=== PATIENT | male | born 1960 | race Caucasian/White ===

== ENCOUNTER 2017-02-25 15:25 | Emergency (ER) | payer BC ==
[~2017-02-25] VITALS: Ht 162.6 cm; Wt 115.7 kg
[2017-02-25 15:35] VITALS: TEMP 36.6; Ht 162.6 cm; Wt 115.7 kg
[2017-02-25] MEDS ORDERED: OPTIRAY 320 IV PRN (16:45)
[2017-02-25] MEDS ORDERED: SODIUM CHLORIDE 0.9% 500ML 500 ML IV STA (16:49)
[2017-02-25] MEDS ORDERED: TRIA75TA PO (16:58)
[2017-02-25] MEDS ORDERED: CEPH500C2 PO (16:58)
[2017-02-25] MEDS ORDERED: ALBUT/IPRATROP 3MG/0.5MG NEB 3 ML VIAL INH ONE (17:00)
--- NOTE | 2017-02-25 17:02 | EMERGENCY ROOM VISIT NOTE ---
History Report prepared by Abby: Ruthann Pratt Under the Supervision of: Dr. Jaya De Luna M.D. First contact with patient: 16:36 Chief Complaint: LEG PAIN,LEG INJURY Stated Complaint: BLOOD CLOT IN LEFT LEG History of Present Illness The patient is a 56 year old male who presents to the Emergency Room with complaints of worsening left lower leg pain for the past two days. He fell two days ago and states that when he went to stand up he heard a crack. He is not sure what cracked, but states that after this is when he started to develop left leg pain. The patient saw his PCP today and had an ultrasound as an outpatient. The ultrasound showed a DVT in the left leg. His PCP called him with the results and told him to come to the ED for further evaluation. The patient rates his current pain as an 8/10 in severity. He denies any personal history of blood clots. He does not take any blood thinners. The patient denies feeling short of breath or having any chest pain. He has been able to ambulate normally. Source of History: patient Onset: 2 days ago Position: leg (left) Symptom Intensity: 8/10 Timing: worsening Modifying Factors (Worsening): other (recent fall) Associated Symptoms: No chest pain, No SOB Review of Systems See HPI for pertinent positives & negatives. A total of 10 systems reviewed and were otherwise negative. Past Medical & Surgical Medical Problems: (1) No significant active problems Family History Cancer Heart disease Lung disease Social History Smoking Status: Current Every Day Smoker Alcohol Use: occasionally Marital Status: Housing Status: lives with significant other Occupation Status: employed Current/Historical Medications Scheduled Cephalexin Monohydrate (Keflex), 500 MG PO TID Enoxaparin (Lovenox), 120 MG SQ Q12H Triamterene & Hydrochlorothiaz (Hctz/Triamterene), 1 TAB PO DAILY Warfarin Sodium (Coumadin), 5 MG PO DAILY Allergies Coded Allergies: No Known Allergies (Unverified , 02/25/17) Physical Exam Vital Signs Date Time Temp Pulse Resp B/P (MAP) Pulse Ox O2 Delivery O2 Flow Rate FiO2 02/25/17 19:52 99 18 126/90 92 Room Air 02/25/17 19:00 101 14 155/96 95 02/25/17 17:56 94 18 94 Room Air 02/25/17 17:39 92 Room Air 02/25/17 17:39 92 Room Air 02/25/17 17:30 94 14 155/99 92 Room Air 02/25/17 16:55 95 02/25/17 15:35 36.6 98 20 139/94 90 Room Air Physical Exam GENERAL: Patient is a healthy-appearing well-nourished male. Ethan complexion. HEAD: Normocephalic atraumatic EYES: Ocular movements intact pupils equal and react to light OROPHARYNX mucous membranes are moist no exudates present no erythema or edema present NECK: Supple no nuchal rigidity CHEST: Good equal expansion LUNGS: Clear and equal to auscultation CARDIAC: Normal S1 and S2 ABDOMEN: Soft nontender no guarding BACK: No CVA tenderness EXTREMITIES: He has bilateral swelling present to the legs, slight tenderness to the left calf. NEURO: Patient is following commands and answering questions appropriately. Alert and oriented x3 Cranial Nerves 2-12 grossly intact Medical Decision & Procedures ER Provider Diagnostic Interpretation: Radiology results as stated below per my review and radiologist interpretation: CHEST CTA for PULMONARY ARTERIES CT DOSE: 695.57 mGy.cm HISTORY: DVT. Hypoxia. TECHNIQUE: Multiaxial CT images of the chest were performed following the intravenous administration of contrast to evaluate the pulmonary arteries. Maximal intensity projection images were also obtained. COMPARISON STUDY: None. FINDINGS: No evidence for an aortic dissection. The main and lobar pulmonary arteries are patent. The majority of the segmental and subsegmental pulmonary arteries are nondiagnostic due to the motion artifact. However, there is a single filling defect seen within a segmental right upper lobe pulmonary artery on image 214. This is consistent with a pulmonary embolus. The heart is mildly enlarged. No pleural or pericardial effusions. Mild biapical scarlike densities. No pneumothorax. No focal lung consolidations to suggest pneumonia. Mild respiratory motion artifact results in suboptimal evaluation of the lungs. Old, healed left-sided rib fractures. The visualized liver, spleen, and adrenal glands are unremarkable. No mediastinal or hilar lymphadenopathy. IMPRESSION: 1. A single pulmonary embolus involving a segmental branch of the right upper lobe. 2. Mild cardiomegaly. Electronically signed by: Artie Wilkinson M.D. 02/25/2017 5:36 PM Dictated Date/Time: 02/25/2017 5:30 PM LEFT TIBIA/FIBULA 2 VIEWS ROUTINE CLINICAL HISTORY: Pt c/o leg pain COMPARISON STUDY: None. FINDINGS: No acute fracture or dislocation within the left tibia or fibula. Deformity within the distal shafts of the left tibia and fibula may be due to old, healed fractures or possibly small osteochondromas. There is also exophytic/pedunculated bony abnormalities within the proximal tibia and fibula which measure up to 8.4 cm in size. These also favor osteochondromas. Mild diffuse soft tissue swelling. IMPRESSION: 1. No acute fracture or dislocation within the left tibia or fibula. 2. Exophytic/pedunculated bony abnormalities within the proximal tibia and fibula which measure up to 8.4 cm in size. These favor osteochondromas. Comparison to old studies would be helpful to assess for stability. 3. Mild deformity within the distal shaft of the left tibia and fibula which may also represent small osteochondromas versus old, healed fractures. Electronically signed by: Artie Wilkinson M.D. 02/25/2017 5:42 PM Dictated Date/Time: 02/25/2017 5:39 PM Laboratory Results 02/25/17 16:55 Red Blood Count 5.70, Mean Corpuscular Volume 100.7, Mean Corpuscular Hemoglobin 35.6, Mean Corpuscular Hemoglobin Concent 35.4, Mean Platelet Volume 12.1, Neutrophils (%) (Auto) 79.4, Lymphocytes (%) (Auto) 9.3, Monocytes (%) ( Auto) 9.0, Eosinophils (%) (Auto) 1.9, Basophils (%) (Auto) 0.2, Neutrophils # ( Auto) 10.30, Lymphocytes # (Auto) 1.20, Monocytes # (Auto) 1.17, Eosinophils # ( Auto) 0.24, Basophils # (Auto) 0.02 02/25/17 16:55 Test 02/25/17 16:55 02/25/17 17:09 02/25/17 17:42 White Blood Count 12.96 K/uL (4.8-10.8) Red Blood Count 5.70 M/uL (4.7-6.1) Hemoglobin 20.3 g/dL (14.0-18.0) Hematocrit 57.4 % (42-52) Mean Corpuscular Volume 100.7 fL (80-100) Mean Corpuscular Hemoglobin 35.6 pg (25-34) Mean Corpuscular Hemoglobin Concent 35.4 g/dl (32-36) Platelet Count 134 K/uL (130-400) Mean Platelet Volume 12.1 fL (7.4-10.4) Neutrophils (%) (Auto) 79.4 % Lymphocytes (%) (Auto) 9.3 % Monocytes (%) (Auto) 9.0 % Eosinophils (%) (Auto) 1.9 % Basophils (%) (Auto) 0.2 % Neutrophils # (Auto) 10.30 K/uL (1.4-6.5) Lymphocytes # (Auto) 1.20 K/uL (1.2-3.4) Monocytes # (Auto) 1.17 K/uL (0.11-0.59) Eosinophils # (Auto) 0.24 K/uL (0-0.5) Basophils # (Auto) 0.02 K/uL (0-0.2) RDW Standard Deviation 54.9 fL (36.4-46.3) RDW Coefficient of Variation 14.7 % (11.5-14.5) Immature Granulocyte % (Auto) 0.2 % Immature Granulocyte # (Auto) 0.03 K/uL (0.00-0.02) Red Blood Cell Morphology Unremarkable Prothrombin Time 11.3 SECONDS (9.0-12.0) Prothromb Time International Ratio 1.1 (0.9-1.1) Activated Partial Thromboplast Time 27.9 SECONDS (21.0-31.0) Partial Thromboplastin Ratio 1.1 Est Creatinine Clear Calc Drug Dose 133.9 ml/min Estimated GFR () 121.9 Estimated GFR (Non- 105.2 BUN/Creatinine Ratio 12.2 (10-20) Calcium Level 8.9 mg/dl (8.5-10.1) Total Bilirubin 1.2 mg/dl (0.2-1) Aspartate Amino Transf (AST/SGOT) 13 U/L (15-37) Alanine Aminotransferase (ALT/SGPT) 25 U/L (12-78) Alkaline Phosphatase 89 U/L (45-117) Total Protein 7.5 gm/dl (6.4-8.2) Albumin 3.4 gm/dl (3.4-5.0) Globulin 4.1 gm/dl (2.5-4.0) Albumin/Globulin Ratio 0.8 (0.9-2) Bedside Hemoglobin 21.1 g/dl (14.0-18.0) Bedside Hematocrit 62 % (42-52) Bedside Sodium 138 mEq/L (135-144) Bedside Potassium 4.3 mEq/L (3.3-5.0) Bedside Chloride 94 mEq/L (101-112) Bedside Total CO2 31 mEq/l (24-31) Anion Gap 19.0 mmol/L (16-25) Bedside Blood Urea Nitrogen 10 mg/dl (7-18) Bedside Creatinine 0.7 mg/dl (0.6-1.3) Bedside Glucose (other) 95 mg/dl (70-99) Bedside Ionized Calcium (Andrews) 1.15 mmol/l (1.12-1.32) Labs reviewed by ED physician. Medications Administered Medications (Trade) Dose Ordered Sig/Terrie Route Start Time Stop Time Status Last Admin Dose Admin Sodium Chloride 500 ml @ 999 mls/hr Q31M STAT IV 02/25/17 16:49 02/25/17 17:19 DC 02/25/17 16:49 999 MLS/HR Albuterol/ Ipratropium (Duoneb) 12 ml ONE ONCE INH 02/25/17 17:00 02/25/17 17:01 DC 02/25/17 17:55 12 ML Nicotine (Nicoderm Cq 21MG Patch) 1 patch NOW STAT TD 02/25/17 17:45 02/25/17 17:46 DC 02/25/17 19:10 1 PATCH Nicotine Polacrilex (Nicorette 2MG Gum) 1 piece NOW STAT MT 02/25/17 17:45 02/25/17 17:46 DC 02/25/17 19:10 1 PIECE Enoxaparin Sodium (Lovenox 1 Mg/Kg) 1 ea Q12H STAT SQ 02/25/17 17:57 02/25/17 17:58 DC 02/25/17 17:57 1 EA Miscellaneous (Lovenox Teaching Kit) 1 ea PRN STAT N/A 02/25/17 17:57 02/25/17 17:58 DC 02/25/17 17:57 1 EA Warfarin Sodium (Coumadin Tab) 10 mg NOW STAT PO 02/25/17 17:57 02/25/17 17:58 DC 02/25/17 19:10 10 MG Enoxaparin Sodium (Lovenox Inj) 120 mg TODAY@1930 SQ 02/25/17 19:30 02/25/17 21:12 DC 02/25/17 19:30 120 MG ECG Indication: other Rate (beats per minute): 97 Rhythm: normal sinus Findings: no acute ischemic change, no ectopy, other (old septal infarct) ED Course 163: Past medical records reviewed. The patient was evaluated in room B5. A complete history and physical examination was performed. 164: NSS 500 ml @ 999 mls/hr IV 1700: DuoNeb 12 ml INH 174: I spoke with Dr. Baker of hematology/oncology. We discussed the patient's case and he recommended other further testing. 1744: Nicorette gum 2mg 1 piece MT, Nicotine 1 patch TD 175: I reassessed the patient at this time. I discussed the results and treatment plan with the patient and his . I answered all pertaining questions that they had. Despite strenuous recommendation he is leaving AMA. He wants an appointment with Dr. Baker. I stressed that he also needed an appointment with cardiology. 1756: Coumadin tab 10 mg PO, Lovenox teaching kit, Lovenox 1 mg/kg SQ Medical Decision Differential diagnosis: Etiologies such as DVT, musculoskeletal, infection, joint effusion, trauma, lymphedema, idiopathic, CHF, as well as others were entertained. Medication Reconciliation: I attest that I have personally reviewed the patient' s current medication list. Blood Pressure Screening: Patient was found to have an elevated blood pressure and was referred to their primary care doctor for recheck and further treatment. This is a 56-year-old male who presents emergency department complaining of a positive ultrasound for DVT. Upon arrival to the emergency department and will note the patient was hypoxic and tachycardic. Therefore an IV was established. It was immediately noted the patient's hematocrit and hemoglobin are grossly elevated. He was sent for CAT scan of the chest which was concerning for PE. I also stressed the strongly suspect that the patient has had an OK in the past based on his EKG. Based on all of these findings I strongly recommended to the patient that he be admitted to the hospital however he is going to sign out AGAINST MEDICAL ADVICE. He was started on Lovenox shots as well as Coumadin the emergency department. He was also given a fluid bolus. I did discuss his case with case management to try get him in with cardiology as well as hematology. He was also referred to the Coumadin clinic. I also recommended that the patient stop smoking. The patient has demonstrated no significant defect in the decision-making capacity to make choices. The encounter had a good level of communication with language the patient can easily understand. I feel trust was present and conveyed that our action/intentions were the best interest of the patient. The patient was given all relevant information and reiterated the explained risks and benefits. The patient explained the reasoning for refusing treatment clearly. The patient possesses and expresses a set of values and goals, the ability to communicate and understand, and an ability to reason and deliberate. Despite acting emphatically, attentively and with the utmost patient's the patient declined further treatment. I offered options, negotiated, and explored every reasonable choice. I must respect the patient's autonomy and that they feel that their choices are best for them despite the associated risks of leaving without completing the evaluation. The patient was informed about the findings as listed above. All questions were answered and he was pleased with the treatment. Return instructions were outlined and the patient was discharged in stable condition. Consults Time Called: 1732 Consulting Physician: Dr. Baker Returned Call: [address] Baker of hematology/oncology. We discussed the patient's case and he recommended other further testing. Impression Primary Impression: DVT (deep venous thrombosis) Additional Impressions: Polycythemia vera Pulmonary embolus Scribe Attestation The scribe's documentation has been prepared under my direction and personally reviewed by me in its entirety. I confirm that the note above accurately reflects all work, treatment, procedures, and medical decision making performed by me. Departure Information Dispostion Against Medical Advice Prescriptions Warfarin Sodium (COUMADIN) 5 Mg Tab 5 MG PO DAILY for 14 Days, #14 TAB Prov: Jaya De Luna MD 02/25/17 Enoxaparin (Lovenox) 120 Mg/0.8 Ml Inj 120 MG SQ Q12H for 5 Days, #10 SYR Prov: Jaya De Luna MD 02/25/17 Referrals Tanya Slater C.R.N.Mary (PCP) Sadi Murphy M.D. Lieb, James V. D.O. Forms HOME CARE DOCUMENTATION FORM, IMPORTANT VISIT INFORMATION Patient Instructions Coumadin, Embolism Pulmonary, Embolism Pulmonary Dc, Hematocrit, Hemoglobin, My [facility], Tips Cardiovascular Quit Smoking Additional Instructions NEED FOLLOW UP WITH THE FOLLOWING: Coumadin Clinic Cardiology (Dr Murphy) Hematology (Dr Baker) You have been examined and treated today on an emergency basis only. This is not a substitute for, or an effort to provide, complete comprehensive medical care. It is impossible to recognize and treat all injuries or illnesses in a single emergency department visit. It is therefore important that you follow up closely with Dr Slater. Call as soon as possible for an appointment. Thank you for your time and consideration. I look forward to speaking with you again soon. Please don't hesitate to call us if you have any questions. Problem Qualifiers Primary Impression: DVT (deep venous thrombosis) DVT location: lower extremity Affected thrombotic vein of extremity: unspecified lower extremity proximal vein Chronicity: acute Laterality: left Qualified Codes: I82.4Y2 - Acute embolism and thrombosis of unspecified deep veins of left proximal lower extremity Additional Impressions: Pulmonary embolus Pulmonary embolism type: other Chronicity: acute Acute cor pulmonale presence: without acute cor pulmonale Qualified Codes: I26.99 - Other pulmonary embolism without acute cor pulmonale
[2017-02-25 17:17] LABS: BASO % 0.2 %; BASO ABS # 0.02 K/uL (0-0.2); EOS % 1.9 %; HEMATOCRIT 57.4 % (42-52); IG% 0.2 %; LYMPH % 9.3 %; MEAN CELL VOLUME 100.7 fL (80-100); MEAN CORPUSCULAR HEMOGLOBIN 35.6 pg (25-34); MEAN CORPUSCULAR HGB CONC 35.4 g/dl (32-36); MEAN PLATELET VOLUME 12.1 fL (7.4-10.4); NEUT % 79.4 %; PLATELET COUNT 134 K/uL (130-400); WHITE BLOOD COUNT 12.96 K/uL (4.8-10.8)
[2017-02-25 17:22] LABS: ISTAT CREATININE 0.7 mg/dl (0.6-1.3); ISTAT HEMOGLOBIN 21.1 g/dl (14.0-18.0); ISTAT IONIZED CALCIUM 1.15 mmol/l (1.12-1.32)
[2017-02-25 17:28] LABS: INR 1.1 (0.9-1.1); PARTIAL THROMBOPLASTIN RATIO 1.1; PROTHROMBIN TIME (PATIENT) 11.3 SECONDS (9.0-12.0)
--- NOTE | 2017-02-25 17:37 | DIAGNOSTIC IMAGING REPORT ---
CHEST CTA for PULMONARY ARTERIES CT DOSE: 695.57 mGy.cm HISTORY: DVT. Hypoxia. TECHNIQUE: Multiaxial CT images of the chest were performed following the intravenous administration of contrast to evaluate the pulmonary arteries. Maximal intensity projection images were also obtained. COMPARISON STUDY: None. FINDINGS: No evidence for an aortic dissection. The main and lobar pulmonary arteries are patent. The majority of the segmental and subsegmental pulmonary arteries are nondiagnostic due to the motion artifact. However, there is a single filling defect seen within a segmental right upper lobe pulmonary artery on image 214. This is consistent with a pulmonary embolus. The heart is mildly enlarged. No pleural or pericardial effusions. Mild biapical scarlike densities. No pneumothorax. No focal lung consolidations to suggest pneumonia. Mild respiratory motion artifact results in suboptimal evaluation of the lungs. Old, healed left-sided rib fractures. The visualized liver, spleen, and adrenal glands are unremarkable. No mediastinal or hilar lymphadenopathy. IMPRESSION: 1. A single pulmonary embolus involving a segmental branch of the right upper lobe. 2. Mild cardiomegaly. Electronically signed by: Artie Wilkinson M.D. 02/25/2017 5:36 PM Dictated Date/Time: 02/25/2017 5:30 PM
[2017-02-25 17:39] VITALS: O2SAT 92
[2017-02-25 17:43] LABS: BUN/CREATININE RATIO 12.2 (10-20); CALCIUM 8.9 mg/dl (8.5-10.1); CREATININE 0.73 mg/dl (0.60-1.40); POTASSIUM 4.3 mmol/L (3.5-5.1)
--- NOTE | 2017-02-25 17:43 | DIAGNOSTIC IMAGING REPORT ---
LEFT TIBIA/FIBULA 2 VIEWS ROUTINE CLINICAL HISTORY: Pt c/o leg pain COMPARISON STUDY: None. FINDINGS: No acute fracture or dislocation within the left tibia or fibula. Deformity within the distal shafts of the left tibia and fibula may be due to old, healed fractures or possibly small osteochondromas. There is also exophytic/pedunculated bony abnormalities within the proximal tibia and fibula which measure up to 8.4 cm in size. These also favor osteochondromas. Mild diffuse soft tissue swelling. IMPRESSION: 1. No acute fracture or dislocation within the left tibia or fibula. 2. Exophytic/pedunculated bony abnormalities within the proximal tibia and fibula which measure up to 8.4 cm in size. These favor osteochondromas. Comparison to old studies would be helpful to assess for stability. 3. Mild deformity within the distal shaft of the left tibia and fibula which may also represent small osteochondromas versus old, healed fractures. Electronically signed by: Artie Wilkinson M.D. 02/25/2017 5:42 PM Dictated Date/Time: 02/25/2017 5:39 PM
[2017-02-25 17:44] LABS: COMPLETE YES
[2017-02-25] MEDS ORDERED: NICOTINE 21 MG/24 HR TDSY TD STA (17:45)
[2017-02-25] MEDS ORDERED: NICOTINE POLACRILEX 2 MG GUM MT STA (17:45)
[2017-02-25 17:46] LABS: ALB/GLOB RATIO 0.8 (0.9-2)
[2017-02-25 17:56] VITALS: PULSE 94; O2SAT 94
[2017-02-25] MEDS ORDERED: LOVENOX TEACHING KIT STA (17:57)
[2017-02-25] MEDS ORDERED: WARFARIN SOD 5 MG TAB PO STA (17:57)
[2017-02-25] MEDS ORDERED: ENOXAPARIN 1 MG/KG SQ STA (17:57)
[2017-02-25] MEDS ORDERED: WARF5TAB90 PO ×2 (18:05→18:06)
[2017-02-25] MEDS ORDERED: ENOX120I SQ (18:05)
[2017-02-25] MEDS ORDERED: ENOXAPARIN 120 MG/0.8 ML SYR SQ SCH (19:30)
[2017-02-25 19:52] VITALS: BP 126/90; PULSE 99; O2SAT 92
[2017-03-02 15:43] LABS: ANTITHROMBINIII ACTIVITY** 87 % activity (80-120); B2 GLYCOPROTEIN IGA <9 SAU (<=20); B2 GLYCOPROTEIN IGG <9 SGU (<=20); B2 GLYCOPROTEIN IGM <9 SMU (<=20); LUPUS ANTICOAGULANT** TC36573X Negative (Negative); PROTEIN C ACTIVITY** TC 1777X 96 % (70-180); PROTEIN S ACT(FUNCT)**1779X 96 % (70-150)
[2017-03-12] MEDS ORDERED: ASPI1CHW12 PO (09:31)
[2017-03-12] MEDS ORDERED: NICO14DI31 TD (11:36)
[2017-03-26] MEDS ORDERED: WARF4TAB PO ×2 (09:30)
[2017-08-07] MEDS ORDERED: ASPI-428 PO (07:49)
== END 2017-02-25 20:00 | disposition left against medical advice (07) ==
LOC: C.EDB 15:27
DX: I82.4Z2 Acute embolism and thrombosis of unspecified deep veins of left distal lower extremity (principal); D45 Polycythemia vera; I26.99 Other pulmonary embolism without acute cor pulmonale; Z91.19 Patient's noncompliance with other medical treatment and regimen; F17.200 Nicotine dependence, unspecified, uncomplicated; Z79.01 Long term (current) use of anticoagulants; Z79.899 Other long term (current) drug therapy; Z80.9 Family history of malignant neoplasm, unspecified; Z82.49 Family history of ischemic heart disease and other diseases of the circulatory system

== ENCOUNTER → 2017-02-25 | Outpatient (CLI) | payer BC ==
[~2017-02-25] MED LIST: ASPI-428 PO; ASPI1CHW12 PO; CEPH500C2 PO; ENOX120I SQ; NICO14DI31 TD; TRIA75TA PO; WARF4TAB PO; WARF5TAB90 PO
[2017-02-25 13:38] LABS: INR 1.1 (0.9-1.1); PARTIAL THROMBOPLASTIN RATIO 1.1; PROTHROMBIN TIME (PATIENT) 11.3 SECONDS (9.0-12.0)
[2017-02-25 13:46] LABS: HEMATOCRIT 59.6 % (42-52); MEAN CELL VOLUME 101.7 fL (80-100); MEAN CORPUSCULAR HEMOGLOBIN 35.7 pg (25-34); MEAN CORPUSCULAR HGB CONC 35.1 g/dl (32-36); MEAN PLATELET VOLUME 13.2 fL (7.4-10.4); PLATELET COUNT 119 K/uL (130-400); RED BLOOD COUNT 5.86 M/uL (4.7-6.1); WHITE BLOOD COUNT 10.87 K/uL (4.8-10.8)
[2017-02-25 14:19] LABS: BLOOD UREA NITROGEN 10 mg/dl (7-18); BUN/CREATININE RATIO 14.1 (10-20); CARBON DIOXIDE 33 mmol/L (21-32); CHLORIDE 99 mmol/L (98-107); CREATININE 0.73 mg/dl (0.60-1.40); GLUCOSE 97 mg/dl (70-99); POTASSIUM 4.7 mmol/L (3.5-5.1); SODIUM 138 mmol/L (136-145)
== END | disposition home or self-care (01) ==
LOC: C.LABPVFM 10:52
PROVIDERS: ATTEND Family Medicine
DX: R60.9 Edema, unspecified (principal); L03.90 Cellulitis, unspecified

== ENCOUNTER → 2017-02-25 | Outpatient (CLI) | payer BC ==
--- NOTE | 2017-02-25 14:48 | DIAGNOSTIC IMAGING REPORT ---
ULTRASOUND BILATERAL LOWER EXTREMITY VENOUS CLINICAL HISTORY: Lower extremity pain and swelling. COMPARISON STUDY: No priors. TECHNIQUE: Real-time, grayscale, and color Doppler sonography of the deep veins of the right and left lower extremity was performed from the inguinal crease to the calf. Compression and augmentation were utilized. FINDINGS: Right lower extremity: There is no sonographic evidence of deep venous thrombosis identified in the right lower extremity. The common femoral, superficial femoral, and popliteal veins are patent and normally compressible. The greater saphenous vein and the profunda femoris vein at the junction with the common femoral vein are clear. The visualized calf veins are patent. Left lower extremity: There is age indeterminant nonocclusive deep venous thrombosis is seen within the left popliteal vein. The common femoral and superficial femoral veins are patent and normally compressible. The greater saphenous vein and the profunda femoris vein at the junction with the common femoral vein are clear. The visualized calf veins are patent. IMPRESSION: 1. There is age indeterminant nonocclusive deep venous thrombosis seen within the left popliteal vein. 2. The remaining deep veins of the left lower extremity are clear. 3. There is no sonographic evidence of deep venous thrombosis identified in the right lower extremity. Electronically signed by: Regulo Platt M.D. 02/25/2017 2:47 PM Dictated Date/Time: 02/25/2017 2:42 PM
--- NOTE | 2017-02-25 15:28 | DIAGNOSTIC IMAGING REPORT ---
ADDENDUM Addendum: TECHNIQUE: Real-time lujan scale imaging, was supplemented with real-time color-flow imaging. In addition, spectral analysis was performed. Color flow and spectral images were unremarkable. IMPRESSION: No change in the report. No IVC or iliac vein thrombus was visualized. Electronically signed by: Joey Stringer M.D. 03/19/2017 1:57 PM Dictated Date/Time: 03/19/2017 1:55 PM ORIGINAL REPORT INFERIOR VENA CAVA AND ILIAC VENOUS DOPPLER ULTRASOUND CLINICAL HISTORY: CELLULITIS,EDEMA,LEG PAIN, COMPARISON STUDY: No previous studies for comparison. FINDINGS: The study was limited due to the patient's body habitus. No thrombus was visualized within either iliac vein. No IVC thrombus was demonstrated. IMPRESSION: Technically limited study due to the patient's body habitus. No IVC or iliac vein thrombus was visualized Electronically signed by: Joey Stringer M.D. 02/25/2017 3:26 PM Dictated Date/Time: 02/25/2017 3:24 PM
== END | disposition home or self-care (01) ==
LOC: C.ULTR 13:15
PROVIDERS: ATTEND Family Medicine
DX: R60.9 Edema, unspecified (principal)

== ENCOUNTER → 2017-03-04 | Outpatient (CLI) | payer BC ==
[~2017-03-04] MED LIST changes: -ASPI-428 PO; -ASPI1CHW12 PO; -ENOX120I SQ; -NICO14DI31 TD; -WARF4TAB PO
[2017-03-04 17:48] LABS: INR 3.9 (0.9-1.1); PROTHROMBIN TIME (PATIENT) 44.7 SECONDS (9.0-12.0)
== END | disposition home or self-care (01) ==
LOC: C.LABPVFM 14:20
PROVIDERS: ATTEND Family Medicine
DX: M79.606 Pain in leg, unspecified (principal); I82.409 Acute embolism and thrombosis of unspecified deep veins of unspecified lower extremity; I26.99 Other pulmonary embolism without acute cor pulmonale

== ENCOUNTER → 2017-03-08 | Outpatient (CLI) | payer BC ==
[~2017-03-08] MED LIST changes: +ASPI1CHW12 PO; +NICO14DI31 TD; +WARF4TAB PO
[2017-03-08 13:24] LABS: INR 2.6 (0.9-1.1); PROTHROMBIN TIME (PATIENT) 29.4 SECONDS (9.0-12.0)
== END | disposition home or self-care (01) ==
LOC: C.LABPVFM 08:31
PROVIDERS: ATTEND Family Medicine
DX: I26.99 Other pulmonary embolism without acute cor pulmonale (principal)

== ENCOUNTER → 2017-06-02 | Outpatient (CLI) | payer BC ==
[~2017-06-02] MED LIST changes: -CEPH500C2 PO; -NICO14DI31 TD; -WARF5TAB90 PO
--- NOTE | 2017-06-02 11:01 | DIAGNOSTIC IMAGING REPORT ---
CHEST 2 VIEWS ROUTINE CLINICAL HISTORY: 56 years-old Male presenting with exertional shortness of breath, hypoxia. TECHNIQUE: PA and lateral views of the chest were obtained. COMPARISON: Chest CT from 02/25/2017. FINDINGS: Cardiomediastinal silhouette mildly enlarged. Apparent opacity along the lingula may represent lipomatous hypertrophy. Lipomatous hypertrophy also likely accounts for decreased radiolucency of the anterior mediastinum on lateral view. Diffuse prominent reticular lung markings, which may be related to technique. No convincing evidence of a focal pulmonary opacity. No large effusion or pneumothorax. Old fracture deformity of a anterior left rib. Upper abdomen normal. IMPRESSION: 1. Cardiomegaly. No other convincing evidence of acute cardiopulmonary disease. Electronically signed by: Jabari Butcher M.D. 06/02/2017 11:00 AM Dictated Date/Time: 06/02/2017 10:56 AM
== END | disposition home or self-care (01) ==
LOC: C.RAD1850 10:20
PROVIDERS: ATTEND Physician Assistant
DX: R06.02 Shortness of breath (principal); R09.02 Hypoxemia

== ENCOUNTER 2023-10-02 00:23 | Inpatient (IN) ==
[2023-10-02] MEDS ORDERED: dilTIAZem HCl 5 MG/ML 5 ML VIAL IV STA ×2 (00:41→01:02)
[2023-10-02] MEDS ORDERED: STAT IV Infusion **Titration per Protocol STA ×2 (00:42→05:18)
[2023-10-02] MEDS ORDERED: dilTIAZem HCL 125 MG in DEXTROSE 5% 100 ML IV SCH (00:45)
[2023-10-02] MEDS ORDERED: SODIUM CHLORIDE 0.9% 1,000 ML IV SCH (00:45)
[2023-10-02] MEDS ORDERED: SODIUM CHLORIDE 0.9% 250 ML IV ONE (01:02)
[2023-10-02] MEDS: POTASSIUM CHLORIDE / WTR 10 MEQ/100 ML PLCT IV SCH ×14 (01:18→22:56)
[2023-10-02 01:22] LABS: iSTAT Creatinine 0.8 mg/dl (0.6-1.3); iSTAT Hemoglobin 11.6 g/dl (14.0-18.0); iSTAT Ionized Calcium 1.01 mmol/l (1.12-1.32); iSTAT Potassium 2.8 mmol/L (3.3-5.0)
[2023-10-02] MEDS ORDERED: VANCOMYCIN HCL 2,000 MG in SODIUM CHLORIDE 0.9% 500 ML IV ONE (01:32)
[2023-10-02] MEDS ORDERED: VANCOMYCIN CONSULT ACTIVE PRN ×2 (01:32→05:18)
[2023-10-02] MEDS ORDERED: PIPERACILLIN/TAZOBACTAM 4.5 GM/100 ML BAG IV ONE (01:32)
[2023-10-02] MEDS ORDERED: SODIUM CHLORIDE 0.9% 500 ML IV ONE (01:35)
--- NOTE | 2023-10-02 01:42 | CT Scan Report ---
Exam(s): CT ABDOMEN + PELVIS Without Contrast EXAM: CT Abdomen and Pelvis Without Intravenous Contrast CLINICAL HISTORY: Reason for exam: constipation, abd distension, gen pain. TECHNIQUE: Axial computed tomography images of the abdomen and pelvis without intravenous contrast. CTDI is 27.15 mGy and DLP is 1379.6 mGy-cm. Automated exposure control was utilized for the study. A dose lowering technique was utilized adhering to the principles of ALARA. COMPARISON: No relevant prior studies available. FINDINGS: Lung bases: Unremarkable. No mass. No consolidation. ABDOMEN: Liver: Liver is markedly heterogeneous with findings concerning for innumerable low density masses on this noncontrast study. Follow-up evaluation is warranted. Gallbladder and bile ducts: Unremarkable. No calcified stones. No ductal dilation. Pancreas: Unremarkable. No ductal dilation. Spleen: Unremarkable. No splenomegaly. Adrenals: Severe bilateral adrenal hyperplasia. Kidneys and ureters: Unremarkable. No obstructing stones. No hydronephrosis. Stomach and bowel: Unremarkable. No obstruction. No mucosal thickening. PELVIS: Appendix: No findings to suggest acute appendicitis. Bladder: Unremarkable. No stones. Reproductive: Unremarkable as visualized. ABDOMEN and PELVIS: Intraperitoneal space: There is free air around the sigmoid colon concerning for a colonic perforation. No significant fluid collection. Bones/joints: Moderate T12 compression fracture which may be acute.. No dislocation. Soft tissues: Unremarkable. Vasculature: Unremarkable. No abdominal aortic aneurysm. Lymph nodes: Unremarkable. No enlarged lymph nodes. IMPRESSION: 1. Free air around the sigmoid colon concerning for a colonic perforation. 2. Liver is markedly heterogeneous with findings concerning for innumerable low density masses on this noncontrast study. Follow-up evaluation is warranted. 3. Moderate T12 compression fracture which may be acute. 4. Severe bilateral adrenal hyperplasia. Communications: Call Doctor Pneumoperitoneum, new or unexpected Electronically signed by: Aristeo Clark M.D. 10/02/23 01:42 AM
[2023-10-02 01:44] LABS: Hematocrit (blood only) 35.1 % (42.0-52.0); Hemoglobin 11.9 g/dl (14.0-18.0); Mean Corpuscular Hemoglobin 34.1 pg (25.0-34.0); Mean Corpuscular Hgb Conc 33.9 g/dL (32.0-36.0); Mean Corpuscular Volume 100.6 fL (80.0-100.0); Mean Platelet Volume 13.4 fL (9.4-12.4); Nucleated RBC # (auto) 0.06 K/uL (0.00-0.12); Nucleated RBC % (auto) 0.9 %; Platelet Count 86 K/uL (130-400); RDW Coefficient of Variation 14.6 % (11.5-14.5); RDW Standard Deviation 52.4 fL (36.4-46.3); Red Blood Count 3.49 M/uL (4.70-6.10)
[2023-10-02 01:45] LABS: Basophils # (auto) 0.01 K/uL (0.00-0.20); Basophils % (auto) 0.2 %; Immature Granulocytes % (auto) 1.6 %; Lymphocytes # (auto) 0.16 K/uL (1.20-3.40); Lymphocytes % (auto) 2.5 %; Monocytes # (auto) 0.27 K/uL (0.11-0.59); Monocytes % (auto) 4.2 %; Neutrophils # (auto) 5.86 K/uL (1.40-6.50); Neutrophils % (auto) 91.5 %; Platelet Estimate Decreased (Normal); Polychromasia 1+
[2023-10-02 01:59] LABS: Troponin I High Sensitivity 141.9 pg/ml (0-20)
[2023-10-02 02:01] LABS: Albumin Level 2.8 gm/dl (3.4-5.0); BUN Creatinine Ratio 31.4 (10-20); Bilirubin,Total 1.4 mg/dl (0.2-1.0); Calcium 8.1 mg/dl (8.6-10.3); Creatinine Clr Calc Pharmacy 119.6 ml/min; Est GFR (African American) 118.1 ml/min; Est GFR (Non-African American) 101.9 ml/min; Globulin 2.8 gm/dl (2.5-4.0); Thyroid Stimulating Hormone 0.824 uIu/ml (0.300-4.500); Total Protein 5.6 gm/dl (6.0-8.3)
[2023-10-02 02:11] LABS: Magnesium 1.7 mg/dl (1.7-2.4); Potassium 2.8 mmol/L (3.5-5.1)
[2023-10-02] MEDS ORDERED: SODIUM CHLORIDE 0.9% 250 ML IV PRN (02:20)
--- NOTE | 2023-10-02 02:20 | Emergency Department Note ---
Impression & Plan Perforated bowel, Atrial fibrillation with rapid ventricular response, Elevated troponin, Hyperglycemia, Hypokalemia, Liver masses, Lung mass ED Provider Note NAME: MISTI BOX AGE: 63 SEX: Male INFORMANT: Patient and ED PROVIDER(S): Cj Moreno MD CHIEF COMPLAINT: Abdominal pain PLAN: Disposition: Admitted Outpatient prescription management: none Referral: none MEDICAL DECISION MAKING: Patient presented because of abdominal pain and constipation. He was feeling weak. He also has noted lower extremity swelling. A workup was initiated. Patient was found to be extremely tachycardic with rapid atrial fibrillation up to 190 bpm. IVs were established bilaterally. Patient was found to have a potassium of 2.8 on i-STAT. IV potassium and IV Cardizem initiated. Patient received 2 Cardizem boluses as well as a Cardizem drip. He was also started on fluids. Given the amount of significant edema and the patient had on physical examination concerns for CHF were present. Patient was given fluid boluses gently and reassessed. Respiratory status was stable. Heart rate did improve although was still on the tachycardic side. Lactate was normal. Patient was mildly anemic. CT scan of the abdomen pelvis was performed as well as chest x- ray. Chest x-ray does redemonstrate the patient's lung masses. Mild cardiomegaly and cephalization present. Improved left base noted compared to prior. The patient underwent CT imaging and was found to have a bowel perforation. Radiology and I discussed this, Dr. Clark from [facility] and he thought it was related to the patient's constipation and a perforated colon. Emergent consultation was made with general surgery. Discussed the case with Nikko Elias PA-C who is working with Dr. Stevens. He did evaluate the patient promptly in the emergency department. Also consultation was made with Dr. Angel Chang of the [facility] service. Patient was evaluated in the ER for further management. Patient was taken emergently to the OR for emergency surgery. Care/management discussed with: manager consumer. Level of care consideration(s): After review of the information above and other included data, I feel the patient requires escalation of care to admission. Triage Nursing notes: reviewed and agree them. Vital Signs: reviewed and remarkable for tachycardia Additional History obtained from: Pt's regarding his decline and complaints in recent days. Chronic Medical/Social Conditions affecting care: Lung cancer Prior/ Outside/ External records reviewed: none Differential Diagnosis: Appendicitis, testicular torsion, infections, diverticulitis, UTI, obstruction, mesenteric ischemia, aortic pathology, inflammatory bowel disease, renal colic, PUD, pancreatitis, biliary pathology, hernia, volvulus, constipation, perforated viscous, as well as other pathologies. Diagnostics, independently interpreted by me: EC Lead Afib with RVR at 190, NSIVCD, Lateral and anterior ST abn, LVH Cardiac Monitoring: Cardiac monitoring ordered by me: The patient was placed on continuous cardiac monitoring and observed. It revealed atrial fibrillation at 157 BPM Medical decision rules: none Imaging studies: CT of abd/pelvis reveals moderate stool and free air concerning for perforated viscous CXR with mild chf and lung masses. HPI: 63 year old Male arrives for evaluation of abdominal pain. Patient notes escalating abdominal pain for the last 2 days. He is also noted constipation and generalized weakness. Patient is been straining to have a bowel movement. Patient has had decreased appetite. notes that he had increased pain with attempting eating over the last day or so. Patient also has been dealing with significant lower extremity edema. Patient was referred to oncology as he was found to have liver and lung masses concerning for cancer. EMS was summoned. Patient was found to be extremely tachycardic on ED arrival. He denied any shortness of breath or chest pain. Pt denies LOC, headache, fevers, chills, diaphoresis, visual changes, neck pain, chest pain, breathing difficulties, back pain, melena, hematochezia, urinary symptoms, numbness, rash, or other complaints. PAST MEDICAL HISTORY: See Below, DVT, PE, lung mass, liver mass PAST SURGICAL HISTORY: See Below, SOCIAL HISTORY: , see below HOME MEDICATIONS: See Below ALLERGIES: See Below VITALS: See Below PHYSICAL EXAMINATION: GENERAL: Awake, alert, uncomfortable-appearing, in no distress HENT: Normocephalic, atraumatic. Oropharynx unremarkable. EYES: Normal conjunctiva. Sclera non-icteric. NECK: Inspection normal. Non-tender. Supple. No nuchal rigidity. FROM. No masses. RESPIRATORY: Clear to auscultation. No wheezes. No rales. Normal respiratory effort. CARDIAC: Extremely tachycardic rate. Irregular rhythm. No murmurs. 3+ lower extremity edema present. Chronic venous discoloration with scattered ecchymosis present. GI: Soft, distended. Left-sided tenderness to palpation. No rebound or guarding. No masses. RECTAL: Deferred. MUSCULOSKELETAL: Atraumatic. Chest examination reveals no tenderness. The back is symmetrical on inspection without obvious abnormality. There is no CVA tenderness to palpation. No joint edema. LOWER EXTREMITIES: Calves are equal size bilaterally and non-tender. 3+ edema. Patient's feet are weeping. NEURO: Normal sensorium. No sensory or motor deficits noted. SKIN: No rash or jaundice noted. PROCEDURES: none CRITICAL CARE: I have personally spent 80 minutes of critical care time in the direct management of this patient. This includes bedside care, interpretation of diagnostic studies, and testing, discussion with consultants, patient, and family members, and other required patient management activities. These minutes are in excess of all separately billable procedures. OBSERVATION NOTE: none Past Med/Surg History Medical History (Updated 10/05/23 @ 11:40 by Iván Castillo MD) Small cell carcinoma Acute hypoxemic respiratory failure Pulmonary edema Hypokalemia Lung mass Colon perforation Liver masses Hyperglycemia Elevated troponin Atrial fibrillation with rapid ventricular response Obesity Polycythemia Sleep apnea Pulmonary embolism on right Surgical History History of liver biopsy (10/02/23) Exploratory laparotomy, liver biopsy. - Isacc Stevens, Hx of knee surgery Family History Mother Cancer Father Myocardial infarction Denies family history of Ovarian cancer Prostate cancer Breast cancer Colorectal cancer Social History Smoking Status: Former smoker Tobacco Type: Cigarettes Cigarettes Per Day: 1 ppd; Hx Alcohol Use: Yes Alcohol type: beer Hx Substance Use: No Preferred Language: [place] Communication Ability: Impaired Supportive Employment Case Manager Required: No Beliefs That Will Affect Care: None marital status: Current Living Situation: Spouse Current Living Situation Comment: home with current occupational status: employed Other Information That Helps Us Care for You: No Feels Safe at Home: Yes caffeine: Yes Dental Care, Regularly: Yes Physical Activity Frequency: Does not Exercise Seatbelt Use: always Sunscreen Use: No Assistive Devices: CPAP, Oxygen - Continuous and Walker Allergies Allergies Allergy/AdvReac Type Severity Reaction Status Date / Time No Known Allergies Allergy Unverified 09/05/23 08:10 Home Meds Home Medications Medication Instructions Recorded Confirmed multivitamin 1 tab PO DAILY 09/29/19 10/02/23 magnesium 250 mg tablet 250 mg PO DAILY 10/14/19 10/02/23 Vitamin D3 1 tab PO DAILY 08/30/23 10/02/23 naproxen sodium 220 mg tablet 220 mg PO DIRECTED PRN Pain 08/30/23 10/02/23 (Aleve) potassium phosphate, monobasic 500 1,000 mg PO DAILY 09/04/23 10/02/23 mg soluble tablet tramadol 50 mg tablet 50 - 100 mg PO Q6H PRN pain 10/02/23 10/02/23 Previous Rx's Medication Instructions Recorded potassium chloride 20 mEq 20 meq PO DAILY #30 tabs 09/05/23 tablet,extended release Results & Data (ED) Vital Signs Vital Signs - 24 hr 10/02/23 00:26 10/02/23 00:27 Temperature 36.4 C L Temperature Source Oral Pulse Rate 157 H 183 H Respiratory Rate 22 Respiratory Effort / Characteristics Non-Labored Respiratory Depth Normal Respiratory Pattern Regular Blood Pressure 144/80 H Blood Pressure Mean 101 Pulse Oximetry 97 Oxygen Delivery Method Nasal Cannula Oxygen Flow Rate 6 Sepsis Recent Fever Within 48 Hours No Sepsis New/Unexplained Change in Mental Status No Sepsis Action Taken by Nursing Physician Notified Laboratory Data 10/05/23 04:39 10/05/23 04:39 Lab Results 10/02/23 10/02/23 10/02/23 Range/Units 00:35 00:45 01:34 WBC 6.40 (4.8-10.8) K/ul RBC 3.49 L (4.70-6.10) M/uL Hgb 11.9 L (14.0-18.0) g/dl POC Hgb 11.6 L (14.0-18.0) g/dl Hct 35.1 L (42.0-52.0) % POC Hct 34 L (42-52) % MCV 100.6 H (80.0-100.0) fL MCH 34.1 H (25.0-34.0) pg MCHC 33.9 (32.0-36.0) g/dL RDW Std Deviation 52.4 H (36.4-46.3) fL RDW Coeff of Chiara 14.6 H (11.5-14.5) % Plt Count 86 L (130-400) K/uL MPV 13.4 H (9.4-12.4) fL Immature Gran % (Auto) 1.6 % Neut % (Auto) 91.5 % Lymph % (Auto) 2.5 % [place] % (Auto) 4.2 % Eos % (Auto) 0.0 % Baso % (Auto) 0.2 % Neut # (Auto) 5.86 (1.40-6.50) K/uL Lymph # (Auto) 0.16 L (1.20-3.40) K/uL [place] # (Auto) 0.27 (0.11-0.59) K/uL Eos # (Auto) 0.00 (0.00-0.50) K/uL Baso # (Auto) 0.01 (0.00-0.20) K/uL Immature Gran # (Auto) 0.10 (0.01-0.20) K/uL Absolute Nucleated RBC 0.06 (0.00-0.12) K/uL Nucleated RBC % (auto) 0.9 % Platelet Estimate Decreased L (Normal) Polychromasia 1+ PT 11.7 (9.0-12.0) Seconds INR 1.1 (0.9-1.1) POC Sodium 138 (135-144) mmol/L Sodium 141 (136-145) mmol/L POC Potassium 2.8 L (3.3-5.0) mmol/L Potassium 2.8 L (3.5-5.1) mmol/L POC Chloride 89 L (101-112) mmol/L Chloride 93 L (98-107) mmol/L Carbon Dioxide 36 H (21-32) mmol/L POC Total CO2 36 H (24-31) mmol/L Anion Gap 12 H (3-11) POC Anion Gap 17.0 (16-25) mmol/L POC BUN 20 H (7-18) mg/dl BUN 22 (6-23) mg/dl Creatinine 0.70 (0.6-1.4) mg/dl POC Creatinine 0.8 (0.6-1.3) mg/dl Est Cr Clr Drug Dosing 119.6 ml/min Est GFR ( Amer) 118.1 ml/min Est GFR (Non-Af Amer) 101.9 ml/min BUN/Creatinine Ratio 31.4 H (10-20) Glucose 311 H* (70-99(Fasting)) mg/dl POC Glucose (other) 315 H (70-99) mg/dl Lactate (0.4-2.0) mmol/L Calcium 8.1 L (8.6-10.3) mg/dl POC Ioniz Calcium Andrews 1.01 L (1.12-1.32) mmol/l Magnesium 1.7 (1.7-2.4) mg/dl Total Bilirubin 1.4 H (0.2-1.0) mg/dl AST 33 (13-39) U/L ALT 62 H (7-52) U/L Alkaline Phosphatase 167 H (34-104) U/L Troponin I High Sens 141.9 H* (0-20) pg/ml B-Natriuretic Peptide 270 H (0-100) pg/ml Total Protein 5.6 L (6.0-8.3) gm/dl Albumin 2.8 L (3.4-5.0) gm/dl Globulin 2.8 (2.5-4.0) gm/dl Albumin/Globulin Ratio 1.0 (0.9-2) TSH 0.824 (0.300-4.500) uIu/ml Blood Type Antibody Screen Crossmatch 10/02/23 10/02/23 Range/Units 01:37 02:34 WBC (4.8-10.8) K/ul RBC (4.70-6.10) M/uL Hgb (14.0-18.0) g/dl POC Hgb (14.0-18.0) g/dl Hct (42.0-52.0) % POC Hct (42-52) % MCV (80.0-100.0) fL MCH (25.0-34.0) pg MCHC (32.0-36.0) g/dL RDW Std Deviation (36.4-46.3) fL RDW Coeff of Chiara (11.5-14.5) % Plt Count (130-400) K/uL MPV (9.4-12.4) fL Immature Gran % (Auto) % Neut % (Auto) % Lymph % (Auto) % [place] % (Auto) % Eos % (Auto) % Baso % (Auto) % Neut # (Auto) (1.40-6.50) K/uL Lymph # (Auto) (1.20-3.40) K/uL [place] # (Auto) (0.11-0.59) K/uL Eos # (Auto) (0.00-0.50) K/uL Baso # (Auto) (0.00-0.20) K/uL Immature Gran # (Auto) (0.01-0.20) K/uL Absolute Nucleated RBC (0.00-0.12) K/uL Nucleated RBC % (auto) % Platelet Estimate (Normal) Polychromasia PT (9.0-12.0) Seconds INR (0.9-1.1) POC Sodium (135-144) mmol/L Sodium (136-145) mmol/L POC Potassium (3.3-5.0) mmol/L Potassium (3.5-5.1) mmol/L POC Chloride (101-112) mmol/L Chloride (98-107) mmol/L Carbon Dioxide (21-32) mmol/L POC Total CO2 (24-31) mmol/L Anion Gap (3-11) POC Anion Gap (16-25) mmol/L POC BUN (7-18) mg/dl BUN (6-23) mg/dl Creatinine (0.6-1.4) mg/dl POC Creatinine (0.6-1.3) mg/dl Est Cr Clr Drug Dosing ml/min Est GFR ( Amer) ml/min Est GFR (Non-Af Amer) ml/min BUN/Creatinine Ratio (10-20) Glucose (70-99(Fasting)) mg/dl POC Glucose (other) (70-99) mg/dl Lactate 1.7 (0.4-2.0) mmol/L Calcium (8.6-10.3) mg/dl POC Ioniz Calcium Andrews (1.12-1.32) mmol/l Magnesium (1.7-2.4) mg/dl Total Bilirubin (0.2-1.0) mg/dl AST (13-39) U/L ALT (7-52) U/L Alkaline Phosphatase (34-104) U/L Troponin I High Sens 131.2 H* (0-20) pg/ml B-Natriuretic Peptide (0-100) pg/ml Total Protein (6.0-8.3) gm/dl Albumin (3.4-5.0) gm/dl Globulin (2.5-4.0) gm/dl Albumin/Globulin Ratio (0.9-2) TSH (0.300-4.500) uIu/ml Blood Type A Positive Antibody Screen NEGATIVE Crossmatch See Detail Administered Medications Fentanyl Citrate (Fentanyl Bolus From Bag) 50 mcg IV Q60M PRN PRN Reason: Pain or Agitation Stop: 10/16/23 05:17 Last Admin: 10/04/23 16:39 Dose: 50 mcg Documented By: BELEM Co-signed By: REJI Admin: 10/04/23 11:07 Dose: 50 mcg Documented By: BELEM Co-signed By: SHANKAR Admin: 10/04/23 09:19 Dose: 50 mcg Documented By: BELEM Co-signed By: GWENDOLYN Admin: 10/02/23 05:30 Dose: 50 mcg Documented By: POP Co-signed By: DEYVI Pantoprazole Sodium 40 mg/ (Syringe) 10 mls @ 5 mls/min IV DAILY@1100 HANNA Stop: 11/01/23 10:59 Last Admin: 10/05/23 11:23 Dose: 5 mls/min Documented By: Admin: 10/04/23 10:40 Dose: 5 mls/min Documented By: Admin: 10/03/23 11:55 Dose: 5 mls/min Documented By: Admin: 10/02/23 11:06 Dose: 5 mls/min Documented By: EMERSON Piperacillin Sod/Tazobactam (Sod 4.5 gm/ Dextrose) 100 mls @ 25 mls/hr IV Q8H HANNA; Protocol Stop: 10/12/23 07:59 Last Infusion: 10/05/23 12:39 Dose: Infused Documented By: Admin: 10/05/23 08:50 Dose: 25 mls/hr Documented By: CCDorinda Co-signed By: BELEM Infusion: 10/05/23 03:49 Dose: Infused Documented By: Admin: 10/04/23 23:49 Dose: 25 mls/hr Documented By: Infusion: 10/04/23 20:13 Dose: Infused Documented By: Admin: 10/04/23 16:02 Dose: 25 mls/hr Documented By: Infusion: 10/04/23 11:28 Dose: Infused Documented By: Admin: 10/04/23 07:59 Dose: 25 mls/hr Documented By: Infusion: 10/04/23 05:56 Dose: Infused Documented By: Admin: 10/03/23 23:52 Dose: 25 mls/hr Documented By: Infusion: 10/03/23 20:25 Dose: Infused Documented By: Admin: 10/03/23 16:02 Dose: 25 mls/hr Documented By: Infusion: 10/03/23 11:58 Dose: Infused Documented By: Admin: 10/03/23 07:47 Dose: 25 mls/hr Documented By: Infusion: 10/03/23 04:50 Dose: Infused Documented By: Admin: 10/03/23 00:20 Dose: 25 mls/hr Documented By: Infusion: 10/02/23 20:14 Dose: Infused Documented By: Admin: 10/02/23 16:10 Dose: 25 mls/hr Documented By: Infusion: 10/02/23 12:34 Dose: Infused Documented By: Admin: 10/02/23 08:33 Dose: 25 mls/hr Documented By: WS Propofol (Diprivan) 1,000 mg in 100 mls @ 27.513 mls/hr IV .Q3H39M [facility]; Protocol Stop: 10/08/23 05:17 Last Titration: 10/05/23 15:59 Dose: 45 mcg/kg/min, 27.5 mls/hr Documented By: Admin: 10/05/23 13:38 Dose: 50 mcg/kg/min, 30.6 mls/hr Documented By: GPF Co-signed By: LAF Titration: 10/05/23 13:04 Dose: Infused Documented By: GPF Co-signed By: LAF Titration: 10/05/23 10:02 Dose: 35 mcg/kg/min, 21.4 mls/hr Documented By: Titration: 10/05/23 09:58 Dose: 25 mcg/kg/min, 15.3 mls/hr Documented By: Titration: 10/05/23 09:51 Dose: 10 mcg/kg/min, 6.1 mls/hr Documented By: Titration: 10/05/23 09:22 Dose: 20 mcg/kg/min, 12.2 mls/hr Documented By: Titration: 10/05/23 09:02 Dose: 40 mcg/kg/min, 24.5 mls/hr Documented By: Admin: 10/05/23 08:07 Dose: 35 mcg/kg/min, 21.4 mls/hr Documented By: GPF Co-signed By: AJB Titration: 10/05/23 08:07 Dose: Infused Documented By: GPF Co-signed By: AJB Titration: 10/05/23 07:22 Dose: 35 mcg/kg/min, 21.4 mls/hr Documented By: Titration: 10/05/23 06:55 Dose: 40 mcg/kg/min, 24.5 mls/hr Documented By: GPF Co-signed By: CLC Titration: 10/05/23 06:34 Dose: 40 mcg/kg/min, 24.5 mls/hr Documented By: Titration: 10/05/23 06:12 Dose: 50 mcg/kg/min, 30.6 mls/hr Documented By: Titration: 10/05/23 06:00 Dose: 45 mcg/kg/min, 27.5 mls/hr Documented By: Admin: 10/05/23 05:26 Dose: 40 mcg/kg/min, 24.5 mls/hr Documented By: TP Co-signed By: CLC Titration: 10/05/23 05:26 Dose: Infused Documented By: TP Co-signed By: CLC Admin: 10/05/23 02:40 Dose: 40 mcg/kg/min, 24.5 mls/hr Documented By: CLC Co-signed By: TP Titration: 10/05/23 02:26 Dose: Infused Documented By: CLC Co-signed By: TP Admin: 10/04/23 22:21 Dose: 40 mcg/kg/min, 24.5 mls/hr Documented By: CLC Co-signed By: TP Titration: 10/04/23 22:00 Dose: Infused Documented By: CLC Co-signed By: TP Titration: 10/04/23 18:58 Dose: 40 mcg/kg/min, 24.5 mls/hr Documented By: CLC Co-signed By: GPF Admin: 10/04/23 17:55 Dose: 40 mcg/kg/min, 24.5 mls/hr Documented By: GPF Co-signed By: KJM Titration: 10/04/23 17:38 Dose: Infused Documented By: GPF Co-signed By: KJM Titration: 10/04/23 16:28 Dose: 40 mcg/kg/min, 24.5 mls/hr Documented By: Titration: 10/04/23 16:27 Dose: 400 mcg/kg/min, 244.6 mls/hr Documented By: Titration: 10/04/23 13:18 Dose: Infused Documented By: GPF Co-signed By: AJB Admin: 10/04/23 13:18 Dose: 35 mcg/kg/min, 21.4 mls/hr Documented By: GPF Co-signed By: AJB Titration: 10/04/23 10:29 Dose: 35 mcg/kg/min, 21.4 mls/hr Documented By: Admin: 10/04/23 09:18 Dose: 40 mcg/kg/min, 24.5 mls/hr Documented By: GPF Co-signed By: KJL Titration: 10/04/23 08:24 Dose: Infused Documented By: Admin: 10/04/23 07:59 Dose: 40 mcg/kg/min, 24.5 mls/hr Documented By: GPF Co-signed By: KJM Titration: 10/04/23 07:59 Dose: Infused Documented By: GPF Co-signed By: KJM Titration: 10/04/23 07:03 Dose: 40 mcg/kg/min, 24.5 mls/hr Documented By: GPF Co-signed By: CLC Admin: 10/04/23 05:11 Dose: 40 mcg/kg/min, 24.5 mls/hr Documented By: CLC Co-signed By: TP Titration: 10/04/23 05:11 Dose: Infused Documented By: CLC Co-signed By: TP Admin: 10/04/23 01:47 Dose: 40 mcg/kg/min, 24.5 mls/hr Documented By: CLC Co-signed By: TP Titration: 10/04/23 01:19 Dose: Infused Documented By: CLC Co-signed By: TP Admin: 10/03/23 21:14 Dose: 40 mcg/kg/min, 24.5 mls/hr Documented By: CLC Co-signed By: TP Titration: 10/03/23 21:12 Dose: Infused Documented By: CLC Co-signed By: TP Titration: 10/03/23 18:59 Dose: 40 mcg/kg/min, 24.5 mls/hr Documented By: Admin: 10/03/23 17:07 Dose: 40.07 mcg/kg/min, 24.5 mls/hr Documented By: WS Co-signed By: CAM Titration: 10/03/23 17:07 Dose: Infused Documented By: WS Co-signed By: CAM Admin: 10/03/23 15:03 Dose: Not Given Documented By: Admin: 10/03/23 15:03 Dose: Not Given Documented By: Admin: 10/03/23 15:03 Dose: Not Given Documented By: Admin: 10/03/23 15:02 Dose: Not Given Documented By: Admin: 10/03/23 15:01 Dose: Not Given Documented By: Admin: 10/03/23 15:01 Dose: Not Given Documented By: Admin: 10/03/23 15:00 Dose: Not Given Documented By: Titration: 10/03/23 14:25 Dose: 40.07 mcg/kg/min, 24.5 mls/hr Documented By: Titration: 10/03/23 13:42 Dose: 0 mcg/kg/min, 0 mls/hr Documented By: Admin: 10/03/23 13:00 Dose: 40 mcg/kg/min, 24.5 mls/hr Documented By: WS Co-signed By: CAM Titration: 10/03/23 12:07 Dose: Infused Documented By: WS Co-signed By: CAM Admin: 10/03/23 08:02 Dose: 40 mcg/kg/min, 24.5 mls/hr Documented By: WS Co-signed By: CAM Titration: 10/03/23 08:02 Dose: Infused Documented By: WS Co-signed By: CAM Admin: 10/03/23 04:29 Dose: 40 mcg/kg/min, 24.5 mls/hr Documented By: TP Co-signed By: ELS Titration: 10/03/23 04:29 Dose: Infused Documented By: TP Co-signed By: ELS Admin: 10/03/23 00:37 Dose: 40 mcg/kg/min, 24.5 mls/hr Documented By: CLC Co-signed By: LILLIAN Titration: 10/03/23 00:21 Dose: Infused Documented By: CLC Co-signed By: LILLIAN Admin: 10/02/23 20:16 Dose: 40 mcg/kg/min, 24.5 mls/hr Documented By: CLC Co-signed By: TP Titration: 10/02/23 20:16 Dose: Infused Documented By: CLC Co-signed By: TP Titration: 10/02/23 19:16 Dose: 40 mcg/kg/min, 24.5 mls/hr Documented By: Admin: 10/02/23 17:10 Dose: 40 mcg/kg/min, 24.5 mls/hr Documented By: WS Co-signed By: MARTA Titration: 10/02/23 16:34 Dose: Infused Documented By: WS Co-signed By: MARTA Admin: 10/02/23 12:29 Dose: 40 mcg/kg/min, 24.5 mls/hr Documented By: WS Co-signed By: CAM Titration: 10/02/23 12:29 Dose: Infused Documented By: WS Co-signed By: CAM Admin: 10/02/23 08:25 Dose: 40 mcg/kg/min, 24.5 mls/hr Documented By: WS Co-signed By: CAM Titration: 10/02/23 08:25 Dose: Infused Documented By: WS Co-signed By: CAM Titration: 10/02/23 07:12 Dose: 40 mcg/kg/min, 24.5 mls/hr Documented By: Titration: 10/02/23 06:17 Dose: 40 mcg/kg/min, 24.5 mls/hr Documented By: Titration: 10/02/23 05:47 Dose: 35 mcg/kg/min, 21.4 mls/hr Documented By: Titration: 10/02/23 05:41 Dose: 35 mcg/kg/min, 21.4 mls/hr Documented By: Admin: 10/02/23 05:39 Dose: 30 mcg/kg/min, 18.3 mls/hr Documented By: POP Co-signed By: DEYVI Fentanyl Citrate (Fentanyl Citrate) 2,500 mcg in 250 mls @ 10 mls/hr IV .Q25H [facility]; Protocol Stop: 10/16/23 05:17 Last Admin: 10/05/23 13:51 Dose: 100 mcg/hr, 10 mls/hr Documented By: GPF Co-signed By: LAF Titration: 10/05/23 13:51 Dose: Infused Documented By: GPF Co-signed By: LAF Titration: 10/05/23 06:55 Dose: 100 mcg/hr, 10 mls/hr Documented By: GPF Co-signed By: CLC Titration: 10/04/23 18:58 Dose: 100 mcg/hr, 10 mls/hr Documented By: CLC Co-signed By: GPF Admin: 10/04/23 16:46 Dose: 100 mcg/hr, 10 mls/hr Documented By: GPF Co-signed By: CMP Titration: 10/04/23 16:46 Dose: Infused Documented By: GPF Co-signed By: CMP Admin: 10/04/23 14:17 Dose: Not Given Documented By: Admin: 10/04/23 09:18 Dose: 100 mcg/hr, 10 mls/hr Documented By: GPF Co-signed By: KJL Titration: 10/04/23 08:23 Dose: Infused Documented By: GPF Co-signed By: WRS Titration: 10/04/23 07:03 Dose: 150 mcg/hr, 15 mls/hr Documented By: GPF Co-signed By: CLC Admin: 10/03/23 23:37 Dose: 150 mcg/hr, 15 mls/hr Documented By: CLC Co-signed By: TP Titration: 10/03/23 23:37 Dose: Infused Documented By: CLC Co-signed By: TP Titration: 10/03/23 18:59 Dose: 150 mcg/hr, 15 mls/hr Documented By: WS Co-signed By: CLC Titration: 10/03/23 14:24 Dose: 150 mcg/hr, 15 mls/hr Documented By: WS Co-signed By: KJKeesha Titration: 10/03/23 13:42 Dose: 0 mcg/hr, 0 mls/hr Documented By: WS Co-signed By: CAM Admin: 10/03/23 11:58 Dose: Not Given Documented By: Admin: 10/03/23 08:03 Dose: 150 mcg/hr, 15 mls/hr Documented By: WS Co-signed By: CAM Titration: 10/03/23 07:48 Dose: Infused Documented By: WS Co-signed By: CAM Titration: 10/02/23 19:16 Dose: 150 mcg/hr, 15 mls/hr Documented By: WS Co-signed By: CLC Admin: 10/02/23 16:10 Dose: 200 mcg/hr, 20 mls/hr Documented By: WS Co-signed By: CAM Titration: 10/02/23 16:10 Dose: Infused Documented By: WS Co-signed By: CAM Titration: 10/02/23 07:12 Dose: 200 mcg/hr, 20 mls/hr Documented By: WS Co-signed By: GG Titration: 10/02/23 06:28 Dose: 200 mcg/hr, 20 mls/hr Documented By: POP Co-signed By: MNM Titration: 10/02/23 06:16 Dose: 175 mcg/hr, 17.5 mls/hr Documented By: POP Co-signed By: PAH Titration: 10/02/23 06:03 Dose: 150 mcg/hr, 15 mls/hr Documented By: POP Co-signed By: PAH Titration: 10/02/23 05:44 Dose: 125 mcg/hr, 12.5 mls/hr Documented By: POP Co-signed By: ARR Titration: 10/02/23 05:42 Dose: 75 mcg/hr, 7.5 mls/hr Documented By: POP Co-signed By: MNM Admin: 10/02/23 05:39 Dose: 50 mcg/hr, 5 mls/hr Documented By: POP Co-signed By: DEYVI Heparin Sodium/Dextrose (Heparin Sodium/Dextrose) 25,000 units in 500 mls @ 24 mls/hr IV .[id number] [facility]; Protocol Stop: 11/02/23 17:59 Last Admin: 10/05/23 13:42 Dose: 1,200 units/hr, 24 mls/hr Documented By: GPF Co-signed By: LAF Titration: 10/05/23 13:42 Dose: Infused Documented By: GPF Co-signed By: LAF Titration: 10/05/23 06:55 Dose: 1,200 units/hr, 24 mls/hr Documented By: GPF Co-signed By: CLC Titration: 10/05/23 06:44 Dose: 1,200 units/hr, 24 mls/hr Documented By: CLC Co-signed By: TP Titration: 10/04/23 18:58 Dose: 1,100 units/hr, 22 mls/hr Documented By: CLC Co-signed By: GPF Admin: 10/04/23 16:45 Dose: 1,100 units/hr, 22 mls/hr Documented By: GPF Co-signed By: CMP Titration: 10/04/23 16:45 Dose: Infused Documented By: GPF Co-signed By: CMP Titration: 10/04/23 07:03 Dose: 1,100 units/hr, 22 mls/hr Documented By: GPF Co-signed By: CLC Titration: 10/04/23 02:34 Dose: 1,100 units/hr, 22 mls/hr Documented By: CLC Co-signed By: TP Titration: 10/03/23 18:59 Dose: 950 units/hr, 19 mls/hr Documented By: WS Co-signed By: CLC Admin: 10/03/23 18:45 Dose: 950 units/hr, 19 mls/hr Documented By: WS Co-signed By: EMMA Dexmedetomidine/Sodium Chloride (Precedex) 200 mcg in 50 mls @ 0 mls/hr IV .Q0M HANNA; Protocol Stop: 10/08/23 08:29 Last Titration: 10/04/23 09:16 Dose: 0 mcg/kg/hr, 0 mls/hr Documented By: Titration: 10/04/23 08:47 Dose: 0.8 mcg/kg/hr, 21.2 mls/hr Documented By: Admin: 10/04/23 08:36 Dose: 0.4 mcg/kg/hr, 10.6 mls/hr Documented By: GPF Co-signed By: SHANKAR Insulin Aspart (Insulin Aspart Per Unit Charge) 0 units SC Q4 HANNA Stop: 11/01/23 07:59 Last Admin: 10/05/23 13:55 Dose: 4 units Documented By: GPF Co-signed By: NADEEM Admin: 10/05/23 08:06 Dose: 2 units Documented By: GPF Co-signed By: JUVE Admin: 10/05/23 03:52 Dose: 4 units Documented By: CLC Co-signed By: FRANCISCA Admin: 10/05/23 00:30 Dose: 2 units Documented By: CLC Co-signed By: FRANCISCA Admin: 10/04/23 20:05 Dose: 2 units Documented By: CLC Co-signed By: FRANCISCA Admin: 10/04/23 16:01 Dose: 2 units Documented By: GPF Co-signed By: REJI Admin: 10/04/23 12:08 Dose: 2 units Documented By: GPF Co-signed By: REJI Admin: 10/04/23 07:58 Dose: 3 units Documented By: GPF Co-signed By: REJI Admin: 10/04/23 03:46 Dose: 3 units Documented By: CLC Co-signed By: FRANCISCA Admin: 10/03/23 23:52 Dose: 1 units Documented By: CLC Co-signed By: FRANCISCA Admin: 10/03/23 20:17 Dose: 2 units Documented By: CLC Co-signed By: FRANCISCA Admin: 10/03/23 16:42 Dose: 3 units Documented By: WS Co-signed By: EMMA Admin: 10/03/23 12:03 Dose: 1 units Documented By: WS Co-signed By: EMMA Admin: 10/03/23 08:24 Dose: 2 units Documented By: WS Co-signed By: EMMA Admin: 10/03/23 05:13 Dose: 2 units Documented By: CLC Co-signed By: ANA MARIA Admin: 10/03/23 00:20 Dose: 1 units Documented By: CLC Co-signed By: JABIER Admin: 10/02/23 20:22 Dose: 1 units Documented By: CLC Co-signed By: FRANCISCA Admin: 10/02/23 16:06 Dose: 3 units Documented By: WS Co-signed By: EMMA Admin: 10/02/23 12:26 Dose: 6 units Documented By: WS Co-signed By: EMMA Admin: 10/02/23 08:24 Dose: 6 units Documented By: WS Co-signed By: EMMA Insulin Glargine (Lantus Per Unit Charge) 0 units SC BID HANNA; Protocol Stop: 11/03/23 20:59 Last Admin: 10/05/23 08:05 Dose: 15 units Documented By: GPF Co-signed By: JUVE Admin: 10/04/23 20:06 Dose: 15 units Documented By: BRETT Co-signed By: TP Iodixanol (Visipaque) 100 ml IV UD PRN PRN Reason: Interaction Checking Stop: 10/07/23 14:04 Last Admin: 10/03/23 14:22 Dose: 15 ml Documented By: GÓMEZ Propofol (Propofol Bolus From Bag) 20 mg IV Q5M PRN PRN Reason: Sedation Stop: 10/08/23 05:17 Last Admin: 10/02/23 06:28 Dose: 20 mg Documented By: POP Co-signed By: DEYVI Admin: 10/02/23 06:22 Dose: 20 mg Documented By: POP Co-signed By: DEYVI Admin: 10/02/23 06:00 Dose: 20 mg Documented By: POP Co-signed By: DEYVI Admin: 10/02/23 05:30 Dose: 20 mg Documented By: POP Co-signed By: DEYVI Discontinued Medications Diltiazem HCl (Diltiazem Hcl 5 Mg/Ml 5 Ml Vial) 10 mg IV NOW STA Stop: 10/02/23 00:42 Last Admin: 10/02/23 00:45 Dose: 10 mg Documented By: MOON Co-signed By: MED Diltiazem HCl (Diltiazem Hcl 5 Mg/Ml 5 Ml Vial) 10 mg IV NOW STA Stop: 10/02/23 01:03 Last Admin: 10/02/23 01:25 Dose: 10 mg Documented By: MOON Co-signed By: MED Fentanyl Citrate (Fentanyl Citrate 2,500 Mcg/250 Ml Bag) Confirm Administered Dose 2,500 mcg IV .STK-MED ONE Stop: 10/02/23 05:03 Last Admin: 10/02/23 05:53 Dose: Not Given Documented By: POP Furosemide (Furosemide 40 Mg/4 Ml Vial) 40 mg IV ONE ONE Stop: 10/02/23 20:54 Last Admin: 10/02/23 21:58 Dose: 40 mg Documented By: BRETT Furosemide (Furosemide 40 Mg/4 Ml Vial) 40 mg IV ONE ONE Stop: 10/03/23 12:24 Last Admin: 10/03/23 12:27 Dose: 40 mg Documented By: EMERSON Furosemide (Furosemide 40 Mg/4 Ml Vial) 40 mg IV ONE ONE Stop: 10/04/23 07:55 Last Admin: 10/04/23 08:23 Dose: 40 mg Documented By: GPF Furosemide (Furosemide 40 Mg/4 Ml Vial) 40 mg IV ONE ONE Stop: 10/05/23 00:31 Last Admin: 10/05/23 02:00 Dose: 40 mg Documented By: CLC Furosemide (Furosemide 40 Mg/4 Ml Vial) 40 mg IV ONE ONE Stop: 10/05/23 09:24 Last Admin: 10/05/23 09:37 Dose: 40 mg Documented By: CCB Co-signed By: GPF Heparin Sodium (Porcine) (Heparin Sod (Porcine) 1000 Unit/Ml) 3,000 units IV NOW ONE Stop: 10/04/23 02:46 Last Admin: 10/04/23 02:57 Dose: 3,000 units Documented By: CLC Co-signed By: TP Sodium Chloride (Nss) 1,000 mls @ 125 mls/hr IV .Q8H [facility] Stop: 11/01/23 00:44 Last Infusion: 10/02/23 07:21 Dose: Infused Documented By: Admin: 10/02/23 00:38 Dose: 125 mls/hr Documented By: ESTELLA Diltiazem HCl 125 mg/ Dextrose 125 mls @ 0 mls/hr IV .Q0M HANNA; Protocol Stop: 11/01/23 00:44 Last Titration: 10/02/23 07:22 Dose: Infused Documented By: EMERSON Co-signed By: MARINE Titration: 10/02/23 05:46 Dose: 0 mg/hr, 0 mls/hr Documented By: POP Co-signed By: ARR Titration: 10/02/23 05:30 Dose: 10 mg/hr, 10 mls/hr Documented By: POP Co-signed By: MNM Titration: 10/02/23 01:55 Dose: 15 mg/hr, 15 mls/hr Documented By: MOON Co-signed By: ASHWIN Admin: 10/02/23 00:53 Dose: 10 mg/hr, 10 mls/hr Documented By: MOON Co-signed By: MED Potassium Chloride (K Lito / Wtr) 10 meq in 100 mls @ 100 mls/hr IV Q1H [facility] Stop: 10/02/23 03:14 Last Infusion: 10/02/23 03:50 Dose: Infused Documented By: Admin: 10/02/23 02:20 Dose: 100 mls/hr Documented By: Infusion: 10/02/23 02:18 Dose: Infused Documented By: Admin: 10/02/23 01:18 Dose: 100 mls/hr Documented By: MOON Sodium Chloride (Nss) 250 mls @ 999 mls/hr IV .Q16M ONE Stop: 10/02/23 01:17 Last Infusion: 10/02/23 02:31 Dose: Infused Documented By: Admin: 10/02/23 01:18 Dose: 999 mls/hr Documented By: MOON Piperacillin Sod/Tazobactam Sod (Zosyn) 4.5 gm in 100 mls @ 200 mls/hr IV NOW ONE Stop: 10/02/23 02:01 Last Infusion: 10/02/23 02:31 Dose: Infused Documented By: Admin: 10/02/23 01:49 Dose: 200 mls/hr Documented By: MOON Vancomycin HCl 2,000 mg/ (Sodium Chloride) 540 mls @ 200 mls/hr IV NOW ONE Stop: 10/02/23 04:13 Last Infusion: 10/02/23 05:55 Dose: Infused Documented By: Admin: 10/02/23 02:20 Dose: 200 mls/hr Documented By: MOON Sodium Chloride (Nss) 500 mls @ 999 mls/hr IV .Q31M ONE Stop: 10/02/23 02:05 Last Infusion: 10/02/23 02:31 Dose: Infused Documented By: Admin: 10/02/23 01:53 Dose: 999 mls/hr Documented By: MOON Potassium Chloride (K Lito / Wtr) 10 meq in 100 mls @ 100 mls/hr IV Q1H [facility]ANNA Stop: 10/02/23 04:29 Last Infusion: 10/02/23 07:41 Dose: Infused Documented By: Admin: 10/02/23 06:46 Dose: 100 mls/hr Documented By: Infusion: 10/02/23 06:45 Dose: Infused Documented By: Admin: 10/02/23 05:40 Dose: 100 mls/hr Documented By: POP Albumin Human (Albumin 25%) 25 gm in 100 mls @ 50 mls/hr IV Q2H [facility]ANNA Stop: 10/02/23 06:59 Last Infusion: 10/02/23 09:28 Dose: Infused Documented By: Admin: 10/02/23 07:28 Dose: 50 mls/hr Documented By: Infusion: 10/02/23 07:28 Dose: Infused Documented By: Admin: 10/02/23 05:45 Dose: 50 mls/hr Documented By: POP Magnesium Sulfate/Dextrose (Magnesium Sulfate / D5w) 1 gm in 100 mls @ 50 mls/hr IV Q2H [facility]ANNA Stop: 10/02/23 07:29 Last Infusion: 10/02/23 07:21 Dose: Infused Documented By: Admin: 10/02/23 06:31 Dose: 100 mls/hr Documented By: Infusion: 10/02/23 06:31 Dose: Infused Documented By: Admin: 10/02/23 05:30 Dose: 100 mls/hr Documented By: DEYVI Potassium Chloride/Sodium Chloride (Normal Saline W/20 Meq Kcl) 20 meq in 1,000 mls @ 125 mls/hr IV .Q8H [facility]ANNA Stop: 11/01/23 05:17 Last Admin: 10/02/23 07:18 Dose: Not Given Documented By: EMERSON Lactated Ringer's (Lr) 1,000 mls @ 75 mls/hr IV .[id number] HANNA Stop: 11/01/23 05:29 Last Infusion: 10/03/23 08:51 Dose: Infused Documented By: Admin: 10/03/23 07:55 Dose: 75 mls/hr Documented By: Infusion: 10/03/23 07:55 Dose: Infused Documented By: Admin: 10/02/23 18:44 Dose: 75 mls/hr Documented By: Infusion: 10/02/23 18:44 Dose: Infused Documented By: Admin: 10/02/23 05:38 Dose: 75 mls/hr Documented By: POP Calcium Gluconate 1,000 mg/ (Sodium Chloride) 60 mls @ 240 mls/hr IV Q15M HANNA Stop: 10/02/23 06:59 Last Infusion: 10/02/23 09:02 Dose: Infused Documented By: Admin: 10/02/23 08:02 Dose: 240 mls/hr Documented By: Infusion: 10/02/23 07:44 Dose: Infused Documented By: Admin: 10/02/23 07:29 Dose: 240 mls/hr Documented By: EMERSON Vancomycin HCl 1,500 mg/ (Sodium Chloride) 530 mls @ 200 mls/hr IV Q12H [facility]ANNA Stop: 10/12/23 08:59 Last Infusion: 10/02/23 11:13 Dose: Infused Documented By: Admin: 10/02/23 08:46 Dose: 200 mls/hr Documented By: EMERSON Potassium Chloride (K Lito / Wtr) 10 meq in 100 mls @ 100 mls/hr IV Q1H [facility]ANNA Stop: 10/02/23 13:14 Last Infusion: 10/02/23 13:54 Dose: Infused Documented By: Admin: 10/02/23 12:45 Dose: 100 mls/hr Documented By: Infusion: 10/02/23 12:45 Dose: Infused Documented By: Admin: 10/02/23 11:48 Dose: 100 mls/hr Documented By: Infusion: 10/02/23 11:35 Dose: Infused Documented By: Admin: 10/02/23 10:35 Dose: 100 mls/hr Documented By: Infusion: 10/02/23 10:35 Dose: Infused Documented By: Admin: 10/02/23 09:41 Dose: 100 mls/hr Documented By: EMERSON Potassium Phosphate 15 mmol/ (Sodium Chloride) 255 mls @ 88 mls/hr IV ONE ONE Stop: 10/02/23 13:53 Last Infusion: 10/02/23 15:53 Dose: Infused Documented By: Admin: 10/02/23 11:04 Dose: 88 mls/hr Documented By: EMERSON Potassium Chloride (K Lito / Wtr) 10 meq in 100 mls @ 100 mls/hr IV Q1H [facility]ANNA Stop: 10/02/23 20:14 Last Infusion: 10/02/23 21:30 Dose: Infused Documented By: Admin: 10/02/23 20:13 Dose: 100 mls/hr Documented By: Infusion: 10/02/23 20:02 Dose: Infused Documented By: Admin: 10/02/23 19:02 Dose: 100 mls/hr Documented By: Infusion: 10/02/23 19:02 Dose: Infused Documented By: Admin: 10/02/23 18:11 Dose: 100 mls/hr Documented By: Infusion: 10/02/23 17:48 Dose: Infused Documented By: Admin: 10/02/23 16:48 Dose: 100 mls/hr Documented By: EMERSON Potassium Chloride (K Lito / Wtr) 10 meq in 100 mls @ 100 mls/hr IV Q1H [facility]ANNA Stop: 10/02/23 22:59 Last Infusion: 10/03/23 00:00 Dose: Infused Documented By: Admin: 10/02/23 22:56 Dose: 100 mls/hr Documented By: Infusion: 10/02/23 22:56 Dose: Infused Documented By: Admin: 10/02/23 21:59 Dose: 100 mls/hr Documented By: CLC Magnesium Sulfate/Dextrose (Magnesium Sulfate / D5w) 1 gm in 100 mls @ 50 mls/hr IV Q2H HANNA Stop: 10/03/23 13:14 Last Infusion: 10/03/23 15:06 Dose: Infused Documented By: Admin: 10/03/23 11:55 Dose: 50 mls/hr Documented By: Infusion: 10/03/23 11:23 Dose: Infused Documented By: Admin: 10/03/23 09:23 Dose: 50 mls/hr Documented By: Infusion: 10/03/23 09:23 Dose: Infused Documented By: Admin: 10/03/23 07:33 Dose: 50 mls/hr Documented By: EMERSON Potassium Chloride (K Lito / Wtr) 10 meq in 100 mls @ 100 mls/hr IV Q1H [facility]ANNA Stop: 10/03/23 15:44 Last Infusion: 10/03/23 15:04 Dose: Infused Documented By: Admin: 10/03/23 13:20 Dose: 100 mls/hr Documented By: Infusion: 10/03/23 13:20 Dose: Infused Documented By: Admin: 10/03/23 12:26 Dose: 100 mls/hr Documented By: Infusion: 10/03/23 12:26 Dose: Infused Documented By: Admin: 10/03/23 12:12 Dose: 100 mls/hr Documented By: Infusion: 10/03/23 12:12 Dose: Infused Documented By: Admin: 10/03/23 11:56 Dose: 100 mls/hr Documented By: Infusion: 10/03/23 11:53 Dose: Infused Documented By: Admin: 10/03/23 10:53 Dose: 100 mls/hr Documented By: Infusion: 10/03/23 10:49 Dose: Infused Documented By: Admin: 10/03/23 09:49 Dose: 100 mls/hr Documented By: Infusion: 10/03/23 09:42 Dose: Infused Documented By: Admin: 10/03/23 08:42 Dose: 100 mls/hr Documented By: Infusion: 10/03/23 08:42 Dose: Infused Documented By: Admin: 10/03/23 07:51 Dose: 100 mls/hr Documented By: WS Potassium Chloride 40 meq/ (Lactated Ringer's) 1,020 mls @ 40 mls/hr IV .Q24H [facility]ANNA Stop: 11/02/23 08:29 Last Infusion: 10/03/23 15:57 Dose: Infused Documented By: Infusion: 10/03/23 15:57 Dose: 0 mls/hr Documented By: Infusion: 10/03/23 14:24 Dose: 75 mls/hr Documented By: Infusion: 10/03/23 13:42 Dose: 0 mls/hr Documented By: Admin: 10/03/23 08:41 Dose: 75 mls/hr Documented By: EMERSON Potassium Chloride (K Lito / Wtr) 10 meq in 100 mls @ 100 mls/hr IV Q1H HANNA Stop: 10/03/23 23:59 Last Infusion: 10/03/23 20:25 Dose: Infused Documented By: Admin: 10/03/23 19:15 Dose: 100 mls/hr Documented By: Infusion: 10/03/23 19:15 Dose: Infused Documented By: Admin: 10/03/23 19:14 Dose: 100 mls/hr Documented By: Infusion: 10/03/23 19:14 Dose: Infused Documented By: Admin: 10/03/23 18:47 Dose: 100 mls/hr Documented By: Infusion: 10/03/23 18:47 Dose: Infused Documented By: Admin: 10/03/23 18:10 Dose: 100 mls/hr Documented By: Infusion: 10/03/23 18:10 Dose: Infused Documented By: Admin: 10/03/23 18:10 Dose: 100 mls/hr Documented By: Infusion: 10/03/23 18:09 Dose: Infused Documented By: Admin: 10/03/23 17:09 Dose: 100 mls/hr Documented By: Infusion: 10/03/23 17:09 Dose: Infused Documented By: Admin: 10/03/23 17:05 Dose: 100 mls/hr Documented By: Infusion: 10/03/23 17:05 Dose: Infused Documented By: Admin: 10/03/23 16:09 Dose: 100 mls/hr Documented By: WS Magnesium Sulfate/Dextrose (Magnesium Sulfate / D5w) 1 gm in 100 mls @ 50 mls/hr IV Q2H HANNA Stop: 10/04/23 05:59 Last Infusion: 10/04/23 06:27 Dose: Infused Documented By: Admin: 10/04/23 04:22 Dose: 50 mls/hr Documented By: Infusion: 10/04/23 04:22 Dose: Infused Documented By: Admin: 10/04/23 02:38 Dose: 50 mls/hr Documented By: CLC Potassium Phosphate 21 mmol/ (Sodium Chloride) 507 mls @ 88 mls/hr IV ONE ONE Stop: 10/04/23 07:45 Last Infusion: 10/04/23 09:16 Dose: Infused Documented By: Admin: 10/04/23 02:38 Dose: 88 mls/hr Documented By: CLC Potassium Chloride (K Lito / Wtr) 10 meq in 100 mls @ 100 mls/hr IV Q1H HANNA Stop: 10/04/23 09:59 Last Infusion: 10/04/23 12:37 Dose: Infused Documented By: Admin: 10/04/23 10:39 Dose: 100 mls/hr Documented By: Infusion: 10/04/23 10:15 Dose: Infused Documented By: Admin: 10/04/23 09:15 Dose: 100 mls/hr Documented By: Infusion: 10/04/23 08:58 Dose: Infused Documented By: Admin: 10/04/23 07:58 Dose: 100 mls/hr Documented By: GPF Magnesium Sulfate/Dextrose (Magnesium Sulfate / D5w) 1 gm in 100 mls @ 50 mls/hr IV ONE ONE Stop: 10/04/23 09:53 Last Infusion: 10/04/23 14:16 Dose: Infused Documented By: Admin: 10/04/23 12:07 Dose: 50 mls/hr Documented By: BELEM Potassium Chloride (K Lito / Wtr) 10 meq in 100 mls @ 100 mls/hr IV Q1H HANNA Stop: 10/05/23 02:29 Last Infusion: 10/05/23 04:19 Dose: Infused Documented By: Admin: 10/05/23 02:58 Dose: 100 mls/hr Documented By: Infusion: 10/05/23 02:58 Dose: Infused Documented By: Admin: 10/05/23 02:00 Dose: 100 mls/hr Documented By: CLC Potassium Chloride (K Lito / Wtr) 10 meq in 100 mls @ 100 mls/hr IV Q1H HANNA Stop: 10/05/23 11:29 Last Infusion: 10/05/23 15:25 Dose: Infused Documented By: Admin: 10/05/23 13:38 Dose: 80 mls/hr Documented By: Infusion: 10/05/23 12:39 Dose: Infused Documented By: Admin: 10/05/23 11:22 Dose: 100 mls/hr Documented By: Infusion: 10/05/23 10:21 Dose: Infused Documented By: Admin: 10/05/23 09:21 Dose: 100 mls/hr Documented By: SHEREE Co-signed By: BELEM Infusion: 10/05/23 09:08 Dose: Infused Documented By: SHEREE Co-signed By: BELEM Admin: 10/05/23 08:08 Dose: 100 mls/hr Documented By: BELEM Insulin Aspart (Insulin Aspart Per Unit Charge) 2 units SC NOW ONE Stop: 10/02/23 14:31 Last Admin: 10/02/23 15:02 Dose: 2 units Documented By: EMERSON Co-signed By: EMMA Insulin Glargine (Lantus Per Unit Charge) 15 units SC NOW ONE Stop: 10/02/23 08:31 Last Admin: 10/02/23 08:32 Dose: 15 units Documented By: EMERSON Co-signed By: EMMA Insulin Glargine (Lantus Per Unit Charge) 0 units SC HS ONE; Protocol Stop: 10/02/23 21:01 Last Admin: 10/02/23 20:22 Dose: 5 units Documented By: BRETT Co-signed By: FRANCISCA Insulin Glargine (Lantus Per Unit Charge) 20 units SC NOW ONE Stop: 10/03/23 09:16 Last Admin: 10/03/23 09:24 Dose: 20 units Documented By: EMERSON Co-signed By: EMMA Insulin Glargine (Lantus Per Unit Charge) 0 units SC HS ONE; Protocol Stop: 10/03/23 21:01 Last Admin: 10/03/23 20:17 Dose: 5 units Documented By: BRETT Co-signed By: FRANCISCA Insulin Glargine (Lantus Per Unit Charge) 15 units SC BID HANNA Stop: 11/03/23 08:59 Last Admin: 10/04/23 09:22 Dose: 15 units Documented By: BELEM Co-signed By: GWENDOLYN Ioversol (Optiray 320 125ml) 118 ml IV ONCE ONE Stop: 10/03/23 11:27 Last Admin: 10/03/23 11:26 Dose: 118 ml Documented By: BETTINA Ioversol (Optiray 320 125ml) 112 ml IV ONCE ONE Stop: 10/05/23 12:10 Last Admin: 10/05/23 12:10 Dose: 112 ml Documented By: MANISHA Labetalol HCl (Labetalol Hcl Iv 5 Mg/Ml 20ml) 10 mg IV NOW STA Stop: 10/05/23 09:25 Last Admin: 10/05/23 09:36 Dose: 10 mg Documented By: SHEREE Co-signed By: BELEM Midazolam HCl (Midazolam Hcl 5 Mg/Ml 2ml Vial) 5 mg IV NOW STA Stop: 10/03/23 08:20 Last Admin: 10/03/23 08:25 Dose: 3 mg Documented By: EMERSON Midazolam HCl (Midazolam Hcl 5 Mg/Ml 2ml Vial) Confirm Administered Dose 10 mg .ROUTE .STK-MED ONE Stop: 10/03/23 08:18 Last Admin: 10/03/23 08:42 Dose: Not Given Documented By: EMERSON Miscellaneous (Stat Iv Infusion Titration Per Protocol) 1 each N/A NOW STA Stop: 10/02/23 00:43 Last Admin: 10/02/23 05:52 Dose: Not Given Documented By: POP Propofol (Propofol Iv Emulsion 10 Mg/Ml 100 Ml Vial) Confirm Administered Dose 1,000 mg IV .[facility] ONE Stop: 10/02/23 05:03 Last Admin: 10/02/23 06:22 Dose: Not Given Documented By: POP Imaging Data Radiologist's Impression: Abdomen/Pelvis CT 10/02/23 00:41 CR Exam(s): CT ABDOMEN + PELVIS Without Contrast EXAM: CT Abdomen and Pelvis Without Intravenous Contrast CLINICAL HISTORY: Reason for exam: constipation, abd distension, gen pain. TECHNIQUE: Axial computed tomography images of the abdomen and pelvis without intravenous contrast. CTDI is 27.15 mGy and DLP is 1379.6 mGy-cm. Automated exposure control was utilized for the study. A dose lowering technique was utilized adhering to the principles of ALARA. COMPARISON: No relevant prior studies available. FINDINGS: Lung bases: Unremarkable. No mass. No consolidation. ABDOMEN: Liver: Liver is markedly heterogeneous with findings concerning for innumerable low density masses on this noncontrast study. Follow-up evaluation is warranted. Gallbladder and bile ducts: Unremarkable. No calcified stones. No ductal dilation. Pancreas: Unremarkable. No ductal dilation. Spleen: Unremarkable. No splenomegaly. Adrenals: Severe bilateral adrenal hyperplasia. Kidneys and ureters: Unremarkable. No obstructing stones. No hydronephrosis. Stomach and bowel: Unremarkable. No obstruction. No mucosal thickening. PELVIS: Appendix: No findings to suggest acute appendicitis. Bladder: Unremarkable. No stones. Reproductive: Unremarkable as visualized. ABDOMEN and PELVIS: Intraperitoneal space: There is free air around the sigmoid colon concerning for a colonic perforation. No significant fluid collection. Bones/joints: Moderate T12 compression fracture which may be acute.. No dislocation. Soft tissues: Unremarkable. Vasculature: Unremarkable. No abdominal aortic aneurysm. Lymph nodes: Unremarkable. No enlarged lymph nodes. IMPRESSION: 1. Free air around the sigmoid colon concerning for a colonic perforation. 2. Liver is markedly heterogeneous with findings concerning for innumerable low density masses on this noncontrast study. Follow-up evaluation is warranted. 3. Moderate T12 compression fracture which may be acute. 4. Severe bilateral adrenal hyperplasia. Communications: Call Doctor Pneumoperitoneum, new or unexpected Electronically signed by: Aristeo Clark M.D. 10/02/23 01:42 AM Discharge Plan Visit Data Chief Complaint: Illness ED Provider: Cj Moreno Discharge Problem: Perforated bowel, Atrial fibrillation with rapid ventricular response, Elevated troponin, Hyperglycemia, Hypokalemia, Liver masses, Lung mass Patient Disposition: Admitted As Inpatient Discharge Instructions Interventions: ED Discharge Assessment Last Done: 10/02/23 03:09
--- NOTE | 2023-10-02 02:23 | History & Physical Report ---
Date of Service October 02, 2023 Assessment & Plan (1) Colon perforation: Plan: Due to the patient's presenting problem, symptomatology, and findings on imaging we will proceed as follows: We are planning on taking the patient emergently to the operating room for ex ploratory laparotomy and possible bowel resection and likely colostomy. I described the procedure to the patient and outlined the risks and benefits and he wishes to proceed The patient has received antibiotics in the form of Zosyn and vancomycin and antibiotics will continue Serial labs will be followed Will supplement the patient's potassiumthe patient has already received 20 mEq of potassium based on a [id number] lab that was 2.8. An additional 20 mill equivalents of potassium have been ordered. The patient will be continued on n.p.o. status for the present time Will continue resuscitation with intravenous fluid I have ordered a type and cross for 2 units packed red blood cells. I not feel the patient requires transfusion at this time. In addition the patient is noted to have hypokalemia and I verified with blood bank that we do have platelets available in the event that they are needed. I feel that the patient is critically ill at this time. I have notified the intensive care staff the patient will likely require an intensive care unit bed following this surgical procedure as above. pt with peritonitis in face of free air. multiple medical comorbidities including obesity, approx 40 pack year smoking hx ( quit this august), hx of DVT/PE, lung mass with likely liver mets, severe JAMIE, polycythemia among others). was supposed to have an appointment with Dr. Portillo today at 9 AM. priority is the perforated bowel likely sigmoid. ? etiology of this. Will almost certainly require a Wallace's procedure...if possible I will attempt to obtain liver bx as well. pt with high surgical risk for bleeding/infection/dvt/pe/mi/cva/injury to other organs etc...). Will plan ICU admission post op. questions answered. to OR [facility]. questions answered. History of Present Illness Chief Complaint: Abdominal pain Primary Care Provider: Rika Gonzalez MD This is a 63-year-old male who presented the emergency department secondary to abdominal pain. Patient reports some generalized abdominal pain throughout his abdomen but appears to be worse in the left lower quadrant. Patient notes that he has had issues for constipation over the past 3 to 4 days and has been straining to have a bowel movement but has been unsuccessful. He notes that the pain got markedly worse this evening prompting his visit to the emergency department. He denies any fevers, shakes, or chills. He denies any nausea or vomiting. Patient notes that he has never had a colonoscopy. Patient notes that he was recently told that he has liver and lung cancer but he has yet to see an oncologist to formulate a treatment plan or obtain an official diagnosis regarding this. There is also nowhere the mention that the patient does have a history of a lower extremity DVT as well as a pulmonary emboli approximately 7 years ago. Patient says that he is no longer taking anticoagulation for this problem but merely takes baby aspirin daily. Since arrival to the hospital the patient has had labs and imaging which I independently reviewed. Chest x-ray did not demonstrate any clear free air under the diaphragms. There did not appear to be any pleural effusions. A CT scan of the abdomen and pelvis was performed where patient was noted to have free air surrounding the sigmoid colon concerning for colonic perforation. There also innumerable low-density masses noted on the liver. Labs included a CBC were white blood cell count was within the normal range. Platelet count is 86,000. Hemoglobin and hematocrit are 11.9 and 35.1. Chemistry profile showed that sodium is within normal range. Potassium is 2.8. BUN and creatinine are both within the normal range. Lactic acid level is not elevated. Magnesium is normal. Patient did have an elevated troponin at 141.9. His TSH was within the normal range. While in the emergency department the patient was noted to have episodes of tachycardia with atrial fibrillation. The the patient has been initiated on intravenous fluids. He has been started on a diltiazem drip. He has also been given 10 mill equivalents of potassium. He has been given antibiotics in the form of Zosyn and additional antibiotic in form of vancomycin has been ordered. At the time of my interview the patient was resting in bed. He appeared somewhat uncomfortable but was not in any distress Allergies Allergy/AdvReac Type Severity Reaction Status Date / Time No Known Allergies Allergy Unverified 09/05/23 08:10 Home Medications Medication Instructions Recorded Confirmed Type multivitamin 1 tab PO DAILY 09/29/19 10/02/23 History magnesium 250 mg tablet 250 mg PO DAILY 10/14/19 10/02/23 History Vitamin D3 1 tab PO DAILY 08/30/23 10/02/23 History naproxen sodium 220 mg tablet 220 mg PO DIRECTED PRN Pain 08/30/23 10/02/23 History (Aleve) potassium phosphate, monobasic 500 1,000 mg PO DAILY 09/04/23 10/02/23 History mg soluble tablet potassium chloride 20 mEq 20 meq PO DAILY #30 tabs 09/05/23 10/02/23 Rx tablet,extended release tramadol 50 mg tablet 50 - 100 mg PO Q6H PRN pain 10/02/23 10/02/23 History Past Med/Surg History Medical History Polycythemia Sleep apnea Pulmonary embolism on right Deep vein thrombosis (DVT) of popliteal vein of left lower extremity Surgical History Hx of knee surgery Family History Mother Cancer Father Myocardial infarction Denies family history of Ovarian cancer Prostate cancer Breast cancer Colorectal cancer Social History Smoking Status: Former smoker Tobacco Type: Smokeless Tobacco (Dip or Chew) Hx Alcohol Use: Yes Hx Substance Use: No Preferred Language: Macanese marital status: Current Living Situation: Family current occupational status: employed Feels Safe at Home: Yes caffeine: Yes Dental Care, Regularly: Yes Physical Activity Frequency: Does not Exercise Seatbelt Use: always Sunscreen Use: No Review of Systems Constitutional: no fever and no chills Ear, Nose, Mouth, Throat: no hearing loss Respiratory: no cough Cardiovascular: no chest pain Gastrointestinal: as per Subjective / HPI Genitourinary: no dysuria Musculoskeletal: no back pain Integumentary: no rash Neurologic: no localized weakness Physical Exam Constitutional: well developed, well nourished and + obese Eyes: no conjunctival abnormality ENMT: Ears: no hearing impairment Mouth: no oropharynx abnormality Neck: trachea midline Respiratory: normal respiratory effort; no respiratory distress and no labored breathing Breath sounds are decreased at bases Cardiovascular: Rate/Rhythm: + tachycardic and + irregularly irregular Gastrointestinal (Abdomen): His abdomen is rotund with mild distention. There is slight rebound tenderness and patient had marked tenderness to palpation in the left lower quadrant. Musculoskeletal: Patient had marked lower extremity edema with weeping skin of his lower extremities bilaterally. He also had bilateral hemosiderin deposition. Skin: no rashes Neurologic: moves all extremities Psychiatric: A+Ox3, euthymic affect Results & Data Results & Data Vital Signs (Past 12 Hours) Vital Signs Temp Pulse Resp BP Pulse Ox O2 Del Method O2 Flow Rate 10/02/23 00:27 36.4 C L 183 H 22 144/80 H 97 Nasal Cannula 6 10/02/23 00:26 157 H PG Care Time/CCT Total # of Minutes Spent Total Time Spent with Patient: Total time spent is greater than 50% in coordination of care (as documented) at patient's floor/unit and/or counseling patient: Coding Level of Care Code 73663 INT INP/OBS CARE 3/75MIN Diagnoses Colon perforation K63.1
[2023-10-02] MEDS ORDERED: fentaNYL citrate PF 100 MCG/2 ML VIAL ONE (02:39)
[2023-10-02] MEDS ORDERED: MIDAZOLAM HCL 1 MG/ML 2ML VIAL ONE (02:39)
[2023-10-02] MEDS ORDERED: ROCURONIUM BROMIDE 10 MG/ML 5 ML VIAL IV ONE (02:40)
[2023-10-02] MEDS ORDERED: SUCCINYLCHOLINE 100MG/5ML SYR IV ONE (02:40)
[2023-10-02] MEDS ORDERED: PROPOFOL IV EMULSION 10 MG/ML 20 ML VIAL IV ONE (02:40)
[2023-10-02] MEDS ORDERED: DEXAMETHASONE SOD INJ 4 MG/ML VIAL ONE (02:40)
[2023-10-02] MEDS ORDERED: ONDANSETRON INJ 2 MG/ML 2 ML VIAL ONE (02:40)
[2023-10-02] MEDS ORDERED: ALBUMIN HUMAN 5% 12.5 GM/250 ML VIAL IV ONE (02:45)
--- NOTE | 2023-10-02 03:04 | Anesthesiology Consultation ---
Date of Service October 02, 2023 History Surgery Operation Date: 10/02/23 03:30 Proposed Procedures p Exploratory Laparotomy - Isacc Stevens, Height/Weight Height: 5 ft 4 in Weight: 101.9 kg Allergies Allergy/AdvReac Type Severity Reaction Status Date / Time No Known Allergies Allergy Unverified 09/05/23 08:10 Medications Home Medications Medication Instructions Recorded Confirmed Last Taken multivitamin 1 tab PO DAILY 09/29/19 10/02/23 Unknown magnesium 250 mg tablet 250 mg PO DAILY 10/14/19 10/02/23 Unknown Vitamin D3 1 tab PO DAILY 08/30/23 10/02/23 Unknown naproxen sodium 220 mg tablet 220 mg PO DIRECTED PRN Pain 08/30/23 10/02/23 Unknown (Aleve) potassium phosphate, monobasic 500 1,000 mg PO DAILY 09/04/23 10/02/23 Unknown mg soluble tablet potassium chloride 20 mEq 20 meq PO DAILY #30 tabs 09/05/23 10/02/23 Unknown tablet,extended release tramadol 50 mg tablet 50 - 100 mg PO Q6H PRN pain 10/02/23 10/02/23 Unknown Active Medications Generic Name Dose Route Start Last Admin Trade Name Freq PRN Reason Stop Dose Admin Sodium Chloride 1,000 mls @ 125 mls/hr 10/02/23 00:45 10/02/23 00:38 Nss IV 11/01/23 00:44 125 mls/hr .Q8H HANNA Administration Diltiazem HCl 125 mg/ Dextrose 125 mls @ 15 mls/hr 10/02/23 00:45 10/02/23 01:55 IV 11/01/23 00:44 15 mg/hr .Q8H20M HANNA 15 mls/hr Titration Protocol 15 MG/HR Potassium Chloride 10 meq in 100 mls @ 100 mls/hr 10/02/23 01:15 10/02/23 02:20 K Lito / Wtr IV 10/02/23 03:14 100 mls/hr Q1H HANNA Administration Vancomycin HCl 2,000 mg/ 540 mls @ 200 mls/hr 10/02/23 01:32 10/02/23 02:20 Sodium Chloride IV 10/02/23 04:13 200 mls/hr NOW ONE Administration Past Medical History Medical History (Updated 10/02/23 @ 03:04 by Kody June MD) Colon perforation Lung mass Liver masses Hypokalemia Hyperglycemia Elevated troponin Atrial fibrillation with rapid ventricular response Obesity Polycythemia Sleep apnea Pulmonary embolism on right Deep vein thrombosis (DVT) of popliteal vein of left lower extremity Exercise / Class Metabolic Activity II 4-5 Yardwork/Stairs/Walk up hill Past Family History Family History Mother Cancer Father Myocardial infarction Denies family history of Ovarian cancer Prostate cancer Breast cancer Colorectal cancer Past Surgical History Surgical History Hx of knee surgery Social History Smoking Status: Former smoker Hx Alcohol Use: Yes Hx Substance Use: No Physical Exam Vital Signs Last Vital Signs Temp 36.4 C L 10/02/23 00:27 Pulse 143 H 10/02/23 03:00 Resp 18 10/02/23 03:00 BP 152/110 H 10/02/23 02:45 Pulse Ox 96 10/02/23 03:00 O2 Del Method Nasal Cannula 10/02/23 00:27 O2 Flow Rate 6 10/02/23 00:27 Testing Laboratory Results 10/02/23 00:35 10/02/23 00:35 10/02/23 00:45 POC Glucose (other) 315 H Electrocardiogram Date: 10/02/24 A fib with RVR. HR 190 Chest X-Ray Date: 08/30/23 XR chest 1V portable CLINICAL HISTORY: Chest pain, nonspecific COMPARISON STUDY: Chest CT February 25, 2017. Chest radiograph August 29, 2023. FINDINGS: No pneumothorax or pleural effusion is present. Lung volumes are normal. Deformity of the bilateral humeral shafts is similar to chest CT of February 25, 2017. There is mild cardiomegaly. There is no evidence for overt pulmonary edema. There is pulmonary vascular congestion. Multiple old bilateral rib fractures are present. Left midlung nodular densities are likely related to healed rib fractures. Right lower lung hazy opacities likely due to overlying soft tissues. IMPRESSION: 1. Cardiomegaly with pulmonary vascular congestion. 2. Two left midlung densities. These are likely related to healing rib fractures. However, nonemergent chest CT is recommended to exclude pulmonary nodules. Other Testing 09/22/24 CT scan: ADDENDUM ADDENDUM: Exam(s): CT ABDOMEN + PELVIS Without Contrast Discussed with Dr. Downing on 10/02 01:45 (-05:00) Electronically signed by: Aristeo Clark M.D. 10/02/23 01:47 AM ADDENDUM END ADDENDUM ADDENDUM: 10/02/23 01:46 Call Doctor Regarding Pneumoperitoneum, new or unexpected, called Dr. Moreno on 10/02 01:46 (-05:00) Electronically signed by: Aristeo Clark M.D. Electronically signed by: Aristeo Clark M.D. 10/02/23 01:42 AM ADDENDUM END Exam(s): CT ABDOMEN + PELVIS Without Contrast EXAM: CT Abdomen and Pelvis Without Intravenous Contrast CLINICAL HISTORY: Reason for exam: constipation, abd distension, gen pain. TECHNIQUE: Axial computed tomography images of the abdomen and pelvis without intravenous contrast. CTDI is 27.15 mGy and DLP is 1379.6 mGy-cm. Automated exposure control was utilized for the study. A dose lowering technique was utilized adhering to the principles of ALARA. COMPARISON: No relevant prior studies available. FINDINGS: Lung bases: Unremarkable. No mass. No consolidation. ABDOMEN: Liver: Liver is markedly heterogeneous with findings concerning for innumerable low density masses on this noncontrast study. Follow-up evaluation is warranted. Gallbladder and bile ducts: Unremarkable. No calcified stones. No ductal dilation. Pancreas: Unremarkable. No ductal dilation. Spleen: Unremarkable. No splenomegaly. Adrenals: Severe bilateral adrenal hyperplasia. Kidneys and ureters: Unremarkable. No obstructing stones. No hydronephrosis. Stomach and bowel: Unremarkable. No obstruction. No mucosal thickening. PELVIS: Appendix: No findings to suggest acute appendicitis. Bladder: Unremarkable. No stones. Reproductive: Unremarkable as visualized. ABDOMEN and PELVIS: Intraperitoneal space: There is free air around the sigmoid colon concerning for a colonic perforation. No significant fluid collection. Bones/joints: Moderate T12 compression fracture which may be acute.. No dislocation. Soft tissues: Unremarkable. Vasculature: Unremarkable. No abdominal aortic aneurysm. Lymph nodes: Unremarkable. No enlarged lymph nodes. IMPRESSION: 1. Free air around the sigmoid colon concerning for a colonic perforation. 2. Liver is markedly heterogeneous with findings concerning for innumerable low density masses on this noncontrast study. Follow-up evaluation is warranted. 3. Moderate T12 compression fracture which may be acute. 4. Severe bilateral adrenal hyperplasia.
--- NOTE | 2023-10-02 03:15 | History & Physical Report ---
Date of Service October 02, 2023 Assessment & Plan (1) Admitted to intensive care unit: (2) Atrial fibrillation and flutter: (3) Morbid obesity: (4) Perforated viscus: (5) Acute hypoxic respiratory failure: (6) Liver lesion: (7) Lung mass: (8) Sleep apnea: (9) Cigarette smoker: (10) Hypokalemia: Plan Perforated viscus- Patient being taken emergently to the OR by Dr. Stevens, with follow-up admission to the ICU Continue Zosyn 4.5 g IV every 8 hours begun in the ED Continue vancomycin IV per pharmacokinetic monitoring Acetaminophen 1 g IV every 8 hours as needed for mild pain or fever Fentanyl citrate per ICU Pantoprazole 40 mg IV daily Consult to ICU team, Dr. Chacko Atrial fibrillation/flutter with rapid ventricular response- Likely secondary to hypokalemia, intravascular volume depletion, and physiologic stress of abdominal infection Patient did receive doses of diltiazem IV and continuous drip initiated while in the ED He has received 2K riders and placed on normal saline per the ED Will give albumin 50 g IV now, magnesium sulfate 1 g IV Troponin 141.9 on admission, likely secondary to increased heart rate Order complete echocardiogram Follow serial laboratories Further management post surgery in the ICU Diabetes mellitus- Glucose 311 on admission Management per ICU hyperglycemic protocol History of Present Illness Chief Complaint: The patient presented to the emergency department with complaint of generalized abdominal pain, constipation, feeling weak and worsening lower extremity swelling Primary Care Provider: Rika Gonzalez MD The patient is a 63-year-old male with a past medical history including history of venous thromboembolism, obesity hypoventilation syndrome, severe JAMIE, generalized edema, left lower extremity DVT, right sided pulmonary embolism, morbid obesity and chronic tobacco use. The patient has been in a workup for potential lung cancer, and was scheduled to see oncology on 10/02. With worsening symptoms as noted above, he presented to the ED for assessment. He was found to be in atrial fibrillation with RVR likely associated with hypokalemia and decreased intravascular volume, and CT scan of abdomen and pelvis suggested a colon perforation, for which patient is being taken emergently to the OR by Dr. Stevens. Allergies Allergy/AdvReac Type Severity Reaction Status Date / Time No Known Allergies Allergy Unverified 09/05/23 08:10 Home Medications Medication Instructions Recorded Confirmed Type multivitamin 1 tab PO DAILY 09/29/19 10/02/23 History magnesium 250 mg tablet 250 mg PO DAILY 10/14/19 10/02/23 History Vitamin D3 1 tab PO DAILY 08/30/23 10/02/23 History naproxen sodium 220 mg tablet 220 mg PO DIRECTED PRN Pain 08/30/23 10/02/23 History (Aleve) potassium phosphate, monobasic 500 1,000 mg PO DAILY 09/04/23 10/02/23 History mg soluble tablet potassium chloride 20 mEq 20 meq PO DAILY #30 tabs 09/05/23 10/02/23 Rx tablet,extended release tramadol 50 mg tablet 50 - 100 mg PO Q6H PRN pain 10/02/23 10/02/23 History Past Med/Surg History Medical History (Updated 10/02/23 @ 19:37 by Angel Chang MD) Hypokalemia Lung mass Colon perforation Liver masses Hyperglycemia Elevated troponin Atrial fibrillation with rapid ventricular response Obesity Polycythemia Sleep apnea Pulmonary embolism on right Deep vein thrombosis (DVT) of popliteal vein of left lower extremity Surgical History Hx of knee surgery Family History Mother Cancer Father Myocardial infarction Denies family history of Ovarian cancer Prostate cancer Breast cancer Colorectal cancer Social History Smoking Status: Former smoker Tobacco Type: Cigarettes Cigarettes Per Day: 1 ppd; Hx Alcohol Use: Yes Alcohol type: beer Hx Substance Use: No Preferred Language: Estonian Communication Ability: Effective Nurse Ldr Required: No Beliefs That Will Affect Care: None marital status: Current Living Situation: Spouse Current Living Situation Comment: home with current occupational status: employed Other Information That Helps Us Care for You: No Feels Safe at Home: Yes caffeine: Yes Dental Care, Regularly: Yes Physical Activity Frequency: Does not Exercise Seatbelt Use: always Sunscreen Use: No Assistive Devices: Oxygen - Continuous and Walker Review of Systems Review of Systems: The patient denies blood in urine or stool, dysuria, urinary frequency or urgency, lightheadedness, dizziness, headache, memory loss, loss of consciousness, rash, abnormal bruising or bleeding, imbalance, focal weakness, numbness or tingling in arms or legs, generalized arthralgias or myalgias, back or neck pain, or night sweats. The review of systems is otherwise negative other than for that already noted above, and at least 10 systems have been reviewed. Physical Exam Physical Exam: The patient is awake, alert and oriented 3, looks mildly diaphoretic, normocephalic and atraumatic, lying in bed and in mild distress. HEENT--PERRL, EOMI, mucous membranes and oropharynx dry. Neck--supple. No JVD. No bruits. Thyroid normal, trachea midline, no adenopathy. Heart--tachycardic, irregularly irregular. No murmurs, rubs or gallops. Lungs-- few coarse breath sounds bilaterally. No respiratory distress, no accessory muscle use. Abdomen--soft, distended, tender to touch generalized, worse left lower quadrant. Decreased bowel sounds Extremities-- 3+ bilateral pretibial pitting edema Dermatologic--chronic venous stasis changes lower extremities. Abrasion right lower extremity Neurologic--cranial nerves II through XII grossly intact. Rheumatologic-Limited exam Psychiatric--normal affect. Results & Data Results & Data Vital Signs (Past 12 Hours) Vital Signs Temp Pulse Resp BP Pulse Ox O2 Del Method O2 Flow Rate 10/02/23 03:00 143 H 18 96 10/02/23 02:50 156 H 17 96 10/02/23 02:45 151 H 16 95 10/02/23 02:45 152/110 H 10/02/23 02:40 151 H 28 H 10/02/23 02:31 162/102 H 10/02/23 02:31 150 H 20 74 L 10/02/23 02:30 149 H 19 93 10/02/23 02:20 145 H 19 10/02/23 02:15 126/93 10/02/23 02:15 158 H 19 10/02/23 02:10 153 H 24 83 L 10/02/23 02:00 145 H 21 10/02/23 01:58 153 H 16 89 L 10/02/23 01:46 153 H 23 92 10/02/23 01:46 157/93 H 10/02/23 01:40 153 H 21 93 10/02/23 01:31 125/93 10/02/23 01:31 159 H 28 H 10/02/23 01:30 163 H 34 H 10/02/23 01:20 161 H 19 96 10/02/23 01:17 138/105 H 10/02/23 01:17 151 H 13 95 10/02/23 01:15 152 H 19 90 10/02/23 01:00 121/85 10/02/23 01:00 164 H 21 96 10/02/23 00:50 174 H 24 93 10/02/23 00:48 167 H 24 88 L 10/02/23 00:48 105/75 10/02/23 00:40 187 H 24 93 10/02/23 00:34 186 H 17 79 L 10/02/23 00:27 36.4 C L 183 H 22 144/80 H 97 Nasal Cannula 6 10/02/23 00:26 157 H Laboratory Results Laboratory Results WBC 4.43 K/ul (4.8-10.8) L 10/02/23 05:28 RBC 3.06 M/uL (4.70-6.10) L 10/02/23 05:28 Hgb 10.7 g/dl (14.0-18.0) L 10/02/23 05:28 POC Hgb 9.5 g/dl (14.0-18.0) L 10/02/23 06:16 Hct 30.7 % (42.0-52.0) L 10/02/23 05:28 POC Hct 28 % (42-52) L 10/02/23 06:16 MCV 100.3 fL (80.0-100.0) H 10/02/23 05:28 MCH 35.0 pg (25.0-34.0) H 10/02/23 05:28 MCHC 34.9 g/dL (32.0-36.0) 10/02/23 05:28 RDW Std Deviation 54.2 fL (36.4-46.3) H 10/02/23 05:28 RDW Coeff of Chiara 15.0 % (11.5-14.5) H 10/02/23 05:28 Plt Count 190 K/uL (130-400) D 10/02/23 05:28 MPV 12.6 fL (9.4-12.4) H 10/02/23 05:28 Immature Gran % (Auto) 0.7 % 10/02/23 05:28 Neut % (Auto) 91.9 % 10/02/23 05:28 Lymph % (Auto) 3.4 % 10/02/23 05:28 [place] % (Auto) 3.8 % 10/02/23 05:28 Eos % (Auto) 0.0 % 10/02/23 05:28 Baso % (Auto) 0.2 % 10/02/23 05:28 Neut # (Auto) 4.07 K/uL (1.40-6.50) 10/02/23 05:28 Lymph # (Auto) 0.15 K/uL (1.20-3.40) L 10/02/23 05:28 [place] # (Auto) 0.17 K/uL (0.11-0.59) 10/02/23 05:28 Eos # (Auto) 0.00 K/uL (0.00-0.50) 10/02/23 05:28 Baso # (Auto) 0.01 K/uL (0.00-0.20) 10/02/23 05:28 Immature Gran # (Auto) 0.03 K/uL (0.01-0.20) 10/02/23 05:28 Absolute Nucleated RBC 0.03 K/uL (0.00-0.12) 10/02/23 05:28 Nucleated RBC % (auto) 0.7 % 10/02/23 05:28 Platelet Estimate Decreased (Normal) L 10/02/23 00:35 Polychromasia 1+ 10/02/23 05:28 PT 11.8 Seconds (9.0-12.0) 10/02/23 06:38 INR 1.1 (0.9-1.1) 10/02/23 06:38 Fibrinogen 453 mg/dl (184-400) H 10/02/23 06:38 Sample Site Art Line 10/02/23 06:16 POC pH 7.47 (7.35-7.45) H 10/02/23 06:16 POC pCO2 49 mmHg (35-46) H 10/02/23 06:16 POC pO2 62 mmHg (80-95) L 10/02/23 06:16 POC HCO3 36 clement/L (19-24) H 10/02/23 06:16 POC Total CO2 38 mmol/L (24-31) H 10/02/23 06:16 POC Base Excess 13.0 clement/L (-9-1.8) H 10/02/23 06:16 ABG pH (Temp Correct) 7.485 (7.35-7.45) H 10/02/23 06:16 ABG pCO2 (Temp Corrct 48 mmHg (35-46) H 10/02/23 06:16 POC ABG pO2 at Pt Temp 59 10/02/23 06:16 POC ABG O2 Sat 92.0 % (90-95) 10/02/23 06:16 Vinh Test NA 10/02/23 06:16 O2 Delivery Device Ventilator 10/02/23 06:16 POC O2 Rate 20 10/02/23 06:16 POC FiO2 80 % 10/02/23 06:16 Tidal Volume 400 10/02/23 06:16 PEEP 6 10/02/23 06:16 POC Sodium 139 mmol/L (135-144) 10/02/23 06:16 Sodium 142 mmol/L (136-145) 10/02/23 14:38 POC Potassium 3.9 mmol/L (3.3-5.0) 10/02/23 06:16 Potassium 2.9 mmol/L (3.5-5.1) L 10/02/23 14:38 POC Chloride 89 mmol/L (101-112) L 10/02/23 00:45 Chloride 101 mmol/L (98-107) 10/02/23 14:38 Carbon Dioxide 38 mmol/L (21-32) H 10/02/23 14:38 POC Total CO2 36 mmol/L (24-31) H 10/02/23 00:45 Anion Gap 3 (3-11) 10/02/23 14:38 POC Anion Gap 17.0 mmol/L (16-25) 10/02/23 00:45 POC BUN 20 mg/dl (7-18) H 10/02/23 00:45 BUN 15 mg/dl (6-23) 10/02/23 14:38 Creatinine 0.55 mg/dl (0.6-1.4) L 10/02/23 14:38 POC Creatinine 0.8 mg/dl (0.6-1.3) 10/02/23 00:45 Est Cr Clr Drug Dosing 153.9 ml/min 10/02/23 14:38 Est GFR ( Amer) 130.4 ml/min 10/02/23 14:38 Est GFR (Non-Af Amer) 112.5 ml/min 10/02/23 14:38 BUN/Creatinine Ratio 27.3 (10-20) H 10/02/23 14:38 Glucose 224 mg/dl (70-99(Fasting)) H 10/02/23 14:38 POC Glucose 211 mg/dl (70-99) H 10/02/23 15:49 POC Glucose (other) 315 mg/dl (70-99) H 10/02/23 00:45 Lactate 1.7 mmol/L (0.4-2.0) 10/02/23 01:37 Calcium 7.7 mg/dl (8.6-10.3) L 10/02/23 14:38 POC Ioniz Calcium Andrews 1.01 mmol/l (1.12-1.32) L 10/02/23 00:45 Phosphorus 3.1 mg/dl (2.5-4.9) 10/02/23 06:38 Magnesium 2.1 mg/dl (1.7-2.4) 10/02/23 06:38 Total Bilirubin 1.4 mg/dl (0.2-1.0) H 10/02/23 00:35 AST 33 U/L (13-39) 10/02/23 00:35 ALT 62 U/L (7-52) H 10/02/23 00:35 Alkaline Phosphatase 167 U/L (34-104) H 10/02/23 00:35 Troponin I High Sens 131.2 pg/ml (0-20) H* 10/02/23 02:34 B-Natriuretic Peptide 270 pg/ml (0-100) H 10/02/23 01:34 Total Protein 5.6 gm/dl (6.0-8.3) L 10/02/23 00:35 Albumin 2.8 gm/dl (3.4-5.0) L 10/02/23 00:35 Globulin 2.8 gm/dl (2.5-4.0) 10/02/23 00:35 Albumin/Globulin Ratio 1.0 (0.9-2) 10/02/23 00:35 TSH 0.824 uIu/ml (0.300-4.500) 10/02/23 00:35 Nasal Screen MRSA (PCR) Negative (Negative) 10/02/23 Unknown Blood Type A Positive 10/02/23 02:34 Antibody Screen NEGATIVE 10/02/23 02:34 Crossmatch See Detail 10/02/23 02:34 Impressions Abdomen/Pelvis CT 10/02/23 00:41 CR Exam(s): CT ABDOMEN + PELVIS Without Contrast EXAM: CT Abdomen and Pelvis Without Intravenous Contrast CLINICAL HISTORY: Reason for exam: constipation, abd distension, gen pain. TECHNIQUE: Axial computed tomography images of the abdomen and pelvis without intravenous contrast. CTDI is 27.15 mGy and DLP is 1379.6 mGy-cm. Automated exposure control was utilized for the study. A dose lowering technique was utilized adhering to the principles of ALARA. COMPARISON: No relevant prior studies available. FINDINGS: Lung bases: Unremarkable. No mass. No consolidation. ABDOMEN: Liver: Liver is markedly heterogeneous with findings concerning for innumerable low density masses on this noncontrast study. Follow-up evaluation is warranted. Gallbladder and bile ducts: Unremarkable. No calcified stones. No ductal dilation. Pancreas: Unremarkable. No ductal dilation. Spleen: Unremarkable. No splenomegaly. Adrenals: Severe bilateral adrenal hyperplasia. Kidneys and ureters: Unremarkable. No obstructing stones. No hydronephrosis. Stomach and bowel: Unremarkable. No obstruction. No mucosal thickening. PELVIS: Appendix: No findings to suggest acute appendicitis. Bladder: Unremarkable. No stones. Reproductive: Unremarkable as visualized. ABDOMEN and PELVIS: Intraperitoneal space: There is free air around the sigmoid colon concerning for a colonic perforation. No significant fluid collection. Bones/joints: Moderate T12 compression fracture which may be acute.. No dislocation. Soft tissues: Unremarkable. Vasculature: Unremarkable. No abdominal aortic aneurysm. Lymph nodes: Unremarkable. No enlarged lymph nodes. IMPRESSION: 1. Free air around the sigmoid colon concerning for a colonic perforation. 2. Liver is markedly heterogeneous with findings concerning for innumerable low density masses on this noncontrast study. Follow-up evaluation is warranted. 3. Moderate T12 compression fracture which may be acute. 4. Severe bilateral adrenal hyperplasia. Communications: Call Doctor Pneumoperitoneum, new or unexpected Electronically signed by: Aristeo Clark M.D. 10/02/23 01:42 AM Chest X-Ray 10/02/23 04:46 SUPINE PORTABLE AP CHEST RADIOGRAPH CLINICAL HISTORY: eval ETT/OGT COMPARISON STUDY: Chest CT August 30, 2023. October 02, 2023 at 1:21 AM. FINDINGS: Tip of endotracheal tube is 2.1 cm above the leslee. Tip of nasogastric tube is below the lower aspect of this image but at least within the proximal stomach. No pneumothorax is identified on supine exam. Allowing for supine technique, cardiomediastinal silhouette is stable. Left hilar and mediastinal lymphadenopathy with left upper lobe lesion is again noted. This better depicted on prior CT. There is no evidence for overt pulmonary edema. IMPRESSION: 1. Satisfactory positioning of the endotracheal and nasogastric tubes. 2. Left upper lobe mass and left hilar and mediastinal lymphadenopathy, better depicted on prior chest CT. ACT 112: Negative or not required by law. Electronically signed by: Jose Mann M.D. 10/02/2023 6:46 AM Code Status & VTE Plan Code Status Full code VTE Prophylaxis Plan VTE Prophylaxis will be ordered: Yes Critical Care Time 40 minutes PG Care Time/CCT Total # of Minutes Spent Total Time Spent with Patient: Total time spent is greater than 50% in coordination of care (as documented) at patient's floor/unit and/or counseling patient: Coding Level of Care Code 48255 INT INP/OBS CARE 3/75MIN Diagnoses Admitted to intensive care unit Z78.9 Atrial fibrillation and flutter I48.91; I48.92 Morbid obesity E66.01 Perforated viscus R19.8 Acute hypoxic respiratory failure J96.01 Liver lesion K76.9 Lung mass R91.8 Sleep apnea G47.30 Cigarette smoker F17.210 Hypokalemia E87.6
[2023-10-02 03:20] LABS: INR 1.1 (0.9-1.1); Prothrombin Time 11.7 Seconds (9.0-12.0)
--- NOTE | 2023-10-02 04:10 | Critical Care Consultation ---
Date of Consultation October 02, 2023 Assessment & Plan (1) Perforated bowel: (2) History of venous thromboembolism: (3) Obesity hypoventilation syndrome: (4) Severe obstructive sleep apnea: (5) Electrolyte disturbance: (6) Thrombocytopenia: (7) Liver lesion: Plan Reason Critically Ill: 63 YOM with likely new diagnosis of lung cancer with metastatic disease to liver. He has not had workup of this completed yet. He was taken urgently to the operating theatre for concern of colonic perforation on CT scan. He was not found to have perforation in the operating room, however a liver biopsy was obtained. He came to the ICU intubated with continued need for resuscitation and electrolyte replacements. Neuro - Sedation for mechanical ventilation CAM ICU: ERNST - Patient was awake and appropriate and moving all extremities on initial evalu ation in the EMD prior to intubation - Current sedation for mechanical ventilatioin - Fentanyl and Propofol for RASS goal of -1 - Likely be able to wake up and give trial for extubation this morning - Will need continued pain control Cardiac - Afib/Flutter, Electrolyte disturbances, Hypovolemia, Elevated HsCTNI, Lower extremity edema - Patient originally with HR 140-160s on arrival - he has had his potassium replaced and magnesium is starting on arrival to the ICU - Afib- Consider jail anticoagulation following surgical healing and any other planned procedures- currently in NSR - He was initiated on Diltiazem infusion in the EMD up to 15mg per hour- he is back in NSR in the 80-90s with PACs and PVCS unifocal on arrival to the ICU - wean off diltiazem infusion - continue with electrolyte replacement - Received 1.4L in OR and 2L in the EMD as well as albumin - He is without pressor needs at this time and is without lactate- urine output is adequate - Elevated HsCTNI is likely demand in the setting of acute illness and tachycardia- no complaints of chest pain and ECG without STEMI- trend - Lower legs from knees to feet with pitting edema- has had negative duplex of legs as of 09/12/23 for DVT- no occlusive mass seen on CT abdomen/pelvis- replace albumin - multifocal etiology at this time, but may require further evaluation Respiratory - Intubation and Mechanical ventilation, JAMIE/Obesity Hypoventilation syndrome, Lung mass - Likely able to wake up and SBT this morning with hopes of extubation - CPAP 5-11 at home with 5L of oxygen bled in per patient- CPAP/BIPAP post extubation and at night - Lung mass in the hilar region and left lung nodules suggestive of lung cancer on CT scan 08/30/23- no biopsy has been obtained at this time - Continue supportive care GI - Liver masses- innumerable, bowel perforation - Likely metastatic disease- biopsy obtained by surgical excision on 10/02/23- follow up on path results - NO bowel perforation identified by surgical exploration- NGT in place to suction - consider re-imaging with enteric contrast - defer to surgical team for timing - Continue Zosyn and Vancomycin RENAL/LYTES - Electrolyte disturbances - Low K, MG, Calcium- likely associated with poor oral intake and likely cancer diagnosis - replete electrolytes- Mag, K, Ca - Ringers at 75 ml per hour- bolus if needed for MAPS or low urine output - Perkins catheter - placed for resuscitation and operative course- remove once extubated ENDO - Hyperglycemia without diagnosis of DM - ICU hyper/hypoglycemic protocol follow goal BG <180mg/dl HEME - Pancytopenia - Likely related to likely cancer diagnosis and liver masses- Transfuse for active bleeding, symptomatic anemia, or invasive procedures - Coagulation panel pending ID - Possible perforation of colon/microperforation - Continue Zosyn and Vancomycin - de-esclate pending culture results and clinical course for bowel coverage LINES/IV ACCESS - ETT, NGT, Kaitlynn, Perkins Continue use of these lines DVT PROPHYLAXIS - SCDS, - Chemoprophylaxis when hemostasis is ensured and pending further procedural plans to support diagnosis and workup DISPO: ICU while intubated and sedated Supervising Physician Co-Signing Physician Notes I saw and evaluated the patient with SANTOS Chiang, and agree with findings and plan as documented in the note. 63-year-old male with past medical history of COPD and left hilar mass presented to hospital with complaints of abdominal pain. Was found to have possible upper in the left lower quadrant Patient did have emergent laparoscopy. There was no evidence of perforation or ischemia. He did have liver mets which were biopsied by Dr. Stevens At the time of examination he was on 100 of fentanyl, 40 of propofol. He was RASS -1 but easily arousable. Did not follow any commands. Was breathing with the vent. Was in A-fib which was rate controlled Constitutional: No acute distress HEENT: PERRLA, positive ETT Respiratory system: Decreased air entry bilaterally, no wheeze, rhonchi, positive crackles bilateral lower lobes CVS: S1-S2 positive, no murmurs or gallops, irregular Abdomen: Soft, nontender, nondistended, positive bowel sounds x4, obese Extremities: +2 pulses bilaterally radialis/ dorsalis pedis, no cyanosis, +2 pitting edema bilateral lower extremity Neuro: Intubated, sedated, moving all extremities, RASS -2 Psych: Unable to assess G/U: Positive Perkins --Prophylaxis VTE: IPC GI: Pantoprazole Lines: Left radial, peripheral, Perkins Diet: N.p.o. Plan: Continue with antibiotic with gram-negative and anaerobic coverage. DC vancomycin given MRSA negative. Strict ins and outs Patient is requiring a lot of sedation. Trial of extubation will be done tomorrow, I do think he will need Precedex prior to extubation. Potassium and magnesium are being replaced. Repeat BMP later. Patient does have left hilar mass. Given he already has mets to the liver and if they were biopsied. I do not think there is a need for bronchoscopy/EBUS right now Patient has new onset A-fib, this is most likely because of underlying micro perforation. Given the active cancer diagnosis, I do think he will be at high risk for blood clots in future and would recommend anticoagulation once cleared by surgery. I have personally spent 58 minutes of critical care time in the direct management of this patient. This is a life/limb threatening event. This includes time spent evaluating patient, direct bedside care, chart review, placing orders, interpretation of diagnostic studies, discussion with consultants, patient, and family members, as well as other required patient management activities. This time is exclusive of all separately billable procedures, and teaching time and separate from and in addition to any other critical care service time. Please note the above document was generated using voice recognition software. It may contain grammatical, syntax or spelling errors. History of Present Illness Reason for Consultation: colon perforation Requesting Physician: Angel Chang MD Attending Physician: Isacc Stevens DO History of Present Illness 63 YOM with newly diagnosed lung cancer found incidentally in August 2023 and also noted with liver metastasis at that time as well. He has not had any workup or biopsies of these and was supposed to meet with oncology tomorrow for plan. He has also been having extensive swelling to his legs and has had negative Venous doppler study in 09/12/23 as well as CTA negative for PE in August. He has had DVT in the past. He presented to the EMD today for acute onset of abdominal pain in the left lower quadrant earlier in the day. He reports that he has been very constipated over the past week and has had no appetite. Pain was to his left lower quadrant. Patient is accompanied by his and reports that he has not been doing well since his finding of likely cancer on CT scan in August. She notes that he has been getting full eating very quickly after a few bites, as well as his legs have gotten very swollen over the past month, to the point where he can't walk up stairs and had to have his bed and belongings moved downstairs. He also had to quit his job in Sep 2023 secondary to multiple symptoms. He has smoked since he was 16 and stopped in August 2023. In the EMD the patient had CXR, CT abdomen and pelvis- that revealed free air around the sigmoid colon as well as innumerable masses in the liver. His was noted to be in afib/flutter with HR in the 140s as well as multiple electrolyte imbalances- with K 2.8 and Mg 1.7. He was noted with platelet count of 86K with bruising to his lower legs and upper arms. His legs are with pitting edema from feet to knees and is soft weeping with multiple abrasions and drainage. He was taken to the Operating Room urgently. I was able to meet the patient prior to the operating room, he is aware of how ill he currently is and comorbid conditions. He does want to be FULL CODE for now. He is accompanied by his and she also was updated that he has a very high mortality index at this time. CODE: FULL Allergies Allergy/AdvReac Type Severity Reaction Status Date / Time No Known Allergies Allergy Unverified 09/05/23 08:10 Home Medications Medication Instructions Recorded Confirmed Type multivitamin 1 tab PO DAILY 09/29/19 10/02/23 History magnesium 250 mg tablet 250 mg PO DAILY 10/14/19 10/02/23 History Vitamin D3 1 tab PO DAILY 08/30/23 10/02/23 History naproxen sodium 220 mg tablet 220 mg PO DIRECTED PRN Pain 08/30/23 10/02/23 History (Aleve) potassium phosphate, monobasic 500 1,000 mg PO DAILY 09/04/23 10/02/23 History mg soluble tablet potassium chloride 20 mEq 20 meq PO DAILY #30 tabs 09/05/23 10/02/23 Rx tablet,extended release tramadol 50 mg tablet 50 - 100 mg PO Q6H PRN pain 10/02/23 10/02/23 History Patient History Medical History Colon perforation Lung mass Liver masses Hypokalemia Hyperglycemia Elevated troponin Atrial fibrillation with rapid ventricular response Obesity Polycythemia Sleep apnea Pulmonary embolism on right Deep vein thrombosis (DVT) of popliteal vein of left lower extremity Surgical History Hx of knee surgery Family History Mother Cancer Father Myocardial infarction Denies family history of Ovarian cancer Prostate cancer Breast cancer Colorectal cancer Social History Smoking Status: Former smoker Tobacco Type: Cigarettes Cigarettes Per Day: 1 ppd; Hx Alcohol Use: Yes Alcohol type: beer Hx Substance Use: No Preferred Language: Cook Islander Communication Ability: Effective Pt Skilled Required: No Beliefs That Will Affect Care: None marital status: Current Living Situation: Spouse Current Living Situation Comment: home with current occupational status: employed Other Information That Helps Us Care for You: No Feels Safe at Home: Yes caffeine: Yes Dental Care, Regularly: Yes Physical Activity Frequency: Does not Exercise Seatbelt Use: always Sunscreen Use: No Assistive Devices: Oxygen - Continuous and Walker Review of Systems Review of Systems: REVIEW OF SYSTEMS: Constitutional: No fever, sweats or chills Eyes: No diplopia, no worsening or blurred vision ENT: normal hearing, no trouble swallowing Respiratory: (+) dyspnea at rest and with exertion, No cough, sputum, Cardiovascular: (+) palpitations, swelling of extremities, No chest pain, tightness or palpitations Abdomen: (+) pain, nausea, vomiting, constipation, early saiety Musculoskeletal: (+) feet, knee, and hip pain Neurologic: No weakness, numbness/tingling, or balance problems Skin: (+) easy bruising and bleeding Physical Exam Physical Exam: PHYSICAL EXAM: General: awake, alert, Head: Normocephalic, atraumatic ENT: PERRLA, EOMI, no pharyngeal exudate, mucous membranes dry Neuro: AAO x 3, speech clear and appropriate, strength intact bilaterally 5/5, sensation intact and equal all extremities and dermatomes, no pronator drift Chest: equal rise and fall of the chest, no accessory muscle use, no heaves or thrills, Clear to auscultation, on room air, Cardiac: irregular rate and rhythm, telemetry reviewed- Afib/flutter, skin warm dry, cap refill <3 seconds, no murmur, +4 pitting edema from feet to knees, weeping yellow brownish fluid GI: NABS x 4 quadrants, distended, tender to palpation, : Spontaneously voiding, no pain, no CVA tenderness, Skin: multiple areas of bruising to right leg and foot, cuts and lacerations to feet, jaundiced Results & Data Results & Data Vital Signs (Past 12 Hours) Vital Signs Temp Pulse Resp BP Pulse Ox O2 Del Method O2 Flow Rate 10/02/23 03:00 143 H 18 96 10/02/23 02:50 156 H 17 96 10/02/23 02:45 151 H 16 95 10/02/23 02:45 152/110 H 10/02/23 02:40 151 H 28 H 10/02/23 02:31 162/102 H 10/02/23 02:31 150 H 20 74 L 10/02/23 02:30 149 H 19 93 10/02/23 02:20 145 H 19 10/02/23 02:15 126/93 10/02/23 02:15 158 H 19 10/02/23 02:10 153 H 24 83 L 10/02/23 02:00 145 H 21 10/02/23 01:58 153 H 16 89 L 10/02/23 01:46 153 H 23 92 10/02/23 01:46 157/93 H 10/02/23 01:40 153 H 21 93 10/02/23 01:31 125/93 10/02/23 01:31 159 H 28 H 10/02/23 01:30 163 H 34 H 10/02/23 01:20 161 H 19 96 10/02/23 01:17 138/105 H 10/02/23 01:17 151 H 13 95 10/02/23 01:15 152 H 19 90 10/02/23 01:00 121/85 10/02/23 01:00 164 H 21 96 10/02/23 00:50 174 H 24 93 10/02/23 00:48 167 H 24 88 L 10/02/23 00:48 105/75 10/02/23 00:40 187 H 24 93 10/02/23 00:34 186 H 17 79 L 10/02/23 00:27 36.4 C L 183 H 22 144/80 H 97 Nasal Cannula 6 10/02/23 00:26 157 H Laboratory Results Laboratory Results - last 24 hr 10/02/23 10/02/23 10/02/23 00:35 00:45 01:34 WBC 6.40 RBC 3.49 L Hgb 11.9 L POC Hgb 11.6 L Hct 35.1 L POC Hct 34 L MCV 100.6 H MCH 34.1 H MCHC 33.9 RDW Std Deviation 52.4 H RDW Coeff of Chiara 14.6 H Plt Count 86 L MPV 13.4 H Immature Gran % (Auto) 1.6 Neut % (Auto) 91.5 Lymph % (Auto) 2.5 Gordon % (Auto) 4.2 Eos % (Auto) 0.0 Baso % (Auto) 0.2 Neut # (Auto) 5.86 Lymph # (Auto) 0.16 L Gordon # (Auto) 0.27 Eos # (Auto) 0.00 Baso # (Auto) 0.01 Immature Gran # (Auto) 0.10 Absolute Nucleated RBC 0.06 Nucleated RBC % (auto) 0.9 Platelet Estimate Decreased L Polychromasia 1+ PT 11.7 INR 1.1 POC Sodium 138 Sodium 141 POC Potassium 2.8 L Potassium 2.8 L POC Chloride 89 L Chloride 93 L Carbon Dioxide 36 H POC Total CO2 36 H Anion Gap 12 H POC Anion Gap 17.0 POC BUN 20 H BUN 22 Creatinine 0.70 POC Creatinine 0.8 Est Cr Clr Drug Dosing 119.6 Est GFR ( Amer) 118.1 Est GFR (Non-Af Amer) 101.9 BUN/Creatinine Ratio 31.4 H Glucose 311 H* POC Glucose (other) 315 H Lactate Calcium 8.1 L POC Ioniz Calcium Andrews 1.01 L Magnesium 1.7 Total Bilirubin 1.4 H AST 33 ALT 62 H Alkaline Phosphatase 167 H Troponin I High Sens 141.9 H* B-Natriuretic Peptide 270 H Total Protein 5.6 L Albumin 2.8 L Globulin 2.8 Albumin/Globulin Ratio 1.0 TSH 0.824 Blood Type Antibody Screen Crossmatch 10/02/23 10/02/23 01:37 02:34 WBC RBC Hgb POC Hgb Hct POC Hct MCV MCH MCHC RDW Std Deviation RDW Coeff of Chiara Plt Count MPV Immature Gran % (Auto) Neut % (Auto) Lymph % (Auto) Gordon % (Auto) Eos % (Auto) Baso % (Auto) Neut # (Auto) Lymph # (Auto) Gordon # (Auto) Eos # (Auto) Baso # (Auto) Immature Gran # (Auto) Absolute Nucleated RBC Nucleated RBC % (auto) Platelet Estimate Polychromasia PT INR POC Sodium Sodium POC Potassium Potassium POC Chloride Chloride Carbon Dioxide POC Total CO2 Anion Gap POC Anion Gap POC BUN BUN Creatinine POC Creatinine Est Cr Clr Drug Dosing Est GFR ( Amer) Est GFR (Non-Af Amer) BUN/Creatinine Ratio Glucose POC Glucose (other) Lactate 1.7 Calcium POC Ioniz Calcium Andrews Magnesium Total Bilirubin AST ALT Alkaline Phosphatase Troponin I High Sens 131.2 H* B-Natriuretic Peptide Total Protein Albumin Globulin Albumin/Globulin Ratio TSH Blood Type A Positive Antibody Screen NEGATIVE Crossmatch See Detail Diagnostic Findings Abdomen/Pelvis CT 10/02/23 00:41 CR Exam(s): CT ABDOMEN + PELVIS Without Contrast EXAM: CT Abdomen and Pelvis Without Intravenous Contrast CLINICAL HISTORY: Reason for exam: constipation, abd distension, gen pain. TECHNIQUE: Axial computed tomography images of the abdomen and pelvis without intravenous contrast. CTDI is 27.15 mGy and DLP is 1379.6 mGy-cm. Automated exposure control was utilized for the study. A dose lowering technique was utilized adhering to the principles of ALARA. COMPARISON: No relevant prior studies available. FINDINGS: Lung bases: Unremarkable. No mass. No consolidation. ABDOMEN: Liver: Liver is markedly heterogeneous with findings concerning for innumerable low density masses on this noncontrast study. Follow-up evaluation is warranted. Gallbladder and bile ducts: Unremarkable. No calcified stones. No ductal dilation. Pancreas: Unremarkable. No ductal dilation. Spleen: Unremarkable. No splenomegaly. Adrenals: Severe bilateral adrenal hyperplasia. Kidneys and ureters: Unremarkable. No obstructing stones. No hydronephrosis. Stomach and bowel: Unremarkable. No obstruction. No mucosal thickening. PELVIS: Appendix: No findings to suggest acute appendicitis. Bladder: Unremarkable. No stones. Reproductive: Unremarkable as visualized. ABDOMEN and PELVIS: Intraperitoneal space: There is free air around the sigmoid colon concerning for a colonic perforation. No significant fluid collection. Bones/joints: Moderate T12 compression fracture which may be acute.. No dislocation. Soft tissues: Unremarkable. Vasculature: Unremarkable. No abdominal aortic aneurysm. Lymph nodes: Unremarkable. No enlarged lymph nodes. IMPRESSION: 1. Free air around the sigmoid colon concerning for a colonic perforation. 2. Liver is markedly heterogeneous with findings concerning for innumerable low density masses on this noncontrast study. Follow-up evaluation is warranted. 3. Moderate T12 compression fracture which may be acute. 4. Severe bilateral adrenal hyperplasia. Communications: Call Doctor Pneumoperitoneum, new or unexpected Electronically signed by: Aristeo Clark M.D. 10/02/23 01:42 AM Medications Administered Sodium Chloride (Nss) 1,000 mls @ 125 mls/hr IV .Q8H HANNA Stop: 11/01/23 00:44 Last Admin: 10/02/23 00:38 Dose: 125 mls/hr Documented By: ESTELLA Diltiazem HCl 125 mg/ Dextrose 125 mls @ 15 mls/hr IV .Q8H20M HANNA; Protocol Stop: 11/01/23 00:44 Last Titration: 10/02/23 01:55 Dose: 15 mg/hr, 15 mls/hr Documented By: MOON Co-signed By: ASHWIN Admin: 10/02/23 00:53 Dose: 10 mg/hr, 10 mls/hr Documented By: MOON Co-signed By: MED Vancomycin HCl 2,000 mg/ (Sodium Chloride) 540 mls @ 200 mls/hr IV NOW ONE Stop: 10/02/23 04:13 Last Admin: 10/02/23 02:20 Dose: 200 mls/hr Documented By: MOON Discontinued Medications Diltiazem HCl (Diltiazem Hcl 5 Mg/Ml 5 Ml Vial) 10 mg IV NOW STA Stop: 10/02/23 00:42 Last Admin: 10/02/23 00:45 Dose: 10 mg Documented By: MOON Co-signed By: BILLIE Diltiazem HCl (Diltiazem Hcl 5 Mg/Ml 5 Ml Vial) 10 mg IV NOW STA Stop: 10/02/23 01:03 Last Admin: 10/02/23 01:25 Dose: 10 mg Documented By: MOON Co-signed By: BILLIE Potassium Chloride (K Lito / Wtr) 10 meq in 100 mls @ 100 mls/hr IV Q1H HANNA Stop: 10/02/23 03:14 Last Admin: 10/02/23 02:20 Dose: 100 mls/hr Documented By: Infusion: 10/02/23 02:18 Dose: Infused Documented By: Admin: 10/02/23 01:18 Dose: 100 mls/hr Documented By: MOON Sodium Chloride (Nss) 250 mls @ 999 mls/hr IV .Q16M ONE Stop: 10/02/23 01:17 Last Infusion: 10/02/23 02:31 Dose: Infused Documented By: Admin: 10/02/23 01:18 Dose: 999 mls/hr Documented By: MOON Piperacillin Sod/Tazobactam Sod (Zosyn) 4.5 gm in 100 mls @ 200 mls/hr IV NOW ONE Stop: 10/02/23 02:01 Last Infusion: 10/02/23 02:31 Dose: Infused Documented By: Admin: 10/02/23 01:49 Dose: 200 mls/hr Documented By: MOON Sodium Chloride (Nss) 500 mls @ 999 mls/hr IV .Q31M ONE Stop: 10/02/23 02:05 Last Infusion: 10/02/23 02:31 Dose: Infused Documented By: Admin: 10/02/23 01:53 Dose: 999 mls/hr Documented By: MOON Coding Level of Care Code 16392 CRITICAL CARE 1ST 30-74M Diagnoses Perforated bowel K63.1 History of venous thromboembolism Z86.718 Obesity hypoventilation syndrome E66.2 Severe obstructive sleep apnea G47.33 Electrolyte disturbance E87.8 Thrombocytopenia D69.6 Liver lesion K76.9
[2023-10-02] MEDS ORDERED: ALBUTEROL HFA 8 GM INHALER INH ONE (04:21)
[2023-10-02] MEDS ORDERED: PHENYLEPHRINE HCL 10 MG/ML VIAL ONE (04:21)
[2023-10-02] MEDS ORDERED: PHENYLEPHRINE 100MCG/ML 10ML SYR IV ONE (04:21)
[2023-10-02] MEDS ORDERED: fentaNYL citrate 2,500 MCG/250 ML BAG IV ONE (05:02)
[2023-10-02] MEDS ORDERED: PROPOFOL IV EMULSION 10 MG/ML 100 ML VIAL IV ONE (05:02)
--- NOTE | 2023-10-02 05:05 | Operative Report ---
[facility] Post Operative Report Pre & Post Diagnosis Operation Date: 10/02/23 03:30 Pre-Op Diagnosis: Colon perforation. Post-Op Diagnosis: Source of perforation not identified.; multiple liver masses; I identified the patient and participated in the time-out.: Yes Procedure Operation Date: 10/02/23 03:30 Actual Procedures p Exploratory laparotomy, liver biopsy. - Isacc Stevens DO Surgeon Isacc Stevens DO Oracle Manager christiano Zapata Estimated Blood Loss 10 Findings Consistent with Post-Op Diagnosis Specimens left lobe liver mass biopsy Description of Procedure 63-year-old male who presented to the emergency room acute abdominal pain. States he had been constipated for 3 days. He was recently seen in the ER around [place] and diagnosed with a lung mass and suspected liver mets. He was tachycardic on presentation today. CT scan showed free air with air around the sigmoid colon suspicious for sigmoid colon perforation. He was brought to the operating room urgently for exploratory laparotomy. After informed consent was obtained the patient was taken to the operating room and placed in supine position. After successful intubation arterial line was placed by anesthesia. A Perkins catheter had already been placed. Nasogastric tube was also placed by anesthesia. This was later verified during laparotomy. The abdomen was shaved and sterilely prepped and draped in usual fashion. Midline incision from above the umbilicus down around to the pubic symphysis was made with a 15 blade scalpel. This was carried down through the soft tissue using cautery. The anterior fascia was opened in the midline using cautery. Peritoneum was elevated with hemostats and incised using Metzenbaum scissor. Cautery was then used to extend this incision to both poles. Once in the abdomen we began the exploration. There was no foul odors. There was no fluid or succus whatsoever. There was very slight bubbling of the mesentery of the sigmoid colon. I was able to evaluate the colon from the peritoneal reflection up to the splenic flexure across the transverse colon down to the cecum itself. We performed this maneuver several times. We also ran the small bowel from the ligament of Treitz to the terminal ileum twice. There was no evidence of any perforation whatsoever. There was no ischemic sections. In fact the only gross abnormality other than the slight air within the mesentery was multiple liver masses in both lobes of the liver. Best guess is that the patient suffered a very small micro-perforation and the location currently not identifiable. Ivan- Cut needle biopsy was used to sample several of these masses to send to pathology. The small amount of post biopsy bleeding liver was controlled using cautery. Irrigation of the abdomen was performed. I will note that there was a fair amount of firm stool burden primarily in the left and sigmoid colon but again no area of perforation was identified. The abdomen was thoroughly irrigated. Fascia was closed using 0- looped PDS in running fashion. Soft tissue was irrigated and skin was closed using skin bella. Silver dressing was applied. Patient was transferred to the intensive care unit and remained intubated in guarded condition. He will be monitored closely for any worsening abdominal issues and if there is any question a second look operation would be performed. My physician business banking sales assistant was present for the entire case was instrumental in assisting with exposure wound closure and dressing placement. I attest to the content of the Intraoperative Record and any orders documented therein. Any exceptions are noted below.
--- NOTE | 2023-10-02 05:14 | Anesthesiology Progress Note ---
Date of Service October 02, 2023 Anesthesia Post Procedure Vital Signs Vital Signs: Temp Pulse Pulse Resp BP BP Pulse Ox 10/02/23 05:00 36.6 C 100 H 16 153/97 H 99 10/02/23 03:00 143 H 18 96 10/02/23 02:50 156 H 17 96 10/02/23 02:45 151 H 16 95 10/02/23 02:45 152/110 H 10/02/23 02:40 151 H 28 H 10/02/23 02:31 162/102 H 10/02/23 02:31 150 H 20 74 L 10/02/23 02:30 149 H 19 93 10/02/23 02:20 145 H 19 10/02/23 02:15 126/93 10/02/23 02:15 158 H 19 10/02/23 02:10 153 H 24 83 L 10/02/23 02:00 145 H 21 10/02/23 01:58 153 H 16 89 L 10/02/23 01:46 153 H 23 92 10/02/23 01:46 157/93 H 10/02/23 01:40 153 H 21 93 10/02/23 01:31 125/93 10/02/23 01:31 159 H 28 H 10/02/23 01:30 163 H 34 H 10/02/23 01:20 161 H 19 96 10/02/23 01:17 138/105 H 10/02/23 01:17 151 H 13 95 10/02/23 01:15 152 H 19 90 10/02/23 01:00 121/85 10/02/23 01:00 164 H 21 96 10/02/23 00:50 174 H 24 93 10/02/23 00:48 167 H 24 88 L 10/02/23 00:48 105/75 10/02/23 00:40 187 H 24 93 10/02/23 00:34 186 H 17 79 L 10/02/23 00:27 36.4 C L 183 H 22 144/80 H 97 10/02/23 00:26 157 H O2 Del Method O2 Flow Rate 10/02/23 05:00 Mechanical Vent 10/02/23 03:00 10/02/23 02:50 10/02/23 02:45 10/02/23 02:45 10/02/23 02:40 10/02/23 02:31 10/02/23 02:31 10/02/23 02:30 10/02/23 02:20 10/02/23 02:15 10/02/23 02:15 10/02/23 02:10 10/02/23 02:00 10/02/23 01:58 10/02/23 01:46 10/02/23 01:46 10/02/23 01:40 10/02/23 01:31 10/02/23 01:31 10/02/23 01:30 10/02/23 01:20 10/02/23 01:17 10/02/23 01:17 10/02/23 01:15 10/02/23 01:00 10/02/23 01:00 10/02/23 00:50 10/02/23 00:48 10/02/23 00:48 10/02/23 00:40 10/02/23 00:34 10/02/23 00:27 Nasal Cannula 6 10/02/23 00:26 Pain Intensity Abdomen: Pain Intensity: 8 Transfer of Care Handoff Completed per policy Notes Mental Status: see notes below Patient Amnestic to Procedure: Yes Nausea / Vomiting: adequately controlled Pain: adequately controlled Airway Patency, RR, SpO2: stable & adequate BP & HR: stable & adequate Hydration State: stable & adequate Anesthetic Complications: no major complications apparent Notes: Patient taken to ICU intubated and sedated on monitor with oxygen via ambu. dilt ggt continued and appears rhythm converted to sinus. has three piv's and left radial a line. full report given to icu PA and nursing staff.
[2023-10-02] MEDS ORDERED: DEXTROSE 50% 50 ML SYRINGE IV PRN (05:18)
[2023-10-02] MEDS ORDERED: PHARMACY GLYCEMIC MGMT CONSULT PRN (05:18)
[2023-10-02] MEDS ORDERED: GLUCAGON FOR INJ 1 MG VIAL SQ PRN (05:18)
[2023-10-02] MEDS ORDERED: NSS + 20MEQ KCL 20 MEQ/1,000 ML BAG IV SCH (05:18)
[2023-10-02] MEDS ORDERED: GLUCOSE 40% GEL 15 GM TUBE PO PRN (05:18)
[2023-10-02] MEDS ORDERED: GLUCOSE 10 TAB/TUBE PO PRN (05:18)
[2023-10-02] MEDS ORDERED: CARBOHYDRATES FOR HYPOGLYCEMIA PO PRN (05:18)
[2023-10-02] MEDS ORDERED: ACETAMINOPHEN 1000 MG/100 ML IV IV PRN (05:18)
[2023-10-02] MEDS ORDERED: ONDANSETRON INJ 2 MG/ML 2 ML VIAL IV PRN (05:18)
[2023-10-02] MEDS: PROPOFOL BOLUS FROM BAG IV PRN ×4 (05:30→06:28)
[2023-10-02] MEDS: MAGNESIUM SULFATE / D5W 1 GM/100 ML BAG IV SCH ×2 (05:30→06:31)
[2023-10-02] MEDS: fentaNYL BOLUS from BAG IV PRN (05:30)
[2023-10-02] MEDS: LACTATED RINGER'S 1,000 ML IV SCH ×2 (05:38→18:44)
[2023-10-02] MEDS: fentaNYL citrate 2,500 MCG/250 ML BAG IV SCH ×2 (05:39→16:10)
[2023-10-02] MEDS: propofoL 1,000 MG/100 ML VIAL IV SCH ×5 (05:39→20:16)
[2023-10-02 05:44] LABS: iSTAT Art Bld Gas pCO2 Correct 53 mmHg (35-46); iSTAT Art Bld Gas pH Corrected 7.467 (7.35-7.45); iSTAT Arterial Blood Gas HCO3 39 meg/L (19-24); iSTAT Arterial Blood Gas pCO2 55 mmHg (35-46); iSTAT Arterial Blood Gas pH 7.45 (7.35-7.45); iSTAT Arterial Blood Gas pO2 64 mmHg (80-95); iSTAT Arterial Blood Gas pO2 C 59; iSTAT Carbon Dioxide > 40 mmol/L (24-31); iSTAT FiO2 70 %; iSTAT Hematocrit 31 % (42-52); iSTAT Hemoglobin 10.5 g/dl (14.0-18.0); iSTAT Potassium 3.4 mmol/L (3.3-5.0); iSTAT Site Art Line; iSTAT Sodium 140 mmol/L (135-144)
[2023-10-02] MEDS: ALBUMIN 25% 25 GM/100 ML VIAL IV SCH ×2 (05:45→07:28)
[2023-10-02] MEDS ORDERED: ACETAMINOPHEN 1,000 MG/100 ML VIAL IV PRN (05:50)
[2023-10-02 05:51] LABS: Hematocrit (blood only) 30.7 % (42.0-52.0); Hemoglobin 10.7 g/dl (14.0-18.0); Mean Corpuscular Hgb Conc 34.9 g/dL (32.0-36.0); Mean Corpuscular Volume 100.3 fL (80.0-100.0); Mean Platelet Volume 12.6 fL (9.4-12.4); Nucleated RBC # (auto) 0.03 K/uL (0.00-0.12); Nucleated RBC % (auto) 0.7 %; Platelet Count 190 K/uL (130-400); RDW Standard Deviation 54.2 fL (36.4-46.3); Red Blood Count 3.06 M/uL (4.70-6.10); White Blood Count 4.43 K/ul (4.8-10.8)
[2023-10-02 06:12] LABS: Basophils # (auto) 0.01 K/uL (0.00-0.20); Basophils % (auto) 0.2 %; Immature Granulocytes # (auto) 0.03 K/uL (0.01-0.20); Immature Granulocytes % (auto) 0.7 %; Lymphocytes # (auto) 0.15 K/uL (1.20-3.40); Lymphocytes % (auto) 3.4 %; Monocytes # (auto) 0.17 K/uL (0.11-0.59); Monocytes % (auto) 3.8 %; Neutrophils # (auto) 4.07 K/uL (1.40-6.50); Neutrophils % (auto) 91.9 %; Polychromasia 1+
[2023-10-02] MEDS ORDERED: STAT IV/IM STA (06:27)
[2023-10-02 06:28] LABS: iSTAT Art Bld Gas pCO2 Correct 48 mmHg (35-46); iSTAT Art Bld Gas pH Corrected 7.485 (7.35-7.45); iSTAT Arterial Blood Gas HCO3 36 meg/L (19-24); iSTAT Arterial Blood Gas pCO2 49 mmHg (35-46); iSTAT Arterial Blood Gas pH 7.47 (7.35-7.45); iSTAT Arterial Blood Gas pO2 62 mmHg (80-95); iSTAT Arterial Blood Gas pO2 C 59; iSTAT Carbon Dioxide 38 mmol/L (24-31); iSTAT FiO2 80 %; iSTAT Hematocrit 28 % (42-52); iSTAT Hemoglobin 9.5 g/dl (14.0-18.0); iSTAT Potassium 3.9 mmol/L (3.3-5.0); iSTAT Site Art Line; iSTAT Sodium 139 mmol/L (135-144)
--- NOTE | 2023-10-02 06:47 | XRay Report ---
SUPINE PORTABLE AP CHEST RADIOGRAPH CLINICAL HISTORY: eval ETT/OGT COMPARISON STUDY: Chest CT August 30, 2023. October 02, 2023 at 1:21 AM. FINDINGS: Tip of endotracheal tube is 2.1 cm above the leslee. Tip of nasogastric tube is below the l ower aspect of this image but at least within the proximal stomach. No pneumothorax is identified on supine exam. Allowing for supine technique, cardiomediastinal silhouette is stable. Left hilar and me diastinal lymphadenopathy with left upper lobe lesion is again noted. This better depicted on prior C T. There is no evidence for overt pulmonary edema. IMPRESSION: 1. Satisfactory positioning of the endotracheal and nasogastric tubes. 2. Left upper lobe mass and left hilar and mediastinal lymphadenopathy, better depicted on prior ches t CT. ACT 112: Negative or not required by law. Electronically signed by: Jose Mann M.D. 10/02/2023 6:46 AM
--- NOTE | 2023-10-02 07:05 | XRay Report ---
XR chest 1V portable CLINICAL HISTORY: Dysrhythmia. COMPARISON STUDY: Chest radiograph and chest CT August 30, 2023. FINDINGS: There are multiple old bilateral rib fractures. No pneumothorax or pleural effusion is pres ent. Mild cardiomegaly is unchanged. Left suprahilar density corresponds to lymphadenopathy shown on prior CT. Several left lung nodules are present, shown on prior CT. Subtle interstitial thickening is similar to prior exams. IMPRESSION: 1. Cardiomegaly. Subtle interstitial thickening, likely chronic. Mild pulmonary edema could appear s imilar. 2. Left lung nodules and left hilar and mediastinal lymphadenopathy, better depicted on prior chest C T. ACT 112: Negative or not required by law. Electronically signed by: Jose Mann M.D. 10/02/2023 7:03 AM
[2023-10-02] MEDS: CALCIUM GLUCONATE 10% 1,000 MG in SODIUM CHLOR 0.9% MINI-B 50 ML IV SCH ×2 (07:29→08:02)
[2023-10-02] MEDS ORDERED: ICU Protocol for HYPERglycemia SCH (07:30)
[2023-10-02 07:33] LABS: BUN Creatinine Ratio 31.6 (10-20); Calcium 7.5 mg/dl (8.6-10.3); Creatinine Clr Calc Pharmacy 148.5 ml/min; Est GFR (African American) 128.5 ml/min; Est GFR (Non-African American) 110.8 ml/min; Phosphorus 3.1 mg/dl (2.5-4.9); Potassium 2.7 mmol/L (3.5-5.1)
[2023-10-02 07:35] LABS: Fibrinogen 453 mg/dl (184-400); INR 1.1 (0.9-1.1); Prothrombin Time 11.8 Seconds (9.0-12.0)
[2023-10-02] MEDS: INSULIN ASPART PER UNIT CHARGE SC SCH ×4 (08:24→20:22)
[2023-10-02] MEDS ORDERED: LANTUS PER UNIT CHARGE SC ONE ×3 (08:30→21:00)
[2023-10-02] MEDS: PIPERACILLIN/TAZOBACTAM 4.5 GM in DEXTROSE 5% MINI-B 100 ML IV SCH ×2 (08:33→16:10)
[2023-10-02] MEDS ORDERED: VANCOMYCIN HCL 1,500 MG in SODIUM CHLORIDE 0.9% 500 ML IV SCH ×2 (09:00→15:00)
[2023-10-02 10:54] LABS: Magnesium 2.1 mg/dl (1.7-2.4)
[2023-10-02] MEDS ORDERED: POTASSIUM PHOSPHATE 15 MMOL in SODIUM CHLORIDE 0.9% 250 ML IV ONE (11:00)
[2023-10-02] MEDS: PANTOprazole 40 MG in SYRINGE 0 ML IV SCH (11:06)
[2023-10-02] MEDS ORDERED: INSULIN ASPART PER UNIT CHARGE SC ONE (14:30)
--- NOTE | 2023-10-02 14:34 | Pharmacy Report ---
Pharmacy Glycemic Short Note 2 - Date of Service October 02, 2023 - Glycemic Short BSG Results (Last 24 hours): 10/02/23 10/02/23 10/02/23 00:35 00:45 05:28 Glucose 311 H* Cancelled POC Glucose POC Glucose (other) 315 H 10/02/23 10/02/23 10/02/23 06:21 06:38 08:10 Glucose 323 H* POC Glucose 293 H 339 H* POC Glucose (other) 10/02/23 10/02/23 11:52 14:14 Glucose POC Glucose 297 H 254 H POC Glucose (other) OUTPATIENT ANTIDIABETIC REGIMEN: * N/a * A1c 6.1% 09/05/23 ASSESSMENT: * Patient admitted with colon perforation, PMH includes new lung cancer d iagnosis with mets to liver, pre-diabetes. * BSGs elevated upon arrival in the 300s, unable to utilize insulin infusion at this time d/t low potassium levels (<3.3), being repleted with repeat check at 1400 * Will utilize basal/bolus for now and initiate insulin infusion at later time if potassium improves and is still needed * Patient is currently NPO, q4H checks, only receiving dextrose from zosyn infusions PLAN FOR INPATIENT GLYCEMIC CONTROL: * Hold outpatient oral diabetes medications * Basal insulin * Lantus 15 units SQ x1; scale for PM if needed * Bolus insulin * NovoLog per scale ACHS or Q6hrs while NPO * Goal Range: Low 120 mg/dL - High 160 mg/dL * Correction Factor: 25 mg/dL/unit * Nutritional / Prandial insulin per carb ratio of 1 unit per 10 grams CHO consumed
[2023-10-02 15:17] LABS: BUN Creatinine Ratio 27.3 (10-20); Calcium 7.7 mg/dl (8.6-10.3); Creatinine Clr Calc Pharmacy 153.9 ml/min; Est GFR (African American) 130.4 ml/min; Est GFR (Non-African American) 112.5 ml/min; Potassium 2.9 mmol/L (3.5-5.1)
--- NOTE | 2023-10-02 15:44 | Hospitalist Progress Note ---
Date of Service October 02, 2023 Assessment & Plan (1) Acute hypoxic respiratory failure: Plan: Currently intubated with ventilator support. Management per aquatics director. (2) Perforated viscus: Plan: Status post exploratory laparotomy earlier this morning. No perforation found but he did have intra-abdominal free air seen on CT scan on admission. (3) Lung cancer: Plan: With extensive liver mets. Biopsy completed and pathology is pending. Oncology consultation requested (4) Morbid obesity: Plan: BMI greater than 40. Significant weight loss recommended (5) Atrial fibrillation and flutter: Plan: Present on admission. Telemetry. Diltiazem drip if needed. Cardiac echo reveals normal ejection fraction with mild left ventricular hypertrophy. Plan To be determined Admission and Anticipated Discharge Date Admission Date: October 02, 2023 Subjective The patient is intubated and sedated Review of Systems 2 Review of Systems: Intubated and sedated. Unable to answer any questions regarding review of systems Physical Exam 2 Physical Exam: General-intubated and sedated HEENT-head atraumatic and normocephalic, ETT and OG tubes in place Neck-no lymphadenopathy or thyromegaly, trachea midline Chest-diminished breath sounds bilaterally from anterior approach. No wheezing. Cardiac-irregular rhythm. Controlled rate. Normal S1 and S2 Abdomen-slightly distended abdomen. Absent bowel sounds. Extremities-chronic appearing lower extremity peripheral edema Neuro-cannot assess. Intubated and sedated Psych-cannot assess. Intubated and sedated Results & Data Results & Data Vital Signs (Past 12 Hours) Vital Signs Temp Pulse Pulse Resp BP BP Pulse Ox 10/02/23 14:10 37.0 C 95 H 13 93 10/02/23 14:00 126/74 10/02/23 14:00 37.0 C 96 H 17 10/02/23 13:50 37.0 C 93 H 17 89 L 10/02/23 13:40 37.1 C 96 H 14 89 L 10/02/23 13:30 119/70 10/02/23 13:30 37.1 C 96 H 16 10/02/23 13:20 37.2 C 86 18 95 10/02/23 13:10 37.2 C 91 H 16 94 10/02/23 13:00 121/75 10/02/23 13:00 37.2 C 98 H 20 10/02/23 12:50 37.2 C 93 H 21 94 10/02/23 12:40 37.1 C 89 15 94 10/02/23 12:30 136/77 10/02/23 12:30 37.1 C 79 17 94 10/02/23 12:20 37.1 C 91 H 16 94 10/02/23 12:10 37.1 C 91 H 16 93 10/02/23 12:00 37.1 C 90 16 93 10/02/23 12:00 107/70 10/02/23 12:00 10/02/23 11:50 37.1 C 96 H 17 95 10/02/23 11:40 37.1 C 95 H 15 94 10/02/23 11:30 37.1 C 94 H 16 10/02/23 11:30 127/79 10/02/23 11:20 37.0 C 99 H 18 93 10/02/23 11:10 37.0 C 101 H 20 92 10/02/23 11:00 129/74 10/02/23 11:00 37.0 C 87 19 10/02/23 10:50 37.0 C 96 H 15 92 10/02/23 10:40 37.0 C 105 H 17 93 10/02/23 10:30 37.0 C 93 H 17 10/02/23 10:30 123/71 10/02/23 10:20 37.0 C 84 18 95 10/02/23 10:10 36.9 C 85 16 95 10/02/23 10:00 125/69 10/02/23 10:00 36.9 C 88 18 10/02/23 09:50 36.9 C 94 H 16 95 10/02/23 09:40 36.9 C 95 H 18 94 10/02/23 09:30 36.9 C 97 H 17 93 10/02/23 09:30 138/76 10/02/23 09:20 36.9 C 93 H 18 95 10/02/23 09:10 36.9 C 74 19 95 10/02/23 09:00 83 10/02/23 09:00 127/69 10/02/23 09:00 36.9 C 88 20 10/02/23 08:58 83 19 96 10/02/23 08:50 36.9 C 87 20 94 10/02/23 08:40 36.9 C 98 H 26 H 95 10/02/23 08:30 127/76 10/02/23 08:30 36.8 C 76 20 10/02/23 08:20 36.8 C 74 20 100 10/02/23 08:10 36.8 C 86 20 98 10/02/23 08:00 10/02/23 08:00 126/75 10/02/23 08:00 36.8 C 87 20 10/02/23 08:00 10/02/23 07:50 36.8 C 92 H 20 100 10/02/23 07:40 36.7 C 85 20 100 10/02/23 07:30 36.7 C 81 20 10/02/23 07:30 117/61 10/02/23 07:26 10/02/23 07:20 36.7 C 86 20 97 10/02/23 07:10 36.7 C 89 20 98 10/02/23 07:00 36.6 C 89 20 102/65 10/02/23 06:01 36.3 C L 86 20 128/85 95 10/02/23 06:01 102 H 21 92 10/02/23 06:00 36.3 C L 82 20 128/85 93 10/02/23 05:10 10/02/23 05:10 84 16 176/110 H 96 10/02/23 05:00 102 H 16 176/110 H 100 10/02/23 05:00 176/110 H 10/02/23 05:00 36.6 C 100 H 16 153/97 H 99 O2 Del Method FiO2 10/02/23 14:10 10/02/23 14:00 10/02/23 14:00 10/02/23 13:50 10/02/23 13:40 10/02/23 13:30 10/02/23 13:30 10/02/23 13:20 10/02/23 13:10 10/02/23 13:00 10/02/23 13:00 10/02/23 12:50 10/02/23 12:40 10/02/23 12:30 10/02/23 12:30 10/02/23 12:20 10/02/23 12:10 10/02/23 12:00 10/02/23 12:00 10/02/23 12:00 50 10/02/23 11:50 10/02/23 11:40 10/02/23 11:30 10/02/23 11:30 10/02/23 11:20 10/02/23 11:10 10/02/23 11:00 10/02/23 11:00 10/02/23 10:50 10/02/23 10:40 10/02/23 10:30 10/02/23 10:30 10/02/23 10:20 10/02/23 10:10 10/02/23 10:00 10/02/23 10:00 10/02/23 09:50 10/02/23 09:40 10/02/23 09:30 10/02/23 09:30 10/02/23 09:20 10/02/23 09:10 10/02/23 09:00 10/02/23 09:00 10/02/23 09:00 10/02/23 08:58 50 10/02/23 08:50 10/02/23 08:40 10/02/23 08:30 10/02/23 08:30 10/02/23 08:20 10/02/23 08:10 10/02/23 08:00 Mechanical Vent 50 10/02/23 08:00 10/02/23 08:00 10/02/23 08:00 50 10/02/23 07:50 10/02/23 07:40 10/02/23 07:30 10/02/23 07:30 10/02/23 07:26 Mechanical Vent 80 10/02/23 07:20 10/02/23 07:10 10/02/23 07:00 Mechanical Vent 10/02/23 06:01 Mechanical Vent 10/02/23 06:01 80 10/02/23 06:00 Mechanical Vent 10/02/23 05:10 Mechanical Vent 80 10/02/23 05:10 Mechanical Vent 10/02/23 05:00 Mechanical Vent 10/02/23 05:00 10/02/23 05:00 Mechanical Vent Laboratory Results 10/02/23 05:28 10/02/23 14:38 PG Care Time/CCT Total # of Minutes Spent Total Time Spent with Patient: Total time spent is greater than 50% in coordination of care (as documented) at patient's floor/unit and/or counseling patient: Coding Level of Care Code 84862 SUB INP/OBS CARE 3/50MIN Diagnoses Acute hypoxic respiratory failure J96.01 Perforated viscus R19.8 Malignant neoplasm of hilus of left lung C34.02 Laterality: left Lung location: hilum of lung Morbid obesity E66.01 Atrial fibrillation and flutter I48.91; I48.92 (3) Lung cancer Laterality: left Lung location: hilum of lung Qualified Code(s): C34.02 - Malignant neoplasm of left main bronchus
--- NOTE | 2023-10-02 16:08 | XCELERA ---
[id number]
--- NOTE | 2023-10-02 16:39 | Oncology Consultation ---
Date of Consultation October 02, 2023 Assessment & Plan (1) Liver lesion: Medical oncology has been consulted to assist in management of this patient with a liver mass. At this point we will wait for biopsy. Once results of biopsy are available For the diagnosis. Once the patient is intubated our recommendation will be palliative systemic chemotherapy if the patient is interested based on the results of the biopsy. Plan Medical oncology will continue to follow the patient and make appropriate recommendations. Thank you for this interesting oncological consult History of Present Illness Reason for Consultation: Liver mets Bowel perforation Attending Physician: Tonio Peacock MD History of Present Illness The patient is a very pleasant 63-year-old male currently intubated who presented to the ER because of abdominal pain and constipation. He was feeling extremely weak. He was noted to have lower extremity swelling. The patient underwent CT imaging in the ER, was found to have bowel perforation. At the time of CT scan it was also noted that the patient had lung mass as well as liver mets. The patient underwent exploratory laparotomy and liver biopsy on 10/02/2023, the biopsy results are still pending during my visit to the ICU he was still intubated. Allergies Allergy/AdvReac Type Severity Reaction Status Date / Time No Known Allergies Allergy Unverified 09/05/23 08:10 Home Medications Medication Instructions Recorded Confirmed Type multivitamin 1 tab PO DAILY 09/29/19 10/02/23 History magnesium 250 mg tablet 250 mg PO DAILY 10/14/19 10/02/23 History Vitamin D3 1 tab PO DAILY 08/30/23 10/02/23 History naproxen sodium 220 mg tablet 220 mg PO DIRECTED PRN Pain 08/30/23 10/02/23 History (Aleve) potassium phosphate, monobasic 500 1,000 mg PO DAILY 09/04/23 10/02/23 History mg soluble tablet potassium chloride 20 mEq 20 meq PO DAILY #30 tabs 09/05/23 10/02/23 Rx tablet,extended release tramadol 50 mg tablet 50 - 100 mg PO Q6H PRN pain 10/02/23 10/02/23 History Patient History Medical History Colon perforation Lung mass Liver masses Hypokalemia Hyperglycemia Elevated troponin Atrial fibrillation with rapid ventricular response Obesity Polycythemia Sleep apnea Pulmonary embolism on right Deep vein thrombosis (DVT) of popliteal vein of left lower extremity Surgical History Hx of knee surgery Family History Mother Cancer Father Myocardial infarction Denies family history of Ovarian cancer Prostate cancer Breast cancer Colorectal cancer Social History Smoking Status: Former smoker Tobacco Type: Cigarettes Cigarettes Per Day: 1 ppd; Hx Alcohol Use: Yes Alcohol type: beer Hx Substance Use: No Preferred Language: Sudanese Communication Ability: Effective Scow Captain Required: No Beliefs That Will Affect Care: None marital status: Current Living Situation: Spouse Current Living Situation Comment: home with current occupational status: employed Other Information That Helps Us Care for You: No Feels Safe at Home: Yes caffeine: Yes Dental Care, Regularly: Yes Physical Activity Frequency: Does not Exercise Seatbelt Use: always Sunscreen Use: No Assistive Devices: Oxygen - Continuous and Walker Results & Data Vital Signs (Past 12 Hours) Vital Signs Temp Pulse Pulse Resp BP BP Pulse Ox 10/02/23 15:00 86 20 94 10/02/23 14:10 37.0 C 95 H 13 93 10/02/23 14:00 126/74 10/02/23 14:00 37.0 C 96 H 17 10/02/23 13:50 37.0 C 93 H 17 89 L 10/02/23 13:40 37.1 C 96 H 14 89 L 10/02/23 13:30 119/70 10/02/23 13:30 37.1 C 96 H 16 10/02/23 13:20 37.2 C 86 18 95 10/02/23 13:10 37.2 C 91 H 16 94 10/02/23 13:00 121/75 10/02/23 13:00 37.2 C 98 H 20 10/02/23 12:50 37.2 C 93 H 21 94 10/02/23 12:40 37.1 C 89 15 94 10/02/23 12:30 136/77 10/02/23 12:30 37.1 C 79 17 94 10/02/23 12:20 37.1 C 91 H 16 94 10/02/23 12:10 37.1 C 91 H 16 93 10/02/23 12:00 37.1 C 90 16 93 10/02/23 12:00 107/70 10/02/23 12:00 10/02/23 11:50 37.1 C 96 H 17 95 10/02/23 11:40 37.1 C 95 H 15 94 10/02/23 11:30 37.1 C 94 H 16 10/02/23 11:30 127/79 10/02/23 11:20 37.0 C 99 H 18 93 10/02/23 11:10 37.0 C 101 H 20 92 10/02/23 11:00 89 18 96 10/02/23 11:00 129/74 10/02/23 11:00 37.0 C 87 19 10/02/23 10:50 37.0 C 96 H 15 92 10/02/23 10:40 37.0 C 105 H 17 93 10/02/23 10:30 37.0 C 93 H 17 10/02/23 10:30 123/71 10/02/23 10:20 37.0 C 84 18 95 10/02/23 10:10 36.9 C 85 16 95 10/02/23 10:00 125/69 10/02/23 10:00 36.9 C 88 18 10/02/23 09:50 36.9 C 94 H 16 95 10/02/23 09:40 36.9 C 95 H 18 94 10/02/23 09:30 36.9 C 97 H 17 93 10/02/23 09:30 138/76 10/02/23 09:20 36.9 C 93 H 18 95 10/02/23 09:10 36.9 C 74 19 95 10/02/23 09:00 83 10/02/23 09:00 127/69 10/02/23 09:00 36.9 C 88 20 10/02/23 08:58 83 19 96 10/02/23 08:50 36.9 C 87 20 94 10/02/23 08:40 36.9 C 98 H 26 H 95 10/02/23 08:30 127/76 10/02/23 08:30 36.8 C 76 20 10/02/23 08:20 36.8 C 74 20 100 10/02/23 08:10 36.8 C 86 20 98 10/02/23 08:00 10/02/23 08:00 126/75 10/02/23 08:00 36.8 C 87 20 10/02/23 08:00 10/02/23 07:50 36.8 C 92 H 20 100 10/02/23 07:40 36.7 C 85 20 100 10/02/23 07:30 36.7 C 81 20 10/02/23 07:30 117/61 10/02/23 07:26 10/02/23 07:20 36.7 C 86 20 97 10/02/23 07:10 36.7 C 89 20 98 10/02/23 07:00 36.6 C 89 20 102/65 10/02/23 06:01 36.3 C L 86 20 128/85 95 10/02/23 06:01 102 H 21 92 10/02/23 06:00 36.3 C L 82 20 128/85 93 10/02/23 05:10 10/02/23 05:10 84 16 176/110 H 96 10/02/23 05:00 102 H 16 176/110 H 100 10/02/23 05:00 176/110 H 10/02/23 05:00 36.6 C 100 H 16 153/97 H 99 O2 Del Method FiO2 10/02/23 15:00 35 10/02/23 14:10 10/02/23 14:00 10/02/23 14:00 10/02/23 13:50 10/02/23 13:40 10/02/23 13:30 10/02/23 13:30 10/02/23 13:20 10/02/23 13:10 10/02/23 13:00 10/02/23 13:00 10/02/23 12:50 10/02/23 12:40 10/02/23 12:30 10/02/23 12:30 10/02/23 12:20 10/02/23 12:10 10/02/23 12:00 10/02/23 12:00 10/02/23 12:00 50 10/02/23 11:50 10/02/23 11:40 10/02/23 11:30 10/02/23 11:30 10/02/23 11:20 10/02/23 11:10 10/02/23 11:00 40 10/02/23 11:00 10/02/23 11:00 10/02/23 10:50 10/02/23 10:40 10/02/23 10:30 10/02/23 10:30 10/02/23 10:20 10/02/23 10:10 10/02/23 10:00 10/02/23 10:00 10/02/23 09:50 10/02/23 09:40 10/02/23 09:30 10/02/23 09:30 10/02/23 09:20 10/02/23 09:10 10/02/23 09:00 10/02/23 09:00 10/02/23 09:00 10/02/23 08:58 50 10/02/23 08:50 10/02/23 08:40 10/02/23 08:30 10/02/23 08:30 10/02/23 08:20 10/02/23 08:10 10/02/23 08:00 Mechanical Vent 50 10/02/23 08:00 10/02/23 08:00 10/02/23 08:00 50 10/02/23 07:50 10/02/23 07:40 10/02/23 07:30 10/02/23 07:30 10/02/23 07:26 Mechanical Vent 80 10/02/23 07:20 10/02/23 07:10 10/02/23 07:00 Mechanical Vent 10/02/23 06:01 Mechanical Vent 10/02/23 06:01 80 10/02/23 06:00 Mechanical Vent 10/02/23 05:10 Mechanical Vent 80 10/02/23 05:10 Mechanical Vent 10/02/23 05:00 Mechanical Vent 10/02/23 05:00 10/02/23 05:00 Mechanical Vent
--- NOTE | 2023-10-02 19:42 | Billing Data ---
Date of Service October 02, 2023 Coding Level of Care Code 95209 CRITICAL CARE
--- NOTE | 2023-10-02 19:55 | Electrocardiogram Report ---
Test Reason : Blood Pressure : / mmHG Vent. Rate : 190 BPM Atrial Rate : 000 BPM P-R Int : 000 ms QRS Dur : 162 ms QT Int : 256 ms P-R-T Axes : 000 023 087 degrees QTc Int : 455 ms Atrial fibrillation with rapid ventricular response with premature ventricular or aberrantly conducte d complexes Minimal voltage criteria for LVH, may be normal variant ST segement changes concerning for ischemia Abnormal ECG When compared with ECG of 30-AUG-2023 09:53, Atrial fibrillation has replaced Sinus rhythm Vent. rate has increased BY 100 BPM Criteria for Anterior infarct are no longer Present Confirmed by Candido Reyes ([id number]) on 10/02/2023 7:55:32 PM Referred By: REFERRED SELF Confirmed By:Ed Reyes
[2023-10-02 20:26] LABS: iSTAT Art Bld Gas pCO2 Correct 58 mmHg (35-46); iSTAT Art Bld Gas pH Corrected 7.402 (7.35-7.45); iSTAT Arterial Blood Gas HCO3 36 meg/L (19-24); iSTAT Arterial Blood Gas pCO2 59 mmHg (35-46); iSTAT Arterial Blood Gas pO2 80 mmHg (80-95); iSTAT Arterial Blood Gas pO2 C 78; iSTAT Carbon Dioxide 38 mmol/L (24-31); iSTAT FiO2 100 %; iSTAT Hematocrit 24 % (42-52); iSTAT Hemoglobin 8.2 g/dl (14.0-18.0); iSTAT Potassium 3.2 mmol/L (3.3-5.0); iSTAT Site Art Line; iSTAT Sodium 141 mmol/L (135-144)
[2023-10-02] MEDS ORDERED: FUROSEMIDE 40 MG/4 ML VIAL IV ONE (20:53)
[2023-10-02 22:20] LABS: BUN Creatinine Ratio 26.4 (10-20); Calcium 7.8 mg/dl (8.6-10.3); Creatinine Clr Calc Pharmacy 159.7 ml/min; Est GFR (African American) 132.4 ml/min; Est GFR (Non-African American) 114.2 ml/min; Potassium 3.4 mmol/L (3.5-5.1)
[2023-10-03] MEDS: INSULIN ASPART PER UNIT CHARGE SC SCH ×7 (00:20→23:52)
[2023-10-03] MEDS: PIPERACILLIN/TAZOBACTAM 4.5 GM in DEXTROSE 5% MINI-B 100 ML IV SCH ×4 (00:20→23:52)
[2023-10-03] MEDS: propofoL 1,000 MG/100 ML VIAL IV SCH ×10 (00:37→21:14)
[2023-10-03 04:56] LABS: Calcium 7.7 mg/dl (8.6-10.3); Creatinine Clr Calc Pharmacy 169.3 ml/min; Est GFR (African American) 135.6 ml/min; Magnesium 1.6 mg/dl (1.7-2.4); Potassium 2.8 mmol/L (3.5-5.1)
[2023-10-03 05:06] LABS: iSTAT Art Bld Gas pCO2 Correct 47 mmHg (35-46); iSTAT Arterial Blood Gas HCO3 35 meg/L (19-24); iSTAT Arterial Blood Gas pCO2 48 mmHg (35-46); iSTAT Arterial Blood Gas pH 7.48 (7.35-7.45); iSTAT Arterial Blood Gas pO2 64 mmHg (80-95); iSTAT Arterial Blood Gas pO2 C 64; iSTAT Carbon Dioxide 37 mmol/L (24-31); iSTAT FiO2 35 %; iSTAT Hematocrit 22 % (42-52); iSTAT Hemoglobin 7.5 g/dl (14.0-18.0); iSTAT Potassium 2.6 mmol/L (3.3-5.0); iSTAT Site Art Line; iSTAT Sodium 142 mmol/L (135-144)
[2023-10-03 05:45] LABS: Basophils # (auto) 0.02 K/uL (0.00-0.20); Basophils % (auto) 0.3 %; Hematocrit (blood only) 25.4 % (42.0-52.0); Hemoglobin 8.3 g/dl (14.0-18.0); Immature Granulocytes # (auto) 0.03 K/uL (0.01-0.20); Immature Granulocytes % (auto) 0.5 %; Lymphocytes # (auto) 0.14 K/uL (1.20-3.40); Lymphocytes % (auto) 2.4 %; Mean Corpuscular Hemoglobin 33.6 pg (25.0-34.0); Mean Corpuscular Hgb Conc 32.7 g/dL (32.0-36.0); Mean Corpuscular Volume 102.8 fL (80.0-100.0); Mean Platelet Volume 12.8 fL (9.4-12.4); Monocytes % (auto) 1.7 %; Neutrophils # (auto) 5.58 K/uL (1.40-6.50); Neutrophils % (auto) 95.1 %; Nucleated RBC # (auto) 0.06 K/uL (0.00-0.12); Platelet Count 59 K/uL (130-400); Platelet Estimate Decreased (Normal); RDW Coefficient of Variation 14.7 % (11.5-14.5); RDW Standard Deviation 54.8 fL (36.4-46.3); Red Blood Count 2.47 M/uL (4.70-6.10); White Blood Count 5.87 K/ul (4.8-10.8)
[2023-10-03 06:59] LABS: Estimated Average Glucose 186 mg/dl; Hemoglobin A1C 8.1 % (4.5-5.6)
[2023-10-03] MEDS ORDERED: POTASSIUM CHLORIDE / WTR 20 MEQ/100 ML PLCT IV SCH (07:15)
[2023-10-03] MEDS: MAGNESIUM SULFATE / D5W 1 GM/100 ML BAG IV SCH ×3 (07:33→11:55)
--- NOTE | 2023-10-03 07:33 | XRay Report ---
XR chest 1V portable CLINICAL HISTORY: Hypoxia. COMPARISON STUDY: Chest CT August 30, 2023. Chest radiograph October 02, 2023 at 5:10 AM. FINDINGS: Tip of endotracheal tube 7.9 cm above the leslee. Tip of nasogastric tube is within the bod y of the stomach. There is no pneumothorax. Extensive right basilar opacity has developed. Mild left basilar opacity is also noted. There is a small right pleural effusion. Suspected right lower lung vo lume loss is present. Left hilar and mediastinal lymphadenopathy is better depicted on prior chest CT . Left lung nodules are also better depicted on that exam. Cardiomegaly is unchanged. There is no nancy dence for overt pulmonary edema. IMPRESSION: 1. Tip of endotracheal tube 7.9 cm above the leslee. The tube could be advanced 2 cm. 2. Interval development of extensive right basilar opacity with suspected volume loss. This may refle ct right lower lobe atelectasis potentially related to mucus plugging. Pneumonia or aspiration pneumo nitis could appear similar. ACT 112: Negative or not required by law. Electronically signed by: Jose Mann M.D. 10/03/2023 7:30 AM
[2023-10-03] MEDS: POTASSIUM CHLORIDE / WTR 10 MEQ/100 ML PLCT IV SCH ×15 (07:51→19:15)
[2023-10-03] MEDS: LACTATED RINGER'S 1,000 ML IV SCH (07:55)
[2023-10-03] MEDS: fentaNYL citrate 2,500 MCG/250 ML BAG IV SCH ×3 (08:03→23:37)
--- NOTE | 2023-10-03 08:07 | Hospitalist Progress Note ---
Date of Service October 03, 2023 Assessment & Plan (1) Acute hypoxic respiratory failure: Plan: Pt presented with acute hypoxic respiratory failure and concern for perforated viscus ,taken to OR did not find perforation Remains sedated ventilated in ICU Lung mass in the hilar region and left lung nodules suggestive of lung cancer on CT scan 08/30/23 anemia and thrombocytopenia from possible cancer diagnosis postop acute blood loss anemia is also large concern this places risk for anticoagulation with newfound DVT as patient is a hypercoagulable state and significant risk for propagation subsequently Dr. Nick was consulted to place an IVC filter on 10/03/2023 Multiple comorbid conditions affecting the patient's outcome outcome is guarded at this time (2) Atrial fibrillation and flutter: Plan: Initially required diltiazem gtt anticoagulation is contraindicated at this time with anemia and recent abdominal surgery thrombocytopenia and concern for blood loss (3) Perforated viscus: Plan: remains on antibiotics vanco/Zosyn, surgery in the bowel multiple times and not finding overt place of viscus perforation concern for multiple liver masses, biopsy at ex lap for suspected perforation biopsy suggest metastatic small cell carcinoma (4) Morbid obesity: (5) Liver lesion: (6) Lung mass: (7) Sleep apnea: (8) Cigarette smoker: (9) Hypokalemia: Admission and Anticipated Discharge Date Admission Date: October 02, 2023 Subjective ventilated and sedate significant comorbidities, outlook very guarded Physical Exam Physical Exam: Ventilated and sedated appears chronically ill Both legs have bruising and venous stasis changes right leg is significantly worse on the left Results & Data Results & Data Vital Signs (Past 12 Hours) Vital Signs Temp Pulse Resp BP Pulse Ox O2 Del Method FiO2 10/03/23 06:00 98.4 F 82 14 124/70 98 Mechanical Vent 35 10/03/23 05:52 90 18 98 40 10/03/23 04:30 98.4 F 86 13 94 35 10/03/23 04:30 112/73 10/03/23 04:00 98.4 F 85 17 97 10/03/23 04:00 132/78 35 10/03/23 04:00 35 10/03/23 03:30 128/80 10/03/23 03:30 98.4 F 81 15 96 10/03/23 03:00 98.6 F 74 16 95 35 10/03/23 03:00 128/77 10/03/23 02:30 127/75 10/03/23 02:30 98.6 F 84 14 97 10/03/23 02:00 127/70 10/03/23 02:00 98.4 F 84 19 96 35 10/03/23 01:30 98.4 F 92 H 15 98 10/03/23 01:30 132/75 10/03/23 01:00 98.4 F 87 17 97 50 10/03/23 01:00 122/76 10/03/23 00:49 87 18 100 40 10/03/23 00:30 98.4 F 156 H 14 99 10/03/23 00:30 93/77 L 10/03/23 00:00 50 10/03/23 00:00 77 10/03/23 00:00 98.4 F 83 12 98 50 10/03/23 00:00 127/75 10/02/23 23:30 98.4 F 81 12 100 10/02/23 23:30 125/75 10/02/23 23:30 125/75 10/02/23 23:00 98.4 F 89 11 L 99 50 10/02/23 23:00 125/80 10/02/23 23:00 125/80 10/02/23 22:30 98.4 F 81 13 100 10/02/23 22:30 127/78 10/02/23 22:00 98.4 F 79 12 99 50 10/02/23 22:00 121/79 10/02/23 21:30 125/82 10/02/23 21:30 98.4 F 81 13 100 10/02/23 21:00 98.2 F 84 14 100 50 10/02/23 21:00 121/78 10/02/23 20:30 98.1 F 83 18 95 10/02/23 20:30 110/70 10/02/23 20:19 83 25 H 94 60 Laboratory Results Liver biopsy is read as metastatic small cell carcinoma Reviewed CBC Reviewed chemistry PG Care Time/CCT Total # of Minutes Spent Total Time Spent with Patient: Total time spent is greater than 50% in coordination of care (as documented) at patient's floor/unit and/or counseling patient: Coding Level of Care Code 62740 SUB INP/OBS CARE 2/35MIN Diagnoses Acute hypoxic respiratory failure J96.01 Atrial fibrillation and flutter I48.91; I48.92 Perforated viscus R19.8 Morbid obesity E66.01 Liver lesion K76.9 Lung mass R91.8 Sleep apnea G47.30 Cigarette smoker F17.210 Hypokalemia E87.6
--- NOTE | 2023-10-03 08:14 | Critical Care Progress Note ---
Date of Service October 03, 2023 Assessment & Plan (1) Perforated bowel: (2) History of venous thromboembolism: (3) Obesity hypoventilation syndrome: (4) Severe obstructive sleep apnea: (5) Electrolyte disturbance: (6) Thrombocytopenia: (7) Liver lesion: Plan Reason Critically Ill: 63 YOM with likely new diagnosis of lung cancer with metastatic disease to liver. He has not had workup of this completed yet. He was taken urgently to the operating theatre for concern of colonic perforation on CT scan. He was not found to have perforation in the operating room, however a liver biopsy was obtained. He came to the ICU intubated with continued need for resuscitation and electrolyte replacements. Neuro - Sedation for mechanical ventilation CAM ICU: Unable to assess - Current sedation for mechanical ventilation - Fentanyl and Propofol for RASS goal of -1 Cardiac - Afib/Flutter, Electrolyte disturbances, Hypovolemia, Elevated HsCTNI, Lower extremity edema -New onset Afib- Consider jail anticoagulation following surgical healing and any other planned procedures- currently in NSR - Elevated HsCTNI Likely type II SC - Lower legs from knees to feet with pitting edema Positive DVT 10/03/2023 Respiratory - Intubation and Mechanical ventilation, JAMIE/Obesity Hypoventilation syndrome, Lung mass ---- VDRF Likely secondary to surgery Continue with ventilatory support Keep RASS -1 -- Right lower lobe collapse Secondary to mucous plugging Oxygen requirement has worsened GI - Liver masses- innumerable, bowel perforation - Likely metastatic disease- biopsy obtained by surgical excision on 10/02/23- follow up on path results - NO bowel perforation identified by surgical exploration- NGT in place to suction Continue with Zosyn RENAL/LYTES - ICU electrolyte replacement protocol - Perkins catheter - placed for resuscitation and operative course- remove once extubated ENDO - Hyperglycemia without diagnosis of DM - ICU hyper/hypoglycemic protocol follow goal BG <180mg/dl HEME - Pancytopenia Thrombocytopenia worsening Could be consumption from DVT - Likely related to likely cancer diagnosis and liver masses- Transfuse for active bleeding, symptomatic anemia, or invasive procedures - Coagulation panel within normal limit with elevated fibrinogen ID -possible microperforation -Continue with Zosyn Follow blood cultures --Prophylaxis VTE: IPC GI: Pantoprazole Lines: Left radial, peripheral, Perkins Diet: N.p.o. Plan: In/out: +2.2 L, urine output 2625 ABG 7.48/48/64 on PEEP of 8, 35% There has been significant drop in patient's platelet as well as hemoglobin We will repeat H&H later today. If it is still trending down then I will order a CT abdomen pelvis with contrast Dopplers lower extremity show acute DVT in the right lower extremity. I will try to reach out to surgery to see if he can start heparin drip, IVC filter can also be thought of especially given the platelets of 59. Vascular surgery will be consulted Given the right lower lobe collapse will do bronchoscopy, consent obtained from on the phone Potassium and magnesium being replaced. Case was discussed with Dr. Malin I have personally spent 49 minutes of critical care time in the direct management of this patient. This is a life/limb threatening event. This includes time spent evaluating patient, direct bedside care, chart review, placing orders, interpretation of diagnostic studies, discussion with consultants, patient, and family members, as well as other required patient management activities. This time is exclusive of all separately billable procedures, and teaching time and separate from and in addition to any other critical care service time. Please note the above document was generated using voice recognition software. It may contain grammatical, syntax or spelling errors. Admission and Anticipated Discharge Date Admission Date: October 02, 2023 Subjective Patient seen and examined at bedside. No acute distress Overnight patient oxygen requirement increased, chest x-ray showed right lower lobe collapse He was not 40% FiO2 the time of examination saturating 92-93% He was on 40 of propofol and 150 of fentanyl. Not following commands but easily arousable. Moving all the extremities. Has been afebrile Review of Systems 2 Review of Systems: All systems reviewed & are unremarkable except as noted in Subjective Physical Exam 2 Physical Exam: Constitutional: No acute distress HEENT: PERRLA, positive ETT Respiratory system: Decreased air entry bilaterally, no wheeze, rhonchi, positive crackles bilateral lower lobes CVS: S1-S2 positive, no murmurs or gallops, irregular Abdomen: Soft, nontender, nondistended, positive bowel sounds x4, obese Extremities: +2 pulses bilaterally radialis/ dorsalis pedis, no cyanosis, +2 pitting edema bilateral lower extremity, petechia appreciated bilateral feet, bruising of the right knee Neuro: Intubated, sedated, moving all extremities, RASS -2 Psych: Unable to assess G/U: Positive Perkins Skin: no rashes, warm and dry Lymphatic: no cervical or axillary lymphadenopathy Results & Data Results & Data Vital Signs (Past 12 Hours) Vital Signs Temp Pulse Resp BP Pulse Ox O2 Del Method FiO2 10/03/23 06:00 36.9 C 82 14 124/70 98 Mechanical Vent 35 10/03/23 05:52 90 18 98 40 10/03/23 04:30 36.9 C 86 13 94 35 10/03/23 04:30 112/73 10/03/23 04:00 36.9 C 85 17 97 10/03/23 04:00 132/78 35 10/03/23 04:00 35 10/03/23 03:30 128/80 10/03/23 03:30 36.9 C 81 15 96 10/03/23 03:00 37.0 C 74 16 95 35 10/03/23 03:00 128/77 10/03/23 02:30 127/75 10/03/23 02:30 37.0 C 84 14 97 10/03/23 02:00 127/70 10/03/23 02:00 36.9 C 84 19 96 35 10/03/23 01:30 36.9 C 92 H 15 98 10/03/23 01:30 132/75 10/03/23 01:00 36.9 C 87 17 97 50 10/03/23 01:00 122/76 10/03/23 00:49 87 18 100 40 10/03/23 00:30 36.9 C 156 H 14 99 10/03/23 00:30 93/77 L 10/03/23 00:00 50 10/03/23 00:00 77 10/03/23 00:00 36.9 C 83 12 98 50 10/03/23 00:00 127/75 10/02/23 23:30 36.9 C 81 12 100 10/02/23 23:30 125/75 10/02/23 23:30 125/75 10/02/23 23:00 36.9 C 89 11 L 99 50 10/02/23 23:00 125/80 10/02/23 23:00 125/80 10/02/23 22:30 36.9 C 81 13 100 10/02/23 22:30 127/78 10/02/23 22:00 36.9 C 79 12 99 50 10/02/23 22:00 121/79 10/02/23 21:30 125/82 10/02/23 21:30 36.9 C 81 13 100 10/02/23 21:00 36.8 C 84 14 100 50 10/02/23 21:00 121/78 10/02/23 20:30 36.7 C 83 18 95 10/02/23 20:30 110/70 10/02/23 20:19 83 25 H 94 60 Laboratory Results 10/03/23 03:56 10/03/23 03:56 Coding Level of Care Code 72524 CRITICAL CARE 1ST 30-74M Diagnoses Perforated bowel K63.1 History of venous thromboembolism Z86.718 Obesity hypoventilation syndrome E66.2 Severe obstructive sleep apnea G47.33 Electrolyte disturbance E87.8 Thrombocytopenia D69.6 Liver lesion K76.9
[2023-10-03] MEDS ORDERED: MIDAZOLAM HCL 5 MG/ML 2ML VIAL ONE (08:17)
[2023-10-03] MEDS ORDERED: MIDAZOLAM HCL 5 MG/ML 2ML VIAL IV STA (08:19)
[2023-10-03] MEDS ORDERED: POTASSIUM CHLORIDE 40 MEQ in LACTATED RINGER'S 1,000 ML IV SCH (08:30)
--- NOTE | 2023-10-03 08:38 | Procedure Note ---
Procedure Note: Bronchoscopy Procedure PREOPERATIVE DIAGNOSIS: Right lower lobe collapse POSTOPERATIVE DIAGNOSIS: Mucous plugging of the right lower lobe PROCEDURE PERFORMED: Flexible fiberoptic bronchoscopy with bronchial lavage COMPLICATIONS: None. INDICATION: Right lower lobe collapse PROCEDURE: After obtaining an informed consent from patient's , the patient had appropriate oxygen, blood pressure, heart rate, and respiratory rate monitoring applied and monitored continuously throughout the procedure. Patient's PEEP was decreased to 5 and FiO2 was increased to 100%. Subsequent to this, the patient was premedicated with 3 mg of midazolam and 50 mcg of fentanyl. He was still getting propofol continuous at 40 and fentanyl at 150. The trachea appeared normal.The bronchoscope was then advanced through the leslee, which was widened. The scope was then advanced into the right main stem and each segment, subsegement in the right upper lobe were visualized. There was mucous plugging appreciated at RBI going into the right middle and right lower lobe which was suctioned out. Following suctioning segment and subsegment of right middle lobe and right lower lobe were visualized. There were no other findings including evidence of mass, anatomic distortions, or hemorrhage. The bronchoscope was subsequently withdrawn and advanced into the left mainstem. There was significant narrowing of the lingula and the left upper lobe. There was coarse mucosa as well as widened second left leslee. The left lower lobe 8 segment and subsegment were visualized. There was minimal amount of secretion which was suctioned out The bronchoscope was then wedged in the right lower lobe and bronchoalveolar lavage samples were obtained. 100 ml of saline was instilled and 40 ml of fluid was aspirated back.The bronchoscope was withdrawn and the area was suctioned clear. The bronchoscope was then withdrawn to the mainstem. The area was suctioned clear. The bronchoscope was then withdrawn. The patient tolerated the procedure well without evidence of desaturation or complications. Bronchoalveolar lavage samples were sent for cell count, Gram stain and bacterial culture, fungal culture and smear and cytology. Recommendations: Follow-up micro, cytology Follow-up chest x-ray Please note the above document was generated using voice recognition software. It may contain grammatical, syntax or spelling errors.Any formal questions or concerns about the content, text or information contained within the body of t his dictation should be directly addressed to the provider for clarification. [facility] [place] Procedure Codes (Charges) Pulmonary/Thoracic Procedure 1: Pulmonary and Thoracic: 45018 Bronchoscopy, clear airways Procedure 2: Pulmonary and Thoracic: 77683 Dx bronchoscopy/BAL
--- NOTE | 2023-10-03 08:57 | XRay Report ---
XR chest 1V not portable CLINICAL HISTORY: post bronch COMPARISON STUDY: Chest radiograph performed earlier today. FINDINGS: Tip of endotracheal tube is 4.6 cm above the leslee. Tip of nasogastric tube is below the l ower aspect of this image but at least within the proximal stomach. There is no pneumothorax post bro nchoscopy. Right lower lung airspace opacity with volume loss is again noted. Aeration has slightly i mproved. Left basilar opacity is present. Several left lung nodules are noted. Left hilar and mediast inal lymphadenopathy is better depicted on prior CT. IMPRESSION: 1. No pneumothorax. 2. Satisfactory positioning of the endotracheal and nasogastric tubes. 2. Persistent bibasilar opacities within the right lower lung volume loss. Slight improvement in righ t lower lung aeration. ACT 112: Negative or not required by law. Electronically signed by: Jose Mann M.D. 10/03/2023 8:56 AM
--- NOTE | 2023-10-03 08:58 | XRay Report ---
XR chest 1V portable CLINICAL HISTORY: Respiratory failure. COMPARISON STUDY: Chest radiograph October 02, 2023 at 8:34 PM. FINDINGS: Tip of endotracheal tube is 8.4 cm above the leslee. Tip of nasogastric tube is within the body of the stomach. There is no pneumothorax. Small right pleural effusion is present. Right basilar opacity with volume loss is present. There is also left basilar opacity. Left lung nodules and left hilar and mediastinal lymphadenopathy are better depicted on prior chest CT. Pulmonary vascular conge stion is unchanged. Cardiomegaly is again noted. IMPRESSION: 1. Tip of endotracheal tube 8.4 cm above the leslee. 2. Persistent bibasilar opacities with right lower lung volume loss. This may reflect right lower lob e atelectasis. 3. Small right pleural effusion. No pneumothorax. ACT 112: Negative or not required by law. Electronically signed by: Jose Mann M.D. 10/03/2023 8:57 AM
[2023-10-03] MEDS ORDERED: LANTUS PER UNIT CHARGE SC ONE ×2 (09:15→21:00)
[2023-10-03 10:12] LABS: Fluid Mono/Macrophage 18 %; Lymphocyte Body Fluid Man 3 %; Neutrophil Body Fluid Man 79 %
--- NOTE | 2023-10-03 10:41 | Ultrasound Report ---
BILATERAL LOWER EXTREMITY VENOUS DOPPLER HISTORY: Acute pain and swelling of the lower legs r/o DVT COMPARISON STUDY: 09/12/2023 FINDINGS: RIGHT: Acute occlusive deep venous thrombus in these veins extend the gastric anemias and popliteus junction . Findings are suboptimally visualized secondary to subcutaneous edema. No additional deep or superfi cial venous thrombi identified. LEFT: No DVT. 6.4 cm occlusive superficial venous thrombosis involves a branch of the saphenous vein in the medial knee, no close proximity to the deep venous system. IMPRESSION: 1. Right lower extremity deep venous thrombosis as above. 2. Left lower extremity superficial venous thrombus as above. ACT 112: Negative or not required by law. Electronically signed by: Nicolas Han M.D. 10/03/2023 10:39 AM
[2023-10-03] MEDS ORDERED: OPTIRAY 320 125ml IV ONE (11:26)
[2023-10-03 11:51] LABS: Hematocrit (blood only) 24.9 % (42.0-52.0); Hemoglobin 8.4 g/dl (14.0-18.0); Mean Corpuscular Hemoglobin 34.6 pg (25.0-34.0); Mean Corpuscular Hgb Conc 33.7 g/dL (32.0-36.0); Mean Corpuscular Volume 102.5 fL (80.0-100.0); Mean Platelet Volume 13.3 fL (9.4-12.4); Nucleated RBC # (auto) 0.04 K/uL (0.00-0.12); Nucleated RBC % (auto) 0.7 %; Platelet Count 58 K/uL (130-400); RDW Coefficient of Variation 14.7 % (11.5-14.5); RDW Standard Deviation 55.3 fL (36.4-46.3); Red Blood Count 2.43 M/uL (4.70-6.10); White Blood Count 6.13 K/ul (4.8-10.8)
[2023-10-03] MEDS: PANTOprazole 40 MG in SYRINGE 0 ML IV SCH (11:55)
[2023-10-03 12:05] LABS: Basophils # (auto) 0.01 K/uL (0.00-0.20); Basophils % (auto) 0.2 %; Immature Granulocytes # (auto) 0.07 K/uL (0.01-0.20); Immature Granulocytes % (auto) 1.1 %; Lymphocytes # (auto) 0.13 K/uL (1.20-3.40); Lymphocytes % (auto) 2.1 %; Monocytes # (auto) 0.11 K/uL (0.11-0.59); Monocytes % (auto) 1.8 %; Neutrophils # (auto) 5.81 K/uL (1.40-6.50); Neutrophils % (auto) 94.8 %; Polychromasia 1+; Toxic Granulation 2+
--- NOTE | 2023-10-03 12:07 | CT Scan Report ---
CT angio abdomen pelvis w con CLINICAL HISTORY: r/o intraabdominal bleed TECHNIQUE: Multidetector row helical CT of the abdomen and pelvis was performed, following intravenou s administration of iodinated contrast. No oral contrast was administered. Automated dose lowering te chniques and/or adjustment according to patient size were utilized for this exam. Coronal and sagitta l reformations were obtained. MIP and 3D volume rendered reconstructions were obtained. CT DOSE: 1554.88 mGy.cm Comparison: Comparison is made to CT abdomen pelvis 10/02/2023 FINDINGS: Lower chest: Atelectasis versus consolidation in the lower lungs. Small bilateral pleural effusions. Cardiomegaly is seen. Liver: Numerous hepatic hypodensities are seen. Gallbladder and biliary tree: No calcified gallstones. Normal caliber wall. No intra- or extrahepatic biliary ductal dilation. Pancreas: Unremarkable, no focal lesions. Spleen: Splenule is incidentally noted. Adrenals: Bilateral adrenal gland thickening is seen. Kidneys and ureters: Unremarkable. Bladder: Perkins catheter is seen. Reproductive organs: Unremarkable. Bowel: Diverticulosis is seen without evidence of diverticulitis. Lymph nodes Retroperitoneal: Unremarkable. Pelvic: Unremarkable. Mesenteric: Unremarkable. Peritoneum: There is a small amount of simple fluid in the abdomen along with trace pneumoperitoneum, this is likely postprocedural. In addition, there is mildly complex fluid layering about the liver. No evidence of active extravasation is seen. Abdominal wall: Unremarkable. Bones: Degenerative changes in the visualized spine. Multilevel compression deformity and intraosseou s/articular gas is unchanged from prior exam. CT angiogram: The abdominal aortic contours appear intact without evidence of aneurysmal dilatation a nd/or dissection. No significant atherosclerosis is seen. The origins of the celiac axis, superior mesenteric, inferior mesenteric and bilateral renal arteries are patent. IMPRESSION: 1. Trace pneumoperitoneum is seen about the liver. Small simple ascites is seen elsewhere in the abd omen. No gross hematuria and no active extravasation. 2. Markedly heterogeneous liver again seen. 3. Compression deformities in the lower thoracic spine are again seen. 4. Bilateral adrenal adenomas. ACT 112: Negative or not required by law. Electronically signed by: Nicolás Smith M.D. 10/03/2023 12:06 PM
[2023-10-03] MEDS ORDERED: FUROSEMIDE 40 MG/4 ML VIAL IV ONE (12:23)
--- NOTE | 2023-10-03 13:01 | Surgery Progress Note ---
Date of Service October 03, 2023 Assessment & Plan (1) History of liver biopsy: Plan: ok from my standpoint to start heprarin however Dr. Nick is going to place IVC filter today liver bx pending Dr. Morales covering for weekend if any issues. Admission and Anticipated Discharge Date Admission Date: October 02, 2023 Subjective pt still intubated Physical Exam Physical Exam: sedated on vent abd: soft. nd. b/l LE edema with skin excoriation Results & Data Vital Signs (Past 12 Hours) Vital Signs Temp Pulse Resp BP Pulse Ox O2 Del Method FiO2 10/03/23 12:30 36.6 C 72 14 96 10/03/23 12:30 124/80 10/03/23 12:15 36.5 C 79 16 93 10/03/23 12:15 128/79 10/03/23 12:00 36.5 C 77 14 93 10/03/23 12:00 125/75 10/03/23 12:00 40 10/03/23 11:45 130/88 10/03/23 11:45 86 18 92 10/03/23 11:42 82 20 93 10/03/23 11:42 129/85 10/03/23 11:39 80 16 95 40 10/03/23 11:38 139 H 10/03/23 11:00 122/77 10/03/23 11:00 36.8 C 81 12 92 10/03/23 10:55 36.8 C 78 14 93 10/03/23 10:34 36.8 C 83 16 90 10/03/23 10:12 36.8 C 90 11 L 87 L 10/03/23 10:04 36.8 C 79 19 133/81 94 35 10/03/23 09:56 36.8 C 94 H 14 88 L 10/03/23 09:30 130/79 10/03/23 09:30 36.8 C 81 13 93 10/03/23 09:15 36.8 C 85 17 92 10/03/23 09:15 123/77 10/03/23 09:11 36.8 C 83 15 124/73 93 35 10/03/23 09:02 36.7 C 85 20 92 10/03/23 08:45 83 17 97 35 10/03/23 08:40 Mechanical Vent 10/03/23 08:30 36.7 C 86 100 10/03/23 08:15 36.7 C 85 15 91 10/03/23 08:00 82 10/03/23 08:00 142/87 H 10/03/23 08:00 36.7 C 83 15 94 10/03/23 08:00 35 10/03/23 07:45 36.8 C 88 15 93 10/03/23 07:30 130/73 10/03/23 07:30 36.8 C 79 13 98 10/03/23 07:15 36.9 C 76 17 98 10/03/23 07:00 36.9 C 77 14 98 10/03/23 07:00 135/82 10/03/23 06:45 36.9 C 83 18 97 10/03/23 06:40 36.9 C 72 14 97 10/03/23 06:30 124/70 10/03/23 06:30 36.9 C 85 17 98 10/03/23 06:20 36.9 C 84 13 98 10/03/23 06:10 36.9 C 79 16 97 10/03/23 06:00 131/84 10/03/23 06:00 36.9 C 84 14 97 10/03/23 06:00 36.9 C 82 14 124/70 98 Mechanical Vent 35 10/03/23 05:52 90 18 98 40 10/03/23 05:50 36.9 C 86 13 98 10/03/23 05:40 36.9 C 76 13 97 10/03/23 05:30 127/79 10/03/23 05:30 36.9 C 82 15 97 10/03/23 05:20 36.9 C 78 15 98 10/03/23 05:10 36.8 C 77 14 96 10/03/23 05:00 36.8 C 82 15 96 10/03/23 05:00 131/79 10/03/23 04:50 36.9 C 83 19 99 10/03/23 04:40 36.9 C 87 15 96 10/03/23 04:30 36.9 C 86 13 94 35 10/03/23 04:30 112/73 10/03/23 04:00 36.9 C 85 17 97 10/03/23 04:00 132/78 35 10/03/23 04:00 35 10/03/23 03:30 128/80 10/03/23 03:30 36.9 C 81 15 96 10/03/23 03:00 37.0 C 74 16 95 35 10/03/23 03:00 128/77 10/03/23 02:30 127/75 10/03/23 02:30 37.0 C 84 14 97 10/03/23 02:00 127/70 10/03/23 02:00 36.9 C 84 19 96 35 10/03/23 01:30 36.9 C 92 H 15 98 10/03/23 01:30 132/75 10/03/23 01:00 36.9 C 87 17 97 50 10/03/23 01:00 122/76 PG Care Time/CCT Total # of Minutes Spent Total Time Spent with Patient: Total time spent is greater than 50% in coordination of care (as documented) at patient's floor/unit and/or counseling patient: Coding Level of Care Code 26671 Post Operative Follow-Up Diagnoses History of liver biopsy Z98.890
--- NOTE | 2023-10-03 13:04 | Consultation ---
Date of Consultation October 03, 2023 Assessment & Plan (1) DVT (deep venous thrombosis): I would recommend insertion of a filter at this time. He has a clot in the right lower extremity which involves the vein junction with the popliteal vein; he is bed ridden at present; has had recent surgery; low platelet count; lung ca with mets: All these are indications for a filter at this time. I have discussed the risks options and benefits of the procedure with the patient's . The patient's understands the risks options and benefits and agrees to the procedure. History of Present Illness Reason for Consultation: Venous thrombosis Attending Physician: Wenceslao Malin MD History of Present Illness This is a 63yo male who underwent surgery for a presumed colonic perforation. He is newly dx with lung ca and liver mets. His has a decrease platelet count. His venous duplex showed thrombosis of superficial veins of the left leg and thrombosis of what appears to the the junction of a gastrocnemius vein or the lesser saphenous involving the junction with the popltieal in the right leg. His recent chest CTA did no show pulmonary emboli but he does have a history of PE. Patient is sedated and on a vent at this time. Allergies Allergy/AdvReac Type Severity Reaction Status Date / Time No Known Allergies Allergy Unverified 09/05/23 08:10 Home Medications Medication Instructions Recorded Confirmed Type multivitamin 1 tab PO DAILY 09/29/19 10/02/23 History magnesium 250 mg tablet 250 mg PO DAILY 10/14/19 10/02/23 History Vitamin D3 1 tab PO DAILY 08/30/23 10/02/23 History naproxen sodium 220 mg tablet 220 mg PO DIRECTED PRN Pain 08/30/23 10/02/23 History (Aleve) potassium phosphate, monobasic 500 1,000 mg PO DAILY 09/04/23 10/02/23 History mg soluble tablet potassium chloride 20 mEq 20 meq PO DAILY #30 tabs 09/05/23 10/02/23 Rx tablet,extended release tramadol 50 mg tablet 50 - 100 mg PO Q6H PRN pain 10/02/23 10/02/23 History Patient History Medical History (Updated 10/03/23 @ 13:09 by Shankar Nick MD) Hypokalemia Lung mass Colon perforation Liver masses Hyperglycemia Elevated troponin Atrial fibrillation with rapid ventricular response Obesity Polycythemia Sleep apnea Pulmonary embolism on right Surgical History History of liver biopsy (10/02/23) Exploratory laparotomy, liver biopsy. 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: No Beliefs That Will Affect Care: None marital status: Current Living Situation: Spouse Current Living Situation Comment: home with current occupational status: employed Other Information That Helps Us Care for You: No Feels Safe at Home: Yes caffeine: Yes Dental Care, Regularly: Yes Physical Activity Frequency: Does not Exercise Seatbelt Use: always Sunscreen Use: No Assistive Devices: Oxygen - Continuous and Walker Review of Systems Review of Systems: Unobtainable due to endotracheal tube Physical Exam Constitutional: well developed and well nourished Respiratory: Auscultation: lungs clear to auscultation bilaterally on vent Cardiovascular: Rate/Rhythm: regular rate and regular rhythm Extremities: normal capillary refill Gastrointestinal (Abdomen): Inspection/Auscultation: + abdomen distended Percussion/Palpation: abdomen soft Neurologic: patient sedated and intubated Results & Data Vital Signs (Past 12 Hours) Vital Signs Temp Pulse Resp BP Pulse Ox O2 Del Method FiO2 10/03/23 12:30 36.6 C 72 14 96 10/03/23 12:30 124/80 10/03/23 12:15 36.5 C 79 16 93 10/03/23 12:15 128/79 10/03/23 12:00 36.5 C 77 14 93 10/03/23 12:00 125/75 10/03/23 12:00 40 10/03/23 11:45 130/88 10/03/23 11:45 86 18 92 10/03/23 11:42 82 20 93 10/03/23 11:42 129/85 10/03/23 11:39 80 16 95 40 10/03/23 11:38 139 H 10/03/23 11:00 122/77 10/03/23 11:00 36.8 C 81 12 92 10/03/23 10:55 36.8 C 78 14 93 10/03/23 10:34 36.8 C 83 16 90 10/03/23 10:12 36.8 C 90 11 L 87 L 10/03/23 10:04 36.8 C 79 19 133/81 94 35 10/03/23 09:56 36.8 C 94 H 14 88 L 10/03/23 09:30 130/79 10/03/23 09:30 36.8 C 81 13 93 10/03/23 09:15 36.8 C 85 17 92 10/03/23 09:15 123/77 10/03/23 09:11 36.8 C 83 15 124/73 93 35 10/03/23 09:02 36.7 C 85 20 92 10/03/23 08:45 83 17 97 35 10/03/23 08:40 Mechanical Vent 10/03/23 08:30 36.7 C 86 100 10/03/23 08:15 36.7 C 85 15 91 10/03/23 08:00 82 10/03/23 08:00 142/87 H 10/03/23 08:00 36.7 C 83 15 94 10/03/23 08:00 35 10/03/23 07:45 36.8 C 88 15 93 10/03/23 07:30 130/73 10/03/23 07:30 36.8 C 79 13 98 10/03/23 07:15 36.9 C 76 17 98 10/03/23 07:00 36.9 C 77 14 98 10/03/23 07:00 135/82 10/03/23 06:45 36.9 C 83 18 97 10/03/23 06:40 36.9 C 72 14 97 10/03/23 06:30 124/70 10/03/23 06:30 36.9 C 85 17 98 10/03/23 06:20 36.9 C 84 13 98 10/03/23 06:10 36.9 C 79 16 97 10/03/23 06:00 131/84 10/03/23 06:00 36.9 C 84 14 97 10/03/23 06:00 36.9 C 82 14 124/70 98 Mechanical Vent 35 10/03/23 05:52 90 18 98 40 10/03/23 05:50 36.9 C 86 13 98 10/03/23 05:40 36.9 C 76 13 97 10/03/23 05:30 127/79 10/03/23 05:30 36.9 C 82 15 97 10/03/23 05:20 36.9 C 78 15 98 10/03/23 05:10 36.8 C 77 14 96 10/03/23 05:00 36.8 C 82 15 96 10/03/23 05:00 131/79 10/03/23 04:50 36.9 C 83 19 99 10/03/23 04:40 36.9 C 87 15 96 10/03/23 04:30 36.9 C 86 13 94 35 10/03/23 04:30 112/73 10/03/23 04:00 36.9 C 85 17 97 10/03/23 04:00 132/78 35 10/03/23 04:00 35 10/03/23 03:30 128/80 10/03/23 03:30 36.9 C 81 15 96 10/03/23 03:00 37.0 C 74 16 95 35 10/03/23 03:00 128/77 10/03/23 02:30 127/75 10/03/23 02:30 37.0 C 84 14 97 10/03/23 02:00 127/70 10/03/23 02:00 36.9 C 84 19 96 35 10/03/23 01:30 36.9 C 92 H 15 98 10/03/23 01:30 132/75
[2023-10-03] MEDS ORDERED: fentaNYL citrate PF 100 MCG/2 ML VIAL ONE (13:29)
[2023-10-03] MEDS ORDERED: ePHEDrine sulfate 50 MG/ML AMP IV PRN (13:38)
[2023-10-03] MEDS ORDERED: ATROPINE SULFATE 0.1 MG/ML 10ML SYR IV PRN (13:38)
--- NOTE | 2023-10-03 13:38 | Anesthesiology Consultation ---
Date of Service October 03, 2023 Assessment & Plan Chart Review Chart Review: Acceptable Risk for Surgery and Patient NOT seen in Pre Admission Testing Consults Requested none ASA ASA4 Proposed Anesthesia Anesthesia Type: General Risk / Benefits Reviewed With: PT / POA / Parent / Guardian, Accepts Plan and Informed Consent Obtained History Surgery Operation Date: 10/02/23 03:30 Proposed Procedures p Exploratory Laparotomy - Isacc Stevens, Operation Date: 10/03/23 18:40 Proposed Procedures p Insertion of Vena Cava Filter with Anesthesia - Shankar Nick MD Height/Weight Height: 5 ft 4 in Weight: 105.1 kg Allergies Allergy/AdvReac Type Severity Reaction Status Date / Time No Known Allergies Allergy Unverified 09/05/23 08:10 Medications Home Medications Medication Instructions Recorded Confirmed Last Taken multivitamin 1 tab PO DAILY 09/29/19 10/02/23 Unknown magnesium 250 mg tablet 250 mg PO DAILY 10/14/19 10/02/23 Unknown Vitamin D3 1 tab PO DAILY 08/30/23 10/02/23 Unknown naproxen sodium 220 mg tablet 220 mg PO DIRECTED PRN Pain 08/30/23 10/02/23 Unknown (Aleve) potassium phosphate, monobasic 500 1,000 mg PO DAILY 09/04/23 10/02/23 Unknown mg soluble tablet potassium chloride 20 mEq 20 meq PO DAILY #30 tabs 09/05/23 10/02/23 Unknown tablet,extended release tramadol 50 mg tablet 50 - 100 mg PO Q6H PRN pain 10/02/23 10/02/23 Unknown Active Medications Generic Name Dose Route Start Last Admin Trade Name Jeanmarieq PRN Reason Stop Dose Admin Fentanyl Citrate 50 mcg 10/02/23 05:18 10/02/23 05:30 Fentanyl Bolus From Bag IV 10/16/23 05:17 50 mcg Q60M PRN Administration Pain or Agitation Pantoprazole Sodium 40 mg/ 10 mls @ 5 mls/min 10/02/23 11:00 10/03/23 11:55 Syringe IV 11/01/23 10:59 5 mls/min DAILY@1100 HANNA Administration Piperacillin Sod/Tazobactam 100 mls @ 25 mls/hr 10/02/23 08:00 10/03/23 11:58 Sod 4.5 gm/ Dextrose IV 10/12/23 07:59 Infused Q8H HANNA Infusion Protocol Propofol 1,000 mg in 100 mls @ 24.456 mls/hr 10/02/23 05:18 10/03/23 13:00 Diprivan IV 10/05/23 05:17 40 mcg/kg/min .Q4H6M HANNA 24.5 mls/hr Administration Protocol 40 MCG/KG/MIN Fentanyl Citrate 2,500 mcg in 250 mls @ 15 mls/hr 10/02/23 05:18 10/03/23 11:58 Fentanyl Citrate IV 10/16/23 05:17 Not Given .[id number] HANNA Protocol 150 MCG/HR Potassium Chloride 10 meq in 100 mls @ 100 mls/hr 10/03/23 07:45 10/03/23 13:20 K Lito / Wtr IV 10/03/23 15:44 100 mls/hr Q1H HANNA Administration Potassium Chloride 40 meq/ 1,020 mls @ 40 mls/hr 10/03/23 08:30 10/03/23 08:41 Lactated Ringer's IV 11/02/23 08:29 75 mls/hr .Q24H HANNA Administration Insulin Aspart 0 units 10/02/23 08:00 10/03/23 12:03 Insulin Aspart Per Unit Charge SC 11/01/23 07:59 1 units Q4 HANNA Administration Propofol 20 mg 10/02/23 05:18 10/02/23 06:28 Propofol Bolus From Bag IV 10/05/23 05:17 20 mg Q5M PRN Administration Sedation NPO Date Last Intake of Fluids: 10/02/23 Time Last Intake of Fluids: 23:00 Date Last Intake of Solids: 10/02/23 Time Last Intake of Solids: 20:00 Last Intake of Solids Comment: Patient stated he had cereal. Past Medical History Medical History (Updated 10/03/23 @ 13:09 by Shankar Nick MD) Hypokalemia Lung mass Colon perforation Liver masses Hyperglycemia Elevated troponin Atrial fibrillation with rapid ventricular response Obesity Polycythemia Sleep apnea Pulmonary embolism on right Exercise / Class Metabolic Activity II 4-5 Yardwork/Stairs/Walk up hill Past Family History Family History Mother Cancer Father Myocardial infarction Denies family history of Ovarian cancer Prostate cancer Breast cancer Colorectal cancer Past Surgical History Surgical History History of liver biopsy (10/02/23) Exploratory laparotomy, liver biopsy. - Isacc Stevens DO Hx of knee surgery Past Anesthesia History No Hx of Anesthesia Complications and No Family Hx of Anesthesia Complications History of PONV No Hx of PONV and No Hx of Motion Sickness Social History Smoking Status: Former smoker Smoking cigarettes per day: 1 ppd Hx Alcohol Use: Yes Alcohol type: beer alcohol intake frequency: 3 or more drinks per day Hx Substance Use: No Physical Exam Vital Signs Last Vital Signs Temp 36.7 C 10/03/23 13:00 Pulse 74 10/03/23 13:00 Resp 16 10/03/23 13:00 BP 120/76 10/03/23 13:00 Pulse Ox 96 10/03/23 13:00 O2 Del Method Mechanical Vent 10/03/23 08:40 O2 Flow Rate 6 10/02/23 00:27 FiO2 40 10/03/23 12:00 Constitutional + mechanically ventilated ENMT Mouth: no dentition abnormality Thyromental Distance: > or= 3.5 Finger Breadths Mallampati Class: II Neck normal visual inspection ett present Respiratory normal respiratory effort Auscultation: lungs clear to auscultation bilaterally Cardiovascular Rate/Rhythm: regular rate and regular rhythm Extremities: + edema (swelling and erythema, rle) Psychiatric Orientation: alert Testing Laboratory Results 10/03/23 10:55 10/03/23 03:56 PT 11.8 Seconds (9.0-12.0) 10/02/23 06:38 INR 1.1 (0.9-1.1) 10/02/23 06:38 Hemoglobin A1c 8.1 % (4.5-5.6) H 10/03/23 03:56 Blood Type A Positive 10/02/23 02:34 Antibody Screen NEGATIVE 10/02/23 02:34 10/03/23 08:41 Fungal Smear - Final Ba Lavage,Right Lower Lobe 10/03/23 08:41 Gram Stain - Final Ba Lavage,Right Lower Lobe 10/02/23 01:33 Aerobic Blood Culture - Preliminary Blood No growth in Aerobic bottle after 24 hours. Anaerobic Blood Culture - Preliminary No growth in Anaerobic bottle after 24 hours. 10/02/23 00:35 Aerobic Blood Culture - Preliminary Blood No growth in Aerobic bottle after 24 hours. Anaerobic Blood Culture - Preliminary No growth in Anaerobic bottle after 24 hours. 10/03/23 10/03/23 12:01 08:21 POC Glucose 185 H 195 H Electrocardiogram Date: 10/02/24 A fib with RVR. HR 190 Chest X-Ray Date: 08/30/23 XR chest 1V portable CLINICAL HISTORY: Chest pain, nonspecific COMPARISON STUDY: Chest CT February 25, 2017. Chest radiograph August 29, 2023. FINDINGS: No pneumothorax or pleural effusion is present. Lung volumes are normal. Deformity of the bilateral humeral shafts is similar to chest CT of February 25, 2017. There is mild cardiomegaly. There is no evidence for overt pulmonary edema. There is pulmonary vascular congestion. Multiple old bilateral rib fractures are present. Left midlung nodular densities are likely related to healed rib fractures. Right lower lung hazy opacities likely due to overlying soft tissues. IMPRESSION: 1. Cardiomegaly with pulmonary vascular congestion. 2. Two left midlung densities. These are likely related to healing rib fractures. However, nonemergent chest CT is recommended to exclude pulmonary nodules. Other Testing 09/22/24 CT scan: ADDENDUM ADDENDUM: Exam(s): CT ABDOMEN + PELVIS Without Contrast Discussed with Dr. Downing on 10/02 01:45 (-05:00) Electronically signed by: Aristeo Clark M.D. 10/02/23 01:47 AM ADDENDUM END ADDENDUM ADDENDUM: 10/02/23 01:46 Call Doctor Regarding Pneumoperitoneum, new or unexpected, called Dr. Moreno on 10/02 01:46 (-05:00) Electronically signed by: Aristeo Clark M.D. Electronically signed by: Aristeo Clark M.D. 10/02/23 01:42 AM ADDENDUM END Exam(s): CT ABDOMEN + PELVIS Without Contrast EXAM: CT Abdomen and Pelvis Without Intravenous Contrast CLINICAL HISTORY: Reason for exam: constipation, abd distension, gen pain. TECHNIQUE: Axial computed tomography images of the abdomen and pelvis without intravenous contrast. CTDI is 27.15 mGy and DLP is 1379.6 mGy-cm. Automated exposure control was utilized for the study. A dose lowering technique was utilized adhering to the principles of ALARA. COMPARISON: No relevant prior studies available. FINDINGS: Lung bases: Unremarkable. No mass. No consolidation. ABDOMEN: Liver: Liver is markedly heterogeneous with findings concerning for innumerable low density masses on this noncontrast study. Follow-up evaluation is warranted. Gallbladder and bile ducts: Unremarkable. No calcified stones. No ductal dilation. Pancreas: Unremarkable. No ductal dilation. Spleen: Unremarkable. No splenomegaly. Adrenals: Severe bilateral adrenal hyperplasia. Kidneys and ureters: Unremarkable. No obstructing stones. No hydronephrosis. Stomach and bowel: Unremarkable. No obstruction. No mucosal thickening. PELVIS: Appendix: No findings to suggest acute appendicitis. Bladder: Unremarkable. No stones. Reproductive: Unremarkable as visualized. ABDOMEN and PELVIS: Intraperitoneal space: There is free air around the sigmoid colon concerning for a colonic perforation. No significant fluid collection. Bones/joints: Moderate T12 compression fracture which may be acute.. No dislocation. Soft tissues: Unremarkable. Vasculature: Unremarkable. No abdominal aortic aneurysm. Lymph nodes: Unremarkable. No enlarged lymph nodes. IMPRESSION: 1. Free air around the sigmoid colon concerning for a colonic perforation. 2. Liver is markedly heterogeneous with findings concerning for innumerable low density masses on this noncontrast study. Follow-up evaluation is warranted. 3. Moderate T12 compression fracture which may be acute. 4. Severe bilateral adrenal hyperplasia.
[2023-10-03] MEDS ORDERED: PROPOFOL IV EMULSION 10 MG/ML 20 ML VIAL IV ONE (13:58)
[2023-10-03] MEDS ORDERED: ROCURONIUM BROMIDE 10 MG/ML 5 ML VIAL IV ONE (13:58)
[2023-10-03] MEDS ORDERED: VISIPAQUE IV PRN (14:05)
--- NOTE | 2023-10-03 14:10 | Operative Report ---
Post Operative Report Pre & Post Diagnosis Operation Date: 10/03/23 18:40 Pre-Op Diagnosis: DVT, Contraindication for anticoagulants. Post-Op Diagnosis: DVT, Contraindication for anticoagulants. I identified the patient and participated in the time-out.: Yes Procedure Operation Date: 10/03/23 18:40 Actual Procedures p Insertion of Vena Cava Filter, Right Femoral Approach, Ultrasound Local of Right Femoral Vein, Fluoroscopy for positioning. (Right) - Shankar Nick MD Surgeon Shankar Nick MD Drama Director none Estimated Blood Loss 2 Findings Consistent with Post-Op Diagnosis Specimens none Anesthesia Type General Complications none Disposition Accompanied Patient To Recovery: No Disposition: Surgical ICU Indications This is a 63-year-old gentleman who recently underwent abdominal surgery for possible perforated colon. He was found to have a clot in the either gastroc or lesser saphenous vein but involving the junction with the popliteal vein. He does have a history of PE in the past. He also has low platelets and lung cancer with liver mets. Review of all these problems he is at increased risk of bleeding with anticoagulation at this point. We recommend we place a filter at least temporary. His understood the risk option benefits and agreed to have this procedure. Description of Procedure The patient was brought to the angio suite and placed in the supine position. The patient was identified and a timeout performed. The right groin was prepped and draped in the usual fashion. The right common femoral vein vein was located with ultrasound. It was patent, compressed easily, and had no filling defects. The vein was then punctured under ultrasound visualization. A guidewire was then passed centrally into the inferior vena cava under fluoroscopic guidance. The filter sheath was then inserted. It was passed to the infra renal vena cava. A venacavagram was done which showed no cava clot and an acceptable size. The renal veins were identified. The filter was then passed through the sheath and deployed in the infra renal vena cava in an upright position. Satisfied with the positioning of the filter, the sheath was removed. Pressure was applied to the puncture site. Adequate hemostasis was obtained and a sterile dressing was applied. The patient left the operation room in satisfactory condition and tolerated the procedure well. All needle and sponge counts were correct at the end of the procedure. I attest to the content of the Intraoperative Record and any orders documented therein. Any exceptions are noted below.
--- NOTE | 2023-10-03 14:26 | Anesthesiology Progress Note ---
Date of Service October 03, 2023 Anesthesia Post Procedure Vital Signs Vital Signs: Temp Pulse Resp BP Pulse Ox O2 Del Method FiO2 10/03/23 13:30 132/77 10/03/23 13:30 36.7 C 88 14 95 10/03/23 13:15 36.7 C 86 14 96 10/03/23 13:15 146/81 H 10/03/23 13:00 36.7 C 74 16 96 10/03/23 13:00 120/76 10/03/23 12:45 36.6 C 72 15 95 10/03/23 12:45 124/78 10/03/23 12:30 36.6 C 72 14 96 10/03/23 12:30 124/80 10/03/23 12:15 36.5 C 79 16 93 10/03/23 12:15 128/79 10/03/23 12:00 36.5 C 77 14 93 10/03/23 12:00 125/75 10/03/23 12:00 40 10/03/23 11:45 130/88 10/03/23 11:45 86 18 92 10/03/23 11:42 82 20 93 10/03/23 11:42 129/85 10/03/23 11:39 80 16 95 40 10/03/23 11:38 139 H 10/03/23 11:00 122/77 10/03/23 11:00 36.8 C 81 12 92 10/03/23 10:55 36.8 C 78 14 93 10/03/23 10:34 36.8 C 83 16 90 10/03/23 10:12 36.8 C 90 11 L 87 L 10/03/23 10:04 36.8 C 79 19 133/81 94 35 10/03/23 09:56 36.8 C 94 H 14 88 L 10/03/23 09:30 130/79 10/03/23 09:30 36.8 C 81 13 93 10/03/23 09:15 36.8 C 85 17 92 10/03/23 09:15 123/77 10/03/23 09:11 36.8 C 83 15 124/73 93 35 10/03/23 09:02 36.7 C 85 20 92 10/03/23 08:45 83 17 97 35 10/03/23 08:40 Mechanical Vent 10/03/23 08:30 36.7 C 86 100 10/03/23 08:15 36.7 C 85 15 91 10/03/23 08:00 82 10/03/23 08:00 142/87 H 10/03/23 08:00 36.7 C 83 15 94 10/03/23 08:00 35 10/03/23 07:45 36.8 C 88 15 93 10/03/23 07:30 Mechanical Vent 35 10/03/23 07:30 130/73 10/03/23 07:30 36.8 C 79 13 98 10/03/23 07:15 36.9 C 76 17 98 10/03/23 07:00 36.9 C 77 14 98 10/03/23 07:00 135/82 10/03/23 06:45 36.9 C 83 18 97 10/03/23 06:40 36.9 C 72 14 97 10/03/23 06:30 124/70 10/03/23 06:30 36.9 C 85 17 98 10/03/23 06:20 36.9 C 84 13 98 10/03/23 06:10 36.9 C 79 16 97 10/03/23 06:00 131/84 10/03/23 06:00 36.9 C 84 14 97 10/03/23 06:00 36.9 C 82 14 124/70 98 Mechanical Vent 35 10/03/23 05:52 90 18 98 40 10/03/23 05:50 36.9 C 86 13 98 10/03/23 05:40 36.9 C 76 13 97 10/03/23 05:30 127/79 10/03/23 05:30 36.9 C 82 15 97 10/03/23 05:20 36.9 C 78 15 98 10/03/23 05:10 36.8 C 77 14 96 10/03/23 05:00 36.8 C 82 15 96 10/03/23 05:00 131/79 10/03/23 04:50 36.9 C 83 19 99 10/03/23 04:40 36.9 C 87 15 96 10/03/23 04:30 36.9 C 86 13 94 35 10/03/23 04:30 112/73 10/03/23 04:00 36.9 C 85 17 97 10/03/23 04:00 132/78 35 10/03/23 04:00 35 10/03/23 03:30 128/80 10/03/23 03:30 36.9 C 81 15 96 10/03/23 03:00 37.0 C 74 16 95 35 10/03/23 03:00 128/77 10/03/23 02:30 127/75 10/03/23 02:30 37.0 C 84 14 97 10/03/23 02:00 127/70 10/03/23 02:00 36.9 C 84 19 96 35 10/03/23 01:30 36.9 C 92 H 15 98 10/03/23 01:30 132/75 10/03/23 01:00 36.9 C 87 17 97 50 10/03/23 01:00 122/76 10/03/23 00:49 87 18 100 40 10/03/23 00:30 36.9 C 156 H 14 99 10/03/23 00:30 93/77 L 10/03/23 00:00 50 10/03/23 00:00 77 10/03/23 00:00 36.9 C 83 12 98 50 10/03/23 00:00 127/75 10/02/23 23:30 36.9 C 81 12 100 10/02/23 23:30 125/75 10/02/23 23:30 125/75 10/02/23 23:00 36.9 C 89 11 L 99 50 10/02/23 23:00 125/80 10/02/23 23:00 125/80 10/02/23 22:30 36.9 C 81 13 100 10/02/23 22:30 127/78 10/02/23 22:00 36.9 C 79 12 99 50 10/02/23 22:00 121/79 10/02/23 21:30 125/82 10/02/23 21:30 36.9 C 81 13 100 10/02/23 21:00 36.8 C 84 14 100 50 10/02/23 21:00 121/78 10/02/23 20:30 36.7 C 83 18 95 10/02/23 20:30 110/70 10/02/23 20:19 83 25 H 94 60 10/02/23 20:00 36.6 C 88 35 H 88 L 50 10/02/23 20:00 118/68 10/02/23 20:00 80 10/02/23 20:00 Mechanical Vent 50 10/02/23 20:00 50 10/02/23 19:31 108/81 10/02/23 19:31 36.8 C 91 H 17 79 L 10/02/23 19:00 110/69 10/02/23 19:00 36.8 C 81 14 89 L 50 10/02/23 18:50 36.8 C 80 12 90 10/02/23 18:40 36.8 C 95 H 14 92 10/02/23 18:30 118/75 10/02/23 18:30 36.8 C 82 19 92 10/02/23 18:20 36.7 C 75 16 91 10/02/23 18:10 36.7 C 85 13 92 10/02/23 18:00 115/71 10/02/23 18:00 36.7 C 86 17 91 10/02/23 17:50 36.7 C 79 19 89 L 10/02/23 17:40 36.8 C 79 15 92 10/02/23 17:30 111/69 10/02/23 17:30 36.8 C 85 18 10/02/23 17:20 36.8 C 82 16 94 10/02/23 17:10 36.8 C 88 17 90 10/02/23 17:04 89 10/02/23 17:00 36.8 C 87 17 10/02/23 17:00 121/68 10/02/23 16:50 36.8 C 85 18 92 10/02/23 16:40 36.8 C 85 17 87 L 10/02/23 16:30 111/71 10/02/23 16:30 36.9 C 86 21 10/02/23 16:20 36.9 C 85 15 91 10/02/23 16:10 36.9 C 88 15 91 10/02/23 16:00 115/72 10/02/23 16:00 115/72 10/02/23 16:00 36.9 C 78 15 10/02/23 16:00 35 10/02/23 15:50 36.9 C 84 17 92 10/02/23 15:40 36.9 C 86 12 92 10/02/23 15:30 120/71 10/02/23 15:30 36.9 C 85 16 10/02/23 15:20 36.9 C 78 16 93 10/02/23 15:10 36.9 C 83 14 93 10/02/23 15:00 117/73 10/02/23 15:00 36.9 C 81 16 10/02/23 15:00 86 20 94 35 10/02/23 14:50 36.9 C 91 H 19 90 10/02/23 14:40 37.0 C 92 H 14 94 10/02/23 14:30 118/68 10/02/23 14:30 37.0 C 83 17 Pain Intensity Abdomen: Pain Intensity: 8 Transfer of Care Handoff Completed per policy Notes Mental Status: see notes below (intubated, sedated) Patient Amnestic to Procedure: Yes Nausea / Vomiting: adequately controlled Pain: adequately controlled Airway Patency, RR, SpO2: stable & adequate BP & HR: stable & adequate Hydration State: stable & adequate Anesthetic Complications: no major complications apparent Notes: returns to ICU on ventilator with sedation. full report to icu team
--- NOTE | 2023-10-03 14:26 | Pharmacy Report ---
Pharmacy Glycemic Short Note 2 - Date of Service October 03, 2023 - Glycemic Short BSG Results (Last 24 hours): 10/02/23 10/02/23 10/02/23 14:38 15:49 20:15 Glucose 224 H POC Glucose 211 H 176 H 10/02/23 10/02/23 10/03/23 21:12 23:55 03:56 Glucose 179 H 194 H POC Glucose 166 H 10/03/23 10/03/23 08:21 12:01 Glucose POC Glucose 195 H 185 H OUTPATIENT ANTIDIABETIC REGIMEN: * N/a * A1c 6.1% 09/05/23 ASSESSMENT: 10/03: * Patient remains intubated, plan for filter placement today with DVT and unable to anticoagulate at this time. * BSGs have trended downward, still slightly above goal. Patient continues to have hypokalemia- being replaced. * Continue q4 checks while NPO, increase Lantus to 20 units this morning as fasting was 195 mg/dL with 20 units total yesterday. Scale for PM if needed 10/02 * Patient admitted with colon perforation, PMH includes new lung cancer diagnosis with mets to liver, pre-diabetes. * BSGs elevated upon arrival in the 300s, unable to utilize insulin infusion at this time d/t low potassium levels (<3.3), being repleted with repeat check at 1400 * Will utilize basal/bolus for now and initiate insulin infusion at later time if potassium improves and is still needed * Patient is currently NPO, q4H checks, only receiving dextrose from zosyn infusions PLAN FOR INPATIENT GLYCEMIC CONTROL: * Hold outpatient oral diabetes medications * Basal insulin * Lantus 20 units SQ x1; scale for PM if needed * Bolus insulin * NovoLog per scale ACHS or Q6hrs while NPO * Goal Range: Low 120 mg/dL - High 160 mg/dL * Correction Factor: 20 mg/dL/unit * Nutritional / Prandial insulin per carb ratio of 1 unit per 10 grams CHO consumed
[2023-10-03 15:09] LABS: Albumin Level 2.9 gm/dl (3.4-5.0); BUN Creatinine Ratio 21.4 (10-20); Bilirubin Direct 0.4 mg/dl (0-0.2); Bilirubin,Total 0.9 mg/dl (0.2-1.0); Calcium 7.8 mg/dl (8.6-10.3); Est GFR (African American) 129.4 ml/min; Est GFR (Non-African American) 111.6 ml/min; Potassium 2.9 mmol/L (3.5-5.1); Total Protein 4.7 gm/dl (6.0-8.3)
--- NOTE | 2023-10-03 17:31 | Electrocardiogram Report ---
Test Reason : Blood Pressure : / mmHG Vent. Rate : 086 BPM Atrial Rate : 086 BPM P-R Int : 128 ms QRS Dur : 084 ms QT Int : 386 ms P-R-T Axes : 054 010 -63 degrees QTc Int : 461 ms Sinus rhythm with occasional Premature ventricular complexes and Premature atrial complexes Abnormal ECG When compared with ECG of 02-OCT-2023 00:27, Sinus rhythm has replaced Atrial fibrillation Vent. rate has decreased BY 104 BPM QRS duration has decreased ST less depressed in Lateral leads Nonspecific T wave abnormality, improved in Lateral leads Confirmed by Candido Reyes ([id number]) on 10/03/2023 5:31:05 PM Referred By: REFERRED SELF Confirmed By:Ed Reyes
[2023-10-03] MEDS ORDERED: Heparin IV Adult Wt-Based Low-Dose *NO* INITIAL Bolus Protocol IV STA (17:37)
[2023-10-03] MEDS: HEPARIN SODIUM/DEXTROSE 25,000 UNITS/500 ML BAG IV SCH (18:45)
[2023-10-03 19:00] LABS: Partial Thromboplastin Ratio 0.8; Partial Thromboplastin Time 23 Seconds (21-31); Prothrombin Time 11.3 Seconds (9.0-12.0)
--- NOTE | 2023-10-03 19:40 | Hospitalist Progress Note ---
Date of Service October 03, 2023 Assessment & Plan (1) Acute hypoxic respiratory failure: Plan: Pt presented with acute hypoxic respiratory failure and concern for perforated viscus ,taken to OR did not find perforation Remains sedated ventilated in ICU Lung mass in the hilar region and left lung nodules suggestive of lung cancer on CT scan 08/30/23 anemia and thrombocytopenia from possible cancer diagnosis postop acute blood loss anemia is also large concern this places risk for anticoagulation with newfound DVT as patient is a hypercoagulable state and significant risk for propagation subsequently Dr. Nick was consulted to place an IVC filter on 10/03/2023 Multiple comorbid conditions affecting the patient's outcome outcome is guarded at this time (2) Atrial fibrillation and flutter: Plan: Initially required diltiazem gtt anticoagulation is contraindicated at this time with anemia and recent abdominal surgery thrombocytopenia and concern for blood loss DEMAND ISCHEMIA (3) Perforated viscus: Plan: remains on antibiotics vanco/Zosyn, surgery in the bowel multiple times and not finding overt place of viscus perforation concern for multiple liver masses, biopsy at ex lap for suspected perforation biopsy suggest metastatic small cell carcinoma (4) Morbid obesity: (5) Liver lesion: (6) Lung mass: (7) Sleep apnea: (8) Cigarette smoker: (9) Hypokalemia: Admission and Anticipated Discharge Date Admission Date: October 02, 2023 Results & Data Results & Data Vital Signs (Past 12 Hours) Vital Signs Temp Pulse Resp BP Pulse Ox O2 Del Method FiO2 10/03/23 18:15 119/74 10/03/23 18:15 98.2 F 87 13 96 10/03/23 18:00 98.2 F 83 14 97 10/03/23 18:00 130/77 10/03/23 17:45 146/85 H 10/03/23 17:45 98.2 F 97 H 24 95 10/03/23 17:30 98.2 F 96 H 18 97 10/03/23 17:30 148/87 H 10/03/23 17:15 138/81 10/03/23 17:15 98.2 F 86 15 96 10/03/23 17:03 86 10/03/23 17:00 98.2 F 85 14 96 10/03/23 17:00 133/78 10/03/23 16:45 98.1 F 80 15 98 10/03/23 16:45 142/80 H 10/03/23 16:30 136/75 10/03/23 16:30 98.1 F 86 17 98 10/03/23 16:15 98.1 F 81 15 96 10/03/23 16:15 144/87 H 10/03/23 16:00 35 10/03/23 16:00 98.1 F 83 15 97 10/03/23 16:00 137/79 10/03/23 15:45 130/86 10/03/23 15:45 97.9 F 76 16 97 10/03/23 15:30 97.7 F 81 15 95 10/03/23 15:30 133/82 10/03/23 15:15 97.7 F 80 17 96 10/03/23 15:15 137/81 10/03/23 15:00 97.5 F L 79 16 96 10/03/23 15:00 135/84 10/03/23 14:55 138/80 10/03/23 14:55 97.5 F L 79 16 95 10/03/23 14:45 97.9 F 85 15 93 Mechanical Vent 35 10/03/23 14:30 82 14 93 Mechanical Vent 10/03/23 14:28 80 14 92 50 10/03/23 14:20 80 14 90 10/03/23 13:30 132/77 10/03/23 13:30 98.1 F 88 14 95 10/03/23 13:15 98.1 F 86 14 96 10/03/23 13:15 146/81 H 10/03/23 13:00 98.1 F 74 16 96 10/03/23 13:00 120/76 10/03/23 12:45 97.9 F 72 15 95 10/03/23 12:45 124/78 10/03/23 12:30 97.9 F 72 14 96 10/03/23 12:30 124/80 10/03/23 12:15 97.7 F 79 16 93 10/03/23 12:15 128/79 10/03/23 12:00 97.7 F 77 14 93 10/03/23 12:00 125/75 10/03/23 12:00 40 10/03/23 11:45 130/88 10/03/23 11:45 86 18 92 10/03/23 11:42 82 20 93 10/03/23 11:42 129/85 10/03/23 11:39 80 16 95 40 10/03/23 11:38 139 H 10/03/23 11:00 122/77 10/03/23 11:00 98.2 F 81 12 92 10/03/23 10:55 98.2 F 78 14 93 10/03/23 10:34 98.2 F 83 16 90 10/03/23 10:12 98.2 F 90 11 L 87 L 10/03/23 10:04 98.2 F 79 19 133/81 94 35 10/03/23 09:56 98.2 F 94 H 14 88 L 10/03/23 09:30 130/79 10/03/23 09:30 98.2 F 81 13 93 10/03/23 09:15 98.2 F 85 17 92 10/03/23 09:15 123/77 10/03/23 09:11 98.2 F 83 15 124/73 93 35 10/03/23 09:02 98.1 F 85 20 92 10/03/23 08:45 83 17 97 35 10/03/23 08:40 Mechanical Vent 10/03/23 08:30 98.1 F 86 100 10/03/23 08:15 98.1 F 85 15 91 10/03/23 08:00 82 10/03/23 08:00 142/87 H 10/03/23 08:00 98.1 F 83 15 94 10/03/23 08:00 35 10/03/23 07:45 98.2 F 88 15 93 PG Care Time/CCT Total # of Minutes Spent Total Time Spent with Patient: Total time spent is greater than 50% in coordination of care (as documented) at patient's floor/unit and/or counseling patient: Coding Level of Care Code None Diagnoses Acute hypoxic respiratory failure J96.01 Atrial fibrillation and flutter I48.91; I48.92 Perforated viscus R19.8 Morbid obesity E66.01 Liver lesion K76.9 Lung mass R91.8 Sleep apnea G47.30 Cigarette smoker F17.210 Hypokalemia E87.6
[2023-10-03 20:39] LABS: BUN Creatinine Ratio 22.2 (10-20); Calcium 7.5 mg/dl (8.6-10.3); Creatinine Clr Calc Pharmacy 157.6 ml/min; Est GFR (African American) 131.3 ml/min; Est GFR (Non-African American) 113.3 ml/min; Magnesium 1.8 mg/dl (1.7-2.4); Phosphorus 2.4 mg/dl (2.5-4.9); Potassium 3.5 mmol/L (3.5-5.1)
[2023-10-04] MEDS ORDERED: POTASSIUM PHOS 3 MMOL/1 ML INFUSION IV STA (01:07)
[2023-10-04 01:41] LABS: ANTI-Xa, UFH(UnfractionatedHep 0.18 IU/ml (0.3-0.7)
[2023-10-04] MEDS: propofoL 1,000 MG/100 ML VIAL IV SCH ×7 (01:47→22:21)
[2023-10-04] MEDS ORDERED: POTASSIUM PHOSPHATE 21 MMOL in SODIUM CHLORIDE 0.9% 500 ML IV ONE (02:00)
[2023-10-04] MEDS: MAGNESIUM SULFATE / D5W 1 GM/100 ML BAG IV SCH ×2 (02:38→04:22)
[2023-10-04] MEDS ORDERED: HEPARIN SOD (PORCINE) 1000 UNIT/ML IV ONE (02:45)
[2023-10-04] MEDS: INSULIN ASPART PER UNIT CHARGE SC SCH ×5 (03:46→20:05)
[2023-10-04 04:21] LABS: iSTAT Art Bld Gas pCO2 Correct 52 mmHg (35-46); iSTAT Art Bld Gas pH Corrected 7.471 (7.35-7.45); iSTAT Arterial Blood Gas HCO3 38 meg/L (19-24); iSTAT Arterial Blood Gas pCO2 52 mmHg (35-46); iSTAT Arterial Blood Gas pH 7.47 (7.35-7.45); iSTAT Arterial Blood Gas pO2 88 mmHg (80-95); iSTAT Arterial Blood Gas pO2 C 87; iSTAT Carbon Dioxide 39 mmol/L (24-31); iSTAT FiO2 40 %; iSTAT Hematocrit 23 % (42-52); iSTAT Hemoglobin 7.8 g/dl (14.0-18.0); iSTAT Potassium 3.4 mmol/L (3.3-5.0); iSTAT Site Art Line; iSTAT Sodium 141 mmol/L (135-144)
[2023-10-04 04:38] LABS: BUN Creatinine Ratio 24.5 (10-20); Calcium 7.7 mg/dl (8.6-10.3); Creatinine Clr Calc Pharmacy 160.6 ml/min; Est GFR (African American) 132.4 ml/min; Est GFR (Non-African American) 114.2 ml/min; Phosphorus 2.9 mg/dl (2.5-4.9); Potassium 3.5 mmol/L (3.5-5.1)
[2023-10-04 05:10] LABS: Basophils # (auto) 0.01 K/uL (0.00-0.20); Basophils % (auto) 0.2 %; Hematocrit (blood only) 24.9 % (42.0-52.0); Immature Granulocytes # (auto) 0.09 K/uL (0.01-0.20); Immature Granulocytes % (auto) 1.4 %; Lymphocytes # (auto) 0.12 K/uL (1.20-3.40); Lymphocytes % (auto) 1.8 %; Mean Corpuscular Hemoglobin 33.3 pg (25.0-34.0); Mean Corpuscular Hgb Conc 32.1 g/dL (32.0-36.0); Mean Corpuscular Volume 103.8 fL (80.0-100.0); Mean Platelet Volume 13.6 fL (9.4-12.4); Monocytes # (auto) 0.15 K/uL (0.11-0.59); Monocytes % (auto) 2.3 %; Neutrophils # (auto) 6.22 K/uL (1.40-6.50); Neutrophils % (auto) 94.3 %; Nucleated RBC # (auto) 0.06 K/uL (0.00-0.12); Nucleated RBC % (auto) 0.9 %; Platelet Count 58 K/uL (130-400); RBC Morphology Unremarkable; RDW Coefficient of Variation 14.8 % (11.5-14.5); RDW Standard Deviation 55.8 fL (36.4-46.3); White Blood Count 6.59 K/ul (4.8-10.8)
[2023-10-04] MEDS ORDERED: MAGNESIUM SULFATE / D5W 1 GM/100 ML BAG IV ONE (07:54)
[2023-10-04] MEDS ORDERED: FUROSEMIDE 40 MG/4 ML VIAL IV ONE (07:54)
--- NOTE | 2023-10-04 07:56 | Critical Care Progress Note ---
Date of Service October 04, 2023 Assessment & Plan (1) Perforated bowel: (2) History of venous thromboembolism: (3) Obesity hypoventilation syndrome: (4) Severe obstructive sleep apnea: (5) Electrolyte disturbance: (6) Thrombocytopenia: (7) Liver lesion: Plan Reason Critically Ill: 63 YOM with likely new diagnosis of lung cancer with metastatic disease to liver. He has not had workup of this completed yet. He was taken urgently to the operating theatre for concern of colonic perforation on CT scan. He was not found to have perforation in the operating room, however a liver biopsy was obtained. He came to the ICU intubated with continued need for resuscitation and electrolyte replacements. Neuro - Sedation for mechanical ventilation CAM ICU: Unable to assess - Current sedation for mechanical ventilation - Fentanyl and Propofol for RASS goal of -1 Cardiac - Afib/Flutter, Electrolyte disturbances, Hypovolemia, Elevated HsCTNI, Lower extremity edema --New onset Afib Consider residential anticoagulation following surgical healing and any other planned procedures- currently in NSR - Elevated HsCTNI Likely type II LA -- Acute DVT right lower extremity S/p IVC filter 10/03/2023 On heparin drip - Lower legs from knees to feet with pitting edema Positive DVT 10/03/2023 Respiratory - Intubation and Mechanical ventilation, JAMIE/Obesity Hypoventilation syndrome, Lung mass --- VDRF Likely secondary to surgery Continue with ventilatory support Keep RASS -1 -- Right lower lobe collapse Secondary to mucous plugging Oxygen requirement has worsened GI - Liver masses- innumerable, bowel perforation - Likely metastatic disease- biopsy obtained by surgical excision on 10/02/23- follow up on path results - NO bowel perforation identified by surgical exploration- NGT in place to suction Continue with Zosyn RENAL/LYTES - ICU electrolyte replacement protocol - Perkins catheter - placed for resuscitation and operative course- remove once extubated ENDO - Hyperglycemia without diagnosis of DM - ICU hyper/hypoglycemic protocol follow goal BG <180mg/dl HEME - Pancytopenia Thrombocytopenia worsening Could be consumption from DVT - Likely related to likely cancer diagnosis and liver masses- Transfuse for active bleeding, symptomatic anemia, or invasive procedures - Coagulation panel within normal limit with elevated fibrinogen ID -possible microperforation -Continue with Zosyn Follow blood cultures --Prophylaxis VTE: On heparin drip GI: Pantoprazole Lines: Left radial, peripheral, Perkins Diet: N.p.o. Plan: In/out: +1.3 L, urine output 3190, +6.2 L since coming to the hospital Will give a dose of Lasix now. Replace the potassium Repeat BMP later today to give another dose of Lasix Would want the patient to be negative balance Chest x-ray from today shows improved aeration in the right lower lobe. Trial of extubation was given today to the patient after starting the Precedex but even on 1.5 Precedex patient was breathing in the high 30s. H&H is stable while on heparin drip. Potassium being replaced along with magnesium Case was discussed with Dr. Owens as well as family at bedside Family had not unclear if patient would want tracheostomy if unable to be extubated. I have personally spent 42 minutes of critical care time in the direct management of this patient. This is a life/limb threatening event. This includes time spent evaluating patient, direct bedside care, chart review, placing orders, interpretation of diagnostic studies, discussion with consultants, patient, and family members, as well as other required patient management activities. This time is exclusive of all separately billable procedures, and teaching time and separate from and in addition to any other critical care service time. Please note the above document was generated using voice recognition software. It may contain grammatical, syntax or spelling errors. Admission and Anticipated Discharge Date Admission Date: October 02, 2023 Subjective Patient seen and examined at bedside. No acute distress, no adverse events overnight He was on heparin drip On 100 of fentanyl and 40 of propofol He was RASS -2 Breathing just over the vent He has been afebrile Review of Systems 2 Review of Systems: All systems reviewed & are unremarkable except as noted in Subjective Physical Exam 2 Physical Exam: Constitutional: No acute distress HEENT: PERRLA, positive ETT Respiratory system: Decreased air entry bilaterally, no wheeze, rhonchi, positive crackles bilateral lower lobes CVS: S1-S2 positive, no murmurs or gallops, irregular Abdomen: Soft, nontender, nondistended, positive bowel sounds x4, obese Extremities: +2 pulses bilaterally radialis/ dorsalis pedis, no cyanosis, +2 pitting edema bilateral lower extremity, petechia appreciated bilateral feet, bruising of the right knee Neuro: Intubated, sedated, moving all extremities, RASS -2 Psych: Unable to assess G/U: Positive Perkins Skin: no rashes, warm and dry Lymphatic: no cervical or axillary lymphadenopathy Results & Data Results & Data Vital Signs (Past 12 Hours) Vital Signs Temp Pulse Resp BP Pulse Ox O2 Del Method FiO2 10/04/23 06:00 36.9 C 83 14 98 40 10/04/23 06:00 110/68 10/04/23 05:45 36.9 C 74 17 98 10/04/23 05:45 110/69 10/04/23 05:30 36.9 C 73 17 98 10/04/23 05:30 107/68 10/04/23 05:15 36.9 C 74 17 98 10/04/23 05:15 116/65 10/04/23 05:00 36.9 C 83 15 98 40 10/04/23 05:00 117/74 10/04/23 04:45 36.9 C 76 13 99 10/04/23 04:45 113/70 10/04/23 04:30 114/66 10/04/23 04:30 36.9 C 73 14 98 10/04/23 04:15 36.9 C 74 14 98 40 10/04/23 04:15 113/70 10/04/23 04:05 73 14 98 40 10/04/23 04:00 36.9 C 80 14 98 40 10/04/23 04:00 111/71 10/04/23 04:00 40 10/04/23 03:45 36.9 C 75 15 98 10/04/23 03:45 112/73 10/04/23 03:30 115/66 10/04/23 03:30 36.9 C 75 17 98 10/04/23 03:15 36.9 C 77 15 98 10/04/23 03:15 110/71 10/04/23 03:00 36.9 C 75 14 98 40 10/04/23 03:00 112/69 10/04/23 02:45 36.9 C 76 15 98 10/04/23 02:45 112/71 10/04/23 02:30 36.9 C 77 15 98 10/04/23 02:30 110/67 10/04/23 02:15 36.9 C 71 15 98 10/04/23 02:15 114/72 10/04/23 02:00 36.9 C 76 15 98 40 10/04/23 02:00 110/70 10/04/23 01:45 36.9 C 76 15 98 10/04/23 01:45 114/72 10/04/23 01:30 111/71 10/04/23 01:30 36.9 C 75 15 98 10/04/23 01:15 115/69 10/04/23 01:15 36.9 C 77 15 98 10/04/23 01:00 36.9 C 75 14 97 40 10/04/23 01:00 112/71 10/04/23 00:45 36.9 C 79 13 97 10/04/23 00:45 110/73 10/04/23 00:30 36.9 C 78 14 97 10/04/23 00:30 111/70 10/04/23 00:15 111/72 10/04/23 00:15 36.9 C 80 14 97 10/04/23 00:00 114/71 10/04/23 00:00 36.9 C 77 15 97 40 10/04/23 00:00 40 10/04/23 00:00 77 10/03/23 23:45 112/71 10/03/23 23:45 36.8 C 77 14 96 10/03/23 23:30 36.8 C 76 14 97 10/03/23 23:30 114/73 10/03/23 23:15 36.8 C 80 15 96 10/03/23 23:15 111/75 10/03/23 23:00 112/71 10/03/23 23:00 36.8 C 79 15 97 40 10/03/23 23:00 70 16 97 40 10/03/23 22:45 112/68 10/03/23 22:45 36.8 C 81 13 96 10/03/23 22:30 36.8 C 77 13 96 10/03/23 22:30 114/72 10/03/23 22:15 36.8 C 85 16 97 10/03/23 22:15 110/71 10/03/23 22:00 36.8 C 82 12 97 40 10/03/23 22:00 110/71 10/03/23 21:00 109/75 10/03/23 21:00 36.8 C 82 12 94 40 10/03/23 20:58 86 17 96 50 01/26/24 20:45 117/74 10/03/23 20:45 36.8 C 76 14 97 10/03/23 20:31 36.7 C 80 12 96 10/03/23 20:31 106/72 10/03/23 20:15 36.7 C 82 14 96 10/03/23 20:15 123/80 10/03/23 20:00 36.7 C 82 12 96 40 10/03/23 20:00 118/75 10/03/23 20:00 Mechanical Vent 35 10/03/23 20:00 80 10/03/23 20:00 35 Laboratory Results 10/04/23 03:32 10/04/23 03:32 Coding Level of Care Code 30956 CRITICAL CARE 1ST 30-74M Diagnoses Perforated bowel K63.1 History of venous thromboembolism Z86.718 Obesity hypoventilation syndrome E66.2 Severe obstructive sleep apnea G47.33 Electrolyte disturbance E87.8 Thrombocytopenia D69.6 Liver lesion K76.9
[2023-10-04] MEDS: POTASSIUM CHLORIDE / WTR 10 MEQ/100 ML PLCT IV SCH ×3 (07:58→10:39)
[2023-10-04] MEDS: PIPERACILLIN/TAZOBACTAM 4.5 GM in DEXTROSE 5% MINI-B 100 ML IV SCH ×3 (07:59→23:49)
[2023-10-04] MEDS ORDERED: STAT IV Infusion **Titration per Protocol STA (08:17)
[2023-10-04] MEDS ORDERED: dexMEDEtomidine 200 MCG/50 ML BAG IV SCH (08:30)
[2023-10-04] MEDS ORDERED: LANTUS PER UNIT CHARGE SC SCH (09:00)
[2023-10-04] MEDS: fentaNYL citrate 2,500 MCG/250 ML BAG IV SCH ×3 (09:18→16:46)
[2023-10-04] MEDS: fentaNYL BOLUS from BAG IV PRN ×3 (09:19→16:39)
[2023-10-04 09:21] LABS: ANTI-Xa, UFH(UnfractionatedHep 0.36 IU/ml (0.3-0.7)
--- NOTE | 2023-10-04 10:25 | Electrocardiogram Report ---
Test Reason : Blood Pressure : / mmHG Vent. Rate : 076 BPM Atrial Rate : 076 BPM P-R Int : 128 ms QRS Dur : 082 ms QT Int : 400 ms P-R-T Axes : 043 004 -08 degrees QTc Int : 450 ms Sinus rhythm with occasional Premature ventricular complexes and Premature atrial complexes Otherwise normal ECG When compared with ECG of 03-OCT-2023 06:00, T wave inversion now evident in Anterior leads Nonspecific T wave abnormality no longer evident in Lateral leads Confirmed by Sadi Murphy ([id number]) on 10/04/2023 10:25:18 AM Referred By: REFERRED SELF Confirmed By:Sadi Murphy
[2023-10-04] MEDS: PANTOprazole 40 MG in SYRINGE 0 ML IV SCH (10:40)
--- NOTE | 2023-10-04 12:09 | XRay Report ---
XR chest 1V portable CLINICAL HISTORY: Resp failure TECHNIQUE: Single frontal radiograph of the chest was obtained. Comparison: Comparison is made to chest radiograph 10/03/2023 FINDINGS: Lines and tubes are stable. Cardiomegaly is noted. Stable bilateral airspace opacities. No evidence o f pleural effusion or pneumothorax. IMPRESSION: Stable bilateral airspace opacities. Additional findings as above. ACT 112: Negative or not required by law. Electronically signed by: Nicolás Smith M.D. 10/04/2023 12:08 PM
--- NOTE | 2023-10-04 12:36 | Hematology/Oncology Prog Note ---
Date of Service October 04, 2023 Assessment & Plan (1) Small cell lung cancer: Plan: Had a discussion with the family about the final pathological diagnosis. Explained the prognosis and the incurability of this disease. At this point no decision for palliative systemic chemotherapy was taken. The family wants the patient to be extubated and go home and then make decisions about the cancer. Medical oncology will not make any other recommendations while the patient is in the ICU especially with regards to cancer treatment. Prognosis of cancer and the treatment options discussed in detail Plan Medical oncology will continue to make appropriate recommendations for the patient's clinical status and disposition. Admission and Anticipated Discharge Date Admission Date: October 02, 2023 Subjective Patient still intubated. Family in room. Present in the room per , sister, [id number] Review of Systems Review of Systems: Could not be obtained Physical Exam Physical Exam: Not performed Results & Data Vital Signs (Past 12 Hours) Vital Signs Temp Pulse Resp BP Pulse Ox O2 Del Method FiO2 10/04/23 12:15 37.2 C 80 14 94 10/04/23 12:15 106/68 10/04/23 12:00 104/59 L 10/04/23 12:00 37.2 C 79 15 93 10/04/23 12:00 40 10/04/23 12:00 80 10/04/23 11:45 101/66 10/04/23 11:45 37.2 C 82 15 93 10/04/23 11:30 107/59 L 10/04/23 11:30 37.2 C 80 14 95 10/04/23 11:15 93/63 L 10/04/23 11:15 37.2 C 80 16 95 10/04/23 11:00 37.2 C 81 14 93 10/04/23 10:55 78 15 93 40 10/04/23 10:45 96/63 L 10/04/23 10:45 37.3 C 83 13 92 10/04/23 10:30 95/57 L 10/04/23 10:30 37.3 C 76 15 93 10/04/23 10:15 90/62 L 10/04/23 10:15 37.3 C 79 12 92 10/04/23 10:00 37.3 C 79 16 90 10/04/23 10:00 91/62 L 10/04/23 09:45 37.4 C 82 15 92 10/04/23 09:45 95/61 L 10/04/23 09:30 95/62 L 10/04/23 09:30 37.4 C 78 15 93 10/04/23 09:16 37.4 C 76 16 94 10/04/23 09:16 90/56 L 10/04/23 09:15 37.3 C 78 17 96 10/04/23 09:00 145/95 H 10/04/23 09:00 37.3 C 90 19 91 10/04/23 08:46 37.1 C 108 H 38 H 92 10/04/23 08:46 116/89 10/04/23 08:45 37.1 C 98 H 37 H 93 10/04/23 08:45 97 H 32 H 93 40 10/04/23 08:30 36.9 C 92 H 22 97 10/04/23 08:30 147/92 H 10/04/23 08:15 126/80 10/04/23 08:15 36.9 C 90 29 H 96 10/04/23 08:02 36.9 C 75 14 97 10/04/23 08:02 127/75 10/04/23 08:00 36.9 C 74 15 98 10/04/23 08:00 Mechanical Vent 40 10/04/23 08:00 40 10/04/23 08:00 97 H 10/04/23 08:00 97 H 10/04/23 07:46 36.8 C 81 14 97 10/04/23 07:46 111/67 10/04/23 07:45 36.9 C 73 14 97 10/04/23 07:45 74 15 98 40 10/04/23 07:30 36.8 C 80 15 98 10/04/23 07:30 110/68 10/04/23 07:15 36.8 C 81 14 98 10/04/23 07:15 119/73 10/04/23 07:00 36.8 C 75 15 98 10/04/23 07:00 108/74 10/04/23 06:45 36.8 C 71 14 98 10/04/23 06:45 109/62 10/04/23 06:30 104/69 10/04/23 06:30 36.8 C 72 14 98 10/04/23 06:15 36.9 C 75 14 97 10/04/23 06:15 110/69 10/04/23 06:00 36.9 C 83 14 98 40 10/04/23 06:00 110/68 10/04/23 05:45 36.9 C 74 17 98 10/04/23 05:45 110/69 10/04/23 05:30 36.9 C 73 17 98 10/04/23 05:30 107/68 10/04/23 05:15 36.9 C 74 17 98 10/04/23 05:15 116/65 10/04/23 05:00 36.9 C 83 15 98 40 10/04/23 05:00 117/74 10/04/23 04:45 36.9 C 76 13 99 10/04/23 04:45 113/70 10/04/23 04:30 114/66 10/04/23 04:30 36.9 C 73 14 98 10/04/23 04:15 36.9 C 74 14 98 40 10/04/23 04:15 113/70 10/04/23 04:05 73 14 98 40 10/04/23 04:00 36.9 C 80 14 98 40 10/04/23 04:00 111/71 10/04/23 04:00 40 10/04/23 03:45 36.9 C 75 15 98 10/04/23 03:45 112/73 10/04/23 03:30 115/66 10/04/23 03:30 36.9 C 75 17 98 10/04/23 03:15 36.9 C 77 15 98 10/04/23 03:15 110/71 10/04/23 03:00 36.9 C 75 14 98 40 10/04/23 03:00 112/69 10/04/23 02:45 36.9 C 76 15 98 10/04/23 02:45 112/71 10/04/23 02:30 36.9 C 77 15 98 10/04/23 02:30 110/67 10/04/23 02:15 36.9 C 71 15 98 10/04/23 02:15 114/72 10/04/23 02:00 36.9 C 76 15 98 40 10/04/23 02:00 110/70 10/04/23 01:45 36.9 C 76 15 98 10/04/23 01:45 114/72 10/04/23 01:30 111/71 10/04/23 01:30 36.9 C 75 15 98 10/04/23 01:15 115/69 10/04/23 01:15 36.9 C 77 15 98 10/04/23 01:00 36.9 C 75 14 97 40 10/04/23 01:00 112/71 10/04/23 00:45 36.9 C 79 13 97 10/04/23 00:45 110/73
[2023-10-04 15:41] LABS: Anion Gap 6 (3-11); BUN Creatinine Ratio 23.4 (10-20); Blood Urea Nitrogen 15 mg/dl (6-23); Calcium 7.8 mg/dl (8.6-10.3); Carbon Dioxide 38 mmol/L (21-32); Chloride 98 mmol/L (98-107); Creatinine Clr Calc Pharmacy 133.7 ml/min; Est GFR (African American) 122.5 ml/min; Est GFR (Non-African American) 105.7 ml/min; Glucose 176 mg/dl (70-99(Fasting)); Sodium 142 mmol/L (136-145)
[2023-10-04] MEDS: HEPARIN SODIUM/DEXTROSE 25,000 UNITS/500 ML BAG IV SCH (16:45)
[2023-10-04] MEDS: LANTUS PER UNIT CHARGE SC SCH (20:06)
--- NOTE | 2023-10-04 22:37 | Hospitalist Progress Note ---
Date of Service October 04, 2023 Assessment & Plan (1) Acute hypoxic respiratory failure: Plan: Pt presented with acute hypoxic respiratory failure and concern for perforated viscus ,taken to OR did not find perforation Remains sedated ventilated in ICU Lung mass in the hilar region and left lung nodules suggestive of lung cancer on CT scan 08/30/23 anemia and thrombocytopenia from possible cancer diagnosis postop acute blood loss anemia is also large concern this places risk for anticoagulation with newfound DVT as patient is a hypercoagulable state and significant risk for propagation subsequently Dr. Nick was consulted to place an IVC filter on 10/03/2023 Multiple comorbid conditions affecting the patient's outcome outcome is guarded at this time Patient remains intubated on 10/04 Patient has small cell lung cancer, poor prognosis. 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 (2) Atrial fibrillation and flutter: Plan: Initially required diltiazem gtt anticoagulation is contraindicated at this time with anemia and recent abdominal surgery thrombocytopenia and concern for blood loss DEMAND ISCHEMIA (3) Perforated viscus: Plan: remains on antibiotics vanco/Zosyn, surgery in the bowel multiple times and not finding overt place of viscus perforation concern for multiple liver masses, biopsy at [facility] for suspected perforation biopsy suggest metastatic small cell carcinoma (4) Morbid obesity: (5) Liver lesion: (6) Lung mass: (7) Sleep apnea: (8) Cigarette smoker: (9) Hypokalemia: Admission and Anticipated Discharge Date Admission Date: October 02, 2023 Subjective 63 yo male is intubated. Review of Systems Review of Systems: All systems reviewed & are unremarkable except as noted in HPI & below Physical Exam Physical Exam: Ventilated and sedated appears chronically ill Both legs have bruising and venous stasis changes right leg is significantly worse on the left Results & Data Results & Data Vital Signs (Past 12 Hours) Vital Signs Temp Pulse Resp BP Pulse Ox O2 Del Method FiO2 10/04/23 20:00 72 10/04/23 20:00 Mechanical Vent 40 10/04/23 20:00 77 114/58 L 10/04/23 20:00 40 10/04/23 19:40 90 15 98 40 10/04/23 18:30 37.2 C 78 14 96 10/04/23 18:30 112/64 10/04/23 18:00 110/68 10/04/23 18:00 37.2 C 79 15 94 10/04/23 17:30 124/76 10/04/23 17:30 37.2 C 80 14 94 10/04/23 17:00 111/66 10/04/23 17:00 37.3 C 79 14 96 10/04/23 16:30 124/71 10/04/23 16:30 37.2 C 82 15 94 10/04/23 16:15 37.2 C 81 15 93 10/04/23 16:00 37.2 C 83 15 94 10/04/23 16:00 115/73 10/04/23 16:00 40 10/04/23 16:00 77 10/04/23 16:00 77 10/04/23 15:45 133/81 10/04/23 15:45 37.2 C 95 H 26 H 93 10/04/23 15:30 114/66 10/04/23 15:30 37.2 C 82 16 93 10/04/23 15:15 115/67 10/04/23 15:15 37.2 C 78 15 94 10/04/23 15:00 115/69 10/04/23 15:00 37.2 C 81 16 96 10/04/23 14:45 37.2 C 83 14 96 10/04/23 14:45 119/69 10/04/23 14:30 112/72 10/04/23 14:30 37.2 C 77 15 97 10/04/23 14:15 123/76 10/04/23 14:15 37.2 C 89 21 100 10/04/23 14:15 77 16 97 40 10/04/23 14:00 37.2 C 80 16 97 10/04/23 14:00 115/71 10/04/23 13:45 120/78 10/04/23 13:45 37.2 C 84 16 96 10/04/23 13:30 114/68 10/04/23 13:30 37.3 C 81 16 93 10/04/23 13:15 110/61 10/04/23 13:15 37.2 C 81 14 94 10/04/23 13:00 107/68 10/04/23 13:00 37.2 C 86 15 91 10/04/23 12:45 104/64 10/04/23 12:45 37.2 C 80 15 92 10/04/23 12:30 111/66 10/04/23 12:30 37.2 C 78 16 96 10/04/23 12:15 37.2 C 80 14 94 10/04/23 12:15 106/68 10/04/23 12:00 104/59 L 10/04/23 12:00 37.2 C 79 15 93 10/04/23 12:00 40 10/04/23 12:00 80 10/04/23 11:45 101/66 10/04/23 11:45 37.2 C 82 15 93 10/04/23 11:30 107/59 L 10/04/23 11:30 37.2 C 80 14 95 10/04/23 11:15 93/63 L 10/04/23 11:15 37.2 C 80 16 95 10/04/23 11:00 37.2 C 81 14 93 10/04/23 10:55 78 15 93 40 10/04/23 10:45 96/63 L 10/04/23 10:45 37.3 C 83 13 92 PG Care Time/CCT Total # of Minutes Spent Total Time Spent with Patient: Total time spent is greater than 50% in coordination of care (as documented) at patient's floor/unit and/or counseling patient: Coding Level of Care Code 70833 SUB INP/OBS CARE 3/50MIN Diagnoses Acute hypoxic respiratory failure J96.01 Atrial fibrillation and flutter I48.91; I48.92 Perforated viscus R19.8 Morbid obesity E66.01 Liver lesion K76.9 Lung mass R91.8 Sleep apnea G47.30 Cigarette smoker F17.210 Hypokalemia E87.6
[2023-10-05] MEDS ORDERED: FUROSEMIDE 40 MG/4 ML VIAL IV ONE ×2 (00:30→09:23)
[2023-10-05] MEDS: INSULIN ASPART PER UNIT CHARGE SC SCH ×7 (00:30→23:56)
[2023-10-05] MEDS: POTASSIUM CHLORIDE / WTR 10 MEQ/100 ML PLCT IV SCH ×6 (02:00→13:38)
[2023-10-05] MEDS: propofoL 1,000 MG/100 ML VIAL IV SCH ×7 (02:40→23:56)
[2023-10-05 04:01] LABS: iSTAT Art Bld Gas pCO2 Correct 51 mmHg (35-46); iSTAT Art Bld Gas pH Corrected 7.476 (7.35-7.45); iSTAT Arterial Blood Gas HCO3 38 meg/L (19-24); iSTAT Arterial Blood Gas pCO2 51 mmHg (35-46); iSTAT Arterial Blood Gas pH 7.48 (7.35-7.45); iSTAT Arterial Blood Gas pO2 77 mmHg (80-95); iSTAT Arterial Blood Gas pO2 C 77; iSTAT Carbon Dioxide 39 mmol/L (24-31); iSTAT FiO2 40 %; iSTAT Hematocrit 21 % (42-52); iSTAT Hemoglobin 7.1 g/dl (14.0-18.0); iSTAT Potassium 3.2 mmol/L (3.3-5.0); iSTAT Site Art Line; iSTAT Sodium 139 mmol/L (135-144)
[2023-10-05 06:12] LABS: BUN Creatinine Ratio 26.2 (10-20); Calcium 7.7 mg/dl (8.6-10.3); Creatinine Clr Calc Pharmacy 140.3 ml/min; Est GFR (African American) 124.9 ml/min; Est GFR (Non-African American) 107.8 ml/min; Magnesium 1.9 mg/dl (1.7-2.4); Phosphorus 3.5 mg/dl (2.5-4.9)
[2023-10-05 06:18] LABS: ANTI-Xa, UFH(UnfractionatedHep 0.28 IU/ml (0.3-0.7)
[2023-10-05 06:23] LABS: Basophilic Stippling 1+; Basophils # (auto) 0.01 K/uL (0.00-0.20); Basophils % (auto) 0.2 %; Hematocrit (blood only) 24.5 % (42.0-52.0); Hemoglobin 7.9 g/dl (14.0-18.0); Immature Granulocytes # (auto) 0.27 K/uL (0.01-0.20); Immature Granulocytes % (auto) 4.4 %; Lymphocytes # (auto) 0.09 K/uL (1.20-3.40); Lymphocytes % (auto) 1.5 %; Mean Corpuscular Hemoglobin 33.9 pg (25.0-34.0); Mean Corpuscular Hgb Conc 32.2 g/dL (32.0-36.0); Mean Corpuscular Volume 105.2 fL (80.0-100.0); Mean Platelet Volume 13.4 fL (9.4-12.4); Monocytes # (auto) 0.14 K/uL (0.11-0.59); Monocytes % (auto) 2.3 %; Neutrophils # (auto) 5.56 K/uL (1.40-6.50); Neutrophils % (auto) 91.6 %; Nucleated RBC # (auto) 0.05 K/uL (0.00-0.12); Nucleated RBC % (auto) 0.8 %; Platelet Count 65 K/uL (130-400); Platelet Estimate Decreased (Normal); Polychromasia 1+; RDW Coefficient of Variation 15.4 % (11.5-14.5); RDW Standard Deviation 57.9 fL (36.4-46.3); Red Blood Count 2.33 M/uL (4.70-6.10); White Blood Count 6.07 K/ul (4.8-10.8)
[2023-10-05] MEDS: LANTUS PER UNIT CHARGE SC SCH ×2 (08:05→20:13)
[2023-10-05] MEDS: PIPERACILLIN/TAZOBACTAM 4.5 GM in DEXTROSE 5% MINI-B 100 ML IV SCH ×3 (08:50→23:58)
[2023-10-05] MEDS ORDERED: LABETALOL HCL IV 5 MG/ML 20ML IV STA (09:24)
[2023-10-05] MEDS: PANTOprazole 40 MG in SYRINGE 0 ML IV SCH (11:23)
--- NOTE | 2023-10-05 11:48 | Critical Care Progress Note ---
Date of Service October 05, 2023 Assessment & Plan (1) Acute hypoxemic respiratory failure: (2) Small cell carcinoma: (3) Pulmonary edema: (4) Perforated bowel: (5) History of venous thromboembolism: (6) Obesity hypoventilation syndrome: (7) Severe obstructive sleep apnea: (8) Electrolyte disturbance: (9) Thrombocytopenia: (10) Liver lesion: Plan Reason Critically Ill: 63 YOM with likely new diagnosis of lung cancer with metastatic disease to liver. He has not had workup of this completed yet. He was taken urgently to the operating theatre for concern of colonic perforation on CT scan. He was not found to have perforation in the operating room, however a liver biopsy was obtained. He came to the ICU intubated with continued need for resuscitation and electrolyte replacements. Neuro - Sedation for mechanical ventilation Patient following commands on minimal fentanyl. - Current sedation for mechanical ventilation - Fentanyl and Propofol for RASS goal of -1 --Obtain MRI brain to evaluate for metastatic disease from small cell carcinoma diagnosed in the liver. Cardiac - Afib/Flutter, Electrolyte disturbances, Hypovolemia, Elevated HsCTNI, Lower extremity edema --New onset Afib Currently on heparin infusion. Hemoglobin remained stable. - Elevated HsCTNI Likely type II NH -- Acute DVT right lower extremity S/p IVC filter 10/03/2023 On heparin drip - Lower legs from knees to feet with pitting edema Positive DVT 10/03/2023 -Echo 10/02/2023 with evidence of diastolic CHF. Moderate TR. Patient also with elevated BP and likely element of pulmonary edema. IV Lasix given this morning. IV labetalol given as well with improvement of blood pressure and heart rate. Respiratory - Intubation and Mechanical ventilation, JAMIE/Obesity Hypoventilation syndrome, Lung mass --- VDRF -Continue with SIMV at this time. Maintain lung protective ventilation strategy. Patient with evidence of acute hypoxemic respiratory failure chronic hypercapnia. -- Patient with bibasilar infiltrates, right greater than left. Suspect degree of aspiration pneumonitis and also pulmonary edema. --Will obtain CT chest with contrast to evaluate for PE, further parenchymal infiltrates and primary etiology of possible small cell lung cancer. -ABG consistent with chronic hypercapnic respiratory failure likely from OHS. GI - Liver masses- innumerable, bowel perforation -Surgical pathology consistent with small cell carcinoma. Suspect lung primary. Will obtain CT chest with contrast. Will also obtain MRI brain. - NO bowel perforation identified by surgical exploration-discussed with general surgery. Okay to start trickle tube feeds. Continue with Zosyn RENAL/LYTES - ICU electrolyte replacement protocol. Urine output adequate. 40 mg IV Lasix given today. Replace potassium aggressively. - Perkins catheter - placed for resuscitation and operative course- remove once extubated ENDO - Hyperglycemia without diagnosis of DM - ICU hyper/hypoglycemic protocol follow goal BG <180mg/dl HEME - Pancytopenia Platelet count stabilized. Will continue to monitor. Check HIT panel. DIC less likely as fibrinogen checked on 10/02/2022 was unremarkable. ID -possible microperforation -Continue with Zosyn for intra-abdominal sepsis and aspiration pneumonia. Follow blood cultures --Prophylaxis VTE: On heparin drip GI: Pantoprazole Lines: Left radial, peripheral, Perkins CRITICAL CARE TIME - I have personally spent 53 minutes of critical care time in the direct management of this patient. This is a life/limb threatening event. This includes time spent evaluating patient, direct bedside care, chart review, placing orders, interpretation of diagnostic studies, discussion with consultants, patient, and family members, as well as other required patient management activities. This time is exclusive of all separately billable procedures, and teaching time and separate from and in addition to any other critical care service time. Admission and Anticipated Discharge Date Admission Date: October 02, 2023 Subjective Patient seen and examined. He is following commands on low-dose fentanyl infusion. I switched him over from CMV to a spontaneous breathing trial and his respiratory rate rapidly increased to the 45 breaths/min. He had low tidal vol umes despite increasing pressure support. I then switched him over to SIMV with better ventilator synchrony and improve respiratory rates. Otherwise he has not had any significant overnight events. Review of Systems Review of Systems: Unobtainable due to endotracheal tube Physical Exam Physical Exam: Constitutional: No acute distress HEENT: PERRLA, positive ETT Respiratory system: Decreased air entry bilaterally, no wheeze, rhonchi, positive crackles bilateral lower lobes CVS: S1-S2 positive, no murmurs or gallops, irregular Abdomen: Soft, nontender, nondistended, positive bowel sounds x4, obese Extremities: +2 pulses bilaterally radialis/ dorsalis pedis, no cyanosis, +2 pitting edema bilateral lower extremity, petechia appreciated bilateral feet, bruising of the right knee Neuro: Intubated, sedated, moving all extremities, RASS -2 Psych: Unable to assess G/U: Positive Perkins Skin: no rashes, warm and dry Lymphatic: no cervical or axillary lymphadenopathy Results & Data Results & Data Vital Signs (Past 12 Hours) Vital Signs Temp Pulse Resp BP Pulse Ox O2 Del Method FiO2 10/05/23 11:12 88 24 89 L 50 10/05/23 11:00 124/88 10/05/23 11:00 37.5 C 90 23 88 L 10/05/23 10:30 37.4 C 99 H 46 H 90 10/05/23 10:30 130/79 10/05/23 10:00 155/92 H 10/05/23 10:00 37.3 C 99 H 27 H 85 L 10/05/23 09:59 86 160/77 H 10/05/23 09:36 95 H 169/80 H 10/05/23 09:30 137/84 10/05/23 09:30 37.3 C 83 15 89 L 10/05/23 09:22 50 10/05/23 09:15 86 25 H 92 40 10/05/23 09:00 124/75 10/05/23 09:00 37.2 C 81 18 90 10/05/23 08:30 37.1 C 86 21 91 10/05/23 08:30 140/79 10/05/23 08:01 127/93 10/05/23 08:01 37.1 C 91 H 24 93 10/05/23 08:00 37.1 C 78 17 91 10/05/23 08:00 Mechanical Vent 40 10/05/23 08:00 Mechanical Vent 10/05/23 08:00 40 10/05/23 08:00 75 10/05/23 08:00 75 10/05/23 07:50 75 16 93 40 10/05/23 07:30 132/78 10/05/23 07:30 37.0 C 83 14 93 10/05/23 07:00 129/76 10/05/23 07:00 36.9 C 81 14 90 10/05/23 06:30 36.9 C 75 13 94 10/05/23 06:30 113/64 10/05/23 06:00 36.9 C 75 19 88 L 40 10/05/23 06:00 115/63 10/05/23 05:30 123/76 10/05/23 05:30 37.1 C 77 15 94 10/05/23 05:00 37.1 C 71 14 97 40 10/05/23 05:00 120/59 L 10/05/23 04:30 115/65 10/05/23 04:30 37.0 C 75 15 97 10/05/23 04:19 69 15 97 40 10/05/23 04:01 37.0 C 80 17 98 10/05/23 04:01 141/83 H 10/05/23 04:00 37.0 C 80 14 98 40 10/05/23 04:00 40 10/05/23 04:00 81 120/60 10/05/23 03:30 37.0 C 69 15 97 10/05/23 03:30 115/69 10/05/23 03:00 108/64 10/05/23 03:00 37.0 C 76 13 96 40 10/05/23 02:30 124/80 10/05/23 02:30 36.9 C 75 15 95 10/05/23 02:00 37.0 C 71 14 96 40 10/05/23 02:00 111/69 10/05/23 01:30 113/69 10/05/23 01:30 37.1 C 70 14 96 10/05/23 01:00 111/66 10/05/23 01:00 37.1 C 69 14 96 40 10/05/23 00:30 112/67 10/05/23 00:30 37.1 C 75 16 97 10/05/23 00:00 108/65 10/05/23 00:00 37.1 C 68 15 96 40 10/05/23 00:00 40 10/05/23 00:00 78 114/60 10/05/23 00:00 67 Coding Level of Care Code 67490 CRITICAL CARE 1ST 30-74M Diagnoses Acute hypoxemic respiratory failure J96.01 Small cell carcinoma C80.1 Pulmonary edema J81.1 Perforated bowel K63.1 History of venous thromboembolism Z86.718 Obesity hypoventilation syndrome E66.2 Severe obstructive sleep apnea G47.33 Electrolyte disturbance E87.8 Thrombocytopenia D69.6 Liver lesion K76.9
[2023-10-05] MEDS ORDERED: OPTIRAY 320 125ml IV ONE (12:09)
--- NOTE | 2023-10-05 12:43 | CT Scan Report ---
CT angio chest PE protocol CLINICAL HISTORY: PE TECHNIQUE: Multidetector row helical CT of the chest was performed with angiographic protocol. Suh l and sagittal reformations were obtained. Coronal and sagittal MIPS were obtained from the axial sofiya a set and were submitted for review. Automated dose lowering techniques and/or adjustment according to patient size were utilized for this exam. CT DOSE: 889.83 mGy.cm Comparison: Comparison is made to CTA chest 08/30/2020 FINDINGS: Lungs and pleura: There is opacification of bilateral lower lobes and left upper lobe airspace opacit y. A few scattered pulmonary nodules are seen. Previously noted left perihilar density is obscured by airspace disease but likely remains present. Heart and pericardium: Heart size is normal. No pericardial effusion. Vessels: No evidence of pulmonary embolism. Mediastinum and kym: Numerous enlarged lymph nodes are seen including a 25 mm aortopulmonary node. L ikely hilar lymphadenopathy is partially seen. Chest wall and lower neck: Unremarkable. Abdomen: Unremarkable. Hepatic lesions are not as well-seen due to phase of contrast. Bones: Degenerative changes in the thoracic spine. IMPRESSION: 1. No evidence of pulmonary embolus. 2. Density in the bilateral lower lungs may be secondary to atelectasis with or without superimposed pneumonia. There are small bilateral pleural effusions. Density in the left upper lobe may represent pneumonia. 3. Redemonstration of findings concerning for metastatic lung cancer with lymphadenopathy in left pe rihilar mass. ACT 112: Negative or not required by law. Electronically signed by: Nicolás Smith M.D. 10/05/2023 12:40 PM
--- NOTE | 2023-10-05 13:34 | Surgery Progress Note ---
Date of Service October 05, 2023 Assessment & Plan (1) Small cell carcinoma: (2) Perforated viscus: (3) Small cell lung cancer: (4) Acute hypoxemic respiratory failure: Plan ok from surgical standpoint may start trickle tube feeds continuing to monitor medical management as per ICU team Admission and Anticipated Discharge Date Admission Date: October 02, 2023 Subjective still on vent; attempting to wean. no bms. does not appear to be in pain Physical Exam Physical Exam: sedated on vent abd: soft. mild distention incision C/D/I with bella b/l LE edema with skin excoriation Results & Data Vital Signs (Past 12 Hours) Vital Signs Temp Pulse Resp BP Pulse Ox O2 Del Method FiO2 10/05/23 12:00 84 21 97 10/05/23 12:00 50 10/05/23 12:00 88 10/05/23 11:53 37.4 C 86 18 91 10/05/23 11:53 128/73 10/05/23 11:30 133/70 10/05/23 11:30 37.4 C 98 H 25 H 87 L 10/05/23 11:12 88 24 89 L 50 10/05/23 11:00 124/88 10/05/23 11:00 37.5 C 90 23 88 L 10/05/23 10:30 37.4 C 99 H 46 H 90 10/05/23 10:30 130/79 10/05/23 10:00 155/92 H 10/05/23 10:00 37.3 C 99 H 27 H 85 L 10/05/23 09:59 86 160/77 H 10/05/23 09:36 95 H 169/80 H 10/05/23 09:30 137/84 10/05/23 09:30 37.3 C 83 15 89 L 10/05/23 09:22 50 10/05/23 09:15 86 25 H 92 40 10/05/23 09:00 124/75 10/05/23 09:00 37.2 C 81 18 90 10/05/23 08:30 37.1 C 86 21 91 10/05/23 08:30 140/79 10/05/23 08:01 127/93 10/05/23 08:01 37.1 C 91 H 24 93 10/05/23 08:00 37.1 C 78 17 91 10/05/23 08:00 Mechanical Vent 40 10/05/23 08:00 Mechanical Vent 10/05/23 08:00 40 10/05/23 08:00 75 10/05/23 08:00 75 10/05/23 07:50 75 16 93 40 10/05/23 07:30 132/78 10/05/23 07:30 37.0 C 83 14 93 10/05/23 07:00 129/76 10/05/23 07:00 36.9 C 81 14 90 10/05/23 06:30 36.9 C 75 13 94 10/05/23 06:30 113/64 10/05/23 06:00 36.9 C 75 19 88 L 40 10/05/23 06:00 115/63 10/05/23 05:30 123/76 10/05/23 05:30 37.1 C 77 15 94 10/05/23 05:00 37.1 C 71 14 97 40 10/05/23 05:00 120/59 L 10/05/23 04:30 115/65 10/05/23 04:30 37.0 C 75 15 97 10/05/23 04:19 69 15 97 40 10/05/23 04:01 37.0 C 80 17 98 10/05/23 04:01 141/83 H 10/05/23 04:00 37.0 C 80 14 98 40 10/05/23 04:00 40 10/05/23 04:00 81 120/60 10/05/23 03:30 37.0 C 69 15 97 10/05/23 03:30 115/69 10/05/23 03:00 108/64 10/05/23 03:00 37.0 C 76 13 96 40 10/05/23 02:30 124/80 10/05/23 02:30 36.9 C 75 15 95 10/05/23 02:00 37.0 C 71 14 96 40 10/05/23 02:00 111/69 Laboratory Results 10/05/23 10/05/23 10/05/23 Range/Units 11:44 07:47 04:39 WBC 6.07 (4.8-10.8) K/ul RBC 2.33 L (4.70-6.10) M/uL Hgb 7.9 L (14.0-18.0) g/dl POC Hgb (14.0-18.0) g/dl Hct 24.5 L (42.0-52.0) % POC Hct (42-52) % MCV 105.2 H (80.0-100.0) fL MCH 33.9 (25.0-34.0) pg MCHC 32.2 (32.0-36.0) g/dL RDW Std Deviation 57.9 H (36.4-46.3) fL RDW Coeff of Chiara 15.4 H (11.5-14.5) % Plt Count 65 L (130-400) K/uL MPV 13.4 H (9.4-12.4) fL Immature Gran % (Auto) 4.4 % Neut % (Auto) 91.6 % Lymph % (Auto) 1.5 % [place] % (Auto) 2.3 % Eos % (Auto) 0.0 % Baso % (Auto) 0.2 % Neut # (Auto) 5.56 (1.40-6.50) K/uL Lymph # (Auto) 0.09 L (1.20-3.40) K/uL [place] # (Auto) 0.14 (0.11-0.59) K/uL Eos # (Auto) 0.00 (0.00-0.50) K/uL Baso # (Auto) 0.01 (0.00-0.20) K/uL Immature Gran # (Auto) 0.27 H (0.01-0.20) K/uL Absolute Nucleated RBC 0.05 (0.00-0.12) K/uL Nucleated RBC % (auto) 0.8 % Platelet Estimate Decreased L (Normal) Polychromasia 1+ Basophilic Stippling 1+ Heparin Anti-Xa, Unfract 0.28 L (0.3-0.7) IU/ml Sample Site POC pH (7.35-7.45) POC pCO2 (35-46) mmHg POC pO2 (80-95) mmHg POC HCO3 (19-24) clement/L POC Total CO2 (24-31) mmol/L POC Base Excess (-9-1.8) clement/L ABG pH (Temp Correct) (7.35-7.45) ABG pCO2 (Temp Corrct (35-46) mmHg POC ABG pO2 at Pt Temp POC ABG O2 Sat (90-95) % Vinh Test O2 Delivery Device POC O2 Rate POC FiO2 % Tidal Volume PEEP POC Sodium (135-144) mmol/L Sodium 143 (136-145) mmol/L POC Potassium (3.3-5.0) mmol/L Potassium 3.0 L Chloride 98 (98-107) mmol/L Carbon Dioxide 39 H (21-32) mmol/L Anion Gap 6 (3-11) BUN 16 (6-23) mg/dl Creatinine 0.61 (0.6-1.4) mg/dl Est Cr Clr Drug Dosing 140.3 ml/min Est GFR ( Amer) 124.9 ml/min Est GFR (Non-Af Amer) 107.8 ml/min BUN/Creatinine Ratio 26.2 H (10-20) Glucose 181 H (70-99(Fasting)) mg/dl POC Glucose 196 H 169 H (70-99) mg/dl Calcium 7.7 L (8.6-10.3) mg/dl Phosphorus 3.5 (2.5-4.9) mg/dl Magnesium 1.9 (1.7-2.4) mg/dl Crossmatch 10/05/23 10/05/23 10/05/23 Range/Units 03:44 03:38 01:55 WBC (4.8-10.8) K/ul RBC (4.70-6.10) M/uL Hgb (14.0-18.0) g/dl POC Hgb 7.1 L (14.0-18.0) g/dl Hct (42.0-52.0) % POC Hct 21 L (42-52) % MCV (80.0-100.0) fL MCH (25.0-34.0) pg MCHC (32.0-36.0) g/dL RDW Std Deviation (36.4-46.3) fL RDW Coeff of Chiara (11.5-14.5) % Plt Count (130-400) K/uL MPV (9.4-12.4) fL Immature Gran % (Auto) % Neut % (Auto) % Lymph % (Auto) % [place] % (Auto) % Eos % (Auto) % Baso % (Auto) % Neut # (Auto) (1.40-6.50) K/uL Lymph # (Auto) (1.20-3.40) K/uL [place] # (Auto) (0.11-0.59) K/uL Eos # (Auto) (0.00-0.50) K/uL Baso # (Auto) (0.00-0.20) K/uL Immature Gran # (Auto) (0.01-0.20) K/uL Absolute Nucleated RBC (0.00-0.12) K/uL Nucleated RBC % (auto) % Platelet Estimate (Normal) Polychromasia Basophilic Stippling Heparin Anti-Xa, Unfract (0.3-0.7) IU/ml Sample Site Art Line POC pH 7.48 H (7.35-7.45) POC pCO2 51 H (35-46) mmHg POC pO2 77 L (80-95) mmHg POC HCO3 38 H (19-24) cleemnt/L POC Total CO2 39 H (24-31) mmol/L POC Base Excess 14.0 H (-9-1.8) clement/L ABG pH (Temp Correct) 7.476 H (7.35-7.45) ABG pCO2 (Temp Corrct 51 H (35-46) mmHg POC ABG pO2 at Pt Temp 77 POC ABG O2 Sat 96.0 H (90-95) % Vinh Test NA O2 Delivery Device Ventilator POC O2 Rate 14 POC FiO2 40 % Tidal Volume 400 PEEP 8 POC Sodium 139 (135-144) mmol/L Sodium (136-145) mmol/L POC Potassium 3.2 L (3.3-5.0) mmol/L Potassium Chloride (98-107) mmol/L Carbon Dioxide (21-32) mmol/L Anion Gap (3-11) BUN (6-23) mg/dl Creatinine (0.6-1.4) mg/dl Est Cr Clr Drug Dosing ml/min Est GFR ( Amer) ml/min Est GFR (Non-Af Amer) ml/min BUN/Creatinine Ratio (10-20) Glucose (70-99(Fasting)) mg/dl POC Glucose 214 H 188 H (70-99) mg/dl Calcium (8.6-10.3) mg/dl Phosphorus (2.5-4.9) mg/dl Magnesium (1.7-2.4) mg/dl Crossmatch 10/04/23 10/04/23 10/04/23 Range/Units 19:39 19:20 16:36 WBC (4.8-10.8) K/ul RBC (4.70-6.10) M/uL Hgb (14.0-18.0) g/dl POC Hgb (14.0-18.0) g/dl Hct (42.0-52.0) % POC Hct (42-52) % MCV (80.0-100.0) fL MCH (25.0-34.0) pg MCHC (32.0-36.0) g/dL RDW Std Deviation (36.4-46.3) fL RDW Coeff of Chiara (11.5-14.5) % Plt Count (130-400) K/uL MPV (9.4-12.4) fL Immature Gran % (Auto) % Neut % (Auto) % Lymph % (Auto) % [place] % (Auto) % Eos % (Auto) % Baso % (Auto) % Neut # (Auto) (1.40-6.50) K/uL Lymph # (Auto) (1.20-3.40) K/uL [place] # (Auto) (0.11-0.59) K/uL Eos # (Auto) (0.00-0.50) K/uL Baso # (Auto) (0.00-0.20) K/uL Immature Gran # (Auto) (0.01-0.20) K/uL Absolute Nucleated RBC (0.00-0.12) K/uL Nucleated RBC % (auto) % Platelet Estimate (Normal) Polychromasia Basophilic Stippling Heparin Anti-Xa, Unfract (0.3-0.7) IU/ml Sample Site POC pH (7.35-7.45) POC pCO2 (35-46) mmHg POC pO2 (80-95) mmHg POC HCO3 (19-24) clement/L POC Total CO2 (24-31) mmol/L POC Base Excess (-9-1.8) clement/L ABG pH (Temp Correct) (7.35-7.45) ABG pCO2 (Temp Corrct (35-46) mmHg POC ABG pO2 at Pt Temp POC ABG O2 Sat (90-95) % Vinh Test O2 Delivery Device POC O2 Rate POC FiO2 % Tidal Volume PEEP POC Sodium (135-144) mmol/L Sodium (136-145) mmol/L POC Potassium (3.3-5.0) mmol/L Potassium 3.6 3.7 Chloride (98-107) mmol/L Carbon Dioxide (21-32) mmol/L Anion Gap (3-11) BUN (6-23) mg/dl Creatinine (0.6-1.4) mg/dl Est Cr Clr Drug Dosing ml/min Est GFR ( Amer) ml/min Est GFR (Non-Af Amer) ml/min BUN/Creatinine Ratio (10-20) Glucose (70-99(Fasting)) mg/dl POC Glucose 189 H (70-99) mg/dl Calcium (8.6-10.3) mg/dl Phosphorus (2.5-4.9) mg/dl Magnesium (1.7-2.4) mg/dl Crossmatch 10/04/23 10/04/23 10/04/23 Range/Units 15:47 15:40 14:36 WBC (4.8-10.8) K/ul RBC (4.70-6.10) M/uL Hgb (14.0-18.0) g/dl POC Hgb (14.0-18.0) g/dl Hct (42.0-52.0) % POC Hct (42-52) % MCV (80.0-100.0) fL MCH (25.0-34.0) pg MCHC (32.0-36.0) g/dL RDW Std Deviation (36.4-46.3) fL RDW Coeff of Chiara (11.5-14.5) % Plt Count (130-400) K/uL MPV (9.4-12.4) fL Immature Gran % (Auto) % Neut % (Auto) % Lymph % (Auto) % [place] % (Auto) % Eos % (Auto) % Baso % (Auto) % Neut # (Auto) (1.40-6.50) K/uL Lymph # (Auto) (1.20-3.40) K/uL [place] # (Auto) (0.11-0.59) K/uL Eos # (Auto) (0.00-0.50) K/uL Baso # (Auto) (0.00-0.20) K/uL Immature Gran # (Auto) (0.01-0.20) K/uL Absolute Nucleated RBC (0.00-0.12) K/uL Nucleated RBC % (auto) % Platelet Estimate (Normal) Polychromasia Basophilic Stippling Heparin Anti-Xa, Unfract (0.3-0.7) IU/ml Sample Site POC pH (7.35-7.45) POC pCO2 (35-46) mmHg POC pO2 (80-95) mmHg POC HCO3 (19-24) clement/L POC Total CO2 (24-31) mmol/L POC Base Excess (-9-1.8) clement/L ABG pH (Temp Correct) (7.35-7.45) ABG pCO2 (Temp Corrct (35-46) mmHg POC ABG pO2 at Pt Temp POC ABG O2 Sat (90-95) % Vinh Test O2 Delivery Device POC O2 Rate POC FiO2 % Tidal Volume PEEP POC Sodium (135-144) mmol/L Sodium 142 (136-145) mmol/L POC Potassium (3.3-5.0) mmol/L Potassium Cancelled TNP Chloride 98 (98-107) mmol/L Carbon Dioxide 38 H (21-32) mmol/L Anion Gap 6 (3-11) BUN 15 (6-23) mg/dl Creatinine 0.64 (0.6-1.4) mg/dl Est Cr Clr Drug Dosing 133.7 ml/min Est GFR ( Amer) 122.5 ml/min Est GFR (Non-Af Amer) 105.7 ml/min BUN/Creatinine Ratio 23.4 H (10-20) Glucose 176 H (70-99(Fasting)) mg/dl POC Glucose 177 H (70-99) mg/dl Calcium 7.8 L (8.6-10.3) mg/dl Phosphorus (2.5-4.9) mg/dl Magnesium (1.7-2.4) mg/dl Crossmatch 10/02/23 Range/Units 02:34 WBC (4.8-10.8) K/ul RBC (4.70-6.10) M/uL Hgb (14.0-18.0) g/dl POC Hgb (14.0-18.0) g/dl Hct (42.0-52.0) % POC Hct (42-52) % MCV (80.0-100.0) fL MCH (25.0-34.0) pg MCHC (32.0-36.0) g/dL RDW Std Deviation (36.4-46.3) fL RDW Coeff of Chiara (11.5-14.5) % Plt Count (130-400) K/uL MPV (9.4-12.4) fL Immature Gran % (Auto) % Neut % (Auto) % Lymph % (Auto) % [place] % (Auto) % Eos % (Auto) % Baso % (Auto) % Neut # (Auto) (1.40-6.50) K/uL Lymph # (Auto) (1.20-3.40) K/uL [place] # (Auto) (0.11-0.59) K/uL Eos # (Auto) (0.00-0.50) K/uL Baso # (Auto) (0.00-0.20) K/uL Immature Gran # (Auto) (0.01-0.20) K/uL Absolute Nucleated RBC (0.00-0.12) K/uL Nucleated RBC % (auto) % Platelet Estimate (Normal) Polychromasia Basophilic Stippling Heparin Anti-Xa, Unfract (0.3-0.7) IU/ml Sample Site POC pH (7.35-7.45) POC pCO2 (35-46) mmHg POC pO2 (80-95) mmHg POC HCO3 (19-24) clement/L POC Total CO2 (24-31) mmol/L POC Base Excess (-9-1.8) clement/L ABG pH (Temp Correct) (7.35-7.45) ABG pCO2 (Temp Corrct (35-46) mmHg POC ABG pO2 at Pt Temp POC ABG O2 Sat (90-95) % Vinh Test O2 Delivery Device POC O2 Rate POC FiO2 % Tidal Volume PEEP POC Sodium (135-144) mmol/L Sodium (136-145) mmol/L POC Potassium (3.3-5.0) mmol/L Potassium Chloride (98-107) mmol/L Carbon Dioxide (21-32) mmol/L Anion Gap (3-11) BUN (6-23) mg/dl Creatinine (0.6-1.4) mg/dl Est Cr Clr Drug Dosing ml/min Est GFR ( Amer) ml/min Est GFR (Non-Af Amer) ml/min BUN/Creatinine Ratio (10-20) Glucose (70-99(Fasting)) mg/dl POC Glucose (70-99) mg/dl Calcium (8.6-10.3) mg/dl Phosphorus (2.5-4.9) mg/dl Magnesium (1.7-2.4) mg/dl Crossmatch See Detail
--- NOTE | 2023-10-05 13:36 | XRay Report ---
XR chest 1V portable CLINICAL HISTORY: Resp failure TECHNIQUE: Single frontal radiograph of the chest was obtained. Comparison: Comparison is made to chest radiograph 10/04/2023 FINDINGS: Lines and tubes are stable. Cardiomegaly is noted. Multifocal airspace opacities are seen. No evidenc e of pleural effusion or pneumothorax. IMPRESSION: Stable bilateral airspace opacities. ACT 112: Negative or not required by law. Electronically signed by: Nicolás Smith M.D. 10/05/2023 1:35 PM
[2023-10-05] MEDS: HEPARIN SODIUM/DEXTROSE 25,000 UNITS/500 ML BAG IV SCH ×2 (13:42→18:20)
[2023-10-05] MEDS: fentaNYL citrate 2,500 MCG/250 ML BAG IV SCH (13:51)
--- NOTE | 2023-10-05 15:09 | Magnetic Resonance Report ---
MR brain wo con CLINICAL HISTORY: small cell lung cancer TECHNIQUE: Multiplanar and multisequence MR images of the brain were obtained without intravenous con trast. Comparison: None available at the time of this dictation. FINDINGS: No abnormal restricted diffusion is identified. The white matter is unremarkable. The ventricular sys tem is normal in appearance. No mass is seen. There is no mass effect or midline shift. There is no e vidence of acute intraparenchymal hemorrhage. No extra axial fluid collections are seen. The corpus c allosum, pituitary gland, and cerebellar tonsils appear grossly unremarkable. Flow voids of the major intracranial arterial vessels are identified. The imaged portions of the para nasal sinuses, mastoid air cells, and orbits are unremarkable. IMPRESSION: No acute abnormality and in particular no evidence of metastatic disease. ACT 112: Negative or not required by law. Electronically signed by: Nicolás Smith M.D. 10/05/2023 3:08 PM
[2023-10-05] MEDS ORDERED: PEPTAMEN INTENSE VHP 1.0 CAL 1,000 ML BAG OG SCH (17:00)
[2023-10-05] MEDS: TUBE FEEDING WATER FLUSH OG SCH ×2 (18:21→20:43)
--- NOTE | 2023-10-05 22:41 | Hospitalist Progress Note ---
Date of Service October 05, 2023 Assessment & Plan (1) Acute hypoxic respiratory failure: Plan: Pt presented with acute hypoxic respiratory failure and concern for perforated viscus ,taken to OR did not find perforation Remains sedated ventilated in ICU Lung mass in the hilar region and left lung nodules suggestive of lung cancer on CT scan 08/30/23 anemia and thrombocytopenia from possible cancer diagnosis postop acute blood loss anemia is also large concern this places risk for anticoagulation with newfound DVT as patient is a hypercoagulable state and significant risk for propagation subsequently Dr. Nick was consulted to place an IVC filter on 10/03/2023 Multiple comorbid conditions affecting the patient's outcome outcome is guarded at this time Patient remains intubated on 10/05 Patient has small cell lung cancer, poor prognosis. D/W marketing information analyst. (2) Atrial fibrillation and flutter: Plan: Initially required diltiazem gtt anticoagulation is contraindicated at this time with anemia and recent abdominal surgery thrombocytopenia and concern for blood loss DEMAND ISCHEMIA (3) Perforated viscus: Plan: remains on antibiotics vanco/Zosyn, surgery in the bowel multiple times and not finding overt place of viscus perforation concern for multiple liver masses, biopsy at [facility] for suspected perforation biopsy suggest metastatic small cell carcinoma (4) Morbid obesity: (5) Liver lesion: (6) Lung mass: (7) Sleep apnea: (8) Cigarette smoker: (9) Hypokalemia: Admission and Anticipated Discharge Date Admission Date: October 02, 2023 Subjective Patient is intubated and sedated. Review of Systems Review of Systems: All systems reviewed & are unremarkable except as noted in HPI & below Physical Exam Physical Exam: Ventilated and sedated appears chronically ill Both legs have bruising and venous stasis changes right leg is significantly worse on the left Results & Data Results & Data Vital Signs (Past 12 Hours) Vital Signs Temp Pulse Resp BP Pulse Ox O2 Del Method FiO2 10/05/23 22:11 92 H 17 95 60 10/05/23 21:00 37.0 C 81 14 94 60 10/05/23 20:30 113/68 10/05/23 20:30 37.1 C 71 12 94 10/05/23 20:01 37.0 C 76 16 10/05/23 20:01 107/59 L 10/05/23 20:00 37.0 C 80 15 94 60 10/05/23 20:00 76 01/28/24 20:00 Mechanical Vent 60 10/05/23 20:00 60 10/05/23 19:30 121/68 10/05/23 19:30 37.0 C 79 16 93 10/05/23 19:00 133/77 10/05/23 19:00 37.0 C 85 15 94 60 10/05/23 18:59 84 16 96 60 10/05/23 18:00 117/67 10/05/23 18:00 37.1 C 83 17 93 10/05/23 17:30 134/76 10/05/23 17:30 37.1 C 85 16 92 10/05/23 17:01 132/66 10/05/23 17:01 37.1 C 85 18 91 10/05/23 17:00 37.1 C 84 13 92 10/05/23 16:30 148/97 H 10/05/23 16:30 37.0 C 84 21 94 10/05/23 16:00 143/84 H 10/05/23 16:00 37.0 C 85 16 93 10/05/23 16:00 60 10/05/23 16:00 78 10/05/23 16:00 78 10/05/23 15:45 78 19 95 70 10/05/23 15:30 133/81 10/05/23 15:30 37.0 C 84 17 96 10/05/23 15:00 141/84 H 10/05/23 15:00 37.0 C 78 16 98 10/05/23 14:30 137/82 10/05/23 14:30 37.0 C 84 18 96 10/05/23 14:00 162/87 H 10/05/23 14:00 37.0 C 96 H 23 90 10/05/23 13:31 143/102 H 10/05/23 13:31 98 H 21 91 10/05/23 13:30 89 21 91 10/05/23 13:23 93 H 24 10/05/23 12:00 84 21 97 10/05/23 12:00 50 10/05/23 12:00 88 10/05/23 11:53 37.4 C 86 18 91 10/05/23 11:53 128/73 10/05/23 11:30 133/70 10/05/23 11:30 37.4 C 98 H 25 H 87 L 10/05/23 11:12 88 24 89 L 50 10/05/23 11:00 124/88 10/05/23 11:00 37.5 C 90 23 88 L PG Care Time/CCT Total # of Minutes Spent Total Time Spent with Patient: Total time spent is greater than 50% in coordination of care (as documented) at patient's floor/unit and/or counseling patient: Coding Level of Care Code 68385 SUB INP/OBS CARE 2/35MIN Diagnoses Acute hypoxic respiratory failure J96.01 Atrial fibrillation and flutter I48.91; I48.92 Perforated viscus R19.8 Morbid obesity E66.01 Liver lesion K76.9 Lung mass R91.8 Sleep apnea G47.30 Cigarette smoker F17.210 Hypokalemia E87.6
[2023-10-05 23:57] LABS: Calcium 7.6 mg/dl (8.6-10.3); Potassium 3.5 mmol/L (3.5-5.1)
[2023-10-06 00:02] LABS: BUN Creatinine Ratio 27.3 (10-20); Creatinine Clr Calc Pharmacy 155.9 ml/min; Est GFR (African American) 130.4 ml/min; Est GFR (Non-African American) 112.5 ml/min
[2023-10-06] MEDS: TUBE FEEDING WATER FLUSH OG SCH ×6 (00:04→20:05)
[2023-10-06] MEDS: propofoL 1,000 MG/100 ML VIAL IV SCH ×3 (03:50→10:25)
[2023-10-06] MEDS: INSULIN ASPART PER UNIT CHARGE SC SCH ×5 (04:02→20:03)
[2023-10-06 04:04] LABS: BUN Creatinine Ratio 27.8 (10-20); Calcium 7.6 mg/dl (8.6-10.3); Creatinine Clr Calc Pharmacy 158.8 ml/min; Est GFR (African American) 131.3 ml/min; Est GFR (Non-African American) 113.3 ml/min; Magnesium 1.7 mg/dl (1.7-2.4); Phosphorus 2.9 mg/dl (2.5-4.9); Potassium 3.1 mmol/L (3.5-5.1)
[2023-10-06 04:10] LABS: ANTI-Xa, UFH(UnfractionatedHep 0.34 IU/ml (0.3-0.7)
[2023-10-06 04:38] LABS: Basophils # (auto) 0.01 K/uL (0.00-0.20); Basophils % (auto) 0.2 %; Hematocrit (blood only) 24.1 % (42.0-52.0); Hemoglobin 7.8 g/dl (14.0-18.0); Immature Granulocytes # (auto) 0.33 K/uL (0.01-0.20); Immature Granulocytes % (auto) 6.2 %; Lymphocytes # (auto) 0.12 K/uL (1.20-3.40); Lymphocytes % (auto) 2.2 %; Mean Corpuscular Hemoglobin 33.8 pg (25.0-34.0); Mean Corpuscular Hgb Conc 32.4 g/dL (32.0-36.0); Mean Corpuscular Volume 104.3 fL (80.0-100.0); Mean Platelet Volume 13.6 fL (9.4-12.4); Monocytes # (auto) 0.19 K/uL (0.11-0.59); Monocytes % (auto) 3.6 %; Neutrophils # (auto) 4.69 K/uL (1.40-6.50); Neutrophils % (auto) 87.8 %; Nucleated RBC # (auto) 0.08 K/uL (0.00-0.12); Nucleated RBC % (auto) 1.5 %; Platelet Count 68 K/uL (130-400); Platelet Estimate Decreased (Normal); Polychromasia 1+; RDW Coefficient of Variation 14.9 % (11.5-14.5); RDW Standard Deviation 56.6 fL (36.4-46.3); Red Blood Count 2.31 M/uL (4.70-6.10); Schistocytes 1+; White Blood Count 5.34 K/ul (4.8-10.8)
[2023-10-06 05:37] LABS: iSTAT Allen Test Pass; iSTAT Art Bld Gas pCO2 Correct 53 mmHg (35-46); iSTAT Art Bld Gas pH Corrected 7.493 (7.35-7.45); iSTAT Arterial Blood Gas HCO3 41 meg/L (19-24); iSTAT Arterial Blood Gas pCO2 53 mmHg (35-46); iSTAT Arterial Blood Gas pH 7.49 (7.35-7.45); iSTAT Arterial Blood Gas pO2 103 mmHg (80-95); iSTAT Arterial Blood Gas pO2 C 103; iSTAT Carbon Dioxide > 40 mmol/L (24-31); iSTAT FiO2 60 %; iSTAT Hematocrit 18 % (42-52); iSTAT Hemoglobin 6.1 g/dl (14.0-18.0); iSTAT Site R Radial; iSTAT Sodium 141 mmol/L (135-144)
[2023-10-06] MEDS ORDERED: SODIUM CHLORIDE 0.9% 250 ML IV PRN (06:05)
[2023-10-06] MEDS: MAGNESIUM SULFATE / D5W 1 GM/100 ML BAG IV SCH ×2 (06:31→08:18)
[2023-10-06] MEDS: POTASSIUM CHLORIDE / WTR 10 MEQ/100 ML PLCT IV SCH ×4 (06:31→09:29)
--- NOTE | 2023-10-06 08:22 | XRay Report ---
XR chest 1V portable HISTORY: 63 years-old Male Resp failure acute respiratory failure COMPARISON: 10/05/2023 TECHNIQUE: AP view of the chest FINDINGS: Cardiac silhouette is enlarged. Endotracheal tube overlies the midline, 4.3 cm superior to the leslee . Enteric tube courses into the stomach with distal tip projected over the expected location of the g astric body. The cardiac silhouette is enlarged. Pulmonary vascular congestion. Small pleural effusions with dense bibasilar and patchy multifocal left lung airspace opacities. IMPRESSION: 1. Endotracheal and enteric tube positioning as above. 2. No pneumothorax identified. 3. Cardiomegaly with pulmonary vascular congestion and small pleural effusions. 4. Dense bibasilar and patchy multifocal left greater than right airspace opacities are again noted. ACT 112: Negative or not required by law. The above report was generated using voice recognition software. It may contain grammatical, syntax o r spelling errors. Electronically signed by: Nicolas Han M.D. 10/06/2023 8:21 AM
[2023-10-06] MEDS: PIPERACILLIN/TAZOBACTAM 4.5 GM in DEXTROSE 5% MINI-B 100 ML IV SCH ×2 (08:32→16:22)
--- NOTE | 2023-10-06 08:34 | Surgery Progress Note ---
Date of Service October 06, 2023 Assessment & Plan (1) Small cell carcinoma: Plan: Liver biopsy consistent with metastatic small cell carcinoma. He is doing okay from a surgical standpoint. He is certainly at risk for an ileus all things considered. I would leave him on 10 cc/h tube feeds for now until we have better bowel function. If planning to extubate I would recommend holding his tube feeds for several hours prior to extubation. (2) Perforated viscus: Admission and Anticipated Discharge Date Admission Date: October 02, 2023 Subjective Patient seen. Still intubated. Does follow some basic commands. Discussed his care with nursing. They did initiate tube feeds at 10 cc an hour but he did have a pretty high residual. Physical Exam Physical Exam: Sedated on vent Abdomen is soft. The incision looks great with no sign of infection. Hypoactive bowel sounds Results & Data Vital Signs (Past 12 Hours) Vital Signs Temp Pulse Resp Pulse Ox FiO2 10/06/23 08:00 45 10/06/23 05:22 14 50 10/06/23 04:00 60 10/06/23 02:37 74 17 95 60 10/06/23 00:00 60 10/06/23 00:00 83 10/05/23 22:11 92 H 17 95 60 10/05/23 21:00 37.0 C 81 14 94 60 PG Care Time/CCT Total # of Minutes Spent Total Time Spent with Patient: Total time spent is greater than 50% in coordination of care (as documented) at patient's floor/unit and/or counseling patient: Coding Level of Care Code 37149 Post Operative Follow-Up Diagnoses Small cell carcinoma C80.1 Perforated viscus R19.8
[2023-10-06] MEDS: LANTUS PER UNIT CHARGE SC SCH ×2 (08:41→20:04)
[2023-10-06] MEDS: fentaNYL citrate 2,500 MCG/250 ML BAG IV SCH (10:31)
[2023-10-06] MEDS: HEPARIN SODIUM/DEXTROSE 25,000 UNITS/500 ML BAG IV SCH ×2 (10:31→16:35)
[2023-10-06] MEDS: PANTOprazole 40 MG in SYRINGE 0 ML IV SCH (10:40)
--- NOTE | 2023-10-06 12:15 | Critical Care Progress Note ---
Date of Service October 06, 2023 Assessment & Plan (1) Acute hypoxemic respiratory failure: (2) Small cell carcinoma: (3) Pulmonary edema: (4) Perforated bowel: (5) History of venous thromboembolism: (6) Obesity hypoventilation syndrome: (7) Severe obstructive sleep apnea: (8) Electrolyte disturbance: (9) Thrombocytopenia: (10) Liver lesion: Plan Reason Critically Ill: 63 YOM with likely new diagnosis of lung cancer with metastatic disease to liver. He has not had workup of this completed yet. He was taken urgently to the operating theatre for concern of colonic perforation on CT scan. He was not found to have perforation in the operating room, however a liver biopsy was obtained. He came to the ICU intubated with continued need for resuscitation and electrolyte replacements. His biopsy was resulted as metastatic small cell lung cancer. The patient was seen by oncology and had a IVC filter placed due to lower extremity DVTs. 24-hour events: Patient remains intubated on the ventilator on low-dose norepinephrine. Recommendations: Neuro -MRI of the brain negative for metastatic disease. Cardiac -A-fib/flutter and hypotension. Suspect sedatives are causing hypotension. Rate controlled currently and intermittently in and out of sinus. Respiratory -hypoxemic hypercarbic respiratory failure: Patient is failed SBT becoming rapidly tachypneic and tachycardic. He has a history of small cell lung cancer with a significant 3-month mortality untreated. Patient's family has expressed a desire to avoid medical care and chemotherapy. They want to go home and pursue hospice. This is not likely a reasonable expectation. Could pursue a trial of vent liberation however would like to clarify reintubation before liberating the patient from the mechanical ventilator. Would be very reasonable to pursue a trial of extubation with rapid transition to comfort care if the patient were to develop respiratory distress. GI -pneumoperitoneum with negative ex lap. Possible micro personnel sealed off. Liver biopsy showing metastatic small cell carcinoma. Trickle tube feeds per surgery. RENAL/LYTES - ICU electrolyte replacement protocol. Urine output adequate. 40 mg IV Lasix given today. Replace potassium aggressively. - Perkins catheter ENDO - glycemic control per protocol HEME -anemic and thrombocytopenic: High probability for potential bone marrow involvement. No indication for bone marrow biopsy. Again the patient has not felt to be a candidate for systemic therapy ID -day #6 Zosyn for pneumoperitoneum and possible abdominal perforation. Cultures negative to date. Bronchoscopy cultures grew Aspergillus from 10/03 which is not likely pathogenic. Can likely discontinue antibiotics in the next 24 hours. --Prophylaxis VTE: On heparin drip GI: Pantoprazole Lines: Left radial, peripheral, Perkins CRITICAL CARE TIME - Patient is critically ill with multiorgan system dysfunction. Discussed with bedside critical care nurse as well as on multidisciplinary rounds and family will be updated when available. I have personally spent 78 minutes of critical care time in the direct management of this patient. This is a life/limb threatening event. This includes time spent evaluating patient, direct bedside care, chart review, placing orders, interpretation of diagnostic studies, discussion with consultants, patient, and family members, as well as other required patient management activities. This time is exclusive of all separately billable procedures, and teaching time and separate from and in addition to any other critical care service time. Addendum: Discussed with family and both in person and on the phone. All are agreeable to not pursue reintubation. The patient has been on a spontaneous breathing trial and appears to be doing well. Will plan on proceeding with a trial of extubation with no plans to pursue reintubation should he fail from oxygenation or ventilation standpoint. If that happens, or rapidly transition to comfort care. Family agreeable. Admission and Anticipated Discharge Date Admission Date: October 02, 2023 Subjective Patient is intubated and sedated Review of Systems Review of Systems: Unobtainable due to endotracheal tube Physical Exam Constitutional: WD/WN, vitals as above Obese male Neck: trachea midline, no thyromegaly Respiratory: normal respiratory effort, lungs clear to auscultation Cardiovascular: RRR, no murmur, no edema Gastrointestinal (Abdomen): normal bowel sounds, soft, nontender, no hepatosplenomegaly Musculoskeletal: Extremities: extremities normal to inspection Skin: no rashes, warm and dry Neurologic: Sedated on the ventilator Lymphatic: no cervical lymphadenopathy Results & Data Results & Data Vital Signs (Past 12 Hours) Vital Signs Temp Pulse Resp BP Pulse Ox O2 Del Method FiO2 10/06/23 11:30 36.9 C 68 14 112/72 95 Mechanical Vent 45 10/06/23 11:00 36.9 C 73 14 118/67 94 Mechanical Vent 45 10/06/23 10:30 36.9 C 66 14 116/67 90 Mechanical Vent 45 10/06/23 10:00 36.9 C 72 15 113/75 91 Mechanical Vent 45 10/06/23 09:30 37.0 C 79 15 135/83 93 Mechanical Vent 45 10/06/23 09:00 37.0 C 84 20 144/93 H 91 Mechanical Vent 45 10/06/23 08:34 36.9 C 80 21 138/83 95 Mechanical Vent 45 10/06/23 08:30 36.9 C 82 21 144/107 H 95 Mechanical Vent 45 10/06/23 08:00 Mechanical Vent 45 10/06/23 08:00 36.9 C 80 16 140/86 93 Mechanical Vent 45 10/06/23 08:00 45 10/06/23 07:30 36.9 C 81 17 141/85 H 92 Mechanical Vent 45 10/06/23 07:15 65 19 96 50 10/06/23 07:00 36.9 C 75 13 116/66 93 Mechanical Vent 50 10/06/23 05:22 14 50 10/06/23 04:00 60 10/06/23 02:37 74 17 95 60 Critical Care Results & Data Vital Signs (Past 12 Hours) Vital Signs Temp Pulse Resp BP Pulse Ox O2 Del Method FiO2 10/06/23 11:30 36.9 C 68 14 112/72 95 Mechanical Vent 45 10/06/23 11:00 36.9 C 73 14 118/67 94 Mechanical Vent 45 10/06/23 10:30 36.9 C 66 14 116/67 90 Mechanical Vent 45 10/06/23 10:00 36.9 C 72 15 113/75 91 Mechanical Vent 45 10/06/23 09:30 37.0 C 79 15 135/83 93 Mechanical Vent 45 10/06/23 09:00 37.0 C 84 20 144/93 H 91 Mechanical Vent 45 10/06/23 08:34 36.9 C 80 21 138/83 95 Mechanical Vent 45 10/06/23 08:30 36.9 C 82 21 144/107 H 95 Mechanical Vent 45 10/06/23 08:00 Mechanical Vent 45 10/06/23 08:00 36.9 C 80 16 140/86 93 Mechanical Vent 45 10/06/23 08:00 45 10/06/23 07:30 36.9 C 81 17 141/85 H 92 Mechanical Vent 45 10/06/23 07:15 65 19 96 50 10/06/23 07:00 36.9 C 75 13 116/66 93 Mechanical Vent 50 10/06/23 05:22 14 50 10/06/23 04:00 60 10/06/23 02:37 74 17 95 60 Lab & Micro Results (Past 24 Hours) RBC 2.31 M/uL (4.70-6.10) L 10/06/23 WBC 5.34 K/ul (4.8-10.8) 10/06/23 Hgb 7.8 g/dl (14.0-18.0) L 10/06/23 Hct 24.1 % (42.0-52.0) L 10/06/23 MCV 104.3 fL (80.0-100.0) H 10/06/23 MCH 33.8 pg (25.0-34.0) 10/06/23 MCHC 32.4 g/dL (32.0-36.0) 10/06/23 RDW Standard Deviation 56.6 fL (36.4-46.3) H 10/06/23 RDW Coefficient of Variation 14.9 % (11.5-14.5) H 10/06/23 Plt Count 68 K/uL (130-400) L 10/06/23 MPV 13.6 fL (9.4-12.4) H 10/06/23 Nucleated Red Blood Cells % (auto) 1.5 % 10/06 Nucleated RBC Absolute Count (auto) 0.08 K/uL (0.00-0.12) 0 10/06/23 Neutrophils (%) (Auto) 87.8 % 10/06/23 Lymphocytes (%) (Auto) 2.2 % 10/06/23 Monocytes # (Auto) 0.19 K/uL (0.11-0.59) 10/06/23 Eosinophils # (Auto) 0.00 K/uL (0.00-0.50) 10/06/23 Immature Granulocyte % (Auto) 6.2 % 10/06/23 Neutrophils # (Auto) 4.69 K/uL (1.40-6.50) 10/06/23 Lymphocytes # (Auto) 0.12 K/uL (1.20-3.40) L 10/06/23 Monocytes # (Auto) 0.19 K/uL (0.11-0.59) 10/06/23 Eosinophils # (Auto) 0.00 K/uL (0.00-0.50) 10/06/23 Basophils # (Auto) 0.01 K/uL (0.00-0.20) 10/06/23 Immature Granulocyte # (Auto) 0.33 K/uL (0.01-0.20) H 10/06 Polychromasia 1+ 10/06/23 Schistocytes 1+ 10/06/23 Na 143 mmol/L (136-145) 10/06/23 K 3.1 mmol/L (3.5-5.1) L 10/06/23 Cl 97 mmol/L (98-107) L 10/06/23 CO2 40 mmol/L (21-32) H 10/06/23 Anion Gap 6 (3-11) 10/06/23 BUN 15 mg/dl (6-23) 10/06/23 Creatinine 0.54 mg/dl (0.6-1.4) L 10/06/23 Estimated GFR ( Amer) 131.3 ml/min 10/06/23 Estimated GFR (Non-Af Amer) 113.3 ml/min 10/06/23 BUN/Creatinine Ratio 27.8 (10-20) H 10/06/23 Glu 195 mg/dl (70-99(Fasting)) H 10/06/23 Ca 7.6 mg/dl (8.6-10.3) L 10/06/23 Phosphorus Level 2.9 mg/dl (2.5-4.9) 10/06/23 Mg 1.7 mg/dl (1.7-2.4) 10/06/23 03:11 Calcium Level 7.6 mg/dl (8.6-10.3) L 10/06/23 03:11 Vinh Test Pass 10/06/23 05:22 Microbiology 10/03/23 08:41 Gram Stain - Final Ba Lavage,Right Lower Lobe Bronchial Culture - Final Aspergillus fumigatus Diagnostic Findings (Past 24 Hours) Chest X-Ray 10/05/23 07:00 XR chest 1V portable CLINICAL HISTORY: Resp failure TECHNIQUE: Single frontal radiograph of the chest was obtained. Comparison: Comparison is made to chest radiograph 10/04/2023 FINDINGS: Lines and tubes are stable. Cardiomegaly is noted. Multifocal airspace opacities are seen. No evidence of pleural effusion or pneumothorax. IMPRESSION: Stable bilateral airspace opacities. ACT 112: Negative or not required by law. Electronically signed by: Nicolás Smith M.D. 10/05/2023 1:35 PM Brain MRI 10/05/23 10:15 MR brain wo con CLINICAL HISTORY: small cell lung cancer TECHNIQUE: Multiplanar and multisequence MR images of the brain were obtained without intravenous contrast. Comparison: None available at the time of this dictation. FINDINGS: No abnormal restricted diffusion is identified. The white matter is unremarkable. The ventricular system is normal in appearance. No mass is seen. There is no mass effect or midline shift. There is no evidence of acute intraparenchymal hemorrhage. No extra axial fluid collections are seen. The corpus callosum, pituitary gland, and cerebellar tonsils appear grossly unremarkable. Flow voids of the major intracranial arterial vessels are identified. The imaged portions of the paranasal sinuses, mastoid air cells, and orbits are unremarkable. IMPRESSION: No acute abnormality and in particular no evidence of metastatic disease. ACT 112: Negative or not required by law. Electronically signed by: Nicolás Smith M.D. 10/05/2023 3:08 PM Chest CTA 10/05/23 10:15 CT angio chest PE protocol CLINICAL HISTORY: PE TECHNIQUE: Multidetector row helical CT of the chest was performed with angiographic protocol. Coronal and sagittal reformations were obtained. Coronal and sagittal MIPS were obtained from the axial data set and were submitted for review. Automated dose lowering techniques and/or adjustment according to patient size were utilized for this exam. CT DOSE: 889.83 mGy.cm Comparison: Comparison is made to CTA chest 08/30/2020 FINDINGS: Lungs and pleura: There is opacification of bilateral lower lobes and left upper lobe airspace opacity. A few scattered pulmonary nodules are seen. Previously noted left perihilar density is obscured by airspace disease but likely remains present. Heart and pericardium: Heart size is normal. No pericardial effusion. Vessels: No evidence of pulmonary embolism. Mediastinum and kym: Numerous enlarged lymph nodes are seen including a 25 mm aortopulmonary node. Likely hilar lymphadenopathy is partially seen. Chest wall and lower neck: Unremarkable. Abdomen: Unremarkable. Hepatic lesions are not as well-seen due to phase of contrast. Bones: Degenerative changes in the thoracic spine. IMPRESSION: 1. No evidence of pulmonary embolus. 2. Density in the bilateral lower lungs may be secondary to atelectasis with or without superimposed pneumonia. There are small bilateral pleural effusions. Density in the left upper lobe may represent pneumonia. 3. Redemonstration of findings concerning for metastatic lung cancer with lymphadenopathy in left perihilar mass. ACT 112: Negative or not required by law. Electronically signed by: Nicolás Smith M.D. 10/05/2023 12:40 PM Chest X-Ray 10/06/23 07:00 XR chest 1V portable HISTORY: 63 years-old Male Resp failure acute respiratory failure COMPARISON: 10/05/2023 TECHNIQUE: AP view of the chest FINDINGS: Cardiac silhouette is enlarged. Endotracheal tube overlies the midline, 4.3 cm superior to the leslee. Enteric tube courses into the stomach with distal tip projected over the expected location of the gastric body. The cardiac silhouette is enlarged. Pulmonary vascular congestion. Small pleural effusions with dense bibasilar and patchy multifocal left lung airspace opacities. IMPRESSION: 1. Endotracheal and enteric tube positioning as above. 2. No pneumothorax identified. 3. Cardiomegaly with pulmonary vascular congestion and small pleural effusions. 4. Dense bibasilar and patchy multifocal left greater than right airspace opacities are again noted. ACT 112: Negative or not required by law. The above report was generated using voice recognition software. It may contain grammatical, syntax or spelling errors. Electronically signed by: Nicolas Han M.D. 10/06/2023 8:21 AM I & O Totals 24 Hours 10/05/23 10/06/23 10/07/23 06:59 06:59 06:59 Intake Total 2965.774 / 2965.774 1866.318 / 8325.530 1746.767 / 1005.767 Output Total 2690 / 2690 1890 / 1890 170 / 170 Balance 275.774 / 275.774 -23.682 / -23.682 835.767 / 835.767 Cumulative 10/02/23 00:23 thru 10/06/23 10:31 Intake Total 82516.107 Output Total 43366 Balance 6625.107 RT Ventilator Mngmt (Last Documented) Ventilator Ordered Settings Ventilator Support Mode Assist Control 10/06/23 08:00 Respiratory Rate 14 10/06/23 11:30 Ventilator Tidal Volume 350 10/06/23 08:00 Setting Minute Ventilation 4.5 10/06/23 07:15 Ventilator Positive Pressure 10 10/05/23 12:00 Support Setting Positive End Expiratory 10 10/06/23 08:00 Pressure Fraction of Inspired Oxygen 45 10/06/23 11:30 Peak Inspiratory Flow 53 10/02/23 15:00 Machine Comment Patient increased to +10 by 10/05/23 15:45 Anna, weaned to 60% Ventilator - PT Measurements Respiratory Rate 14 Exhaled Tidal Volume 478 Minute Ventilation 4.5 Peak Inspiratory Airway 16 Pressure Mean Airway Pressure 32 Plateau Pressure 14.6 Respiratory Cycle Inspiratory: 1:4.4 Expiratory Ratio Inspiratory Phase Time 0.8 End-Tidal CO2 47 Static Lung Compliance 103.91 Dynamic Lung Compliance 79.67 Normal Static Lung Compliance 49.00 Patient Measurements Comment CPAP trial attempted with patient, RR increased, Vt 200 or less. Placed on SIMV at this time. Dr Badillo as well as RN in room Coding Level of Care Code 25381 CRITICAL CARE EA ADD 30M Diagnoses Acute hypoxemic respiratory failure J96.01 Small cell carcinoma C80.1 Pulmonary edema J81.1 Perforated bowel K63.1 History of venous thromboembolism Z86.718 Obesity hypoventilation syndrome E66.2 Severe obstructive sleep apnea G47.33 Electrolyte disturbance E87.8 Thrombocytopenia D69.6 Liver lesion K76.9
[2023-10-06] MEDS ORDERED: Nursing to Pharmacy Communication SCH (12:30)
--- NOTE | 2023-10-06 13:28 | Pharmacy Report ---
Pharmacy Glycemic Short Note 2 - Date of Service October 06, 2023 - Glycemic Short BSG Results (Last 24 hours): 10/05/23 10/05/23 10/05/23 15:53 19:31 23:11 Glucose 190 H POC Glucose 193 H 191 H 10/05/23 10/06/23 10/06/23 23:47 03:11 03:53 Glucose 195 H POC Glucose 208 H 210 H 10/06/23 10/06/23 08:34 12:41 Glucose POC Glucose 189 H 186 H OUTPATIENT ANTIDIABETIC REGIMEN: * N/a * A1c 6.1% 09/05/23 ASSESSMENT: 10/06: * Patient remains intubated, on propofol, on heparin infusion * BSGs in high running 180-200 mg/dL; basal dose being titrated up. * Trickle feeds were initiated and then turned off today, spontaneous breathing trial 10/03: * Patient remains intubated, plan for filter placement today with DVT and unable to anticoagulate at this time. * BSGs have trended downward, still slightly above goal. Patient continues to have hypokalemia- being replaced. * Continue q4 checks while NPO, increase Lantus to 20 units this morning as fas ting was 195 mg/dL with 20 units total yesterday. Scale for PM if needed 10/02 * Patient admitted with colon perforation, PMH includes new lung cancer diagnosis with mets to liver, pre-diabetes. * BSGs elevated upon arrival in the 300s, unable to utilize insulin infusion at this time d/t low potassium levels (<3.3), being repleted with repeat check at 1400 * Will utilize basal/bolus for now and initiate insulin infusion at later time if potassium improves and is still needed * Patient is currently NPO, q4H checks, only receiving dextrose from zosyn infusions PLAN FOR INPATIENT GLYCEMIC CONTROL: * Hold outpatient oral diabetes medications * Basal insulin * Lantus 15/20 units SQ per scale * Bolus insulin * NovoLog per scale ACHS or Q6hrs while NPO * Goal Range: Low 110 mg/dL - High 140 mg/dL * Correction Factor: 15 mg/dL/unit * Nutritional / Prandial insulin per carb ratio of 1 unit per 8 grams CHO consumed
[2023-10-06] MEDS ORDERED: bisacodyL 10 MG SUPP PR PRN (15:44)
[2023-10-06] MEDS ORDERED: LABETALOL HCL IV 5 MG/ML 20ML IV PRN (16:39)
[2023-10-06] MEDS ORDERED: KETOROLAC TROMETHAMINE 15 MG/ML VIAL IV ONE (20:47)
--- NOTE | 2023-10-06 21:08 | Palliative Care Consultation ---
Date of Consultation October 06, 2023 Assessment & Plan (1) Dyspnea and respiratory abnormalities: Extubated a few minutes prior to my arrival. Awake and alert to self, on supplemental oxygen via facemask. Intermittently drifting off to sleep. Denies acute dyspnea. No use of accessory muscles noted. (2) Cancer related pain: Persisting abdominal pain likely attributed to constipation recent exploratory surgery with a midline incision that is noted to be clean, dry and intact. At home patient was using Toradol, which per was not providing significant relief. At the time of my visit, patient denies any severe abdominal pain and did not want any pain medication at this time. 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 Most of the discussion was held with patient's as he would intermittently drift off to sleep. While patient was awake and alert to self when called, he easily fatigued and drifted back asleep. His states that she is hoping he will get to chemotherapy and it is her understanding that he cannot come home until he has had chemotherapy. I discussed with her the findi ngs of the biopsy, metastatic small cell lung cancer. Reviewed that he would not be a candidate for chemotherapy until the wound has healed as complications of chemotherapy include poor wound healing which in his case, given the location and nature of the abdominal wound, would be very problematic. She verbalized understanding. She shares that she is in the janitorial service team at [employer] and works second shift. She gets off work at approximately 2 AM. She plans to return to the hospital to visit with patient for a little bit before going home to sleep. She plans to return later in the afternoon and is hopeful that as he has a little bit more time postextubation, he will be more awake and alert and able to participate in the discussion. Staff shared with me that patient had expressed to multiple providers as well as his he did not want any chemotherapy. This however was not reported by his today who indicates that they are waiting to meet with oncology to discuss cancer directed therapy options. She notes that he was supposed to be seeing oncology for an initial visit the day after he was admitted. She is aware that appointment will need to be rescheduled. We discussed that the likely neck step will be physical therapy evaluation to determine if he needs in-home therapy versus discharge to either skilled rehab or acute rehab at a facility such as [facility]. She is hopeful he will be able to come home but acknowledges that if rehab in the interim would be the best way to get him strong enough and safe enough to return home and she feels they would both be agreeable. We also discussed CODE STATUS and the need to have a sense of what direction patient would want the medical teams to take if he were to have another worsen ing/decline and possibly require reintubation. She states she is not sure he would want "all of that, but I will talk to him later and see what we can come to." We agreed to have a follow-up discussion tomorrow afternoon when she arrives. She will asked nursing to page me when she gets here. (5) Palliative care by specialist: Met with pt/family. Provided overview of Palliative Medicine, a subspecialty that provides specialized medical care for people living with a serious illness by offering a focus on quality of life. Palliative Medicine is often conflated with hospice: I advised patient/family that Palliative and hospice can be partners but we are not the same. It is important to understand the difference so that we may be informed, and not afraid. Palliative Medicine works to improve QOL through reduction of symptom burden/more control over their illness, for both the patient and family. Palliative medicine clinicians are board certified, specially-trained and another member of the patient's medical care team. We often provide an extra layer of support because our care is based on the needs of the patient, not the prognosis; as such, it's appropriate at any age/advancing stage of a serious illness and can be provided along with curative treatment. Palliative Medicine clinicians are also trained in advanced communication methodologies, to facilitate complex discussions about advanced illness planning, which are needed to help assure that the treatment choices match the patient's goals, aka delivering Goal Concordant care. Finally, we discussed that hospice is a visiting nurse service that focuses on care delivered at the very end of life for patients with terminal illness, with life expectancy less than 6 month. (6) Weakness generalized: (7) Constipation: Patient remains NPO. He is status post exploratory laparotomy with a midline abdominal incision. Plan Advance care planning conversation as noted above with patient and at the bedside. Patient and advised the palliative medicine outpatient clinic for ongoing cancer related pain and symptom management as well as serious illness planning. excepted my contact information and indicated a desire to have ongoing follow-up. Per , they desire cancer directed therapy with chemo. She understands that that is not an option right now given the wound needs to heal. Oncology evaluation was completed earlier this admission is on file for further review. I have updated Dr. Portillo, with whom he will have a follow-up oncology appointment scheduled once stable. Tentative follow-up family meeting planned for tomorrow, 10/07/2023, when she returns to the hospital. Primary team and nursing updated. Thank you for allowing us to participate in the ongoing care of this patient. Please don't hesitate to call or page with any additional concerns. Dr. Anila Downing DNP Director, Palliative Care History of Present Illness Reason for Consultation: goals of care, met disease Attending Physician: Bear Pete History of Present Illness Trung is a 63-year-old male who presented from home with worsening abdominal pain. He recently came to the emergency room with an elevated D-dimer and was discovered to have lung mass with liver mets. He was awaiting his initial oncology appointment with he had increasing abdominal pain that ultimately became so severe he required emergency room assessment. At that time it was felt he had a perforation and was taken emergently to the operating room for an exploratory laparotomy and he was able to also have a liver biopsy at that time. The pathology returned as a metastatic small cell lung cancer. Patient unfortunately required intubation mechanical ventilation through this afternoon when he was extubated to facemask. His is at the bedside with him. She reports that she has been waiting for him to come off the ventilator so that she would be able to speak with him again. Allergies Allergy/AdvReac Type Severity Reaction Status Date / Time No Known Allergies Allergy Unverified 09/05/23 08:10 Home Medications Medication Instructions Recorded Confirmed Type multivitamin 1 tab PO DAILY 09/29/19 10/02/23 History magnesium 250 mg tablet 250 mg PO DAILY 10/14/19 10/02/23 History Vitamin D3 1 tab PO DAILY 08/30/23 10/02/23 History naproxen sodium 220 mg tablet 220 mg PO DIRECTED PRN Pain 08/30/23 10/02/23 History (Aleve) potassium phosphate, monobasic 500 1,000 mg PO DAILY 09/04/23 10/02/23 History mg soluble tablet potassium chloride 20 mEq 20 meq PO DAILY #30 tabs 09/05/23 10/02/23 Rx tablet,extended release tramadol 50 mg tablet 50 - 100 mg PO Q6H PRN pain 10/02/23 10/02/23 History Patient History Medical History (Updated 10/06/23 @ 21:14 by Anila Downing DNP) Small cell carcinoma Acute hypoxemic respiratory failure Pulmonary edema Hypokalemia Lung mass Colon perforation Liver masses Hyperglycemia Elevated troponin Atrial fibrillation with rapid ventricular response Obesity Polycythemia Sleep apnea Pulmonary embolism on right Surgical History History of liver biopsy (10/02/23) Exploratory laparotomy, liver biopsy. - Isacc Stevens, Hx of knee surgery Family History Mother Cancer Father Myocardial infarction Denies family history of Ovarian cancer Prostate cancer Breast cancer Colorectal cancer Social History Smoking Status: Former smoker Tobacco Type: Cigarettes Cigarettes Per Day: 1 ppd; Hx Alcohol Use: Yes Alcohol type: beer Hx Substance Use: No Preferred Language: Malagasy Communication Ability: Impaired Pest Controller Assistant Required: No Beliefs That Will Affect Care: None marital status: Current Living Situation: Spouse Current Living Situation Comment: home with current occupational status: employed Other Information That Helps Us Care for You: No Feels Safe at Home: Yes caffeine: Yes Dental Care, Regularly: Yes Physical Activity Frequency: Does not Exercise Seatbelt Use: always Sunscreen Use: No Assistive Devices: CPAP, Oxygen - Continuous and Walker Review of Systems Review of Systems: Other (Unable to obtain, patient extubated minutes before my arrival, slightly groggy and able to only answer a few yes and no questions before closing his eyes.) Physical Exam Physical Exam: 63-year-old male, lying in bed, reclined , facemask in place. Recently extubated. He is awake and alert to self. He is able to answer some very simple yes/no questions. He tires easily. + Plethora. He has an intermittent bronchitic cough. There are some mild bitemporal wasting noted. Pupils are equal, round and reactive to light. Pharynx is moist and dentition is fair. There is no obvious thrush. Neck is supple and without stridor. Breath sounds are diminished throughout. There is no wheezing. Heart tones S1-S2. No gross JVD. Abdomen is distended. Midline incision intact. Dressing is clean dry and intact. Abdomen is still firm to palpation. Bowel sounds are diminished. There are some grimacing and tenderness noted with palpation. Bilateral lower extremities with +2 edema. + Pitting. Upper extremities with +1 to +2 edema. Scattered ecchymoses. There are some cyanotic changes to the lower extremities. There is an open wound on the bottom of his right great toe with some ecchymo ses and skin scraping. Results & Data Vital Signs (Past 12 Hours) Vital Signs Temp Pulse Resp BP Pulse Ox O2 Del Method O2 Flow Rate 10/06/23 19:45 Oxymask 10/06/23 18:28 37.0 C 97 H 24 173/104 H 90 Oxymask 10/06/23 18:00 37.1 C 93 H 19 188/108 H 90 Oxymask 10/06/23 17:32 97 H 198/104 H 10/06/23 17:30 37.0 C 106 H 29 H 198/104 H 91 Oxymask 10/06/23 17:00 37.0 C 97 H 27 H 189/111 H 92 Oxymask 10/06/23 16:54 37.0 C 101 H 21 185/102 H 94 Oxymask 10/06/23 16:51 111 H 187/110 H 10/06/23 16:30 37.1 C 96 H 17 187/110 H 91 Oxymask 10/06/23 16:00 37.1 C 103 H 18 173/112 H 90 Oxymask 10/06/23 15:30 37.2 C 94 H 20 177/101 H 91 Oxymask 10/06/23 15:02 37.3 C 106 H 26 H 177/94 H 93 Oxymask 10/06/23 14:56 37.3 C 102 H 30 H 184/107 H 91 Oxymask 10/06/23 14:55 37.3 C 100 H 30 H 191/99 H 92 Oxymask 10/06/23 14:36 37.2 C 96 H 44 H 167/110 H 88 L CPAP, Mechanical Vent 10/06/23 14:30 37.2 C 90 30 H 170/103 H 92 CPAP, Mechanical Vent 10/06/23 14:00 37.1 C 91 H 29 H 164/93 H 92 CPAP, Mechanical Vent 10/06/23 13:30 37.1 C 76 16 149/91 H 94 Mechanical Vent 10/06/23 13:05 37.0 C 83 23 145/94 H 94 Mechanical Vent 10/06/23 12:30 88 20 95 10/06/23 12:00 36.9 C 71 14 116/67 90 Mechanical Vent 10/06/23 12:00 10/06/23 11:30 36.9 C 68 14 112/72 95 Mechanical Vent 10/06/23 11:00 36.9 C 73 14 118/67 94 Mechanical Vent 10/06/23 10:30 36.9 C 66 14 116/67 90 Mechanical Vent 10/06/23 10:00 36.9 C 72 15 113/75 91 Mechanical Vent 10/06/23 09:30 37.0 C 79 15 135/83 93 Mechanical Vent 10/06/23 09:00 37.0 C 84 20 144/93 H 91 Mechanical Vent FiO2 10/06/23 19:45 10/06/23 18:28 10/06/23 18:00 10/06/23 17:32 10/06/23 17:30 10/06/23 17:00 10/06/23 16:54 10/06/23 16:51 10/06/23 16:30 10/06/23 16:00 10/06/23 15:30 10/06/23 15:02 10/06/23 14:56 10/06/23 14:55 10/06/23 14:36 30 10/06/23 14:30 30 10/06/23 14:00 45 10/06/23 13:30 45 10/06/23 13:05 45 10/06/23 12:30 45 10/06/23 12:00 45 10/06/23 12:00 45 10/06/23 11:30 45 10/06/23 11:00 45 10/06/23 10:30 45 10/06/23 10:00 45 10/06/23 09:30 45 10/06/23 09:00 45 Laboratory Results Data reviewed Diagnostic Findings Data reviewed PG Care Time/CCT Total # of Minutes Spent Total Time Spent: 100 Total Time Spent with Patient: Total time spent is greater than 50% in coordination of care (as documented) at patient's floor/unit and/or counseling patient: I spent minutes overall addressing this complex case: 20 min in medical data review/discussion with referring provider(s) and/or preparation for the visit 25 min in direct interaction with the patient/exam 30 min in Advance Care Planning/Goals of Care discussions as detailed above in note (must be >16min) 15 min in subsequent review and synthesis of assessment and plan 10 min communicating with other providers regarding the patient's case: Advanced Care Planning 44795 Advanced Care Planning 30 [place] [address] IN/OBS CONSULT LVL 4,60M Patient Type New History Comprehensive Exam Comprehensive Medical Decision Making High Complexity Diagnoses Dyspnea and respiratory abnormalities R06.00; R06.89 Cancer related pain G89.3 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
--- NOTE | 2023-10-06 22:24 | Hospitalist Progress Note ---
Date of Service October 06, 2023 Assessment & Plan (1) Acute hypoxic respiratory failure: Plan: Pt presented with acute hypoxic respiratory failure and concern for perforated viscus ,taken to OR did not find perforation Remains sedated ventilated in ICU Lung mass in the hilar region and left lung nodules suggestive of lung cancer on CT scan 08/30/23 anemia and thrombocytopenia from possible cancer diagnosis postop acute blood loss anemia is also large concern this places risk for anticoagulation with newfound DVT as patient is a hypercoagulable state and significant risk for propagation subsequently Dr. Nick was consulted to place an IVC filter on 10/03/2023 Multiple comorbid conditions affecting the patient's outcome outcome is guarded at this time Patient remains intubated on 10/05 Patient has small cell lung cancer, poor prognosis. D/W drafter geological. Plan to extubate later today. (2) Atrial fibrillation and flutter: Plan: Initially required diltiazem gtt anticoagulation is contraindicated at this time with anemia and recent abdominal surgery thrombocytopenia and concern for blood loss DEMAND ISCHEMIA (3) Perforated viscus: Plan: remains on antibiotics vanco/Zosyn, surgery in the bowel multiple times and not finding overt place of viscus perforation concern for multiple liver masses, biopsy at ex lap for suspected perforation biopsy suggest metastatic small cell carcinoma (4) Morbid obesity: (5) Liver lesion: (6) Lung mass: (7) Sleep apnea: (8) Cigarette smoker: (9) Hypokalemia: Admission and Anticipated Discharge Date Admission Date: October 02, 2023 Subjective Patient is intubated. Review of Systems Review of Systems: Unobtainable due to endotracheal tube Physical Exam Physical Exam: Ventilated, off sedation, appears chronically ill Both legs have bruising and venous stasis changes right leg is significantly worse on the left Results & Data Results & Data Vital Signs (Past 12 Hours) Vital Signs Temp Pulse Resp BP Pulse Ox O2 Del Method O2 Flow Rate 10/06/23 21:12 37.1 C 98 H 24 96 10 10/06/23 21:12 154/99 H 10/06/23 21:00 37.1 C 106 H 24 86 L 10 10/06/23 21:00 171/101 H 10/06/23 20:30 37.1 C 92 H 24 93 10 10/06/23 20:30 174/107 H 10/06/23 20:00 110 H 10/06/23 20:00 177/108 H 10/06/23 20:00 37.1 C 99 H 23 91 10 10/06/23 19:45 Oxymask 10 10/06/23 19:30 174/103 H 10/06/23 19:30 37.0 C 100 H 27 H 92 10 10/06/23 19:00 162/97 H 10/06/23 19:00 37.0 C 104 H 16 91 10 10/06/23 18:28 37.0 C 97 H 24 173/104 H 90 Oxymask 10 10/06/23 18:00 37.1 C 93 H 19 188/108 H 90 Oxymask 10 10/06/23 17:32 97 H 198/104 H 10/06/23 17:30 37.0 C 106 H 29 H 198/104 H 91 Oxymask 10 10/06/23 17:00 37.0 C 97 H 27 H 189/111 H 92 Oxymask 10 10/06/23 16:54 37.0 C 101 H 21 185/102 H 94 Oxymask 10 10/06/23 16:51 111 H 187/110 H 10/06/23 16:30 37.1 C 96 H 17 187/110 H 91 Oxymask 10 10/06/23 16:00 37.1 C 103 H 18 173/112 H 90 Oxymask 10 10/06/23 15:30 37.2 C 94 H 20 177/101 H 91 Oxymask 10 10/06/23 15:02 37.3 C 106 H 26 H 177/94 H 93 Oxymask 10 10/06/23 14:56 37.3 C 102 H 30 H 184/107 H 91 Oxymask 10 10/06/23 14:55 37.3 C 100 H 30 H 191/99 H 92 Oxymask 10 10/06/23 14:36 37.2 C 96 H 44 H 167/110 H 88 L CPAP, Mechanical Vent 10/06/23 14:30 37.2 C 90 30 H 170/103 H 92 CPAP, Mechanical Vent 10/06/23 14:00 37.1 C 91 H 29 H 164/93 H 92 CPAP, Mechanical Vent 10/06/23 13:30 37.1 C 76 16 149/91 H 94 Mechanical Vent 10/06/23 13:05 37.0 C 83 23 145/94 H 94 Mechanical Vent 10/06/23 12:30 88 20 95 10/06/23 12:00 36.9 C 71 14 116/67 90 Mechanical Vent 10/06/23 12:00 10/06/23 11:30 36.9 C 68 14 112/72 95 Mechanical Vent 10/06/23 11:00 36.9 C 73 14 118/67 94 Mechanical Vent 10/06/23 10:30 36.9 C 66 14 116/67 90 Mechanical Vent FiO2 10/06/23 21:12 10/06/23 21:12 10/06/23 21:00 10/06/23 21:00 10/06/23 20:30 10/06/23 20:30 10/06/23 20:00 10/06/23 20:00 10/06/23 20:00 10/06/23 19:45 10/06/23 19:30 10/06/23 19:30 10/06/23 19:00 10/06/23 19:00 10/06/23 18:28 10/06/23 18:00 10/06/23 17:32 10/06/23 17:30 10/06/23 17:00 10/06/23 16:54 10/06/23 16:51 10/06/23 16:30 10/06/23 16:00 10/06/23 15:30 10/06/23 15:02 10/06/23 14:56 10/06/23 14:55 10/06/23 14:36 30 10/06/23 14:30 30 10/06/23 14:00 45 10/06/23 13:30 45 10/06/23 13:05 45 10/06/23 12:30 45 10/06/23 12:00 45 10/06/23 12:00 45 10/06/23 11:30 45 10/06/23 11:00 45 10/06/23 10:30 45 PG Care Time/CCT Total # of Minutes Spent Total Time Spent with Patient: Total time spent is greater than 50% in coordination of care (as documented) at patient's floor/unit and/or counseling patient: Coding Level of Care Code 10884 SUB INP/OBS CARE 2/35MIN Diagnoses Acute hypoxic respiratory failure J96.01 Atrial fibrillation and flutter I48.91; I48.92 Perforated viscus R19.8 Morbid obesity E66.01 Liver lesion K76.9 Lung mass R91.8 Sleep apnea G47.30 Cigarette smoker F17.210 Hypokalemia E87.6
[2023-10-06] MEDS: fentaNYL citrate PF 100 MCG/2 ML VIAL IV PRN (23:12)
[2023-10-07] MEDS: INSULIN ASPART PER UNIT CHARGE SC SCH ×4 (00:22→12:13)
[2023-10-07] MEDS: TUBE FEEDING WATER FLUSH OG SCH ×4 (00:22→12:28)
[2023-10-07] MEDS: CHECK CLONIDINE PATCH PLACEMENT SCH ×3 (00:22→16:00)
[2023-10-07] MEDS: fentaNYL citrate PF 100 MCG/2 ML VIAL IV PRN ×2 (02:38→09:59)
[2023-10-07] MEDS ORDERED: METOPROLOL TARTRATE 1 MG/ML VIAL IV STA ×3 (03:11→06:57)
[2023-10-07 03:45] LABS: ANTI-Xa, UFH(UnfractionatedHep 0.42 IU/ml (0.3-0.7)
[2023-10-07 03:53] LABS: BUN Creatinine Ratio 30.5 (10-20); Calcium 8.2 mg/dl (8.6-10.3); Creatinine Clr Calc Pharmacy 144.5 ml/min; Est GFR (African American) 126.6 ml/min; Est GFR (Non-African American) 109.3 ml/min; Magnesium 2.1 mg/dl (1.7-2.4); Phosphorus 3.4 mg/dl (2.5-4.9); Potassium 3.2 mmol/L (3.5-5.1)
[2023-10-07 04:48] LABS: Basophilic Stippling 1+; Basophils # (auto) 0.01 K/uL (0.00-0.20); Basophils % (auto) 0.3 %; Hematocrit (blood only) 24.4 % (42.0-52.0); Hemoglobin 7.9 g/dl (14.0-18.0); Immature Granulocytes # (auto) 0.13 K/uL (0.01-0.20); Immature Granulocytes % (auto) 3.4 %; Lymphocytes # (auto) 0.12 K/uL (1.20-3.40); Lymphocytes % (auto) 3.1 %; Mean Corpuscular Hemoglobin 33.6 pg (25.0-34.0); Mean Corpuscular Hgb Conc 32.4 g/dL (32.0-36.0); Mean Corpuscular Volume 103.8 fL (80.0-100.0); Mean Platelet Volume 13.5 fL (9.4-12.4); Monocytes # (auto) 0.18 K/uL (0.11-0.59); Monocytes % (auto) 4.7 %; Neutrophils # (auto) 3.42 K/uL (1.40-6.50); Neutrophils % (auto) 88.5 %; Nucleated RBC # (auto) 0.21 K/uL (0.00-0.12); Nucleated RBC % (auto) 5.4 %; Platelet Count 78 K/uL (130-400); Platelet Estimate Decreased (Normal); Polychromasia 2+; RDW Coefficient of Variation 14.9 % (11.5-14.5); RDW Standard Deviation 55.7 fL (36.4-46.3); Red Blood Count 2.35 M/uL (4.70-6.10); White Blood Count 3.86 K/ul (4.8-10.8)
[2023-10-07] MEDS: HEPARIN SODIUM/DEXTROSE 25,000 UNITS/500 ML BAG IV SCH (07:21)
--- NOTE | 2023-10-07 07:42 | XRay Report ---
KUB HISTORY: Follow up from Abdominal Surgery COMPARISON: Abdomen and pelvis CTA 10/03/2023. FINDINGS: Midline skin bella and IVC filter are noted. Nasogastric tube terminates in the proximal stomach. Old, healed left-sided rib fractures. Mild gaseous distention of the colon. Otherwise, no di lated loops of small bowel to suggest an obstruction. Bibasilar consolidation is partially visualized . Chronic deformity within the pelvis/hips again noted. No renal calculi. No ureteral calculi. No pn eumoperitoneum or pneumatosis. IMPRESSION: 1. Mild gaseous distention of the colon. No evidence for a bowel obstruction. 2. Bibasilar consolidation persists. 3. Nasogastric tube terminates in the stomach. ACT 112: Negative or not required by law. Electronically signed by: Artie Wilkinson M.D. 10/07/2023 7:41 AM
[2023-10-07] MEDS: PIPERACILLIN/TAZOBACTAM 4.5 GM in DEXTROSE 5% MINI-B 100 ML IV SCH ×3 (07:53→16:19)
--- NOTE | 2023-10-07 07:56 | Critical Care Progress Note ---
Date of Service October 07, 2023 Assessment & Plan (1) Acute hypoxemic respiratory failure: (2) Small cell carcinoma: (3) Pulmonary edema: (4) Perforated bowel: (5) History of venous thromboembolism: (6) Obesity hypoventilation syndrome: (7) Severe obstructive sleep apnea: (8) Electrolyte disturbance: (9) Thrombocytopenia: (10) Liver lesion: Plan Reason Critically Ill: 63 YOM with likely new diagnosis of lung cancer with metastatic disease to liver. He has not had workup of this completed yet. He was taken urgently to the operating theatre for concern of colonic perforation on CT scan. He was not found to have perforation in the operating room, however a liver biopsy was obtained. He came to the ICU intubated with continued need for resuscitation and electrolyte replacements. His biopsy was resulted as metastatic small cell lung cancer. The patient was seen by oncology and had a IVC filter placed due to lower extremity DVTs. 24-hour events: Extubated yesterday. Saturating well on 10 L OxyMask. Glbobal weakness. Recommendations: Neuro - Awake and interactive yet very weak. MRI of the brain negative for metastatic disease. Cardiac -Tachycardia/A-fib/flutter overnight. Started on metoprolol IV scheduled and PRN. Maintaining pressures well. Respiratory - Initially with hypoxemic hypercarbic respiratory failure with difficulty to wean from the ventilator. Extubated yesterday (10/06/2023) to supplemental O2. Patient is with an unfortunate diagnosis of metastatic, widely spread small cell lung cancer. Unfortunately, the patient's recent surgical intervention requirement and acuity of illness would make initiation of therapies difficult. Goals of care discussion had been initiated. Family seems to have relatively unrealistic expectations. Continue conversations with pal liative care. Would encourage no reintubation as per previous documented instructions. GI - Pneumoperitoneum with negative ex lap. Possible micro personnel sealed off. Liver biopsy showing metastatic small cell carcinoma. Trickle tube feeds per surgery. Remains NPO otherwise. RENAL/LYTES - ICU electrolyte replacement protocol. Urine output adequate. Will replace potassium this AM. - Perkins catheter ENDO - Glycemic control per protocol HEME - Anemic and thrombocytopenic: High probability for potential bone marrow involvement. No indication for bone marrow biopsy. Again the patient has not felt to be a candidate for systemic therapy ID -day #7 Zosyn for pneumoperitoneum and possible abdominal perforation. Cultures negative to date. Bronchoscopy cultures grew Aspergillus from 10/03 which is not likely pathogenic. Remains afebrile. No increase in white count. Can likely d/c Zosyn at this point. --Prophylaxis VTE: On heparin drip GI: Pantoprazole Lines: Jimena, Gregorio, JACKLYN Thank you for allowing us to participate in the care of this complex patient. At this point, the patient is stable for downgrade from the ICU. Would encourage ongoing conversations with palliative care involving goals of care moving forward. Admission and Anticipated Discharge Date Admission Date: October 02, 2023 Supervising Physician Co-Signing Physician Notes Patient seen and examined. EMR reviewed. Discussed with critical care CHRISTO as well as with bedside critical care nurse and on multidisciplinary rounds. The patient has been extubated. When I queried him this morning about reintubation he states he does not want to be reintubated. We also discussed chemotherapy and the patient states that he does not wish to pursue any therapy for his advanced cancer. I advised him that this would likely result in his ultimate demise. He expressed understanding. He does not want ACLS or CPR. Will defer to the hospitalist to adjust his CODE STATUS. PT and OT have been ordered for the patient. The desire may be to get him home with palliative care services. Palliative consultation is pending. He is stable to transfer out of the ICU. Critical care will sign off. Subjective Patient seen and evaluated this morning at bedside. He was extubated yesterday. He is saturating well on 10 L. He offers no complaints of pain at this time. Blood pressures have remained stable. Overnight events include tachycardia/A- fib into the 160s. The patient is receiving scheduled and as needed doses of metoprolol. Otherwise, he has remained stable. Review of Systems Review of Systems: As stated in HPI. Physical Exam Physical Exam: VITAL SIGNS - Vital signs and nursing notes were reviewed. GENERAL - 63-year-old male appearing his stated age who is weak and frail appearing. SKIN - Edematous. NOSE - NGT in place. Midline and without cyanosis. MOUTH/OROPHARYNX - Without perioral cyanosis. LUNGS - Coarse breath sounds. Weak cough. CARDIAC - RRR with S1/S2. No murmur, rubs, or gallops appreciated. ABDOMEN - Obese abdomen. Hypoactive bowel sounds. Surgical incision site clean, dry, and intact. EXTREMITIES - Diffusely edematous to the extremities with what appears to be improvement in the lower extremities. PSYCH - Weak. Nods yes/no. Answers simple questions appropriately. Results & Data Results & Data Vital Signs (Past 12 Hours) Vital Signs Temp Pulse Resp BP Pulse Ox O2 Flow Rate 10/07/23 07:43 129 H 123/83 10/07/23 06:09 103 H 111/75 10/07/23 06:00 133/86 10/07/23 06:00 102 H 26 H 96 10 10/07/23 05:54 140 H 117/85 10/07/23 05:51 117/85 10/07/23 05:51 132 H 22 93 10/07/23 05:00 121 H 22 94 10 10/07/23 04:30 124/93 10/07/23 04:30 113 H 21 10/07/23 04:01 112 H 22 98 10/07/23 04:01 146/95 H 10/07/23 04:00 115 H 26 H 93 10 10/07/23 03:35 103 H 119/78 10/07/23 03:30 119/78 10/07/23 03:30 100 H 19 10/07/23 03:20 135 H 138/85 10/07/23 03:18 138/85 10/07/23 03:18 121 H 19 92 10/07/23 03:03 137 H 23 94 10/07/23 03:03 115/81 10/07/23 03:00 156/104 H 10/07/23 03:00 155 H 20 10 10/07/23 02:30 123 H 25 H 92 10 10/07/23 02:30 156/97 H 10/07/23 02:00 119 H 23 89 L 10 10/07/23 02:00 141/89 H 10/07/23 01:30 129/83 10/07/23 01:30 114 H 20 10/07/23 01:00 126 H 23 94 10 10/07/23 01:00 153/107 H 10/07/23 00:22 111 H 24 96 10/07/23 00:22 141/86 H 10/07/23 00:00 105 H 17 94 10 10/07/23 00:00 108 H 10/06/23 23:30 102 H 22 93 10 01/29/24 23:30 163/98 H 10/06/23 23:00 152/99 H 10/06/23 23:00 105 H 23 95 10 10/06/23 22:44 98 H 21 96 10/06/23 22:44 152/102 H 10/06/23 22:31 117 H 22 99 10/06/23 22:31 155/119 H 10/06/23 22:04 149/87 H 10/06/23 22:04 37.2 C 98 H 20 91 10/06/23 22:00 37.2 C 106 H 18 92 10 10/06/23 21:12 37.1 C 98 H 24 96 10 10/06/23 21:12 154/99 H 10/06/23 21:00 37.1 C 106 H 24 86 L 10 10/06/23 21:00 171/101 H 10/06/23 20:30 37.1 C 92 H 24 93 10 10/06/23 20:30 174/107 H 10/06/23 20:00 110 H 10/06/23 20:00 177/108 H 10/06/23 20:00 37.1 C 99 H 23 91 10 Coding Level of Care Code 51037 SUB INP/OBS CARE 3/50MIN Diagnoses Acute hypoxemic respiratory failure J96.01 Small cell carcinoma C80.1 Pulmonary edema J81.1 Perforated bowel K63.1 History of venous thromboembolism Z86.718 Obesity hypoventilation syndrome E66.2 Severe obstructive sleep apnea G47.33 Electrolyte disturbance E87.8 Thrombocytopenia D69.6 Liver lesion K76.9
[2023-10-07] MEDS: LANTUS PER UNIT CHARGE SC SCH (08:11)
[2023-10-07] MEDS: propofoL 1,000 MG/100 ML VIAL IV SCH ×3 (08:15→08:17)
[2023-10-07] MEDS: fentaNYL citrate 2,500 MCG/250 ML BAG IV SCH ×2 (08:15→08:16)
[2023-10-07] MEDS: POTASSIUM CHLORIDE / WTR 10 MEQ/100 ML PLCT IV SCH ×6 (08:27→13:14)
[2023-10-07] MEDS ORDERED: FUROSEMIDE INJ 20 MG/2 ML VIAL IV ONE (08:40)
--- NOTE | 2023-10-07 09:06 | Surgery Progress Note ---
Date of Service October 07, 2023 Assessment & Plan (1) Perforated bowel: Plan: POD#5 Exploratory laparotomy, liver biopsy under ICU care, but per their note may be stable for downgrade extubated yesterday, now on oxymask KUB obtained showed some gaseous distention of the colon, no SBO, no pneumoperitoneum. has been having incontinence of stool we would be okay with NGT being removed. would likely need speech and swallow prior to diet initiation palliative consulted and following appreciate ICU/medical assistance with patient Admission and Anticipated Discharge Date Admission Date: October 02, 2023 Subjective Patient resting in bed, appears fatigued. Reports + abd pain. Physical Exam Physical Exam: resting in bed, wearing oxymask, minimally conversant Respiratory: on oxymask Gastrointestinal (Abdomen): Inspection/Auscultation: + abdomen distended and + abdominal surgical incision (c/d/i with midline bella) Percussion/Palpation: + abdomen tender (appears in discomfort to palpation ) and abdomen soft Results & Data Vital Signs (Past 12 Hours) Vital Signs Temp Pulse Resp BP Pulse Ox O2 Del Method O2 Flow Rate 10/07/23 08:30 36.7 C 10/07/23 08:03 103 H 25 H 106/71 96 Oxymask 8 10/07/23 08:00 102 H 106/71 10/07/23 07:43 129 H 123/83 10/07/23 07:31 128 H 24 123/83 96 Oxymask 10 10/07/23 07:00 111 H 23 121/83 95 Oxymask 10 10/07/23 06:09 103 H 111/75 10/07/23 06:00 133/86 10/07/23 06:00 102 H 26 H 96 10 10/07/23 05:54 140 H 117/85 10/07/23 05:51 117/85 10/07/23 05:51 132 H 22 93 10/07/23 05:00 121 H 22 94 10 10/07/23 04:30 124/93 10/07/23 04:30 113 H 21 10/07/23 04:01 112 H 22 98 10/07/23 04:01 146/95 H 10/07/23 04:00 115 H 26 H 93 10 10/07/23 03:35 103 H 119/78 10/07/23 03:30 119/78 10/07/23 03:30 100 H 19 10/07/23 03:20 135 H 138/85 10/07/23 03:18 138/85 10/07/23 03:18 121 H 19 92 10/07/23 03:03 137 H 23 94 10/07/23 03:03 115/81 10/07/23 03:00 156/104 H 10/07/23 03:00 155 H 20 10 10/07/23 02:30 123 H 25 H 92 10 10/07/23 02:30 156/97 H 10/07/23 02:00 119 H 23 89 L 10 10/07/23 02:00 141/89 H 10/07/23 01:30 129/83 10/07/23 01:30 114 H 20 10/07/23 01:00 126 H 23 94 10 10/07/23 01:00 153/107 H 10/07/23 00:22 111 H 24 96 10/07/23 00:22 141/86 H 10/07/23 00:00 105 H 17 94 10 10/07/23 00:00 108 H 10/06/23 23:30 102 H 22 93 10 10/06/23 23:30 163/98 H 10/06/23 23:00 152/99 H 10/06/23 23:00 105 H 23 95 10 10/06/23 22:44 98 H 21 96 10/06/23 22:44 152/102 H 10/06/23 22:31 117 H 22 99 10/06/23 22:31 155/119 H 10/06/23 22:04 149/87 H 10/06/23 22:04 37.2 C 98 H 20 91 10/06/23 22:00 37.2 C 106 H 18 92 10 10/06/23 21:12 37.1 C 98 H 24 96 10 10/06/23 21:12 154/99 H 10/06/23 21:00 37.1 C 106 H 24 86 L 10 10/06/23 21:00 171/101 H PG Care Time/CCT Total # of Minutes Spent Total Time Spent with Patient: Total time spent is greater than 50% in coordination of care (as documented) at patient's floor/unit and/or counseling patient: Coding Level of Care Code 00796 Post Operative Follow-Up Diagnoses Perforated bowel K63.1
[2023-10-07] MEDS: PANTOprazole 40 MG in SYRINGE 0 ML IV SCH (10:00)
[2023-10-07] MEDS ORDERED: HYDROmorphone INJ 0.5 MG/0.5 ML SYR IV PRN ×2 (11:42→14:52)
[2023-10-07] MEDS ORDERED: LACTATED RINGER'S 1,000 ML IV SCH (11:45)
[2023-10-07 12:07] LABS: Base Excess VBG 16.2 mEq/L; HCO3 VBG 42 mmol/L; Oxygen Saturation VBG 81.5 %; PCO2 VBG 54 mmHg (38-50); PO2 VBG 49 mmHg
[2023-10-07] MEDS: ACETAMINOPHEN 1,000 MG/100 ML VIAL IV SCH ×2 (12:07→20:19)
[2023-10-07 13:24] VITALS: TEMP 98.6
--- NOTE | 2023-10-07 13:24 | Pharmacy Report ---
Pharmacy Glycemic Short Note 2 - Date of Service October 07, 2023 - Glycemic Short BSG Results (Last 24 hours): 10/06/23 10/06/23 10/06/23 16:01 19:41 23:53 Glucose POC Glucose 158 H 138 H 136 H 10/07/23 10/07/23 10/07/23 03:11 03:37 08:08 Glucose 153 H POC Glucose 162 H 182 H 10/07/23 12:12 Glucose POC Glucose 153 H OUTPATIENT ANTIDIABETIC REGIMEN: * N/a * A1c 6.1% 09/05/23 ASSESSMENT: 10/07: * Patient extubated yesterday afternoon, currently NPO, on heparin infusion, zosyn * BSGs [phone] mg/dL yesterday with 35 units of insulin (20 of basal) * Fasting this morning 182 mg/dL- will reduce PM scale as this was held last night * Continue to monitor for resumption of diet, BSG trend 10/06: * Patient remains intubated, on propofol, on heparin infusion * BSGs in high running 180-200 mg/dL; basal dose being titrated up. * Trickle feeds were initiated and then turned off today, spontaneous breathing trial 10/03: * Patient remains intubated, plan for filter placement today with DVT and unable to anticoagulate at this time. * BSGs have trended downward, still slightly above goal. Patient continues to have hypokalemia- being replaced. * Continue q4 checks while NPO, increase Lantus to 20 units this morning as fasting was 195 mg/dL with 20 units total yesterday. Scale for PM if needed 10/02 * Patient admitted with colon perforation, PMH includes new lung cancer diagnosis with mets to liver, pre-diabetes. * BSGs elevated upon arrival in the 300s, unable to utilize insulin infusion at this time d/t low potassium levels (<3.3), being repleted with repeat check at 1400 * Will utilize basal/bolus for now and initiate insulin infusion at later time if potassium improves and is still needed * Patient is currently NPO, q4H checks, only receiving dextrose from zosyn infusions PLAN FOR INPATIENT GLYCEMIC CONTROL: * Hold outpatient oral diabetes medications * Basal insulin * Lantus 10/15 units SQ per scale * Bolus insulin * NovoLog per scale ACHS or Q6hrs while NPO * Goal Range: Low 110 mg/dL - High 140 mg/dL * Correction Factor: 15 mg/dL/unit * Nutritional / Prandial insulin per carb ratio of 1 unit per 8 grams CHO consumed
[2023-10-07] MEDS ORDERED: GLYCOPYRROLATE 0.2 MG/ML VIAL IV PRN (14:52)
[2023-10-07] MEDS ORDERED: LORazepam 1 MG in SYRINGE 0.25 ML IV PRN (14:52)
[2023-10-07] MEDS ORDERED: ONDANSETRON INJ 2 MG/ML 2 ML VIAL IV PRN (14:52)
--- NOTE | 2023-10-07 15:02 | XRay Report ---
XR chest 1V portable HISTORY: hypoxia COMPARISON: Chest 10/06/2023. FINDINGS: Endotracheal tube has been removed. Nasogastric tube terminates below the diaphragm. The ti p is not included on this study. There are old, healed bilateral rib fractures. Patchy left perihilar airspace opacities persist. The heart remains mildly enlarged. Small bilateral pleural effusions are again noted. Progressive consolidation within the right lung base. This likely represents a combinat ion of the pleural effusion and collapse of the right lower and middle lobes. There is mild right med iastinal shift noted. IMPRESSION: 1. Progressive consolidation within the right lung base. This likely represents a combination of the small right pleural effusion and collapse of the right lower and middle lobes. Follow-up bronchoscopy should be considered to assess for the possibility of mucous plugging. 2. Patchy left perihilar airspace opacities persist. 3. The endotracheal tube is been removed. 4. Nasogastric tube terminates below the diaphragm. ACT 112: Negative or not required by law. Electronically signed by: Artie Wilkinson M.D. 10/07/2023 3:01 PM
[2023-10-07 15:34] VITALS: BP 119/78
--- NOTE | 2023-10-07 17:06 | Palliative Care Progress Note ---
Date of Service October 07, 2023 Assessment & Plan (1) Dyspnea and respiratory abnormalities: Plan: Progressive respiratory failure, now requiring BiPAP. He is approximately 24 hours postextubation. In earlier discussions with critical care, he indicated a preference to not be reintubated. Please see advance care planning discussion below with and patient together. (2) Constipation: (3) Weakness generalized: (4) Cancer related pain: (5) Advanced care planning/counseling discussion: Plan: Met with patient and his at the bedside. He is wearing BiPAP. He is able to answer yes/no questions and give a thumbs up for affirmative answers to confirm his yes no question. With his consent and his 's consent, and their voluntary participation, we proceeded to have a bedside [id number] advance care planning conversation for the next 45 minutes. We discussed CODE STATUS first. Patient indicated a clear preference he does not wish to have reintubation nor does he desire CPR. When asked if he wanted to allow a natural he answered yes and affirmatively confirm that with a thumbs up. When asked if he wanted to be placed on life support or breathing machine should he have more breathing problems he answered no. When asked if he wanted to have comfort focused care he answered yes. We discussed that he has a metastatic small cell carcinoma. Although there might have been chemotherapy options for him, he is currently not eligible for chemotherapy due to being postoperative with a midline abdominal incision, poor performance status, and infection. I as ked him if he wanted chemotherapy and he answered no. I asked him if he wanted cancer directed care other than chemotherapy such as surgery or radiation he answered no. I asked him if he wanted to be allowed to have a natural end-of-life process he answered yes. I asked him if he understood that we are choosing to transition to a comfort focused plan of care with quality of life and symptom management he answered yes. I asked him if he understood that there are multiple body systems now starting to dysfunction he answered yes. I asked him if he understood that this meant he may this admission in the hospital and he answered yes. I asked him if it would be okay to transition him to a comfort focused plan of care and should he stabilize, work to discharge him back home with the addition of hospice, he answered yes. His affirmed all of the above answers. (6) Palliative care by specialist: (7) Small cell carcinoma of lung metastatic to liver: Plan * A comfort plan of care has been initiated. We will stop all nonessential interventions, labs and testing. Medications to augment symptom management have been added. We will discontinue monitoring. We will transfer patient to a private room and allow family more liberal visitation. NG tube will remain in for now but we will allow him to take small sips clear liquids/ice pops etc. as tolerated for comfort and pleasure. We will advance his diet as he tolerates. * Ultimately, patient and his would like to see if he could return home. They understand his current oxygen needs limited our ability to help him return home with the addition of hospice however, should this improve in the next few days, then we will work quickly to transition him home with hospice. * Patient's needed her FMLA forms completed. She reports that she handed them into care management last week but these have not been completed for her and she is worried because her job requires them in order for her to have access to PTO donation. She is currently down to only 3 PTO days remaining and needs the forms filled out today, therefore we were able to locate the forms and I completed them for her and handed them to her directly. She will turn them into her employer later this afternoon. Thank you for allowing us to participate in the ongoing care of this patient. Please don't hesitate to call or page with any additional concerns. Dr. Anila Downing DNP Director, Palliative Care Admission and Anticipated Discharge Date Admission Date: October 02, 2023 Subjective Trung is having more resp effort, fatigue, decreased urine output which has not improved with IV Lasix and a fluid bolus. He is tachycardic and tachypneic at times, requiring BiPAP support. He still has abd pain with distension He feels SOB after minimal exertion Occ chest pressure but denies pain intermittent bronchitic cough Review of Systems Review of Systems: All systems reviewed & are unremarkable except as noted in Subjective Physical Exam Physical Exam: Lying in bed, BiPAP in place, awake and alert but tired. He is able to answer yes/no and give a thumbs up when answering affirmatively. He tires easily. + Plethora. He has an intermittent bronchitic cough. There are some mild bitemporal wasting noted. Pupils are equal, round and reactive to light. Pharynx is moist and dentition is fair. There is no obvious thrush. Neck is supple and without stridor. +tachypnea, on BiPAP, lungs diminished throughout with intermittent bronchitic cough. There is no wheezing. Tachy S1- S2. No gross JVD. Abdomen is distended. Midline incision intact. Dressing is clean dry and intact. Abdomen is firm to palpation. Bowel sounds are diminished. There are some grimacing and tenderness noted with palpation. Bilateral lower extremities with +2 edema. + Pitting. Upper extremities with +1 to +2 edema. Scattered ecchymoses. There are some cyanotic changes to the lower extremities. There is an open wound on the bottom of his right great toe with some ecchymoses and skin scraping. Results & Data Vital Signs (Past 12 Hours) Vital Signs Temp Pulse Resp BP Pulse Ox O2 Del Method O2 Flow Rate 10/07/23 15:00 128 H 24 119/78 95 BiPAP 10/07/23 14:16 118 H 27 H 97 10/07/23 12:54 130 H 26 H 97 10/07/23 12:30 122 H 19 106/74 92 Oxymask 15 10/07/23 12:30 37.0 C 10/07/23 11:00 123 H 22 114/81 96 Oxymask 13 10/07/23 10:03 123 H 26 H 103/68 90 Oxymask 8 10/07/23 09:00 107 H 27 H 108/75 94 10/07/23 08:30 36.7 C 10/07/23 08:03 103 H 25 H 106/71 96 Oxymask 8 10/07/23 08:00 Oxymask 8 10/07/23 08:00 102 H 106/71 10/07/23 07:43 129 H 123/83 10/07/23 07:31 128 H 24 123/83 96 Oxymask 10 10/07/23 07:00 111 H 23 121/83 95 Oxymask 10 10/07/23 06:09 103 H 111/75 10/07/23 06:00 133/86 10/07/23 06:00 102 H 26 H 96 10 10/07/23 05:54 140 H 117/85 10/07/23 05:51 117/85 10/07/23 05:51 132 H 22 93 10/07/23 05:00 121 H 22 94 10 FiO2 01/30/24 15:00 50 10/07/23 14:16 50 10/07/23 12:54 50 10/07/23 12:30 10/07/23 12:30 10/07/23 11:00 10/07/23 10:03 10/07/23 09:00 10/07/23 08:30 10/07/23 08:03 10/07/23 08:00 10/07/23 08:00 10/07/23 07:43 10/07/23 07:31 10/07/23 07:00 10/07/23 06:09 10/07/23 06:00 10/07/23 06:00 10/07/23 05:54 10/07/23 05:51 10/07/23 05:51 10/07/23 05:00 Laboratory Results data reviewed Diagnostic Findings data reviewed PG Care Time/CCT Total # of Minutes Spent Total Time Spent: 115 Total Time Spent with Patient: Total time spent is greater than 50% in coordination of care (as documented) at patient's floor/unit and/or counseling patient: I spent 115 minutes overall addressing this case: 15 min in medical data review/discussion with referring provider(s) and/or preparation for the visit 30 min in direct interaction with the patient/exam 45 min in Advance Care Planning/Goals of Care discussions as detailed above in note (must be >16min) 10 min in subsequent review and synthesis of assessment and plan 15 min communicating with other providers regarding the patient's case: nursing, care mgt, oncology, ccm, surgery and primary team Advanced Care Planning 51425 Advanced Care Planning Additional 30 Min [place] [address] SUB INP/OBS CARE 3/50MIN Patient Type Established History Comprehensive Exam Comprehensive Medical Decision Making High Complexity Diagnoses Dyspnea and respiratory abnormalities R06.00; R06.89 Other constipation K59.09 Constipation type: other constipation type Weakness generalized R53.1 Cancer related pain G89.3 Advanced care planning/counseling discussion Z71.89 Palliative care by specialist Z51.5 Small cell carcinoma of lung metastatic to liver C34.90; C78.7 Additional Codes Advanced Care Planning - 19264 Advanced Care Planning Additional 30 Min: 44502 Advanced Care Planning Additional 30 Min ([id number]) (2) Constipation Constipation type: other constipation type Qualified Code(s): K59.09 - Other constipation
[2023-10-07] MEDS: HYDROmorphone INJ 1 MG/ML SYRINGE IV PRN ×2 (20:19→22:14)
[2023-10-07] MEDS ORDERED: LORazepam 1 MG in SYRINGE 0.5 ML IV PRN (22:36)
--- NOTE | 2023-10-07 22:48 | Hospitalist Progress Note ---
Date of Service October 07, 2023 Assessment & Plan (1) Acute hypoxic respiratory failure: Plan: Pt presented with acute hypoxic respiratory failure and concern for perforated viscus ,taken to OR did not find perforation Remains sedated ventilated in ICU Lung mass in the hilar region and left lung nodules suggestive of lung cancer on CT scan 08/30/23 anemia and thrombocytopenia from possible cancer diagnosis postop acute blood loss anemia is also large concern this places risk for anticoagulation with newfound DVT as patient is a hypercoagulable state and significant risk for propagation subsequently Dr. Nick was consulted to place an IVC filter on 10/03/2023 Multiple comorbid conditions affecting the patient's outcome outcome is guarded at this time Patient remains intubated on 10/05 Patient has small cell lung cancer, poor prognosis. 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, transitioned to comfort measures on 10/07 (2) Atrial fibrillation and flutter: Plan: Initially required diltiazem gtt anticoagulation is contraindicated at this time with anemia and recent abdominal surgery thrombocytopenia and concern for blood loss DEMAND ISCHEMIA (3) Perforated viscus: Plan: remains on antibiotics vanco/Zosyn, surgery in the bowel multiple times and not finding overt place of viscus perforation concern for multiple liver masses, biopsy at [facility] for suspected perforation biopsy suggest metastatic small cell carcinoma (4) Morbid obesity: (5) Liver lesion: (6) Lung mass: (7) Sleep apnea: (8) Cigarette smoker: (9) Hypokalemia: Admission and Anticipated Discharge Date Admission Date: October 02, 2023 Subjective 63 yo male on bipap. Review of Systems Review of Systems: All systems reviewed & are unremarkable except as noted in HPI & below and Unobtainable due to cognitive status Physical Exam Physical Exam: Ventilated, off sedation, appears chronically ill Both legs have bruising and venous stasis changes right leg is significantly worse on the left Results & Data Results & Data Vital Signs (Past 12 Hours) Vital Signs Temp Pulse Resp BP Pulse Ox O2 Del Method O2 Flow Rate 10/07/23 18:45 115 H 23 95 10/07/23 15:00 128 H 24 119/78 95 BiPAP 10/07/23 14:16 118 H 27 H 97 10/07/23 12:54 130 H 26 H 97 10/07/23 12:30 122 H 19 106/74 92 Oxymask 15 10/07/23 12:30 37.0 C 10/07/23 11:00 123 H 22 114/81 96 Oxymask 13 FiO2 10/07/23 18:45 50 10/07/23 15:00 50 10/07/23 14:16 50 10/07/23 12:54 50 10/07/23 12:30 10/07/23 12:30 10/07/23 11:00 PG Care Time/CCT Total # of Minutes Spent Total Time Spent with Patient: Total time spent is greater than 50% in coordination of care (as documented) at patient's floor/unit and/or counseling patient: Coding Level of Care Code 31984 SUB INP/OBS CARE 2/35MIN Diagnoses Acute hypoxic respiratory failure J96.01 Atrial fibrillation and flutter I48.91; I48.92 Perforated viscus R19.8 Morbid obesity E66.01 Liver lesion K76.9 Lung mass R91.8 Sleep apnea G47.30 Cigarette smoker F17.210 Hypokalemia E87.6
[2023-10-08] MEDS: CHECK CLONIDINE PATCH PLACEMENT SCH (00:57)
[2023-10-08] MEDS: HYDROmorphone INJ 1 MG/ML SYRINGE IV PRN ×2 (00:57→03:21)
[2023-10-08] MEDS: ACETAMINOPHEN 1,000 MG/100 ML VIAL IV SCH (03:21)
[2023-10-08 05:20] VITALS: PULSE 107; RESP 16; O2SAT 96
--- NOTE | 2023-10-08 05:51 | Death Pronouncement Note ---
Date of Service October 08, 2023 Pronouncement Note Admission Date Admission Date: October 02, 2023 Date and Time of Date of : 10/08/23 Time of : 05:10 PCOD Preliminary cause of : Respiratory failure with hypoxia Contributing Factors (1) Acute hypoxic respiratory failure: (2) Atrial fibrillation and flutter: (3) Perforated viscus: (4) Morbid obesity: (5) Liver lesion: (6) Lung mass: (7) Sleep apnea: (8) Cigarette smoker: (9) Hypokalemia: Summary Additional details: I was called to pronounce the of Trung Downing (: 1960) by nursing on 10/08/23. Upon entering the room, patient was found to be in a terminal state. They were unresponsive to, and did not withdraw from, verbal or tactile stimuli. They were unresponsive to corneal, pupillary, and oculocephalic reflexes. On cardiopulmo nary exam, they were found to be without detectable carotid pulses, and without spontaneous heart tones or respirations. Time of was pronounced by me on at 05:10. Attending physician was notified. Next of kin was notified by Marixa Ma. I completed worksheet at time of pronouncement. Additional Data Attending physician: [place]
--- NOTE | 2023-10-08 09:00 | Discharge Summary ---
Date of Service October 08, 2023 Admission HPI Per Admitting Provider The patient is a 63-year-old male with a past medical history including history of venous thromboembolism, obesity hypoventilation syndrome, severe JAMIE, generalized edema, left lower extremity DVT, right sided pulmonary embolism, morbid obesity and chronic tobacco use. The patient has been in a workup for potential lung cancer, and was scheduled to see oncology on 10/02. With worsening symptoms as noted above, he presented to the ED for assessment. He was found to be in atrial fibrillation with RVR likely associated with hypokalemia and decreased intravascular volume, and CT scan of abdomen and pelvis suggested a colon perforation, for which patient is being taken emergently to the OR by Dr. Stevens. Discharge Exam examined by overnight resident. Discharge Data Allergies Allergy/AdvReac Type Severity Reaction Status Date / Time No Known Allergies Allergy Unverified 09/05/23 08:10 Consultations 10/02/23 01:53 ED Decision to Admit Stat 10/02/23 05:18 Consult Plate Washer Routine 10/02/23 06:28 Consult General Surgery Routine 10/02/23 13:42 Consult Oncology Routine 10/03/23 12:50 Consult Vascular Surgery Routine 10/04/23 02:31 Consult Palliative Care Routine 10/05/23 15:22 Consult Palliative Care Routine Procedures Performed Operation Date: 10/03/23 18:40 Actual Procedures p Insertion of Vena Cava Filter, Right Femoral Approach, Ultrasound Localization of Right Femoral Vein, Fluoroscopy for positioning. (Right) - Shankar Nick MD Ordered Studies 10/02/23 00:41 CT Abdomen and Pelvis [CT abd pelvis wo con] Stat 10/03/23 08:11 US venous doppler LE BI Stat 10/03/23 10:54 CT angio abdomen pelvis w con Stat 10/03/23 13:15 EV IVC filter placement Urgent 10/05/23 10:15 CT angio chest PE protocol Stat MRI Brain [MR brain wo con] Urgent Diabetes Follow up Diabetes Follow-up Needed for Newly Diagnosed Diabetes Hospital Course (1) Acute hypoxic respiratory failure: Pt presented with acute hypoxic respiratory failure and concern for perforated viscus ,taken to OR did not find perforation Remains sedated ventilated in ICU Lung mass in the hilar region and left lung nodules suggestive of lung cancer on CT scan 08/30/23 anemia and thrombocytopenia from possible cancer diagnosis postop acute blood loss anemia is also large concern this places risk for anticoagulation with newfound DVT as patient is a hypercoagulable state and significant risk for propagation subsequently Dr. Ncik was consulted to place an IVC filter on 10/03/2023 Multiple comorbid conditions affecting the patient's outcome outcome is guarded at this time Patient remains intubated on 10/05 Patient has small cell lung cancer, poor prognosis. 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 on bipsap, transitioned to comfort measures on 10/07 (2) Atrial fibrillation and flutter: Initially required diltiazem gtt anticoagulation is contraindicated at this time with anemia and recent abdominal surgery thrombocytopenia and concern for blood loss DEMAND ISCHEMIA (3) Perforated viscus: remains on antibiotics vanco/Zosyn, surgery in the bowel multiple times and not finding overt place of viscus perforation concern for multiple liver masses, biopsy at [facility] for suspected perforation biopsy suggest metastatic small cell carcinoma (4) Morbid obesity: (5) Liver lesion: (6) Lung mass: (7) Sleep apnea: (8) Cigarette smoker: (9) Hypokalemia: Discharge Plan Discharge Items Patient Disposition: Other Date/Time: 10/08/23 05:15 Coding Diagnoses Acute hypoxic respiratory failure J96.01 Atrial fibrillation and flutter I48.91; I48.92 Perforated viscus R19.8 Morbid obesity E66.01 Liver lesion K76.9 Lung mass R91.8 Sleep apnea G47.30 Cigarette smoker F17.210 Hypokalemia E87.6
== END 2023-10-08 07:39 | disposition expired | DRG 356 ==
LOC: ED 00:23 → OR 03:10 → 1E 03:14 → SUATTDRO 03:14 → 1E 06:13 → 3E 10-07 18:59